=== PATIENT | female | born 1980 | race Caucasian/White ===

== ENCOUNTER 2019-12-03 17:39 | Outpatient (REF) | payer MEDICARE, MEDICAID, SELFPAY ==
[2019-12-03 19:09] LABS: Abs Immature Grans 0.01 k/cumm (0.0-0.09); Absolute Basophil Count 0.01 k/cumm (0.0-0.2); Absolute Eosinophil Count 0.12 k/cumm (0.0-0.7); Absolute Monocyte Count 0.47 k/cumm (0.11-0.7); Absolute Neutrophil Count 5.39 k/cumm (1.2-6.7); Basophils % 0.1; Eosinophils % 1.3; HGB 14.7 g/dL (12.0-15.5); Immature Grans % 0.1 %; Lymphocytes % 34.1; Mean Corp. HGB Concentration 34.2 g/dL (32.0-36.0); Mean Corpuscular Hemoglobin 30.9 pg (27.0-33.0); Mean Corpuscular Volume 90.3 fL (80-95); Mean Platelet Volume 9.9 fL (8.0-11.0); Monocytes % 5.2; Neutrophils % 59.2; Platelet Count 259 x1000/uL (130-400); RBC 4.76 m/cumm (4.00-5.20); RBC Distribution Width 13.4 % (11.7-14.6)
[2019-12-03 19:35] LABS: FREE T4 0.92 ng/dL (0.76-1.46); TSH 2.34 uIU/mL (0.36-3.74)
[2019-12-06 10:43] LABS: Thyroperoxidase Antibody 38 U/mL (<=60)
[2019-12-06 11:23] LABS: HIV-1/2 Ag & Ab Screen Negative (Negative)
[2019-12-06 12:26] LABS: EBNA IgG Positive (Negative); EBV Interpretation (See Note); VCA IgG Positive (Negative); VCA IgM Negative (Negative)
== END 2019-12-03 17:59 ==
LOC: NCHCN 17:39
PROVIDERS: PCP Internal Medicine; Visit Provider Internal Medicine
DX: L98.1 Factitial dermatitis (principal); L50.9 Urticaria, unspecified; R20.0 Anesthesia of skin; Z11.4 Encounter for screening for human immunodeficiency virus [HIV]
CPT/HCPCS: 87389; 84439; 84443; 85025; 86376; 86664; 86665

== ENCOUNTER 2020-06-14 18:13 | Outpatient (REF) | payer MEDICARE, MEDICAID, SELFPAY ==
[2020-06-16 08:37] LABS: C Difficile PCR Positive (Negative)
== END 2020-06-14 18:33 ==
LOC: NCHCN 18:13
PROVIDERS: PCP Internal Medicine; Visit Provider Internal Medicine
DX: R19.7 Diarrhea, unspecified (principal)
CPT/HCPCS: 83630; 87798

== ENCOUNTER 2020-10-20 17:36 | Outpatient (REF) | payer MEDICARE, MEDICAID, SELFPAY ==
[2020-10-21 19:32] LABS: COVID-19 RT-PCR Result NEGATIVE (Negative)
== END 2020-10-20 17:56 ==
LOC: NCHCN 17:36
PROVIDERS: PCP Internal Medicine; Visit Provider Physician Assistant
DX: R06.02 Shortness of breath (principal); M79.18 Myalgia, other site
CPT/HCPCS: U0003

== ENCOUNTER 2020-10-23 19:36 | Outpatient (REF) | payer MEDICARE, MEDICAID, SELFPAY ==
[2020-10-25 16:30] LABS: COVID-19 RT-PCR UVMMC Result Negative (Negative)
== END 2020-10-23 19:56 ==
LOC: NCHCN 19:36
PROVIDERS: PCP Internal Medicine; Visit Provider Internal Medicine
DX: M79.18 Myalgia, other site (principal)
CPT/HCPCS: U0003

== ENCOUNTER 2021-01-22 19:12 | Outpatient (REF) | payer MEDICARE, MEDICAID, SELFPAY ==
[2021-01-23 00:52] LABS: COVID-19 RT-PCR UVMMC Result Negative (Negative)
== END 2021-01-22 19:13 | disposition home or self-care (01) ==
LOC: NCHCN 19:12
PROVIDERS: PCP Internal Medicine; Visit Provider Physician Assistant
DX: Z20.822 Contact with and (suspected) exposure to COVID-19 (principal); R05 Cough
CPT/HCPCS: U0003; U0005

== ENCOUNTER 2021-01-26 18:32 | Outpatient (REF) | payer MEDICARE, MEDICAID, SELFPAY ==
[2021-01-26 20:04] LABS: HCT 43.8 % (36.0-46.0); HGB 14.7 g/dL (11.2-15.7); MCH 29.9 pg (27.0-33.0); MCHC 33.6 % (32.0-36.0); MCV 89.2 fL (80-95); MPV 9.9 fL (8.0-11.0); Platelet Count 282 10^3/uL (130-400); RBC 4.91 10^6/uL (3.93-5.22); RDW 13.3 % (11.7-14.6); RDW-SD 43.8 fL; WBC 7.36 10^3/uL (4.4-10.8)
[2021-01-26 20:32] LABS: Anion Gap 11.8 mmol/L (3-11); BUN 18 mg/dL (7-18); CO2 23.2 mmol/L (21.0-32.0); CREATININE 0.8 mg/dL (0.55-1.02); Calcium 8.9 mg/dL (8.5-10.1); Chloride 103 mmol/L (98-107); Glucose 88 mg/dL (74-106); Potassium 4.3 mmol/L (3.5-5.1); Sodium 138 mmol/L (136-145)
[2021-01-26 20:37] LABS: D-Dimer 346 ng/mlFEU (<500)
[2021-01-26 21:50] LABS: Hemoglobin A1C 4.8 % (<5.7)
== END 2021-01-26 18:33 | disposition home or self-care (01) ==
LOC: NCHCN 18:32
PROVIDERS: PCP Internal Medicine; Visit Provider Internal Medicine
DX: I26.99 Other pulmonary embolism without acute cor pulmonale (principal); B96.89 Other specified bacterial agents as the cause of diseases classified elsewhere; L08.1 Erythrasma; E66.9 Obesity, unspecified; R79.89 Other specified abnormal findings of blood chemistry
CPT/HCPCS: 80048; 85027; 83036; 85379

== ENCOUNTER 2021-08-17 11:40 | Outpatient (REF) | payer MEDICARE, MEDICAID, SELFPAY ==
[2021-08-19 14:31] LABS: COVID-19 RT-PCR UVMMC Result Negative (Negative)
[2021-08-20 09:49] LABS: Hepatitis C Ab w Rflx HCV PCR Negative (Negative)
[2021-08-20 10:09] LABS: Hepatitis B Surface Ag Negative (Negative)
[2021-08-20 10:55] LABS: HIV-1/2 Ag & Ab Screen Negative (Negative)
[2021-08-20 12:27] LABS: Syphilis Serology (RPR) Negative (Negative)
[2021-08-20 15:20] LABS: Chlamydia Result Negative (Negative); GC Result Negative (Negative)
== END 2021-08-17 11:41 | disposition home or self-care (01) ==
LOC: NCHCN 11:40
PROVIDERS: PCP Internal Medicine; Visit Provider Physician Assistant
DX: Z20.822 Contact with and (suspected) exposure to COVID-19 (principal); Z11.4 Encounter for screening for human immunodeficiency virus [HIV]; R30.0 Dysuria; Z11.3 Encounter for screening for infections with a predominantly sexual mode of transmission; Z11.59 Encounter for screening for other viral diseases; N89.8 Other specified noninflammatory disorders of vagina; Z01.419 Encounter for gynecological examination (general) (routine) without abnormal findings
CPT/HCPCS: 86803; 87340; 87389; 87491; 87591; U0003; 86592; 87480; 87510; 87660

== ENCOUNTER 2021-09-17 11:42 | Outpatient (REF) | payer MEDICARE, MEDICAID, SELFPAY ==
[2021-09-19 17:18] LABS: COVID-19 RT-PCR UVMMC Result Negative (Negative)
== END 2021-09-17 11:43 | disposition home or self-care (01) ==
LOC: NCHCN 11:42
PROVIDERS: PCP Internal Medicine; Visit Provider Nurse Practitioner Family
DX: Z20.822 Contact with and (suspected) exposure to COVID-19 (principal); J06.9 Acute upper respiratory infection, unspecified
CPT/HCPCS: U0003

== ENCOUNTER 2021-10-17 16:40 | Outpatient (REF) | payer MEDICARE, MEDICAID, SELFPAY ==
[2021-10-17 20:28] LABS: Bilirubin Negative (Negative); Blood Negative (Negative); Clarity Clear (Clear); Glucose Negative (Negative); Ketones Negative (Negative); Leukocyte Esterase Negative (Negative); Nitrite Negative (Negative); Specific Gravity >= 1.030 (1.005-1.025); Urobilinogen 0.2 EU/dL (Up TO 0.2)
== END 2021-10-17 16:41 | disposition home or self-care (01) ==
LOC: NCHCN 16:40
PROVIDERS: PCP Internal Medicine; Visit Provider Nurse Practitioner Family
DX: N89.8 Other specified noninflammatory disorders of vagina (principal)
CPT/HCPCS: 81003; 87480; 87510; 87660

== ENCOUNTER 2021-10-22 18:14 | Outpatient (REF) | payer MEDICARE, MEDICAID, SELFPAY ==
[2021-10-22 20:54] LABS: HCT 44.7 % (36.0-46.0); HGB 14.8 g/dL (11.2-15.7); MCHC 33.1 % (32.0-36.0); MCV 87.5 fL (80-95); MPV 9.8 fL (8.0-11.0); Platelet Count 297 10^3/uL (130-400); RBC 5.11 10^6/uL (3.93-5.22); RDW 13.2 % (11.7-14.6); RDW-SD 42.4 fL; WBC 7.44 10^3/uL (4.4-10.8)
[2021-10-22 21:10] LABS: ALT 32 U/L (14-59); AST 23 U/L (15-37); Albumin 3.4 g/dL (3.4-5.0); Alkaline Phosphatase 59 U/L (46-116); Anion Gap 9.1 mmol/L (3-11); BUN 12 mg/dL (7-18); Bilirubin, Total 0.3 mg/dL (0.2-1.0); C-Reactive Protein 0.22 mg/dL (0.0-0.3); CO2 26.9 mmol/L (21.0-32.0); Calcium 9.3 mg/dL (8.5-10.1); Chloride 101 mmol/L (98-107); Glucose 89 mg/dL (74-106); Potassium 4.6 mmol/L (3.5-5.1); Sodium 137 mmol/L (136-145); Total Protein 7.3 g/dL (6.4-8.2)
== END 2021-10-22 18:15 | disposition home or self-care (01) ==
LOC: NCHCN 18:14
PROVIDERS: PCP Internal Medicine; Visit Provider Internal Medicine
DX: Z86.16 Personal history of COVID-19 (principal); N76.1 Subacute and chronic vaginitis; L40.3 Pustulosis palmaris et plantaris
CPT/HCPCS: 80053; 85027; 86140

== ENCOUNTER 2021-10-25 10:35 | Emergency (ER) | payer MEDICARE, MEDICAID, SELFPAY ==
[2021-10-25] VITALS (8 sets, daily range): BP systolic 120–142; BP diastolic 80–95; PULSE 62–92; RESP 15–24; TEMP 36.5; O2SAT 100
--- NOTE | 2021-10-25 10:30 | RT.EKG_ITS ---
APPROVED REPORT Exam: Resting ECG Reason for Exam: pain between shoulder blades Patient Location: E HR:65 bpm ECG Measurements Heart Rate 65 AXIS TN 141 P 32 QRSd 97 QRS 72 QT 426 T 64 QTc 442 Conclusion Sinus rhythm...normal P axis, V-rate 60- 99 age<55 Physician: no stemi. inverted t waves in v1 and v2
--- NOTE | 2021-10-25 11:06 | DI.CT_ITS ---
Exam(s) CT CHEST PE CTA EXAM: CT CHEST PE CTA CLINICAL HISTORY: Shortness of breath, back pain. TECHNIQUE: Imaging Protocol: Axial CT angiography was performed with multi-slice acquisition and mu lti-planar and/or 3D reconstructions. CONTRAST MATERIAL: Intravenous: Omnipaque 350 Contrast volume: 99 ml COMPARISON: No exams were available for comparison FINDINGS: Exam is mildly limited by streak artifact from dense contrast entering the SVC and in the right atriu m. Exam mildly limited by patient body habitus. Pulmonary Arteries: No evidence of filling defect to suggest pulmonary emboli. Tracheobronchial tree: Patent where visualized. Mediastinum and Angela: No dominant adenopathy or fluid collection. Pulmonary parenchyma: Somewhat limited evaluation due to respiratory motion. No consolidation or dom inant measurable mass. Pleura: No effusion or pneumothorax. Heart: The heart is not dilated. No coronary artery calcifications are seen. Aorta: Thoracic aorta non-dilated. No aneurysm. No dissection. Upper abdomen: Unremarkable. Bones: Unremarkable for age. IMPRESSION: No evidence of pulmonary embolism. No acute abnormality. RADIATION DOSE DELIVERED: Total DLP DATA REPOSITORY: All CT scans at this facility are submitted to the National Radiology Data Registry (NRDR) Dose Index Registry (DIR) with the [employer] (ACR). RADIATION OPTIMIZATION: All CT scans at this facility use at least one of these dose optimization te chniques: automated exposure control; mA and/or kV adjustment per patient size (includes targeted exa ms where dose is matched to clinical indication); or iterative reconstruction.
[2021-10-25 11:21] LABS: Abs Immature Grans 0.03 10^3/uL (0.0-0.06); Absolute Basophil Count 0.05 10^3/uL (0.0-0.2); Absolute Eosinophil Count 0.18 10^3/uL (0.0-0.7); Absolute Lymphocyte Count 3.16 10^3/uL (1.2-3.4); Absolute Monocyte Count 0.44 10^3/uL (0.1-0.8); Absolute Neutrophil Count 4.33 10^3/uL (1.2-6.7); Basophils % 0.6; Eosinophils % 2.2; HCT 46.1 % (36.0-46.0); HGB 15.2 g/dL (11.2-15.7); Immature Grans % 0.4; Lymphocytes % 38.6; MCH 28.8 pg (27.0-33.0); MCV 87.5 fL (80-95); MPV 9.2 fL (8.0-11.0); Monocytes % 5.4; Neutrophils % 52.8; Nucleated RBC 0 %; Platelet Count 294 10^3/uL (130-400); RBC 5.27 10^6/uL (3.93-5.22); RDW 13.2 % (11.7-14.6); RDW-SD 42.6 fL; WBC 8.19 10^3/uL (4.4-10.8)
[2021-10-25 11:36] LABS: ALT 45 U/L (14-59); AST 28 U/L (15-37); Albumin 3.4 g/dL (3.4-5.0); Alkaline Phosphatase 65 U/L (46-116); Anion Gap 8.2 mmol/L (3-11); BUN 14 mg/dL (7-18); Bilirubin, Total 0.4 mg/dL (0.2-1.0); CO2 23.8 mmol/L (21.0-32.0); Calcium 8.9 mg/dL (8.5-10.1); Chloride 101 mmol/L (98-107); Glucose 90 mg/dL (74-106); Magnesium 2.1 mg/dL (1.8-2.4); Potassium 4.1 mmol/L (3.5-5.1); Sodium 133 mmol/L (136-145); Total Protein 7.9 g/dL (6.4-8.2); Troponin I < 50 ng/L (<or=60)
[2021-10-25] MEDS: Ondansetron 4 MG/2 ML VIAL IVP (11:40)
[2021-10-25] MEDS: Normal Saline 500 ML IV (11:40)
[2021-10-25] MEDS: Normal Saline Flush 10 ML SYR IVP (11:56)
[2021-10-25] MEDS: Omnipaque 350 MG/ML 100 ML BTL IJ (12:17)
--- NOTE | 2021-10-25 12:33 | ED.GENADUL_ITS ---
Discharge Plan Disposition Patient Disposition: HOME Condition: Stable Discharge Details Clinical Impression: Acute bilateral thoracic back pain, History of COVID-19, Dyspnea Primary Care Provider: Parish Mason ED Provider: Akira Casiano Home Meds and New Rx's Prescriptions: New cyclobenzaprine 10 mg tablet 10 mg PO TID PRN (Reason: muscle spasm) Qty: 15 RF: 0 diclofenac potassium 50 mg tablet 50 mg PO TID PRN (Reason: pain) Qty: 15 RF: 0 Continued metronidazole 0.75 % gel 1 applic VAGINAL DAILY RF: 0 trazodone 100 mg tablet 100 mg PO HS RF: 0 betamethasone valerate 0.1 % cream 1 applic TOPICAL Q2D RF: 0 ropinirole 2 mg tablet 4 mg PO HS RF: 0 methylphenidate HCl 20 mg tablet extended release 20 mg PO BID RF: 0 hydroxyzine HCl 25 mg tablet 50 mg PO HS RF: 0 ondansetron 4 mg tablet,disintegrating 4 mg PO Q6H PRN PRNRF: 0 Discharge Instructions Instructions: Dyspnea (ED), Back Pain (ED) Additional Instructions: Continue to monitor your symptoms and if you notice any new or worsening symptoms please return to the emergency department. Otherwise take medication as prescribed and follow-up with your primary care provider for reassessment. While on the prescribed pain medication please do not take any further NSAIDs which include ibuprofen, Motrin, aspirin, or Aleve. Referrals: Parish Mason [Primary Care Provider] - 1 week Discharge Data Discharge Date/Time-TO BE ENTERED AT DEPARTURE: 10/25/21 13:11 Medical Decision Making Patient presenting to the emergency department for chief complaint of back pain and shortness of breath. Patient reports symptoms of shortness of breath started with recent COVID diagnosis at the end of September and have persisted even after receiving monoclonal antibodies. She states over the last 3 to 4 days that she has had significant and severe worsening back pain between her shoulder blades. Patient denies fever chills, syncope, palpitations. Physical exam shows tenderness to soft tissue palpation of the paraspinal tissue of the posterior thoracic spine and the parascapular area. This also worsens with movement of the upper extremities. Exam is otherwise nondiagnostic. Given patient's recent COVID diagnosis with shortness of breath and severe back pain with lack of improvement plan to do labs and radiological imaging. Pending results patient given analgesic. Please see physician record of EKG interpretation which is nondiagnostic at this point but shows no signs of STEMI. Review of labs is reassuring and also is nondiagnostic. Spoke with radiologist in regards to CT imaging of chest for evaluation of shortness of breath with back pain. Radiologist noted no signs of PE, aortic dissection, and states overall unremarkable exam for acute processes. Patient reassessed and continues to have discomfort. After further discussion with patient she has been extremely sedentary throughout this process. Which may be contributing to musculoskeletal type pain. Patient is obese which is also contributing factor. Patient placed up on NSAIDs and muscle relaxers and recommended follow-up with primary care provider for reassessment. Also of consideration is potential long-haul COVID symptoms and this was discussed with patient. Her vital signs are stable and shows no hypoxia so I do feel that she is safe for discharge. After discussion of diagnosis and plan of care patient has no further needs, questions, or concerns and states clear understanding to return to the emergency department for any worsening symptoms. Lab Data Lab results reviewed: Yes I reviewed the patient's lab results. Labs: Laboratory Tests Range/Units 10/25/21 10/25/21 11:00 11:00 WBC (4.4-10.8) 10^3/uL 8.19 RBC (3.93-5.22) 10^6/uL 5.27 H Hgb (11.2-15.7) g/dL 15.2 Hct (36.0-46.0) % 46.1 H MCV (80-95) fL 87.5 MCH (27.0-33.0) pg 28.8 MCHC (32.0-36.0) % 33.0 RDW (11.7-14.6) % 13.2 Plt Count (130-400) 10^3/uL 294 MPV (8.0-11.0) fL 9.2 Immature Gran % 0.4 Neutrophils % 52.8 Lymphocytes % 38.6 Monocytes % 5.4 Eosinophils % 2.2 Basophils % 0.6 Nucleated RBC % % 0 Absolute Neutrophils (1.2-6.7) 10^3/uL 4.33 Absolute Lymphocytes (1.2-3.4) 10^3/uL 3.16 Absolute Monocytes (0.1-0.8) 10^3/uL 0.44 Absolute Eosinophils (0.0-0.7) 10^3/uL 0.18 Absolute Basophils (0.0-0.2) 10^3/uL 0.05 Sodium (136-145) mmol/L 133 L Potassium (3.5-5.1) mmol/L 4.1 Chloride (98-107) mmol/L 101 Carbon Dioxide (21.0-32.0) mmol/L 23.8 Anion Gap (3-11) mmol/L 8.2 BUN (7-18) mg/dL 14 Creatinine (0.55-1.02) mg/dL 1.0 Estimated GFR/1.73 m2 (mL/min/1.73m2) >= 60.00 Glucose (74-106) mg/dL 90 Calcium (8.5-10.1) mg/dL 8.9 Magnesium (1.8-2.4) mg/dL 2.1 Total Bilirubin (0.2-1.0) mg/dL 0.4 AST (15-37) U/L 28 ALT (14-59) U/L 45 Alkaline Phosphatase (46-116) U/L 65 Troponin I (<or=60) ng/L < 50 Total Protein (6.4-8.2) g/dL 7.9 Albumin (3.4-5.0) g/dL 3.4 HPI General Mode of arrival: ambulatory . Date/Time Provider Initiated Documentation: 10/25/21 10:36 . Limitations to Documentation: no limitations . Information obtained by: patient . History of Present Illness 41 year old F presents to the emergency department with the chief complaint of Back pain, described as severe, with intensity rated at 9. Quality is described as aching, sharp and constant, and is localized to the back. Patient reports no radiation. Patient started experiencing this day(s) (4) and it has been constant. Rest improves symptom(s), Movement worsens symptoms . Patient notes malaise and shortness of breath. Patient did receive the following treatments prior to arrival, none Related Data Home Medications Medication Instructions Recorded Confirmed betamethasone valerate 1 applic TOPICAL Q2D 10/25/21 10/25/21 cyclobenzaprine 10 mg PO TID PRN #15 tab 10/25/21 diclofenac potassium 50 mg PO TID PRN #15 tab 10/25/21 hydroxyzine HCl 50 mg PO HS 10/25/21 10/25/21 methylphenidate HCl 20 mg PO BID 10/25/21 10/25/21 metronidazole 1 applic VAGINAL DAILY 10/25/21 10/25/21 ondansetron 4 mg PO Q6H PRN PRN 10/25/21 10/25/21 ropinirole 4 mg PO HS 10/25/21 10/25/21 trazodone 100 mg PO HS 10/25/21 10/25/21 Previous Rx's Medication Instructions Recorded cyclobenzaprine 10 mg PO TID PRN #15 tab 10/25/21 diclofenac potassium 50 mg PO TID PRN #15 tab 10/25/21 Allergies Allergy/AdvReac Type Severity Reaction Status Date / Time No Known Drug Allergies Allergy Unverified 10/25/21 10:49 General Stated Complaint: SOB SAGAR: 2 Review of Systems Constitutional Constitutional: Denies chills, Denies fever(s) and Reports malaise Cardiovascular Cardiovascular: Denies chest pain, Denies palpitations, Reports dyspnea and Reports dyspnea on exertion Respiratory Respiratory: Denies cough, Reports dyspnea and Reports dyspnea on exertion Gastrointestinal Gastrointestinal: Denies abdominal pain, Denies change in bowel habits, Denies diarrhea, Denies nausea and Denies vomiting Genitourinary Genitourinary: Denies urinary incontinence Musculoskeletal Musculoskeletal: Reports as per HPI, Reports back pain (Scapular) and Reports myalgias Neurologic Neurologic: Denies sensory deficit Endocrine Endocrine: Denies palpitations PFSH All Active Problems (Updated 10/25/21 @ 12:36 by Akira Casiano NP) Acute bilateral thoracic back pain (Acute) History of COVID-19 (Acute) Dyspnea (Acute) Medical History (Updated 10/25/21 @ 12:36 by Akira Casiano NP) Depression HX SUBSTANCE ABUSE PID (Chlamydia) [employer] Surgical History section x2 Endoscopic Carpal Tunnel release (09/02/13) Trigger Finger release (09/02/13) LMF Social History Smoking/Tobacco Use Status: Current every day Tobacco Type: cigarettes Smoking risk assessment performed?: Yes Alcohol Intake: never Drug use: Daily Substance use type: marijuana Do you feel safe at home: Yes Do you feel safe in your relationship?: Yes Exam Const General: cooperative, anxious, not diaphoretic and not ill appearing Nutritional Appearance: obese Orientation: alert, awake and oriented x3 Limitations: mental status not altered Neck Neck: normal visual inspection, full ROM, trachea midline, supple and no anterior neck swelling Carotids: normal carotid upstroke and no bruits Chest Chest: normal inspection of the chest Resp Effort & Inspection: normal respiratory effort and able to speak in complete sentences Auscultation: clear to auscultation bilaterally Cardio Jugular venous pressure: no JVD Palpation: normal PMI Rate: regular rate Rhythm: regular rhythm Heart Sounds: S1 normal, S2 normal, no click, no gallops, no murmurs and no rubs Bruits: no abdominal aortic bruits and no carotid bruits Pulses: radial pulses present bilaterally 2+ Back/Spine/Pelvis Cervical Spine: normal cervical lordosis, cervical ROM normal, No cervical muscular tenderness and No cervical spinal tenderness Thoracic/Lumbar Spine: paraspinal tenderness (Bilateral extending to scapular region) Skin General skin exam: no rashes or lesions noted Neuro General: patient alert, patient awake, patient oriented x3, tone normal and moves all extremities Course Vital Signs Vital signs: Vital Signs Temperature 36.5 C 10/25/21 10:41 Pulse 77 10/25/21 10:41 Respiratory Rate 24 10/25/21 10:41 Blood Pressure 142/80 H 10/25/21 10:41 Pulse Oximetry 100 10/25/21 10:41 Temperature 36.5 C 10/25/21 10:41 Temperature Source Temporal Artery Scan 10/25/21 10:41 Pulse 92 H 10/25/21 11:00 Pulse 73 10/25/21 11:01 Respiratory Rate 20 10/25/21 11:01 Respiratory Effort 10/25/21 10:48 Blood Pressure 120/95 H 10/25/21 11:00 Blood Pressure Mean 101 10/25/21 11:00 Pulse Oximetry 100 10/25/21 11:01 Oxygen Delivery Method Room Air 10/25/21 10:41 Oxygen Flow Rate 0 10/25/21 10:41 Pain Level 10 10/25/21 10:41 Lab/Test Results Lab/Test Results: Laboratory Tests Range/Units 10/25/21 10/25/21 11:00 11:00 WBC (4.4-10.8) 10^3/uL 8.19 RBC (3.93-5.22) 10^6/uL 5.27 H Hgb (11.2-15.7) g/dL 15.2 Hct (36.0-46.0) % 46.1 H MCV (80-95) fL 87.5 MCH (27.0-33.0) pg 28.8 MCHC (32.0-36.0) % 33.0 RDW (11.7-14.6) % 13.2 Plt Count (130-400) 10^3/uL 294 MPV (8.0-11.0) fL 9.2 Immature Gran % 0.4 Neutrophils % 52.8 Lymphocytes % 38.6 Monocytes % 5.4 Eosinophils % 2.2 Basophils % 0.6 Nucleated RBC % % 0 Absolute Neutrophils (1.2-6.7) 10^3/uL 4.33 Absolute Lymphocytes (1.2-3.4) 10^3/uL 3.16 Absolute Monocytes (0.1-0.8) 10^3/uL 0.44 Absolute Eosinophils (0.0-0.7) 10^3/uL 0.18 Absolute Basophils (0.0-0.2) 10^3/uL 0.05 Sodium (136-145) mmol/L 133 L Potassium (3.5-5.1) mmol/L 4.1 Chloride (98-107) mmol/L 101 Carbon Dioxide (21.0-32.0) mmol/L 23.8 Anion Gap (3-11) mmol/L 8.2 BUN (7-18) mg/dL 14 Creatinine (0.55-1.02) mg/dL 1.0 Estimated GFR/1.73 m2 (mL/min/1.73m2) >= 60.00 Glucose (74-106) mg/dL 90 Calcium (8.5-10.1) mg/dL 8.9 Magnesium (1.8-2.4) mg/dL 2.1 Total Bilirubin (0.2-1.0) mg/dL 0.4 AST (15-37) U/L 28 ALT (14-59) U/L 45 Alkaline Phosphatase (46-116) U/L 65 Troponin I (<or=60) ng/L < 50 Total Protein (6.4-8.2) g/dL 7.9 Albumin (3.4-5.0) g/dL 3.4 POC- Test(urine) Negative
== END 2021-10-25 13:11 | disposition home or self-care (01) ==
PROVIDERS: Emergency Provider Nurse Practitioner Family; PCP Internal Medicine
DX: M54.6 Pain in thoracic spine (principal); Z86.16 Personal history of COVID-19; R06.00 Dyspnea, unspecified; R06.02 Shortness of breath
CPT/HCPCS: 36415; 71275; 80053; 81025; 93005; 96361; 96374; 96375; 99285; 83735; 84484; 85025; 93010; 99284; J2405; J3490

== ENCOUNTER 2022-10-17 11:17 | Outpatient (REF) | payer MEDICARE, MEDICAID, SELFPAY ==
[2022-10-17 19:01] LABS: ALT 16 U/L (14-59); AST 20 U/L (15-37); Albumin 3.4 g/dL (3.4-5.0); Alkaline Phosphatase 67 U/L (46-116); Anion Gap 7.2 mmol/L (3-11); BUN 12 mg/dL (7-18); Bilirubin, Total 0.5 mg/dL (0.2-1.0); CO2 25.8 mmol/L (21.0-32.0); CREATININE 0.9 mg/dL (0.55-1.02); Calcium 8.9 mg/dL (8.5-10.1); Chloride 104 mmol/L (98-107); Estimated GFR 82.37 (mL/min/1.73m2); Glucose 96 mg/dL (74-106); Potassium 4.1 mmol/L (3.5-5.1); Sodium 137 mmol/L (136-145); Total Protein 7.2 g/dL (6.4-8.2)
[2022-10-17 19:57] LABS: Hemoglobin A1C 5.1 % (<5.7)
== END 2022-10-17 11:18 | disposition home or self-care (01) ==
LOC: NCHCN 11:17
PROVIDERS: PCP Internal Medicine; Visit Provider Internal Medicine
DX: R73.03 Prediabetes (principal); K76.0 Fatty (change of) liver, not elsewhere classified
CPT/HCPCS: 80053; 83036

== ENCOUNTER 2022-11-27 16:09 | Outpatient (REF) | payer MEDICARE, MEDICAID, SELFPAY ==
[2022-11-29 10:11] LABS: Hepatitis C Ab w Rflx HCV PCR Negative (Negative)
[2022-11-29 10:23] LABS: HIV-1/2 Ag & Ab Screen Negative (Negative)
[2022-11-29 11:45] LABS: Syphilis Serology (RPR) Negative (Negative)
[2022-11-29 13:35] LABS: Chlamydia Result Negative (Negative); GC Result Negative (Negative)
== END 2022-11-27 16:10 | disposition home or self-care (01) ==
LOC: NCHCN 16:09
PROVIDERS: PCP Internal Medicine; Visit Provider Internal Medicine
DX: Z11.3 Encounter for screening for infections with a predominantly sexual mode of transmission (principal); Z11.4 Encounter for screening for human immunodeficiency virus [HIV]; Z11.59 Encounter for screening for other viral diseases
CPT/HCPCS: 86803; 87389; 87491; 87591; 86592

== ENCOUNTER 2023-01-23 07:00 | Emergency (ER) | payer MEDICARE, MEDICAID, SELFPAY ==
--- NOTE | 2023-01-23 07:30 | DI.RAD_ITS ---
Exam(s) XR WRIST RT COMPLETE EXAM: XR WRIST RT COMPLETE CLINICAL HISTORY: Pain. TECHNIQUE: 2D digital imaging was performed. Three views. COMPARISON: No exams were available for comparison FINDINGS: BONES: No acute fracture is present. No bony destructive lesion is seen. JOINTS: The carpal bones are normally aligned. SOFT TISSUE: Normal. IMPRESSION: Unremarkable radiographs of the right wrist. DATA REPOSITORY: RADIATION DOSE DELIVERED:
--- NOTE | 2023-01-23 07:30 | DI.RAD_ITS ---
Exam(s) XR SHOULDER RT COMPLETE 2+V EXAM: XR SHOULDER RT COMPLETE 2+V CLINICAL HISTORY: Pain. TECHNIQUE: 2D digital imaging was performed. Five views. COMPARISON: No exams were available for comparison FINDINGS: BONES: No acute fracture is present. No bony destructive lesion is seen. JOINTS: No dislocation present. SOFT TISSUE: Normal. IMPRESSION: Unremarkable radiographs of the right shoulder. DATA REPOSITORY: RADIATION DOSE DELIVERED:
--- NOTE | 2023-01-23 07:30 | DI.RAD_ITS ---
Exam(s) XR SCAPULA RT EXAM: XR SCAPULA RT CLINICAL HISTORY: Pain. TECHNIQUE: 2D digital imaging was performed. Two views. COMPARISON: CR XR SHOULDER RT COMPLETE 2+V from 01/23/2023 FINDINGS: BONES: No acute fracture is present. No bony destructive lesion is seen. JOINTS: No dislocation present. SOFT TISSUE: Normal. IMPRESSION: Unremarkable radiographs of the right scapula. DATA REPOSITORY: RADIATION DOSE DELIVERED:
--- NOTE | 2023-01-23 07:30 | DI.CT_ITS ---
Exam(s) CT CERVICAL SPINE WO EXAM: CT CERVICAL SPINE WO CLINICAL HISTORY: neck pain. TECHNIQUE: Imaging Protocol: Axial computed tomography images with coronal and sagittal reformatted images were created and reviewed CONTRAST MATERIAL: Noncontrast COMPARISON: No exams were available for comparison FINDINGS: Bones: No fracture or dislocations are seen. The alignment of the cervical spine is normal including the cervicovertebral junction and cervicothoracic junction. Soft Tissues: The soft tissues of the neck are unremarkable. No large disk herniations are identified . The visualized portions of the lung apices are clear. No pneumothorax is seen. IMPRESSION: Normal CT scan of the cervical spine. RADIATION DOSE DELIVERED: 555.83mGy.cm Total DLP DATA REPOSITORY: All CT scans at this facility are submitted to the National Radiology Data Registry (NRDR) Dose Index Registry (DIR) with the [employer] (ACR). RADIATION OPTIMIZATION: All CT scans at this facility use at least one of these dose optimization te chniques: automated exposure control; mA and/or kV adjustment per patient size (includes targeted exa ms where dose is matched to clinical indication); or iterative reconstruction.
--- NOTE | 2023-01-23 08:32 | W.EDPROG ---
Date of service: 01/23/23 Time of Service: 08:00 Medical Decision Making 0800 --please see Dr. Carver's note for initial presentation, exam and plan. Please note that patient was initially evaluated during [facility] downtime. Please refer to Dr. Carver's paper documentation for initial ED visit note. Case endorsed to follow-up on imaging results. Patient is a 42-year-old jtwvt-rtwt-vaenzaoh female who presents with right shoulder pain for the past 3 weeks after fall onto her right shoulder when slipping on ice. Patient states she had a direct blunt injury to her right lateral and posterior shoulder onto the ground. She states since then the pain in her shoulder has progressed and is now radiating up to the right side of her neck, right clavicle and right anterior chest area and also in her right wrist. She is also endorsing swelling and tingling in her right hand. She states she was initially seen at [facility] after her fall and had a right shoulder x-ray which she states was negative. 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 She states she has been taking ibuprofen without relief. She states she takes Suboxone for previous fentanyl use and has not yet received today. She has limitation of range of motion at right shoulder which appears to be worse with flexion, abduction and internal and external rotation. Right shoulder appears normal to inspection. She has tenderness along the right clavicle, right trapezius, right shoulder and right lateral cervical paraspinal muscles. Right wrist appears normal to inspection. She does have mild edema of the fingers of the right hand. Her right upper extremity distal pulses are intact. She has no obvious focal deficits and is NV intact. There are no open wounds, cellulitis or crepitus. 0840 -- Patient states she would like to go home. Discussed that her imaging results are not yet available and PACS currently not loading images. Discussed with patient at length that if her imaging is negative, her persistent and worsening pain could be secondary to overuse strain after an injury and/or spasm. We will treat with a short course of steroids and muscle relaxers if no evidence of fracture. She was given a sling for home. 0905 -- Patient's imaging results available just prior to discharge and she was informed that they were negative. Advised to follow up with the primary care doctor for re-evaluation and for referral to physical therapy or orthopedics if needed. Usual and customary return precautions given prior to discharge. Medical Records Medical records reviewed: Yes I reviewed the patient's medical records. Imaging Data Radiologic Study: Radiologist's impression: CT CERVICAL SPINE WO CLINICAL HISTORY: ? neck pain. ? TECHNIQUE:? Imaging Protocol: Axial computed tomography images with coronal and sagittal reformatted images were created and reviewed CONTRAST MATERIAL:? Noncontrast COMPARISON:? No exams were available for comparison FINDINGS: Bones: No fracture or dislocations are seen. The alignment of the cervical spine is normal including the cervicovertebral junction and cervicothoracic junction. Soft Tissues: The soft tissues of the neck are unremarkable. No large disk herniations are identified. The visualized portions of the lung apices are clear.? No pneumothorax is seen. IMPRESSION: Normal CT scan of the cervical spine. XR SHOULDER RT COMPLETE 2+V CLINICAL HISTORY: ? Pain.? TECHNIQUE:? 2D digital imaging was performed.? Five views. COMPARISON:? No exams were available for comparison FINDINGS: BONES: No acute fracture is present. No bony destructive lesion is seen. JOINTS: No dislocation present. SOFT TISSUE: Normal. IMPRESSION: Unremarkable radiographs of the right shoulder. XR SCAPULA RT CLINICAL HISTORY: ? Pain.? TECHNIQUE:? 2D digital imaging was performed.? Two views. COMPARISON:? CR XR SHOULDER RT COMPLETE 2+V from 01/23/2023 FINDINGS: BONES: No acute fracture is present. No bony destructive lesion is seen. JOINTS: No dislocation present. SOFT TISSUE: Normal. IMPRESSION: Unremarkable radiographs of the right scapula. XR WRIST RT COMPLETE CLINICAL HISTORY: ? Pain.? TECHNIQUE:? 2D digital imaging was performed.? Three views. COMPARISON:? No exams were available for comparison FINDINGS: BONES: No acute fracture is present. No bony destructive lesion is seen. JOINTS: The carpal bones are normally aligned. SOFT TISSUE: Normal. IMPRESSION: Unremarkable radiographs of the right wrist. Exam Neuro Other: Equal and symmetric radial, ulnar, median nerve gross motor function. Extrem Shoulder/upper arm images: 1. Area of tenderness to palpation. No evidence of erythema, edema, ecchymosis, crepitus. Limitation of range of motion at right shoulder secondary to pain with most increase in pain with flexion, abduction and internal and external rotation. Other: Right wrist appears normal to inspection. No evidence of deformity. Fingers of right hand does note mild edema. Right radial and ulnar pulses intact. Discharge Plan Disposition Patient Disposition: Home Condition: Stable Discharge Details Clinical Impression: Right shoulder strain, Cervical myofascial strain, Cervical radiculopathy Primary Care Provider: Parish Mason ED Provider: Concepcion Garcia Home Meds and New Rx's Prescriptions: New methocarbamol 500 mg tablet 500 mg PO Q6H PRN (Reason: muscle spasm) Qty: 14 0RF prednisone 20 mg tablet See Rx Instructions .ROUTE .COMPLEX Qty: 12 0RF Rx Instructions: Take 3 tabs daily for 2 days, then 2 tabs daily for 2 days, then 1 tab daily for 2 days Continued metronidazole 0.75 % gel 1 applic VAGINAL DAILY Patient Comments: INSERT ONE APPLICATORFUL INTO VAGINA AT BEDTIME FOR 5 DAYS trazodone 100 mg tablet 150 mg PO HS Patient Comments: TAKE 1 TABLET BY MOUTH ONCE DAILY AT BEDTIME FOR 30 DAYS betamethasone valerate 0.1 % cream 1 applic TOPICAL Q2D Patient Comments: APPLY A SMALL AMOUNT EVERY OTHER DAY TO AFFECTED AREA UNDER OCCLUSIVE DRESSING ON SOLE OF RIGHT FOOT ropinirole 2 mg tablet 4 mg PO HS Patient Comments: no longer takes 01/23/23 CT methylphenidate HCl 20 mg tablet extended release 20 mg PO BID Patient Comments: No longer takes 01/23/23 CT hydroxyzine HCl 25 mg tablet 50 mg PO HS Patient Comments: No longer takes 01/23/23 CT ondansetron 4 mg tablet,disintegrating 4 mg PO Q6H PRN PRN Patient Comments: No longer takes 01/23/23 CT cyclobenzaprine 10 mg tablet 10 mg PO TID PRN (Reason: muscle spasm) Qty: 15 0RF Patient Comments: No longer takes 01/23/23 CT diclofenac potassium 50 mg tablet 50 mg PO TID PRN (Reason: pain) Qty: 15 0RF Patient Comments: No longer takes 01/23/23 CT Discharge Instructions Instructions: Cervical Strain (ED), Shoulder Sprain (ED), Cervical Radiculopathy (ED) Additional Instructions: You are leaving before the results of your imaging studies are available. You will be notified if there is any evidence of fracture or other acute findings. You were given a sling to go to wear if you are notified with evidence of a fracture. If your imaging studies are found to be negative for any acute findings including fracture today, your symptoms may be secondary to overuse strain and or spasm. Rest, ice and elevated the affected area as much as possible. Alternate tylenol and motrin as needed and directed for pain. Prescriptions for steroids and muscle relaxers have been sent electronically to your pharmacy to take as directed. You can follow-up with your primary care doctor for reevaluation and for referral to physical therapy and/or orthopedics if your symptoms do not improve or worsen. Return immediately to the emergency department if you develop any worsening or new concerning symptoms. Stand Alone Forms: Work Release Referrals: Mesfin Mccann MD [ [facility] STAFF PHYSICIAN] - Discharge Data Discharge Date/Time-TO BE ENTERED AT DEPARTURE: 01/23/23 09:05 Discharge Physician: Concepcion Garcia
--- OUTSIDE RECORDS SUMMARY | 2023-01-23 08:32 | XMS_ITS | Continuity of Care Document ---
Author Name Unknown Organization [facility] Address [address] [place] [address] Care Team Providers Care Area Relief Pilot Name Role Phone au [facility] Primary [facility] Physician Encounter NCTY_IA Date(s): 10/12/22 - 10/12/[address] [address] Encounter Diagnosis Shoulder contusion(Discharge Diagnosis) - 10/12/22 Discharge Disposition: Home or Self Care Attending Physician: Jose Eduardo Vaughan MD Admitting Physician: Jose Eduardo Vaughan MD Allergies, Adverse Reactions, Alerts No Known Medication Allergies Assessment and Plan Future Appointments Functional Status 10/12/22 Other exposure to Infectious Disease Non e Immunizations Given and Recorded Vaccine Date Status Refusal Reason tetanus/diphth/pertuss (Tdap) adult/adol 06/09/11 Recorded Medications Albuterol (Eqv-ProAir HFA) 90 mcg/inh inhalation aerosol 2 puffs, Inhale, every 4 hr, PRN as needed for wheezing, 0 Refill(s) Start Date: 07/24/22 Status: Ordered erythromycin 0.5% ophthalmic ointment 0.5 inch, Eye-Both, QID, # 3.5 g, 0 Refill(s), Pharmacy: [id number], 164, cm, 07/24/22 8:35:00 EDT, Height/Length Dosing, 139, kg, 07/24/22 8:35:00 EDT, Weight Dosing Start Date: 07/24/22 Status: Ordered Flonase 50 mcg/inh nasal spray 2 sprays, Nasal, every morning, 0 Refill(s) Start Date: 07/24/22 Status: Ordered hydrOXYzine 0 Refill(s) Start Date: 10/10/22 Status: Ordered methylphenidate 20 mg/8 hr oral tablet, extended release 20 mg = 1 tab, Oral, BID, TAKE 1 TABLET BY MOUTH TWICE DAILY DIRECTED FOR 28 DAYS - FILLABLE ON OR AFTER 03/04/2022, # 56 tab, 0 Refill(s), Pharmacy: [id number], 164, cm, 03/06/22 7:55:00 EDT, Height/Length Dosing, 139, kg, 03/06/22 7:55... Start Date: 05/29/22 Stop Date: 06/26/22 Status: Ordered Probiotic Probiotic, 1 tab, Oral, Daily Start Date: 06/04/22 Status: Ordered QUEtiapine 50 mg oral tablet 50 mg = 1 tab, Oral, every night at bedtime, # 30 tab, 2 Refill(s), Pharmacy: [id number], 164, cm, 03/06/22 7:55:00 EDT, Height/Length Dosing, 139, kg, 03/06/22 7:55:00 EDT, Weight Dosing Start Date: 06/11/22 Stop Date: 09/09/22 Status: Ordered QUEtiapine 50 mg oral tablet 50 mg = 1 tab, Oral, every night at bedtime, # 90 tab, 0 Refill(s) Start Date: 07/24/22 Status: Ordered rOPINIRole 2 mg oral tablet 4 mg = 2 tab, Oral, every night at bedtime, # 60 tab, 0 Refill(s), Pharmacy: [id number],164, cm, 07/24/22 8:35:00 EDT, Height/Length Dosing, 139, kg, 07/24/22 8:35:00 EDT, Weight Dosing Start Date: 09/09/22 Stop Date: 10/09/22 Status: Ordered Suboxone 0 Refill(s) Start Date: 10/10/22 Status: Ordered traZODone 0 Refill(s) Start Date: 10/10/22 Status: Ordered traZODone 100 mg oral tablet 100 mg = 1 tab, Oral, every night at bedtime, TAKE 1 TABLET BY MOUTH ONCE DAILY AT BEDTIME FOR 30 DAYS, # 30 tab, 2 Refill(s), Pharmacy: [id number], 164, cm, 03/06/22 7:55:00 EDT, Height/Length Dosing, 139, kg, 03/06/22 7:55:00 EDT, Weight... Start Date: 06/11/22 Stop Date: 09/09/22 Status: Ordered Problem List Condition Confirmation Course Effective Dates Status H ealth Status Informant Anxiety disorder Confirmed 05/19/18 Active Attention deficit hyperactivity disorder Confirmed 05/12/20 Active Drug withdrawal Confirmed 06/24/18 Active Generalized anxiety disorder Confirmed 05/19/18 Active Hypertrophy of clitoris Confirmed Active Left knee pain Confirmed Active Meralgia paresthetica Confirmed Active Encounter for medication management Confirmed Active Posttraumatic stress disorder Confirmed 05/19/18 Active Depression, major, recurrent, moderate Confirmed Active Restless legs Confirmed 05/24/19 Active Secondary physiologic amenorrhea Confirmed Active Venereal disease screening Confirmed Active Procedures Procedure Date Related Diagnosis Body Site Status Left knee arthroscopy w/resection 1 11/16/18 Completed Carpal tunnel surgery Right with trigger finger release 07/12/10 Completed Nerve surgery 2 02/12/09 Completed Extraction of wisdom teeth 10/12/01 Completed section 3 Comple erin 1w/resection of unstable portion of post. 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 , 06/08/11 with T/L Vital Signs Most recent to oldest [Reference Range]: 1 Temperature Temporal Artery [36-38 Deg C ] 35.8 Deg C *LOW* (10/12/22 2:26 PM) Peripheral Pulse Rate [60-100 bpm] 79 bp m (10/12/22 2:26 PM) Respiratory Rate [12-24 br/min] 16 br/mi n (10/12/22 2:26 PM) Blood Pressure [90-140/60-90 mmHg] 131/7 3mmHg (10/12/22 2:26 PM) Weight Dosing 119.00 kg (10/12/22 2:31 PM) Weight Estimated 119.00 kg (10/12/22 2:26 PM) Height/Length Dosing 162.000 cm (10/12/22 2:31 PM) Height/Length Estimated 162.000 cm (10/12/22 2:26 PM) Social History Social History Type Response Tobacco Current everyday tob acco user Tobacco Use:. 1 PPD per day. Sex Female Hospital Discharge Instructions Patient Education 10/12/2022 14:58:23 Contusion Contusion A contusion is a deep bruise. Contusions are the result of a blunt injury to tissues and muscle fibers under the skin. The injury causes bleeding under the skin. The skin overlying the contusion may turn blue, purple, or yellow. Minor injuries will give you a painless contusion, but more severe injuries cause contusions that may stay painful and swollen for a few weeks. Follow these instructions at home: Pay attention to any changes in your symptoms. Let your health care provider know about them. Take these actions to relieve your pain. Managing pain, stiffness, and swelling ??? Use resting, icing, applying pressure (compression), and raising (elevating) the injured area. This is often called the RICE strategy. ??? Rest the injured area. Return to your normal activities as told by your health care provider. Ask your health care provider what activities are safe for you. ??? If directed, put ice on the injured area: ??? Put ice in a plastic bag. ??? Place a towel between your skin and the bag. ??? Leave the ice on for 20 minutes, 2???3 times per day. ??? If directed, apply light compression to the injured area using an elastic bandage. Make sure the bandage is not wrapped too tightly. Remove and reapply the bandage as directed by your health careprovider. ??? If possible, raise (elevate) the injured area above the level of your heart while you are sitting or lying down. General instructions ??? Take fibk-swa-xqecbpk and prescription medicines only as told by your health care provider. ??? Keep all follow-up visits as told by your health care provider. This is important. Contact a health care provider if: ??? Your symptoms do not improve after several days of treatment. ??? Your symptoms get worse. ??? You have difficulty moving the injured area. Get help right away if: ??? You have severe pain. ??? You have numbness in a hand or foot. ??? Your hand or foot turns pale or cold. Summary ??? A contusion is a deep bruise. ??? Contusions are the result of a blunt injury to tissues and muscle fibers under the skin. ??? It is treated with rest, ice, compression, and elevation. You may be given ykmw-xyw-pemznzy medicines for pain. ??? Contact a health care provider if your symptoms do not improve, or get worse. ??? Get help right away if you have severe pain, have numbness, or the area turns pale or cold. This information is not intended to replace advice given to you by your health care provider. Make sure you discuss any questions you have with your health care provider. Document Revised: 05/20/2019 Document Reviewed: 05/20/2019 [employer] Patient Education ?? 2021 [employer]. Follow Up Care 10/12/2022 14:26:03 With:Follow up with primary care provider Address: When:1 to 2 days Comments:You been seen in the emergency department and no emergent medical condition has been identified. ??It is recommended that you follow-up with your primary care provider within the next??48 hours. ??Ifyour condition worsens or you are unable to??arrange for appropriate follow-up please??reach out tothe emergency department by phone or return to the emergency department for repeat evaluation. Physician Emergency department Note * Jose Eduardo Vaughan MD: PERFORM Event Display: ED Note Physician Authored Date: [id number] ANDREWS ATKINSON :1980 Age:42 years Sex:Female Visit Date:10/12/2022 Primary Care Physician: Parish Kidd MD Basic Information Time Seen: Jose Eduardo Vaughan MD / 10/12/2022 14:37 Chief Complaint Pt states she slipped on ice yesterday, whole body soreness today with the worst pain being in R shoulder and arm. Denies LOC. History Of Present Illness: Patient with right-sided shoulder pain after falling on the ice yesterday. ??Now complains of pain in the back of the neck pain in her left hip.?? States that the pain occurred yesterday and she continues??with difficulty today.?? No numbness no tingling down the arm. ??No weakness of the hand. Review of Systems: Constitutional:?No??fevers,?No??chills,?No??sweats Eye:?No??recent visual problems ENT:?No??ear pain,?No??nasal congestion,?No??sore throat Respiratory:?No??shortness of breath,?No??cough Cardiovascular:?No??Chest pain,?No??palpitations,?No??syncope Gastrointestinal:?Nonausea,?No??vomiting,?No??diarrhea Genitourinary:?No??hematuria José/Lymph:?No??bruising tendency,?No??swollen lymph glands Endocrine:?No??excessive thirst,??No??excessive hunger Musculoskeletal:?? Integumentary:?No??rash,?No??pruritus,?No??abrasions Neurologic: Alert & oriented X 4 Psychiatric:?No??anxiety,?No??depression Physical Exam Vitals & Measurements T:??35.8?C ??(Temporal Artery)?? HR:??79??(Peripheral)?? RR:??16?? BP:??131/73?? SpO2:??97%?? HT:??162.000??cm?? WT:??119.00??kg??(Estimated)?? Pain Score:??10?? O2 Therapy:??Room air?? General: Alert and oriented, well nourished,?No??acute distress Eye: PERRL, EOMI,?Normal??conjunctiva HENT: No midline C-spine tenderness or evidence of trauma Neck:??FROM,??No??JVD Lungs: Non-labored?? respiration Heart:?Normal?? rate,?Regular??rhythm,?No??peripheral edema, Adequate peripheral perfusion Abdomen: Soft, non-tender, non-distended,?Normal?? bowel sounds,?No??masses Musculoskeletal:??Tenderness to palpation of the right shoulder with limited range of motion. ??Limited swelling and no ecchymosis is evident. Skin:??No??rashes,?No??lesions, Dry Neurologic: Awake, alert and oriented X4, CN II-XII intact, Steady Gait Psychiatric: Cooperative, appropriate mood and affect. Linear thought process Medical Decision Making: Possible shoulder contusion versus fracture or humeral head fracture. ??Will obtain right shoulder??x-ray??and reassess. Procedure No Qualifying Data Assessment/Plan 1.??Shoulder contusion??S40.019A Patient Education Contusion Follow Up With When Contact Information Follow up with primary care provider Within 1 to 2 days Additional Instructions: You been seen in the emergency department and no emergent medical condition has been identified. ??It is recommended that you follow-up with your primary care provider withinthe next??48 hours. ??If your condition worsens or you are unable to??arrange for appropriate follow-up please??reach out to the emergency department by phone or return to the emergency department for repeat evaluation. Medication Reconciliation Unchanged albuterol (Albuterol (Eqv-ProAir HFA) 90 mcg/inh inhalation aerosol)2 Puffs Inhale (breathe in) every 4 hours as needed as needed for wheezing. ?? buprenorphine-naloxone (Suboxone) ?? erythromycin ophthalmic (erythromycin 0.5% ophthalmic ointment)0.5 Inch Both eyes 4 times a day. Refills: 0. ?? fluticasone nasal (Flonase 50 mcg/inh nasal spray)2 Sprays Nasal (into the nose) every morning. ?? hydrOXYzine ?? methylphenidate (methylphenidate 20 mg/8 hr oral tablet, extended release)1 tab Oral (given by mouth) 2 times a day for 28 Days. TAKE 1 TABLET BY MOUTH TWICE DAILY DIRECTED FOR 28 DAYS - FILLABLE ON OR AFTER 03/04/2022. Refills: 0. ?? Other Prescription (Probiotic)1 tab Oral (given by mouth) every day. ?? QUEtiapine (QUEtiapine 50 mg oral tablet)1 tab Oral (given by mouth) every night at bedtime. ?? QUEtiapine (QUEtiapine 50 mg oral tablet)1 tab Oral (given by mouth) every night at bedtime for 30 Days. Refills: 2. ?? rOPINIRole (rOPINIRole 2 mg oral tablet)2 tab Oral (given by mouth) every night at bedtime for 30 Days. Refills: 0. ?? traZODone ?? traZODone (traZODone 100 mg oral tablet)1 tab Oral (given by mouth) every night at bedtime for 30 Days. TAKE 1 TABLET BY MOUTH ONCE DAILY AT BEDTIME FOR 30 DAYS. Refills: 2. Problem List/Past Medical History Ongoing Anxiety disorder Attention deficit hyperactivity disorder Depression, major, recurrent, moderate Drug withdrawal Encounter for medication management Generalized anxiety disorder Hypertrophy of clitoris Left knee pain Meralgia paresthetica Posttraumatic stress disorder Restless legs Secondary physiologic amenorrhea Venereal disease screening Historical Moderate recurrent major depression Procedure/Surgical History ???Left knee arthroscopy w/resection (11/17/2018)???Carpal tunnel surgery Right with trigger fingerrelease (07/13/2010)???Nerve surgery (02/13/2009)???Extraction of wisdom teeth (10/13/2001)??? section Allergies No Known Medication Allergies Social History Alcohol Past- Comments: socially Electronic Cigarette/Vaping Electronic Cigarette Use: Never. Employment/School disability Home/Environment Lives with Alone. Nutrition/Health Caffeine intake amount: coke -6 pack per day. Sleeping concerns: No. Other Psychosocial Substance Use Current, Marijuana, Prescription medications, Daily Tobacco Current everyday tobacco user Tobacco Use:. 1 PPD per day. Family History Depressive disorder: Father. Heart murmur: Father. Hypercholesterolemia: Father. Hypertension: Father. Hypertensive disorder: Father. Major depression: Father. Seizure: Father. Electronically Signed on 10/12/22 03:58 PM Jose Eduardo Vaughan MD Emergency department Discharge instructions * Jose Eduardo Vaughan MD: PERFORM Event Display: ED Discharge Information Authored Date: [id number] ANDREWS ATKINSON :1980 Age:42 years Sex:Female Visit Date:10/12/2022 Primary Care Physician: Marlon [facility], Parish Salgado MD Discharge Instructions We would like to thank you for allowing us to assist you with your healthcare needs. The following includes patient education materials and information regarding your injury/illness. Diagnosis from Today's Visit Shoulder contusion Discharge Vitals Temperature??(Temporal Artery) 96.4 ??F (35.8 ??C) Heart Rate??(Peripheral) 79 Respiratory Rate?? 16 Blood Pressure?? 131/73?? Height?? 63.78 in (162.000 cm) Weight??(Estimated) 262.40 lb (119.00 kg) Allergies No Known Medication Allergies What to Do Next You Need to Schedule the Following Appointments Follow Up with??Follow up with primary care provider When:??Within 1 to 2 days Why: You been seen in the emergency department and no emergent medical condition has been identified. ??It is recommended that you follow-up with your primary care provider within the next??48 hours.??If your condition worsens or you are unable to??arrange for appropriate follow-up please??reach out to the emergency department by phone or return to the emergency department for repeat evaluation. Upcoming Scheduled Appointments Friday. 2022 3:15 PM EST ?? You were treated today on an emergency basis; it may be mack to contact your primary care provider to notify them of your visit today. You may have been referred to your regular doctor or a specialist, please follow up as instructed. If your condition worsens or you can't get in to see the doctor, contact the Emergency Department. Medications What How Much When Why Instructions Next Dose Unchanged albuterol (Albuterol (Eqv-ProAir HFA) 90 mcg/ inh inhalation aerosol) 2 Puffs Inhale (breathe in) Every 4 hours as needed for as needed for wheezing Unchanged buprenorphine-naloxone (Suboxone) Unchanged erythromycin ophthalmic (erythromycin 0.5% ophthalmic ointment) 0.5 Inch Both eyes 4 times a day Withdrawal from opioids Conjunctivitis Unchanged fluticasone nasal (Flonase 50 mcg/ inh nasal spray) 2 Sprays Nasal (into the nose) Every morning Unchanged hydrOXYzine Unchanged methylphenidate (methylphenidate 20 mg/ 8 hr oral tablet, extended release) 1 tab Oral (given by mouth) 2 times a day ADHD (attention deficit hyperactivity disorder) Duration: 28 Days TAKE 1 TABLET BY MOUTH TWICE DAILY DIRECTED FOR 28 DAYS - FILLABLE ON OR AFTER 2021 ?? Unchanged Other Prescription (Probiotic) 1 tab Oral (given by mouth) Every day Unchanged QUEtiapine (QUEtiapine 50 mg oral tablet) 1 tab Oral (given by mouth) Every night at bedtime Unchanged QUEtiapine (QUEtiapine 50 mg oral tablet) 1 tab Oral (given by mouth) Every night at bedtime Depression, major, recurrent, moderate Anxiety disorder Posttraumatic stress disorder Duration: 30 Days Unchanged rOPINIRole (rOPINIRole 2 mg oral tablet) 2 tab Oral (given by mouth) Every night at bedtime Restless leg syndrome Duration: 30 Days Unchanged traZODone Unchanged traZODone (traZODone 100 mg oral tablet) 1 tab Oral (given by mouth) Every night at bedtime Depression, major, recurrent, moderate Insomnia Duration: 30 Days TAKE 1 TABLET BY MOUTH ONCE DAILY AT BEDTIME FOR 30 DAYS ?? Education Materials Contusion A contusion is a deep bruise. Contusions are the result of a blunt injury to tissues and muscle fibers under the skin. The injury causes bleeding under the skin. The skin overlying the contusion may turn blue, purple, or yellow. Minor injuries will give you a painless contusion, but more severe injuries cause contusions that may stay painful and swollen for a few weeks. Follow these instructions at home: Pay attention to any changes in your symptoms. Let your health care provider know about them. Take these actions to relieve your pain. Managing pain, stiffness, and swelling ? Use resting, icing, applying pressure (compression), and raising (elevating) the injured area. Thisis often called the RICE strategy. ? Rest the injured area. Return to your normal activities as told by your health care provider. Ask your health care provider what activities are safe for you. ? If directed, put ice on the injured area: ? Put ice in a plastic bag. ? Place a towel between your skin and the bag. ? Leave the ice on for 20 minutes, 2???3 times per day. ? If directed, apply light compression to the injured area using an elastic bandage. Make sure the bandage is not wrapped too tightly. Remove and reapply the bandage as directed by your health care provider. ? If possible, raise (elevate) the injured area above the level of your heart while you are sitting or lying down. General instructions ? Take dwzq-bbh-pnbockq and prescription medicines only as told by your health care provider. ? Keep all follow-up visits as told by your health care provider. This is important. Contact a health care provider if: ? Your symptoms do not improve after several days of treatment. ? Your symptoms get worse. ? You have difficulty moving the injured area. Get help right away if: ? You have severe pain. ? You have numbness in a hand or foot. ? Your hand or foot turns pale or cold. Summary ? A contusion is a deep bruise. ? Contusions are the result of a blunt injury to tissues and muscle fibers under the skin. ? It is treated with rest, ice, compression, and elevation. You may be given kkcl-trb-nidogui medicines for pain. ? Contact a health care provider if your symptoms do not improve, or get worse. ? Get help right away if you have severe pain, have numbness, or the area turns pale or cold. This information is not intended to replace advice given to you by your health care provider. Make sure you discuss any questions you have with your health care provider. Document Revised: 05/20/2019 Document Reviewed: 05/20/2019 [employer] Patient Education ?? 2021 [employer] Patient/Unit Operator Signature Patient Name:DEMETRIO ANDREWS Chencho I have received this information and my questions have been answered. Patient/Unit Operator Name: Patient/Unit Operator Signature: Relationship to Patient: Witness Name/Signature: Date: Electronically Signed on: 10/12/2022 15:58 ESTSigned by:JINNY Patient Care team information Personnel Name: Parish Kidd MD Address: Address: [address] [address]
--- OUTSIDE RECORDS SUMMARY | 2023-01-23 08:32 | XMS_ITS | Continuity of Care Document ---
Author Name Unknown Organization [facility] Address [address] [place] [address] Care Team Providers Care Piano Refinisher Name Role Phone [facility] Primary Care Physician Encounter [facility] Date(s): 07/24/22 - 07/24/22 [facility] [address] [place] [address] Encounter Diagnosis Withdrawal from opioids(Discharge Diagnosis) - 07/24/22 Conjunctivitis(Discharge Diagnosis) - 07/24/22 Discharge Disposition: Home or Self Care Attending Physician: Dennys Fox MD Admitting Physician: Dennys Fox MD Allergies, Adverse Reactions, Alerts No Known Medication Allergies Assessment and Plan Future Appointments Functional Status 07/24/22 Family Member Travel History No recent t ravel Recent Travel History No recent travel Other exposure to Infectious Disease Non e Immunizations Given and Recorded Vaccine Date Status Refusal Reason tetanus/diphth/pertuss (Tdap) adult/adol 06/09/11 Recorded Medications Albuterol (Eqv-ProAir HFA) 90 mcg/inh inhalation aerosol 2 puffs, Inhale, every 4 hr, PRN as needed for wheezing, 0 Refill(s) Start Date: 07/24/22 Status: Ordered erythromycin 0.5% ophthalmic ointment 0.5 inch, Eye-Both, QID, # 3.5 g, 0 Refill(s), Pharmacy: [id number], 164, cm, 07/24/22 8:35:00 EDT, Height/Length Dosing, 139, kg, 07/24/22 8:35:00 EDT, Weight Dosing Start Date: 07/24/22 Status: Ordered Flonase 50 mcg/inh nasal spray 2 sprays, Nasal, every morning, 0 Refill(s) Start Date: 07/24/22 Status: Ordered hydrOXYzine hydrochloride 25 mg oral tablet 50 mg = 2 tab, Oral, BID, X 30 days, # 120 tab, 2 Refill(s), 09/09/22 11:36:00 EST, Pharmacy: [id number], 164, cm, 03/06/22 7:55:00 EDT, Height/Length Dosing, 139, kg, 03/06/22 7:55:00 EDT, Weight Dosing Start Date: 06/11/22 Stop Date: 09/09/22 Status: Ordered methylphenidate 20 mg/8 hr oral tablet, extended release 20 mg = 1 tab, Oral, BID, TAKE 1 TABLET BY MOUTH TWICE DAILY DIRECTED FOR 28 DAYS - FILLABLE ON OR AFTER 03/04/2022, # 56 tab, 0 Refill(s), Pharmacy: [id number], 164, cm, 03/06/22 7:55:00 EDT, Height/Length Dosing, 139, kg, 03/06/22 7:55... Start Date: 05/29/22 Stop Date: 06/26/22 Status: Ordered methylphenidate 20 mg/8 hr oral tablet, extended release 20 mg = 1 tab, Oral, BID, 0 Refill(s) Start Date: 07/24/22 Status: Ordered Probiotic Probiotic, 1 tab, Oral, Daily Start Date: 06/04/22 Status: Ordered QUEtiapine 50 mg oral tablet 50 mg = 1 tab, Oral, every night at bedtime, # 30 tab, 2 Refill(s), Pharmacy: [id number], 164, cm, 03/06/22 7:55:00 EDT, [...] every night at bedtime, # 60 tab, 2 Refill(s), Pharmacy: [id number],164, cm, 03/06/22 7:55:00 EDT, Height/Length Dosing, 139, kg, 03/06/22 7:55:00 EDT, Weight Dosing Start Date: 06/21/22 Stop Date: 09/19/22 Status: Ordered traZODone 100 mg oral tablet 100 mg = 1 tab, Oral, every night at bedtime, TAKE 1 TABLET BY MOUTH ONCE DAILY AT BEDTIME FOR 30 DAYS, # 30 tab, 2 Refill(s), Pharmacy: [id number], 164, cm, 03/06/22 7:55:00 EDT, [...] femoral cutaneous nerve , 06/08/11 with T/L Results Laboratory List Name Date Test Urine Qual 07/24/22 Urinalysis with Micro if Indicated and C ulture if Indicated 07/24/22 Alcohol Level 07/24/22 CBC w/ Diff 07/24/22 Comprehensive Metabolic Panel 07/24/22 Lipase Level 07/24/22 Magnesium Level 07/24/22 Automated Diff 07/24/22 Most recent to oldest [Reference Range]: 1 WBC [5.0-10.0 x10^3/mcL] 9.1 x10^3/mcL (07/24/22 8:50 AM) RBC [4.1-5.3 x10^6/mcL] 5.8 x10^6/mcL *HI* (07/24/22 8:50 AM) Neutro Auto [40.0-75.0 %] 71.6 % (07/24/22 8:50 AM) Lymph Auto [20.0-50.0 %] 23.4 % (07/24/22 8:50 AM) Sterling Auto [2.0-15.0 %] 4.1 % (07/24/22 8:50 AM) Basophil Auto [0.0-1.0 %] 0.2 % (07/24/22 8:50 AM) BUN [7-18 mg/dL] 12 mg/dL (07/24/22 8:50 AM) UA Color Yellow (07/24/22 9:16 AM) Glucose Level [74-106 mg/dL] 98 mg/dL (07/24/22 8:50 AM) Potassium Level [3.5-5.1 mmol/L] 3.7 mmo l/L (07/24/22 8:50 AM) MCV [80.0-103.0 fL] 81.6 fL (07/24/22 8:50 AM) UA Urobilinogen Normal (07/24/22 9:16 AM) UA Bili [Negative] Negative (07/24/22 9:16 AM) UA Ketones 1+ *ABN* (07/24/22 9:16 AM) AST [15-37 unit/L] 16 unit/L (07/24/22 8:50 AM) ALT [16-63 unit/L] 18 unit/L (07/24/22 8:50 AM) MCHC [31.0-35.0 g/dL] 35.1 g/dL *HI* (07/24/22 8:50 AM) Sodium Level [136-145 mmol/L] 132 mmol/L *LOW* (07/24/22 8:50 AM) UA Leuk Est Negative (07/24/22 9:16 AM) UA Nitrite Negative (07/24/22 9:16 AM) UA Glucose [Negative] Negative (07/24/22 9:16 AM) Hct [37.0-47.0 %] 47.0 % (07/24/22 8:50 AM) Lipase Level [73-393 unit/L] 67 unit/L *LOW* (07/24/22 8:50 AM) Calcium Level [8.5-10.1 mg/dL] 9.1 mg/dL (07/24/22 8:50 AM) Albumin Level [3.4-5.0 g/dL] 3.1 g/dL *LOW* (07/24/22 8:50 AM) Protein Total [6.4-8.2 g/dL] 7.7 g/dL (07/24/22 8:50 AM) UA Protein Negative (07/24/22 9:16 AM) MCH [26.0-32.0 pg] 28.6 pg (07/24/22 8:50 AM) Magnesium Level [1.8-2.4 mg/dL] 1.9 mg/d L (07/24/22 8:50 AM) Neutro Absolute 6.5 x10^3/mcL *NA* (07/24/22 8:50 AM) Bilirubin Total [0.2-1.0 mg/dL] 0.9 mg/d L (07/24/22 8:50 AM) Hgb [12.0-16.0 g/dL] 16.5 g/dL *HI* (07/24/22 8:50 AM) Alk Phos [46-146 unit/L] 60 unit/L (07/24/22 8:50 AM) UA Blood Negative (07/24/22 9:16 AM) Ethanol Level [0-10 mg/dL] <5 mg/dL (07/24/22 8:50 AM) UA Spec Grav <=1.005 *NA* (07/24/22 9:16 AM) Platelets [130-450 x10^3/mcL] 291 x10^3/ mcL (07/24/22 8:50 AM) CO2 [21-32 mmol/L] 21 mmol/L (07/24/22 8:50 AM) UA pH 6.0 *NA* (07/24/22 9:16 AM) eGFR Non-AA [>=60] 74 (07/24/22 8:50 AM) eGFR AA [>=60] 74 (07/24/22 8:50 AM) UA Appear Clear (07/24/22 9:16 AM) Chloride Level [98-107 mmol/L] 98 mmol/L (07/24/22 8:50 AM) RDW-CV [11.7-17.0 %] 12.9 % (07/24/22 8:50 AM) Imm Gran Auto [0.0-0.9 %] 0.4 % (07/24/22 8:50 AM) Creatinine Level [0.55-1.02 mg/dL] 0.99 mg/dL (07/24/22 8:50 AM) Anion Gap [8-16 mmol/L] 15 mmol/L (07/24/22 8:50 AM) Eos, Auto [1.0-6.0 %] 0.3 % *LOW* (07/24/22 8:50 AM) U hCG Ql Negative (07/24/22 9:16 AM) Vital Signs Most recent to oldest [Reference Range]: 1 2 3 Temperature Temporal Artery [36-38 Deg C] 35.7 Deg C *LOW* (07/24/22 8:25 AM) Peripheral Pulse Rate [60-100 bpm] 50 bpm *LOW* (07/24/22 10:36 AM) 53 bpm *LOW* (07/24/22 10:05 AM) 49 bpm *LOW* (07/24/22 10:04 AM) Heart Rate Monitored [60-100 bpm] 60 bpm (07/24/22 10:36 AM) 55 bpm *LOW* (07/24/22 10:05 AM) 51 bpm *LOW* (07/24/22 10:04 AM) Respiratory Rate [12-24 br/min] 15 br/min (07/24/22 10:36 AM) 17 br/min (07/24/22 10:05 AM) 12 br/min (07/24/22 10:04 AM) Blood Pressure [90-140/60-90 mmHg] 122/76mmHg (07/24/22 10:36 AM) 107/80mmHg (07/24/22 10:05 AM) 107/80mmHg (07/24/22 10:04 AM) Weight Dosing 139.00 kg (07/24/22 8:35 AM) Weight Estimated 139.00 kg (07/24/22 8:25 AM) Height/Length Dosing 164.000 cm (07/24/22 8:35 AM) Height/Length Estimated 164.000 cm (07/24/22 8:25 AM) Social History Social History Type Response Tobacco Current everyday tob acco user Tobacco Use:. Sex Female Hospital Discharge Instructions Patient Education 07/24/2022 12:13:09 Opioid Withdrawal Opioid Withdrawal Opioids are powerful substances that relieve pain. Opioids include illegal drugs, such as heroin, as well as prescription pain medicines, such as codeine, morphine, hydrocodone, and fentanyl. Opioid withdrawal can happen if you have been taking opioids for a period of time and then suddenly stop. Opioid withdrawal can be mild to severe, and it may include a variety of different symptoms. It is not usually life-threatening. What are the causes? This condition is caused by taking opioids for a long period of time, usually over several weeks (or even only 5 days), and then doing any of the following: ??? Stopping use completely. ??? Rapidly reducing their use, either by reducing the dose or the frequency of use. ??? Taking a medicine to block the effect of the opioid (opioid antagonist). What increases the risk? The following factors may make you more likely to develop this condition: ??? Taking opioids for a long period of time. ??? Taking opioids incorrectly. ??? Having a history of opioid, alcohol, or illicit drug use and withdrawal from those substances. What are the signs or symptoms? Symptoms of this condition can be physical or mental. Mild physical symptoms include: ??? Nausea. ??? Muscle aches or spasms. ??? Watery eyes and runny nose. ??? Widening of the dark centers of the eyes (dilated pupils). ??? Flushing and itching of the skin. Moderate symptoms of this condition include: ??? Stomach cramps and diarrhea. ??? Vomiting. ??? Increased blood pressure and fast pulse. ??? Chills or sweating. ??? Twitching or shaking (tremors). Mental symptoms include: ??? Depression. ??? Anxiety. ??? Restlessness and irritability. ??? Trouble sleeping. ??? Increased craving for drugs. When symptoms start and how long they last depend on the kind of opioid you have been taking. ??? Short-acting opioids, such as heroin and oxycodone, work fast and then lose their effect quickly. Symptoms occur within hours of stopping or reducing the amount you take. The worst symptoms (peakwithdrawal) occur in 24???48 hours. Symptoms should diminish over the next 3 to 5 days. ??? Long-acting opioids, such as methadone, work for a longer period of time. Symptoms can occur within 30 hours of stopping or reducing the amount you take, and they usually resolve over the next 10days or so. There are also medicines that block the effects of opioids (opioid antagonists), such as naltrexoneor naloxone, and partial agonists such as buprenorphine. If you take one of these medicines, symptoms begin within minutes. How is this diagnosed? This condition is diagnosed based on: ??? Your symptoms. ??? Your medical history, including: ??? Your history of drug and alcohol use. ??? The medicines you have been taking. ??? A physical exam. ??? Other tests, such as an ECG to look at the rhythm of your heart or blood tests to check for problems. Your health care provider may ask you to see a mental health professional or outside event sales specialist. How is this treated? Treatment for this condition is usually provided by mental health professionals with training in substance use disorders (addiction specialists). Treatment may involve: ??? Counseling. This treatment is also called talk therapy. It is provided by substance use treatment counselors. ??? Support groups. Support groups are run by people who have quit using opioids. They provide emotional support, advice, and guidance. ??? Medicines. The medicines used may depend on the severity of your withdrawal. Options may include: ??? Medicines to help reduce certain withdrawal symptoms, such as nausea, vomiting, diarrhea, or stomach cramps. ??? An opioid or opioid-like medicine, such as methadone or buprenorphine, to replace the opioid that you have been taking. You may be asked to take less and less of this medicine over time to reduceor prevent withdrawal symptoms. ??? Other medicines that may decrease the effects of withdrawal. Follow these instructions at home: ??? Take iosg-ghd-jmofulb and prescription medicines only as told by your health care provider. ??? Always check with your health care provider before starting any new medicines. ??? Keep all follow-up visits. This is important. Follow-up visits include mental health and counseling visits. Contact a health care provider if: ??? You are not able to take your medicines as told. ??? Your symptoms get worse. ??? You take an opioid after stopping use, or you take more of an opioid than you have been. ??? You have questions about how to take your medicines or you are unsure of when to take them. Get help right away if: ??? You have a seizure. ??? You lose consciousness. ??? You cannot stop vomiting. ??? You are unable to drink or eat, and you become weak and dizzy. ??? You develop chest pain, shortness of breath, or fever. ??? You have serious thoughts about hurting yourself or others. These symptoms may represent a serious problem that is an emergency. Do not wait to see if the symptoms will go away. Get medical help right away. Call your local emergency services (931 in the [place] Do not drive yourself to the hospital. If you ever feel like you may hurt yourself or others, or have thoughts about taking your own life,get help right away. Go to your nearest emergency department or: ??? Call your local emergency services (528 in the [place] ??? Call a suicide crisis helpline, such as the National Suicide Prevention Lifeline at . This is open 24 hours a day in the [place] ??? Text the Crisis Text Line at 858799 (in the [place] Summary ??? Opioid withdrawal is a group of symptoms that can occur if you have been taking opioids for a period of time and suddenly stop. ??? Symptoms range from mild to severe, but opioid withdrawal is usually not life-threatening. ??? Common symptoms include anxiety, tremors, chills, body aches, nausea, vomiting, and diarrhea. Symptoms may last 5???10 days or so depending on the type of opioids that were involved. ??? Treatment may include counseling, support groups, and medicines. This information is not intended to replace advice given to you by your health care provider. Make sure you discuss any questions you have with your health care provider. Document Revised: 01/09/2022 Document Reviewed: 01/09/2022 Elsevier Patient Education ?? 2021 [employer] Follow Up Care 07/24/2022 08:25:44 With:Parish Kidd MD Address: [address] [address]- When:1 week Patient Care team information Personnel Name: Parish Kidd MD Address: Address: [address]
[2023-01-23] MEDS: Methocarbamol 500 MG TAB PO (08:50)
[2023-01-23] MEDS: predniSONE 20 MG TAB 60 MG PO (08:50)
== END 2023-01-23 09:05 | disposition home or self-care (01) ==
LOC: ER 09:10
PROVIDERS: Emergency Provider Physician Assistant; PCP Internal Medicine
DX: S46.911A Strain of unspecified muscle, fascia and tendon at shoulder and upper arm level, right arm, initial encounter (principal); S16.1XXA Strain of muscle, fascia and tendon at neck level, initial encounter; M54.12 Radiculopathy, cervical region; R20.2 Paresthesia of skin; W00.0XXA Fall on same level due to ice and snow, initial encounter; Y93.E5 Activity, floor mopping and cleaning; R60.0 Localized edema
CPT/HCPCS: 81025; 99284; 72125; 73010; 73030; 73110; J7512

== ENCOUNTER → 2023-02-11 08:45 | Outpatient (BNVA) | payer MEDICARE, MEDICAID, SELFPAY | PROVIDERS: PCP Internal Medicine; Referring Provider Internal Medicine; Visit Provider Student in an Organized Health Care Education/Training Program ==

== ENCOUNTER 2023-07-17 14:15 | Emergency (ER) | payer MEDICARE, MEDICAID, SELFPAY ==
[2023-07-17 14:26] VITALS: BP 140/78; PULSE 77; RESP 20; TEMP 36.2; O2SAT 99
--- NOTE | 2023-07-17 14:30 | DI.CT_ITS ---
Exam(s) CT ABDOMEN PELVIS WO EXAM: CT ABDOMEN PELVIS WO CLINICAL HISTORY: left flank pain 1 week. TECHNIQUE: Imaging Protocol: Axial computed tomography images with coronal and sagittal reformatted images were created and reviewed CONTRAST MATERIAL: Intravenous: none Oral: None COMPARISON: CT CT CHEST PE CTA from 10/25/2021 FINDINGS: VISUALIZED LUNG BASES: No pleural effusions. Mild increased markings are noted in the right middle l obe just above the hemidiaphragm, not fully included in the field of view. Visualized left lung base s clear.. ABDOMEN: There is no ascites. LIVER: There are no obvious focal hepatic lesions evident of this noninfused study. GALLBLADDER/BILIARY: No obvious gallbladder pathology. CBD is not dilated. PANCREAS: No evidence of pancreatic mass nor dilatation of the pancreatic duct. SPLEEN: Spleen is not enlarged. No obvious intrasplenic lesions. ADRENALS: There are no significant adrenal masses. KIDNEYS:No cysts evident. No solid renal masses. No calculi nor hydronephrosis.. Ureters are not dil ated. No obvious calculi in the nondistended urinary bladder. ABDOMINAL AORTA: Abdominal aorta is not enlarged. LYMPH NODES: There is no retroperitoneal nor paraaortic adenopathy. ABDOMINAL WALL: No evidence of significant anterior abdominal wall nor inguinal hernia. GI: There is no evidence of bowel obstruction, free air, nor abscess. PELVIS: LYMPH NODES: There is no intrapelvic nor inguinal adenopathy. GI: No evidence of appendicitis.No evidence of sigmoid diverticulitis. URINARY BLADDER: No calculi nor obvious masses evident REPRODUCTIVE: Uterus size upper normal. No abnormal adnexal masses. No free fluid OSSEOUS: No significant osseous lesions. No fractures evident IMPRESSION: 1. No radiopaque renal calculi. No obstruction of the urinary tracts. No radiopaque calculi nor oth er findings in the nondistended urinary bladder. 2. No evidence of appendicitis nor diverticulitis. 3. No evidence of bowel obstruction, free air, nor abscess and there is no ascites. Called by myself to ER RADIATION DOSE DELIVERED: 1,110.37mGy.cm Total DLP DATA REPOSITORY: All CT scans at this facility are submitted to the National Radiology Data Registry (NRDR) Dose Index Registry (DIR) with the [employer] (ACR). RADIATION OPTIMIZATION: All CT scans at this facility use at least one of these dose optimization te chniques: automated exposure control; mA and/or kV adjustment per patient size (includes targeted exa ms where dose is matched to clinical indication); or iterative reconstruction.
[2023-07-17 14:37] VITALS: TEMP 36.4
--- NOTE | 2023-07-17 14:38 | ED.GENADUL_ITS ---
Discharge Plan Discharge Details Chief Complaint: FlankPain Clinical Impression: Acute left flank pain Primary Care Provider: Parish Mason ED Provider: Weston Diallo Home Meds and New Rx's Prescriptions: No Action metronidazole 0.75 % gel 1 applic VAGINAL DAILY Patient Comments: INSERT ONE APPLICATORFUL INTO VAGINA AT BEDTIME FOR 5 DAYS trazodone 100 mg tablet 150 mg PO HS Patient Comments: TAKE 1 TABLET BY MOUTH ONCE DAILY AT BEDTIME FOR 30 DAYS betamethasone valerate 0.1 % cream 1 applic TOPICAL Q2D Patient Comments: APPLY A SMALL AMOUNT EVERY OTHER DAY TO AFFECTED AREA UNDER OCCLUSIVE DRESSING ON SOLE OF RIGHT FOOT ropinirole 2 mg tablet 4 mg PO HS Patient Comments: no longer takes 01/23/23 CT methylphenidate HCl 20 mg tablet extended release 20 mg PO BID Patient Comments: No longer takes 01/23/23 CT hydroxyzine HCl 25 mg tablet 50 mg PO HS Patient Comments: No longer takes 01/23/23 CT ondansetron 4 mg tablet,disintegrating 4 mg PO Q6H PRN PRN Patient Comments: No longer takes 01/23/23 CT cyclobenzaprine 10 mg tablet 10 mg PO TID PRN (Reason: muscle spasm) Qty: 15 0RF Patient Comments: No longer takes 01/23/23 CT diclofenac potassium 50 mg tablet 50 mg PO TID PRN (Reason: pain) Qty: 15 0RF Patient Comments: No longer takes 01/23/23 CT methocarbamol 500 mg tablet 500 mg PO Q6H PRN (Reason: muscle spasm) Qty: 14 0RF prednisone 20 mg tablet See Rx Instructions .ROUTE .COMPLEX Qty: 12 0RF Rx Instructions: Take 3 tabs daily for 2 days, then 2 tabs daily for 2 days, then 1 tab daily for 2 days albuterol sulfate 90 mcg/actuation HFA aerosol inhaler INHALATION PRN PRN Patient Comments: Inhale 2 puff using inhaler every four to six hours as needed for cough, shortness of breath or wheeze bupropion HCl 150 mg tablet extended release 24 hr 150 mg PO DAILY Patient Comments: TAKE 1 TABLET BY MOUTH ONCE DAILY IN THE MORNING buprenorphine-naloxone 2-0.5 mg film 1 film sublingual DAILY Patient Comments: PLACE 1 STRIP UNDER THE TONGUE ONCE DAILY IN THE MORNING FOR 14 DAYS buprenorphine-naloxone 12-3 mg film 1 film sublingual DAILY Patient Comments: PLACE 1 STRIP UNDER THE TONGUE ONCE DAILY IN THE MORNING FOR 14 DAYS Medical Decision Making 42-year-old female with a past medical history of 2 previous C- sections, tubal ligation, presents today for evaluation of left-sided flank pain. Symptoms have been present for the last week, they were intermittent at first, but over the last day or so they have become constant. Pain is located on the left flank. It is achy and stabbing in nature. Does not radiate anywhere else. She denies any nausea vomiting or diarrhea. She denies any numbness or tingling. No history of kidney stones in the past. She has not taken any medication today for the pain. She did take Motrin before and this did not help. No other complaints at this time. She denies any vaginal discharge or vaginal bleeding. No fever or chills. Symptoms are nonexertional. She denies any chest pain or chest tightness. Exam demonstrates well-appearing female, mild left-sided flank and CVA tenderness on palpation. No guarding or rebound. Differential includes diverticulitis, kidney stone. We will give Toradol, morphine, gently rehydrate, get a CT scan of the abdomen, monitor closely and reassess. 4:[address] scan results have returned, no evidence of acute process per radiology. Laboratory work-up is returned notably benign. No white count bandemia or left shift. Electrolytes all normal, renal function normal, urinalysis normal. On reassessment of the patient after Toradol and morphine she states that she feels no better whatsoever. She still complains of pain in the left flank but also states now it is epigastric as well. Work-up is notably benign otherwise. Uncertain as to what the exact etiology is that she still demonstrates a notably nonsurgical abdomen. I will add an EKG, troponin and lipase. She has no chest pain or shortness of breath or pleuritic chest pain. Symptoms inconsistent with PE or dissection. Symptoms appear notably clinically inconsistent with ACS. We will give a GI cocktail as well and some additional narcotic pain control. Patient will be signed out to my colleague Dr. Terell Bishop for follow-up on repeat labs and EKG. FINDINGS: VISUALIZED LUNG BASES: No pleural effusions. Mild increased markings are noted in the right middle lobe just above the hemidiaphragm, not fully included in the field of view. Visualized left lung bases clear.. ABDOMEN: There is no ascites. LIVER: There are no obvious focal hepatic lesions evident of this noninfused study. GALLBLADDER/BILIARY: No obvious gallbladder pathology. CBD is not dilated. PANCREAS: No evidence of pancreatic mass nor dilatation of the pancreatic duct. SPLEEN: Spleen is not enlarged. No obvious intrasplenic lesions. ADRENALS: There are no significant adrenal masses. KIDNEYS:No cysts evident. No solid renal masses. No calculi nor hydronephrosis.. Ureters are not dilated. No obvious calculi in the nondistended urinary bladder. ABDOMINAL AORTA: Abdominal aorta is not enlarged. LYMPH NODES: There is no retroperitoneal nor paraaortic adenopathy. ABDOMINAL WALL: No evidence of significant anterior abdominal wall nor inguinal hernia. GI: There is no evidence of bowel obstruction, free air, nor abscess. PELVIS: LYMPH NODES: There is no intrapelvic nor inguinal adenopathy. GI: No evidence of appendicitis.No evidence of sigmoid diverticulitis. URINARY BLADDER: No calculi nor obvious masses evident REPRODUCTIVE: Uterus size upper normal. No abnormal adnexal masses. No free fluid OSSEOUS: No significant osseous lesions. No fractures evident IMPRESSION: 1. No radiopaque renal calculi. No obstruction of the urinary tracts. No radiopaque calculi nor other findings in the nondistended urinary bladder. 2. No evidence of appendicitis nor diverticulitis. 3. No evidence of bowel obstruction, free air, nor abscess and there is no ascites HPI General Date/Time Provider Initiated Documentation: 07/17/23 14:18 . HPI Narrative: 42-year-old female with a past medical history of 2 previous C- sections, tubal ligation, presents today for evaluation of left-sided flank pain. Symptoms have been present for the last week, they were intermittent at first, but over the last day or so they have become constant. Pain is located on the left flank. It is achy and stabbing in nature. Does not radiate anywhere else. She denies any nausea vomiting or diarrhea. She denies any numbness or tingling. No history of kidney stones in the past. She has not taken any medication today for the pain. She did take Motrin before and this did not help. No other complaints at this time. She denies any vaginal discharge or vaginal bleeding. No fever or chills. Related Data Home Medications Medication Instructions Recorded Confirmed betamethasone valerate 0.1 % 1 applic topical Q2D 10/25/21 02/11/23 topical cream cyclobenzaprine 10 mg tablet 10 mg PO TID PRN muscle spasm #15 10/25/21 02/11/23 tabs diclofenac potassium 50 mg tablet 50 mg PO TID PRN pain #15 tabs 10/25/21 02/11/23 hydroxyzine HCl 25 mg tablet 50 mg PO HS 10/25/21 02/11/23 methylphenidate HCl 20 mg 20 mg PO BID 10/25/21 02/11/23 tablet,extended release metronidazole 0.75 % (37.5 mg/5 1 applic vaginal DAILY 10/25/21 02/11/23 gram) vaginal gel ondansetron 4 mg disintegrating 4 mg PO Q6H PRN PRN 10/25/21 02/11/23 tablet ropinirole 2 mg tablet 4 mg PO HS 10/25/21 02/11/23 trazodone 100 mg tablet 150 mg PO HS 10/25/21 07/17/23 methocarbamol 500 mg tablet 500 mg PO Q6H PRN muscle spasm #14 01/23/23 02/11/23 tabs prednisone 20 mg tablet See Rx Instructions .Route 01/23/23 02/11/23 .COMPLEX #12 tabs albuterol sulfate 90 mcg/actuation puff inhalation PRN PRN 07/17/23 aerosol inhaler buprenorphine 12 mg-naloxone 3 mg 1 film sublingual DAILY 07/17/23 07/17/23 sublingual film buprenorphine 2 mg-naloxone 0.5 mg 1 film sublingual DAILY 07/17/23 07/17/23 sublingual film bupropion HCl 150 mg 24 hr tablet, 150 mg PO DAILY 07/17/23 07/17/23 extended release Previous Rx's Medication Instructions Recorded cyclobenzaprine 10 mg tablet 10 mg PO TID PRN muscle spasm #15 10/25/21 tabs diclofenac potassium 50 mg tablet 50 mg PO TID PRN pain #15 tabs 10/25/21 methocarbamol 500 mg tablet 500 mg PO Q6H PRN muscle spasm #14 01/23/23 tabs prednisone 20 mg tablet See Rx Instructions .Route 01/23/23 .COMPLEX #12 tabs Allergies Allergy/AdvReac Type Severity Reaction Status Date / Time No Known Drug Allergies Allergy Unverified 10/25/21 10:49 General Stated Complaint: FlankPain SAGAR: 3 Review of Systems All systems reviewed & are unremarkable except as noted in HPI and below PFSH All Active Problems (Updated 07/17/23 @ 16:44 by Weston Diallo DO) Acute left flank pain (Acute) No-show for appointment (Acute) History of COVID-19 (Acute) Medical History Depression HX SUBSTANCE ABUSE PID (Chlamydia) [employer] Surgical History section x2 Endoscopic Carpal Tunnel release (09/02/13) Trigger Finger release (09/02/13) LMF Social History Smoking/Tobacco Use Status: Current every day Tobacco Type: cigarettes Smoking risk assessment performed?: Yes Alcohol Intake: never Drug use: Daily Substance use type: marijuana Do you feel safe at home: Yes Do you feel safe in your relationship?: Yes Exam Narrative Exam Narrative: 1.Const: Well-nourished, Well-developed, appearing stated age 2.Eyes: PERRL, no conjunctival injection, and symmetrical lids. 3.ENT: Atraumatic external nose and ears. Moist MM. Neck: Symmetric, trachea midline, No thyromegaly. 4.CVS: +S1/S2, No murmurs or gallops. Peripheral pulses 2+ and equal in all extremities. Brisk capillary refill in all extremities. 5.RESP: Unlabored respiratory effort. Clear to auscultation bilaterally. No wheezes rales or rhonchi 6.GI: Soft, nondistended. No guarding or rebound. Mild left-sided upper and left flank tenderness. Mild left-sided CVA tenderness. No pain at [place]'s point. Negative Abel sign. 7.MSK: Normocephalic/Atraumatic, Extremities w/o deformity or ttp No cyanosis or clubbing, Normal movement of all extremities 8.Skin: Warm, Dry. No rashes or lesions. 9.Neuro: rice drier II-XII grossly intact. Sensation grossly intact, no focal neurologic deficits. 10.Psych: (AAO) x3. Appropriate mood and affect Course Vital Signs Vital signs: Vital Signs Temperature 36.2 C L 07/17/23 14:26 Pulse 77 07/17/23 14:26 Respiratory Rate 20 07/17/23 14:26 Blood Pressure 140/78 07/17/23 14:26 Pulse Oximetry 99 07/17/23 14:26 Temperature 36.2 C L 07/17/23 14:26 Pulse 77 07/17/23 14:26 Respiratory Rate 20 07/17/23 14:26 Blood Pressure 140/78 07/17/23 14:26 Blood Pressure Position Sitting 07/17/23 14:26 Pulse Oximetry 99 07/17/23 14:26 Oxygen Delivery Method Room Air 07/17/23 14:26 Oxygen Flow Rate 0 07/17/23 14:26 Pain Level 9 07/17/23 14:26
[2023-07-17 14:46] LABS: Bilirubin Negative (Negative); Blood Negative (Negative); Clarity Clear (Clear); Glucose Negative (Negative); Ketones Negative (Negative); Leukocyte Esterase Negative (Negative); Nitrite Negative (Negative); Specific Gravity 1.025 (1.005-1.025); Urobilinogen 0.2 mg/dL (Up to 0.2)
[2023-07-17] MEDS: Normal Saline 500 ML IV (15:14)
[2023-07-17] MEDS: Ketorolac 15 MG/ML VIAL IVP (15:14)
[2023-07-17 15:25] LABS: Abs Immature Grans 0.02 10^3/uL (0.0-0.06); Absolute Basophil Count 0.04 10^3/uL (0.0-0.2); Absolute Eosinophil Count 0.24 10^3/uL (0.0-0.7); Absolute Lymphocyte Count 3.88 10^3/uL (1.2-3.4); Absolute Monocyte Count 0.47 10^3/uL (0.1-0.8); Absolute Neutrophil Count 4.92 10^3/uL (1.2-6.7); Basophils % 0.4; Eosinophils % 2.5; HCT 42.8 % (36.0-46.0); HGB 14.3 g/dL (11.2-15.7); Immature Grans % 0.2; Lymphocytes % 40.5; MCH 29.8 pg (27.0-33.0); MCHC 33.4 % (32.0-36.0); MCV 89 fL (80-95); MPV 9.2 fL (8.0-11.0); Monocytes % 4.9; Neutrophils % 51.5; Platelet Count 222 10^3/uL (130-400); RDW 12.6 % (11.7-14.6); RDW-SD 41.5 fL; WBC 9.57 10^3/uL (4.4-10.8)
[2023-07-17 15:32] LABS: ALT 15 U/L (14-59); AST 11 U/L (15-37); Alkaline Phosphatase 64 U/L (46-116); Anion Gap 6.5 mmol/L (3-11); BUN 11 mg/dL (7-18); Bilirubin, Total 0.3 mg/dL (0.2-1.0); CO2 27.5 mmol/L (21.0-32.0); CREATININE 0.9 mg/dL (0.55-1.02); Calcium 8.8 mg/dL (8.5-10.1); Chloride 102 mmol/L (98-107); Estimated GFR 82.37 (mL/min/1.73m2); Glucose 78 mg/dL (74-106); Potassium 3.7 mmol/L (3.5-5.1); Sodium 136 mmol/L (136-145); Total Protein 6.8 g/dL (6.4-8.2)
[2023-07-17 15:56] VITALS: BP 116/53; PULSE 78; RESP 16; O2SAT 99
--- NOTE | 2023-07-17 16:15 | RT.EKG_ITS ---
APPROVED REPORT Exam: Resting ECG Reason for Exam: chest pain Patient Location: E HR:53 bpm ECG Measurements Heart Rate 53 AXIS MA 137 P 29 QRSd 103 QRS 60 QT 454 T 45 QTc 427 Conclusion Sinus bradycardia...rate< 60 sinus bradycardia, normal axis, normal intervals, non ischemic
[2023-07-17] MEDS: HYDROmorphone 2 MG/ML SYR 1 MG IVP (16:39)
[2023-07-17 16:53] LABS: Troponin I < 50 ng/L (<or=60)
[2023-07-17 17:02] LABS: Lipase 28 U/L (16-77)
--- NOTE | 2023-07-17 17:42 | DI.CT_ITS ---
Exam(s) CT CHEST PE CTA EXAM: CT CHEST PE CTA CLINICAL HISTORY: chest and back pain hx of PE. TECHNIQUE: Imaging Protocol: Axial CT angiography was performed with multi-slice acquisition and mu lti-planar reconstructions as well as axial, coronal and sagittal MIP reconstructions. CONTRAST MATERIAL: Intravenous: Omnipaque 350 Contrast volume:100 ml COMPARISON: CT CT CHEST PE CTA from 10/25/[address] ABDOMEN PELVIS WO from 07/17/2023 FINDINGS: Pulmonary Arteries: No evidence of filling defect to suggest pulmonary emboli. Tracheobronchial tree: Patent where visualized. Mediastinum and Angela: No dominant adenopathy or fluid collection. Pulmonary parenchyma: No consolidation or dominant measurable mass. Minimal scarring right middle lob e. Minimal chronic appearing nodular density seen posterior right lower lobe, unchanged from prior. Pleura: No effusion or pneumothorax. Heart: The heart is not dilated. No coronary artery calcifications are seen. Aorta: Thoracic aorta non-dilated. No aneurysm. No dissection. Upper abdomen: Unremarkable. Bones: Unremarkable for age. Tubes, Catheters, and Lines: None IMPRESSION: No evidence of pulmonary embolism. No acute abnormality. RADIATION DOSE DELIVERED: 540.03mGy.cm Total DLP DATA REPOSITORY: All CT scans at this facility are submitted to the National Radiology Data Registry (NRDR) Dose Index Registry (DIR) with the [employer] (ACR). RADIATION OPTIMIZATION: All CT scans at this facility use at least one of these dose optimization te chniques: automated exposure control; mA and/or kV adjustment per patient size (includes targeted exa ms where dose is matched to clinical indication); or iterative reconstruction.
[2023-07-17] MEDS: Normal Saline - Diluent 50 ML VIAL IJ (17:54)
[2023-07-17] MEDS: Omnipaque 350 MG/ML 100 ML BTL IJ (17:54)
[2023-07-17] MEDS: Normal Saline 1,000 ML 1000 ML IV (18:07)
[2023-07-17] MEDS: Cyclobenzaprine 10 MG TAB PO (18:07)
[2023-07-17] MEDS: Dexamethasone 10 MG/ML VIAL IVP (18:07)
--- NOTE | 2023-07-17 18:32 | DI.VRAD_ITS ---
PROCEDURE INFORMATION: Exam: CTA Chest With Contrast Exam date and time: 07/17/2023 6:01 PM Age: 42 years old Clinical indication: Other: Chest and back pain HX of pe TECHNIQUE: Imaging protocol: Computed tomographic angiography of the chest with contrast. Exam focused on the arteries. 3D rendering (Not supervised by radiologist): MIP and/or 3D reconstructed images were created by the technologist. Contrast material: 350; Contrast volume: 100 ml; Contrast route: INTRAVENOUS (IV); COMPARISON: CT CHEST PE CTA 10/25/2021 11:47 AM FINDINGS: Pulmonary arteries: Pulmonary artery opacification is of good technical quality. No embolism evident. Aorta: Unremarkable. No aortic aneurysm. No aortic dissection. Lungs: No acute lung infiltrates or edema. Right middle lobe lateral segment nonspecific 5 mm nodule. Noncalcified. Stable since 10/25/2021. No further imaging follow-up is recommended based on Fleischner criteria. Pleural spaces: No pleural effusion. Heart: Mildly enlarged heart size. No pericardial effusion. No coronary artery atherosclerotic calcium. Minor reflux of contrast into the inferior vena cava and hepatic veins may represent elevated right heart pressure or mild right heart failure. Lymph nodes: Unremarkable. No enlarged lymph nodes. Bones/joints: Unremarkable. No acute fracture. Soft tissues: Chest wall soft tissues are unremarkable. IMPRESSION: 1. No evidence of pulmonary embolism. 2. Clear lung kovacs and pleural space. 3. Mildly enlarged heart size. No acute features. 4. Thoracic aorta is normal in course and caliber. 5. Stable 5 mm nodule in the lateral segment of the right middle lobe. No further imaging follow-up recommended based on Fleischner criteria. Dictated and Authenticated by: Desmond Mccarthy MD. Ordering:ANDREW Guadarrama MD
--- NOTE | 2023-07-17 18:32 | W.EDPROG ---
Date of service: 07/17/23 Time of Service: 18:32 Medical Decision Making Patient endorses history of PE, not on anticoagulation, CT chest unremarkable for PE. 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 Neurologically intact. Hemodynamically stable. Home with care instructions and return precautions Sign Out Sign Out Data: Sign Out Comment: Left flank pain, work-up notably benign including CT scan. Pending GI cocktail lipase troponin and EKG. Follow-up on these please. Likely stable for discharge if these are normal. Last updated by Weston Diallo DO at 07/17/23 16:45 Discharge Plan Disposition Patient Disposition: Home Condition: Stable Discharge Details Clinical Impression: Acute left flank pain Primary Care Provider: Parish Mason ED Provider: Thierry Phillip Home Meds and New Rx's Prescriptions: New lidocaine [Lidoderm] 5 % adhesive patch,medicated 1 patch topical DAILY Qty: 15 0RF Rx Instructions: leave on most painful area for up to 12 hrs cyclobenzaprine 5 mg tablet 5 mg PO QHS PRNQty: 7 0RF No Action metronidazole 0.75 % gel 1 applic VAGINAL DAILY Patient Comments: INSERT ONE APPLICATORFUL INTO VAGINA AT BEDTIME FOR 5 DAYS trazodone 100 mg tablet 150 mg PO HS Patient Comments: TAKE 1 TABLET BY MOUTH ONCE DAILY AT BEDTIME FOR 30 DAYS betamethasone valerate 0.1 % cream 1 applic TOPICAL Q2D Patient Comments: APPLY A SMALL AMOUNT EVERY OTHER DAY TO AFFECTED AREA UNDER OCCLUSIVE DRESSING ON SOLE OF RIGHT FOOT ropinirole 2 mg tablet 4 mg PO HS Patient Comments: no longer takes 01/23/23 CT methylphenidate HCl 20 mg tablet extended release 20 mg PO BID Patient Comments: No longer takes 01/23/23 CT hydroxyzine HCl 25 mg tablet 50 mg PO HS Patient Comments: No longer takes 01/23/23 CT ondansetron 4 mg tablet,disintegrating 4 mg PO Q6H PRN PRN Patient Comments: No longer takes 01/23/23 CT cyclobenzaprine 10 mg tablet 10 mg PO TID PRN (Reason: muscle spasm) Qty: 15 0RF Patient Comments: No longer takes 01/23/23 CT diclofenac potassium 50 mg tablet 50 mg PO TID PRN (Reason: pain) Qty: 15 0RF Patient Comments: No longer takes 01/23/23 CT methocarbamol 500 mg tablet 500 mg PO Q6H PRN (Reason: muscle spasm) Qty: 14 0RF prednisone 20 mg tablet See Rx Instructions .ROUTE .COMPLEX Qty: 12 0RF Rx Instructions: Take 3 tabs daily for 2 days, then 2 tabs daily for 2 days, then 1 tab daily for 2 days albuterol sulfate 90 mcg/actuation HFA aerosol inhaler INHALATION PRN PRN Patient Comments: Inhale 2 puff using inhaler every four to six hours as needed for cough, shortness of breath or wheeze bupropion HCl 150 mg tablet extended release 24 hr 150 mg PO DAILY Patient Comments: TAKE 1 TABLET BY MOUTH ONCE DAILY IN THE MORNING buprenorphine-naloxone 2-0.5 mg film 1 film sublingual DAILY Patient Comments: PLACE 1 STRIP UNDER THE TONGUE ONCE DAILY IN THE MORNING FOR 14 DAYS buprenorphine-naloxone 12-3 mg film 1 film sublingual DAILY Patient Comments: PLACE 1 STRIP UNDER THE TONGUE ONCE DAILY IN THE MORNING FOR 14 DAYS Discharge Instructions Instructions: Back Pain (ED)
[2023-07-17 18:49] VITALS: BP 116/50; PULSE 82; RESP 16; TEMP 37; O2SAT 95
--- NOTE | 2023-08-14 13:02 | NUR.NOTE ---
Work note still at [facility] to be picked up on this day. Accessed chart to mail it to patient. Nursing Note:
== END 2023-07-17 18:42 | disposition home or self-care (01) ==
PROVIDERS: Student in an Organized Health Care Education/Training Program; Emergency Provider Emergency Medicine; PCP Internal Medicine
DX: R10.9 Unspecified abdominal pain (principal)
CPT/HCPCS: 71275; 80053; 81025; 83690; 93005; 96361; 96374; 96375; 99285; 74176; 81003; 84484; 85025; 93010; 99284; J1100; J1170; J1885; J3490

== ENCOUNTER 2023-09-18 07:51 | Emergency (ER) | payer MEDICARE, MEDICAID, SELFPAY ==
[2023-09-18 07:52] VITALS: BP 169/74; PULSE 71; RESP 18; TEMP 36.4; O2SAT 100
--- NOTE | 2023-09-18 08:00 | RT.EKG_ITS ---
APPROVED REPORT Exam: Resting ECG Reason for Exam: neck pain Patient Location: E HR:56 bpm ECG Measurements Heart Rate 56 AXIS OR 134 P 18 QRSd 99 QRS 67 QT 437 T 50 QTc 423 Conclusion Sinus bradycardia...rate< [address] intervals. No [address] segment or T wave abnormalities to suggest occlusive MT
--- NOTE | 2023-09-18 08:11 | ED.GENADUL_ITS ---
Discharge Plan Disposition Patient Disposition: Home Condition: Good Discharge Details Clinical Impression: Difficulty in swallowing, Neck pain Primary Care Provider: Parish Mason ED Provider: Mindi Banks Home Meds and New Rx's Prescriptions: No Action trazodone 100 mg tablet 150 mg PO HS Patient Comments: TAKE 1 TABLET BY MOUTH ONCE DAILY AT BEDTIME FOR 30 DAYS bupropion HCl 150 mg tablet extended release 24 hr 150 mg PO DAILY Patient Comments: TAKE 1 TABLET BY MOUTH ONCE DAILY IN THE MORNING buprenorphine-naloxone 2-0.5 mg film 1 film sublingual DAILY Patient Comments: PLACE 1 STRIP UNDER THE TONGUE ONCE DAILY IN THE MORNING FOR 14 DAYS buprenorphine-naloxone 12-3 mg film 1 film sublingual DAILY Patient Comments: PLACE 1 STRIP UNDER THE TONGUE ONCE DAILY IN THE MORNING FOR 14 DAYS Discharge Instructions Instructions: Dysphagia (ED) Additional Instructions: Follow up with ENT; another referall has been sent. They should call you to schedule an appointment. Call your primary care doctor today to schedule an appointment within one week to follow up on your visit here. Return to the emergency department for new or worsening symptoms including drooling, worsening pain, fever, or if you have any other concerns. Referrals: Parish Mason [Primary Care Provider] - Medical Decision Making 42yo F with hx of depression, difficulty swallowing, presenting for neck pain and foreign body sensation. Reports having a barium swallow study on Friday which showed vocal cord dysfunction, has a referral for ENT. Choked on onion rings last night, since then foreign body sensation and neck pain which is worsening. Hypertensive on arrival, vital signs otherwise reassuring. No respiratory distress, no difficultly with secretions. On exam she has anterior neck tenderness into the right shoulder. Will treat pain with tylenol, toradol. Low suspicion for ACS but as there is a component of chest pain will get EKG, troponin. EKG sinus rhythm, appropriate intervals. No ST segment or T wave abnormalities to suggest occlusive IA . Labs reviewed as below, CBC & CMP reassuring with no actionable abnormalities, troponin negative in the setting of ~12 hours of pain (would not further pursue ACS or trend trops) , dimer negative (would not further pursue pulmonary embolism with CT). History and exam not suggestive of arterial dissection. CT neck independently reviewed, no free air on my view, radiology read below with no indication of esophageal perforation, deep space neck infection, or other abnoramlity. On reassessment she reports pain has improved. Advised outpatient followup with ENT. Discharged home; discharge instructions including return precautions were reviewed with patient who verbalized understanding. All questions were answered and they are in full agreement with the plan. Imaging Data Radiologic Study: Imaging: CT Scan Radiologist's impression: IMPRESSION: Normal CT scan of the neck. Lab Data Labs: Laboratory Tests Range/Units 09/18/23 08:18 WBC (4.4-10.8) 10^3/uL 6.60 RBC (3.93-5.22) 10^6/uL 5.22 Hgb (11.2-15.7) g/dL 15.8 H Hct (36.0-46.0) % 46.2 H MCV (80-95) fL 89 MCH (27.0-33.0) pg 30.3 MCHC (32.0-36.0) % 34.2 RDW (11.7-14.6) % 12.5 Plt Count (130-400) 10^3/uL 231 MPV (8.0-11.0) fL 9.2 Immature Gran % 0.5 Neutrophils % 53.3 Lymphocytes % 38.3 Monocytes % 5.3 Eosinophils % 1.8 Basophils % 0.8 Nucleated RBC % (0.0-0.3) % 0.0 Absolute Neutrophils (1.2-6.7) 10^3/uL 3.52 Absolute Lymphocytes (1.2-3.4) 10^3/uL 2.53 Absolute Monocytes (0.1-0.8) 10^3/uL 0.35 Absolute Eosinophils (0.0-0.7) 10^3/uL 0.12 Absolute Basophils (0.0-0.2) 10^3/uL 0.05 D-Dimer (<500) ng/mlFEU 458 Sodium (136-145) mmol/L 137 Potassium (3.5-5.1) mmol/L 4.0 Chloride (98-107) mmol/L 102 Carbon Dioxide (21.0-32.0) mmol/L 26.9 Anion Gap (3-11) mmol/L 8.1 BUN (7-18) mg/dL 10 Creatinine (0.55-1.02) mg/dL 1.0 Est GFR (CKD-EPI 2020) (mL/min/1.73m2) 72.58 Glucose (74-106) mg/dL 93 Calcium (8.5-10.1) mg/dL 9.1 Total Bilirubin (0.2-1.0) mg/dL 0.7 AST (15-37) U/L 17 ALT (14-59) U/L 20 Alkaline Phosphatase (46-116) U/L 54 Troponin I (<or=60) ng/L < 50 Total Protein (6.4-8.2) g/dL 7.6 Albumin (3.4-5.0) g/dL 3.4 HPI General Mode of arrival: ambulatory . Date/Time Provider Initiated Documentation: 09/18/23 07:52 . Limitations to Documentation: no limitations . Information obtained by: patient . HPI Narrative: 42yo F with hx of depression, difficulty swallowing, presenting for neck pain and foreign body sensation. Reports having a barium swallow study on Friday which showed vocal cord dysfunction, has a referral for ENT but has not yet rj eduled an appointment. Last night ate onion rings and felt like she choked on them. Since then has had neck pain. This morning woke with sensation of foreign body stuck in her throat, worsening anterior neck pain on the right radiating down into her chest. Pain is severe, constant, worse with inspiration. No difficultly with secretions. She is otherwise in her usual state of health with no fevers, chills, rash, nausea, vomiting, abdominal pain, numbness/tingling, focal weakness, or other concerns. Related Data Home Medications Medication Instructions Recorded Confirmed trazodone 100 mg tablet 150 mg PO HS 10/25/21 09/18/23 buprenorphine 12 mg-naloxone 3 mg 1 film sublingual DAILY 07/17/23 09/18/23 sublingual film buprenorphine 2 mg-naloxone 0.5 mg 1 film sublingual DAILY 07/17/23 09/18/23 sublingual film bupropion HCl 150 mg 24 hr tablet, 150 mg PO DAILY 07/17/23 09/18/23 extended release Allergies Allergy/AdvReac Type Severity Reaction Status Date / Time No Known Drug Allergies Allergy Unverified 09/18/23 07:56 General Stated Complaint: ThroatFB SAGAR: 3 Review of Systems Narrative: see HPI PFSH All Active Problems (Updated 09/18/23 @ 10:32 by Mindi Banks MD) Neck pain (Acute) Difficulty in swallowing (Acute) No-show for appointment (Acute) History of COVID-19 (Acute) Medical History Depression HX SUBSTANCE ABUSE PID (Chlamydia) R. MERALGIA PARESTHETICA SUBOXONE MAINTENANCE Surgical History section x2 Endoscopic Carpal Tunnel release (09/02/13) Trigger Finger release (09/02/13) LMF Social History Smoking/Tobacco Use Status: Current every day Tobacco Type: cigarettes Smoking risk assessment performed?: Yes Alcohol Intake: never Drug use: Daily Substance use type: marijuana Do you feel safe at home: Yes Do you feel safe in your relationship?: Yes Exam Narrative Exam Narrative: General: Alert, well appearing, well nourished Head: Normocephalic, atraumatic Neck: Trachea midline, Neck supple. Right anterior neck into anterior shoulder tender to palpation. ENT: MMM. No oropharygeal lesions or exudate. No visible foreign body. Cardiac: RRR, no murmurs appreciated. Symmetric radial pulses. Resp: No respiratory distress. CTAB. No difficulty with secretions. Abd: Non-distended Extremities: No deformities. No peripheral edema. Neurologic: GCS 15. Moves all extremities freely against gravity. Sensation to light touch intact and symmetric bilateral upper extremities. Course Vital Signs Vital signs: Vital Signs Temperature 36.4 C L 09/18/23 07:52 Pulse 71 09/18/23 07:52 Respiratory Rate 18 09/18/23 07:52 Blood Pressure 169/74 H 09/18/23 07:52 Pulse Oximetry 100 09/18/23 07:52 Temperature 36.4 C L 09/18/23 07:52 Temperature Source Skin 09/18/23 07:52 Pulse 71 09/18/23 07:52 Respiratory Rate 18 09/18/23 07:52 Blood Pressure 169/74 H 09/18/23 07:52 Blood Pressure Position Sitting 09/18/23 07:52 Pulse Oximetry 100 09/18/23 07:52 Oxygen Delivery Method Room Air 09/18/23 07:52 Oxygen Flow Rate 0 09/18/23 07:52 Pain Level 8 09/18/23 07:52
[2023-09-18 08:32] LABS: Abs Immature Grans 0.03 10^3/uL (0.0-0.06); Absolute Basophil Count 0.05 10^3/uL (0.0-0.2); Absolute Eosinophil Count 0.12 10^3/uL (0.0-0.7); Absolute Lymphocyte Count 2.53 10^3/uL (1.2-3.4); Absolute Monocyte Count 0.35 10^3/uL (0.1-0.8); Absolute Neutrophil Count 3.52 10^3/uL (1.2-6.7); Basophils % 0.8; Eosinophils % 1.8; HCT 46.2 % (36.0-46.0); HGB 15.8 g/dL (11.2-15.7); Immature Grans % 0.5; Lymphocytes % 38.3; MCH 30.3 pg (27.0-33.0); MCHC 34.2 % (32.0-36.0); MCV 89 fL (80-95); MPV 9.2 fL (8.0-11.0); Monocytes % 5.3; Neutrophils % 53.3; Platelet Count 231 10^3/uL (130-400); RBC 5.22 10^6/uL (3.93-5.22); RDW 12.5 % (11.7-14.6); RDW-SD 41.1 fL
[2023-09-18] MEDS: ACETAMINOPHEN 1,000 MG/100 ML BTL 400 MG IVPB (08:39)
[2023-09-18] MEDS: Ketorolac 15 MG/ML VIAL IVP (08:39)
[2023-09-18 08:51] LABS: ALT 20 U/L (14-59); AST 17 U/L (15-37); Albumin 3.4 g/dL (3.4-5.0); Alkaline Phosphatase 54 U/L (46-116); Anion Gap 8.1 mmol/L (3-11); BUN 10 mg/dL (7-18); Bilirubin, Total 0.7 mg/dL (0.2-1.0); CO2 26.9 mmol/L (21.0-32.0); Calcium 9.1 mg/dL (8.5-10.1); Chloride 102 mmol/L (98-107); Estimated GFR 72.58 (mL/min/1.73m2); Glucose 93 mg/dL (74-106); Sodium 137 mmol/L (136-145); Total Protein 7.6 g/dL (6.4-8.2); Troponin I < 50 ng/L (<or=60)
--- NOTE | 2023-09-18 09:00 | DI.CT_ITS ---
Exam(s) CT NECK W EXAM: CT NECK W CLINICAL HISTORY: anterior neck TTP, FB sensation, swallowing dysfun. TECHNIQUE: Imaging Protocol: Axial computed tomography images with coronal and sagittal reformatted images were created and reviewed CONTRAST MATERIAL: Intravenous: Omnipaque 350 Contrast volume:100 ml contrast COMPARISON: CT CT CERVICAL SPINE WO from 01/23/2023 FINDINGS: Parotids: Normal. Submandibular glands: Normal. Thyroid gland: Normal. Lymph nodes: There are scattered lymph nodes seen along the level one to level three all measuring le ss than 8 mm in short axis diameter which are physiologic in nature. Carotids arteries: No significant stenosis or dissection. Vertebral arteries: No significant stenosis or dissection. Soft tissues: The floor the mouth is unremarkable. The tonsils and adenoids are unremarkable. The epiglottis and vocal cords are within normal limits. Lungs: Images through both lung apices are unremarkable. Bones: Spine unremarkable.. Visualized portions of the brain and orbits: Unremarkable. Sinuses and mastoids: Clear. IMPRESSION: Normal CT scan of the neck. RADIATION DOSE DELIVERED: Total DLP DATA REPOSITORY: All CT scans at this facility are submitted to the National Radiology Data Registry (NRDR) Dose Index Registry (DIR) with the [employer] (ACR). RADIATION OPTIMIZATION: All CT scans at this facility use at least one of these dose optimization te chniques: automated exposure control; mA and/or kV adjustment per patient size (includes targeted exa ms where dose is matched to clinical indication); or iterative reconstruction.
[2023-09-18 09:03] LABS: D-Dimer 458 ng/mlFEU (<500)
[2023-09-18] MEDS: Normal Saline - Diluent 50 ML VIAL IJ (10:04)
[2023-09-18] MEDS: Omnipaque 350 MG/ML 500 ML BTL-Imaging package IJ (10:05)
[2023-09-18 10:10] VITALS: BP 126/75; O2SAT 100
--- NOTE | 2023-09-18 14:23 | NUR.NOTE ---
Referral faxed to ENT-Dr Hou for difficulty swallowing and needs a swallowing study. would like visit to be within 2 weeks.
== END 2023-09-18 10:43 | disposition home or self-care (01) ==
PROVIDERS: Emergency Provider Student in an Organized Health Care Education/Training Program; PCP Internal Medicine
DX: R13.10 Dysphagia, unspecified (principal); R00.1 Bradycardia, unspecified; F17.210 Nicotine dependence, cigarettes, uncomplicated
CPT/HCPCS: 36415; 70491; 80053; 81025; 93005; 96374; 96375; 99285; 84484; 85025; 85379; 93010; 99284; J0131; J1885

== ENCOUNTER → 2023-09-30 11:14 | Outpatient (BNVA) | payer MEDICARE, MEDICAID, SELFPAY | PROVIDERS: PCP Internal Medicine; Referring Provider Registered Nurse Maternal Newborn; Visit Provider Surgery | DX: R13.10 Dysphagia, unspecified (principal) | CPT/HCPCS: 99215 ==

== ENCOUNTER 2023-10-16 08:15 | Day surgery (SDC) | payer MEDICARE, MEDICAID, SELFPAY ==
--- NOTE | 2023-10-15 18:38 | W.PM.DSUDISC ---
Date of service: 10/16/23 Time of Service: 09:42 Discharge Plan Disposition Patient Disposition: Home Condition: Good Discharge Details Reason For Visit: EGD Attending Provider: Lionel Horton Primary Care Provider: Parish Mason Home Meds and New Rx's Prescriptions: Continued diclofenac sodium 1 % gel 2 g topical QID PRN Rx Instructions: apply to single elbow, wrist or hand; for hand includes palm/fingers/back of hand gabapentin 400 mg capsule 400 mg PO BID omeprazole 40 mg capsule,delayed release(DR/EC) 40 mg PO DAILY Qty: 30 1RF trazodone 100 mg tablet 150 mg PO HS Patient Comments: TAKE 1 TABLET BY MOUTH ONCE DAILY AT BEDTIME FOR 30 DAYS bupropion HCl 150 mg tablet extended release 24 hr 150 mg PO DAILY Patient Comments: TAKE 1 TABLET BY MOUTH ONCE DAILY IN THE MORNING buprenorphine-naloxone 2-0.5 mg film 1 film sublingual DAILY Patient Comments: PLACE 1 STRIP UNDER THE TONGUE ONCE DAILY IN THE MORNING FOR 14 DAYS buprenorphine-naloxone 12-3 mg film 1 film sublingual DAILY Patient Comments: PLACE 1 STRIP UNDER THE TONGUE ONCE DAILY IN THE MORNING FOR 14 DAYS Discharge Instructions Instructions: Diet for Stomach Ulcers and Gastritis (GEN), GERD (Gastroesophageal Reflux Disease) (GEN), Barrera Esophagus (GEN) Additional Instructions: Reagan, we were able to complete your upper endoscopy today without any difficulty. The only abnormality that I saw involves the lower part of your esophagus, where it connects down to your stomach. There was some mild irregularity of this connection, which has features consistent with something called Barrera's esophagus. Essentially, these are chronic changes of the GE junction that typically result from longstanding gastroesophageal reflux disease. Although your symptoms occur mostly in your upper neck, I do wonder if heartburn is actually what you have been experiencing. It certainly reassuring that the omeprazole has helped with some of the symptoms. I think you should continue that. I would also strongly advise avoiding any type of tobacco use, or alcohol consumption, since these have been well-documented as contributing to Barrera's esophagus. Just to be safe, I did do some biopsies of the area. That will take a week or 2 to get the results from. Once I have those results, I will be in touch regarding whether or not you need another endoscopy in the future. 1. If tolerated, consume a soft, low fiber diet for 1-2 days. [address] Do not drive, drink alcohol, operate machinery, make critical decisions, or do activities that require coordination or balance for 24 hours. 3. You may experience a sore throat for 24 to 48 hours. You may use throat lozenges or gargle with warm salt water to relieve the discomfort. 4. Because air was put into your stomach during the procedure, you may experience some belching. 5. Go directly to the emergency room if you notice any of the following: Develop chills (warm to touch), or if you have a thermometer and your temperature is above 101 Difficulty breathing or difficultly swallowing Persistent vomiting Severe abdominal pain, other than gas cramps Severe chest pain Black, tarry stools Any bleeding ? exceeding one tablespoon 6. Call your physician if the site where your intravenous was started becomes red, swollen, painful, and warm to touch. 7. Your physician has reviewed your pre-procedure medications. Please continue to take those medications as previously ordered. You will be given specific information/education regarding any changes to your medications before leaving. Activity:: Activity as Tolerated Diet:: As Tolerated Discharge Orders Discharge Orders: Discharge Order (Routine); Ordered 10/15/23 Ordered By: Lionel Horton DS: Diagnosis Discharge Diagnosis (1) Difficulty in swallowing: Status: Acute
--- NOTE | 2023-10-15 18:40 | W.PM.ENDDOP ---
Date of service: 10/16/23 Time of Service: 09:44 Endoscopy Report DATE OF PROCEDURE: 10/16/23 PRE-OP DIAGNOSIS: Dysphagia POST-OP DIAGNOSIS: other (GERD with possible Barrera's esophagus) PROCEDURE: EGD with biopsies SURGEON: Lionel Horton ANESTHESIA TYPE: MAC ESTIMATED BLOOD LOSS: 5 PATHOLOGY: other (Four-quadrant biopsies of the GE junction) COMPLICATIONS: None DISPOSITION: same day INDICATIONS: Reagan is a 43 year old woman with dysphagia. PROCEDURE START TIME: :31 PROCEDURE END TIME: :39 FINDINGS: Short segment Barrera's esophagus extending from 35 to 37 cm from the incisors PROCEDURE DESCRIPTION: After the initiation of monitored anesthetic care, and with the assistance of a bite block, I advanced a standard gastroscope through the mouth past the hypopharynx and into the esophagus.? Under the direct vision of the scope, I advanced down the esophagus into the stomach.? Once I entered the stomach, I performed a brief inspection, followed by retroflexion towards the gastric cardia.? This appeared normal. I saw no evidence of hiatal hernia after that, I gently advanced the scope around the incisura angularis and examined the pylorus.? This also appeared normal.? Next, I advanced the scope through the pylorus into the duodenum.? The mucosa was pink and healthy appearing.? There were no abnormalities.? I was able to visualize bile draining into the duodenum through the ampulla Vater. ?Next, I began retracting the endoscope.? I brought the camera back into the stomach, and examined it once again. I perform random biopsies of the gastric antrum and body to rule out Helicobacter pylori as a source of the patient's symptoms. This was done with cold forceps and there was minimal bleeding.? Next, I brought the camera back up to the GE junction. There was irregularity of the Z-line extending from 35 to 37 cm. Narrowband imaging was used to assist with analysis. Because this had some clinical features consistent with Barrera's esophagus, I perform four-quadrant biopsies of the GE junction. This was done with cold forceps and minimal bleeding. I then advanced the camera back down to the stomach and emptied it. Next, I brought the camera back into the esophagus, and carefully examined the length of the esophagus from the GE junction up to the cricopharyngeus area. I saw no evidence of any other abnormalities. I saw no diverticula webs or strictures. I saw no evidence of any esophageal inlet patch. I then removed the camera, the patient was brought back to the recovery unit as the anesthetic wore off.
[2023-10-16] VITALS (7 sets, daily range): BP systolic 109–146; BP diastolic 63–91; PULSE 60–79; RESP 11–18; TEMP 36.3–36.7; O2SAT 98–100; BMI 44.3
[2023-10-16] MEDS: Lactated Ringers 1,000 ML 80 ML IV (09:05)
--- NOTE | 2023-10-16 09:06 | ANES.PREOP_ITS ---
General Info Date of Service Date Performed: 10/16/23 Height: 5 ft 4 in Weight: 117.2 kg Body Mass Index (BMI): 44.3 Surgical Procedure: Operation Date: 10/16/23 09:35 Proposed Procedure Side Surgeon p Gastroscopy Lionel Horton MD Meds Allergies and Home Medications Allergies Allergy/AdvReac Type Severity Reaction Status Date / Time No Known Drug Allergies Allergy Unverified 10/15/23 10:58 Home Medication Medication Instructions Recorded trazodone 100 mg tablet 150 mg PO HS 10/25/21 buprenorphine 12 mg-naloxone 3 mg 1 film sublingual DAILY 07/17/23 sublingual film buprenorphine 2 mg-naloxone 0.5 mg 1 film sublingual DAILY 07/17/23 sublingual film bupropion HCl 150 mg 24 hr tablet, 150 mg PO DAILY 07/17/23 extended release diclofenac sodium 1 % topical gel 2 g topical QID PRN 09/19/23 gabapentin 400 mg capsule 400 mg PO BID 09/24/23 omeprazole 40 mg capsule,delayed 40 mg PO DAILY #30 caps 09/24/23 release Current Visit Medications: Current Medications Generic Name Dose Route Start Last Admin Trade Name Freq PRN Reason Stop Dose Admin Hyoscyamine Sulfate 0.125 mg 10/15/23 18:41 Hyoscyamine 0.125 Mg Sl/Oral/Chew SL 11/14/23 18:40 DIRECTED PRN Ringer's Solution 1,000 mls @ 80 mls/hr 10/16/23 06:00 IV 10/16/23 23:59 [facility] IV Miscellaneous Supplies 1 each 10/16/23 06:00 Iv Access IV 10/16/23 23:59 DIRECTED GAEL Ondansetron HCl 4 mg 10/15/23 18:41 Ondansetron 4 Mg/2 Ml Vial IVP 11/14/23 18:40 Q4H PRN PRN Nausea / Vomiting Sodium Chloride 0 ml 10/16/23 06:00 Normal Saline Flush 10 Ml Syr IV 10/16/23 23:59 PRN PRN Sodium Chloride 0 ml 10/16/23 06:00 Normal Saline 10 Ml Vial IJ 10/16/23 23:59 DIRECTED PRN Sterile Water 0 ml 10/16/23 06:00 Water,Injection,Sterile 10 Ml Vial IJ 10/16/23 23:59 DIRECTED PRN PFSH Active Problems Active Problems: Problem Status Onset Code Neck pain M54.2 Difficulty in swallowing R13.10 No-show for appointment Z91.199 History of COVID-19 Z86.16 Medical History Medical History 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 states she has never been told she has any issues with her heart Pulmonary embolism 2009 Opioid dependence Severe recurrent major depression Obesity Mixed hyperlipidemia Onychomycosis due to dermatophyte Herpes zoster Bacterial infectious disease Erythrasma Cervical radiculopathy SUBOXONE MAINTENANCE R. MERALGIA PARESTHETICA PID (Chlamydia) Depression HX SUBSTANCE ABUSE Surgical History Surgical History Hx of tubal ligation Trigger Finger release (09/02/13) LMF section x2 Endoscopic Carpal Tunnel release (09/02/13) Tobacco Smoking/Tobacco Use Status: Current every day Tobacco Type: cigarettes Alcohol Alcohol Intake: never Substance Use Substance use: Daily Substance use type: marijuana Vital Signs and Lab Results Vital Signs Most Recent Vital Signs in EMR: Most Recent Vital Signs Temp Pulse Resp BP Pulse Ox 36.6 C 65 18 109/91 H 99 10/16/23 08:39 10/16/23 08:39 10/16/23 08:39 10/16/23 08:39 10/16/23 08:39 Lab Results Blood Type / Crossmatch: No Data to Display Complete Blood Count: White Blood Count 6.60 10^3/uL (4.4-10.8) 09/18/23 08:18 Red Blood Count 5.22 10^6/uL (3.93-5.22) 09/18/23 08:18 Hemoglobin 15.8 g/dL (11.2-15.7) H 09/18/23 08:18 Hematocrit 46.2 % (36.0-46.0) H 09/18/23 08:18 Platelet Count 231 10^3/uL (130-400) 09/18/23 08:18 Complete Metabolic Panel: Sodium 137 mmol/L (136-145) 09/18/23 08:18 Potassium 4.0 mmol/L (3.5-5.1) 09/18/23 08:18 Chloride 102 mmol/L (98-107) 09/18/23 08:18 Carbon Dioxide 26.9 mmol/L (21.0-32.0) 09/18/23 08:18 BUN 10 mg/dL (7-18) 09/18/23 08:18 Creatinine 1.0 mg/dL (0.55-1.02) 09/18/23 08:18 Est GFR (CKD-EPI 2020) 72.58 (mL/min/1.73m2) 09/18/23 08:18 Calcium 9.1 mg/dL (8.5-10.1) 09/18/23 08:18 Albumin 3.4 g/dL (3.4-5.0) 09/18/23 08:18 Glucose 93 mg/dL (74-106) 09/18/23 08:18 Liver Function Panel: Alanine Aminotransferase (ALT/SGPT) 20 U/L (14-59) 09/18/23 08: 18 Aspartate Amino Transf (AST/SGOT) 17 U/L (15-37) 09/18/23 08:18 Coagulation Panel: D-Dimer 458 ng/mlFEU (<500) 09/18/23 08:18 Cardiac Panel: Troponin I < 50 ng/L (<or=60) 09/18/23 Arterial Blood Gas: No Data to Display Venous Blood Gas: No Data to Display Pancreas Panel: No Data to Display Thyroid Panel: No Data to Display Infectious Disease: No Data to Display Blood Cultures: No Data to Display Toxicology Panel: No Data to Display Panel: No Data to Display Imaging and Studies Imaging and Studies Study information below may be from another EMR and interpreted by another provider. Please see original notes in EMR for more complete details. EKG Summary: 09/18/23: Exam: Resting ECG Reason for Exam: neck pain Patient Location: E HR:56 bpm ECG Measurements Heart Rate 56 AXIS WY 134 P 18 QRSd 99 QRS 67 QT 437 T50 QTc 423 Conclusion Sinus bradycardia...rate< [address] segment or T wave abnormalities to suggest occlusive IN I have reviewed and I agree with the emergency room physician's ECG interpretation. Anesthesia Assessment and Plan Anesthesia History Personal History: No History of Anesthesia Complications Family History: No Family History of Anesthesia Complications Exercise Tolerance Exercise Tolerance: Metabolic Equivalents>4 Pertinent Negatives Pertinent Negatives: No Major Cardiovascular Symptoms or Complaints and No Major Pulmonary Symptoms or Complaints Cardiac & Pulmonary Exam Cardiac Exam: Normal S1/S2 Heart Sounds Pulmonary Exam: Clear Bilateral Breath Sounds Implantable Cardiac Device Does patient have a Pacemaker or an ICD?: No Airway Exam Known Difficult Airway: No Mallampati Class: 1 Mouth Opening: Normal (> 3cm) Thyromental Distance: Greater than 3 cm Neck Range of Motion: Full ROM Neck Circumference: Normal Teeth Condition: Normal Dentition ASA Classification ASA Score: ASA 3 Emergency Case?: No NPO Status NPO Status: NPO Clears >2 hours, Solids >8 hours Status Status: Negative HCG Anesthesia Plan Resuscitation Status: Full Code Anesthesia Technique: General Anesthesia Airway Planned: Natural Airway Monitors Used: Standard Monitors
--- NOTE | 2023-10-16 09:20 | HPE_ITS ---
Assessment and Plan Assessment and plan (1) Difficulty in swallowing: Status: Acute Assessment and plan: We discussed the role of EGD in terms of diagnostics, potential management of her dysphagia. I explained the risks and benefits of the procedure, which I think she has a good understanding of. We can proceed with EGD as planned. Qualifiers: Dysphagia type: unspecified Qualified Code(s): R13.10 - Dysphagia, unspecified History of Present Illness History of Present Illness Chief Complaint: Dysphagia Narrative: Reagan is 43 years old, and she is seen here after referral from ENT for consideration of EGD given several months of dysphagia. She describes a sensation of food sticking, in the lower portion of her throat, typically a little more on the right side than the left. Foods and particularly give her trouble or crunchy things like pretzels, chips, popcorn. She does not notice any particular difference with hot versus cold foods, or liquids versus solids. She denies any family history of esophageal or gastric cancers. She is already undergone a flexible laryngoscopy that was normal, as well as a contrast- enhanced swallow study that showed mild penetration and contrast retention, but otherwise normal swallowing function. 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 states she has never been told she has any issues with her heart Pulmonary embolism 2010 Opioid dependence Severe recurrent major depression Obesity Mixed hyperlipidemia Onychomycosis due to dermatophyte Herpes zoster Bacterial infectious disease Erythrasma Cervical radiculopathy SUBOXONE MAINTENANCE R. MERALGIA PARESTHETICA PID (Chlamydia) Depression HX SUBSTANCE ABUSE Surgical History Hx of tubal ligation Trigger Finger release (09/02/13) LMF section x2 Endoscopic Carpal Tunnel release (09/02/13) Family History (Updated 09/19/23 @ 15:48 by Demetria Craig RN) Mother Arthritis Father Heart failure Social History Smoking/Tobacco Use Status: Current every day Tobacco Type: cigarettes Smoking risk assessment performed?: Yes Alcohol Intake: never Drug use: Daily Substance use type: marijuana Housing: apartment Do you feel safe at home: Yes Do you feel safe in your relationship?: Yes Meds Allergies and Home Medications Allergies Allergy/AdvReac Type Severity Reaction Status Date / Time No Known Drug Allergies Allergy Unverified 10/15/23 10:58 Home Medications Medication Instructions Recorded Confirmed Type trazodone 100 mg tablet 150 mg PO HS 10/25/21 10/16/23 History buprenorphine 12 mg-naloxone 3 mg 1 film sublingual DAILY 07/17/23 10/16/23 History sublingual film buprenorphine 2 mg-naloxone 0.5 mg 1 film sublingual DAILY 07/17/23 10/16/23 History sublingual film bupropion HCl 150 mg 24 hr tablet, 150 mg PO DAILY 07/17/23 10/16/23 History extended release diclofenac sodium 1 % topical gel 2 g topical QID PRN 09/19/23 10/16/23 History gabapentin 400 mg capsule 400 mg PO BID 09/24/23 10/16/23 History omeprazole 40 mg capsule,delayed 40 mg PO DAILY #30 caps 09/24/23 10/16/23 Rx release Exam Const General: cooperative and not in acute distress Neck Neck: normal visual inspection, no lymphadenopathy and supple Thyroid: thyroid normal Resp Effort & Inspection: normal respiratory effort Auscultation: clear to auscultation bilaterally Cardio Jugular venous pressure: no JVD Rate: regular rate Rhythm: regular rhythm Heart Sounds: S1 normal and S2 normal Neuro General: patient alert, patient awake and patient oriented x3 Psych Appearance: grossly normal Results Last Vital Signs Temp 97.9 F 10/16/23 08:39 Pulse 65 10/16/23 08:39 Resp 18 10/16/23 08:39 BP 109/91 H 10/16/23 08:39 Pulse Ox 99 10/16/23 08:39
--- NOTE | 2023-10-16 09:34 | STOM_PTH ---
PATIENT: Reagan Diez LOC: [facility] U#:[id number] AGE/SX: 43/F ROOM: RE10/16/[address]: Lionel Horton MD : 1980 BED: DIS: 10/16/2023 SPEC #: [id number] RECD: 10/16/23 12:51 STATUS: ANTHONY [facility] #: [id number] FATIMAH: 10/16/23 09:[address]: Lionel Horton DEPT: Surgical Specimen RECD BY: Isabel King ENTERED: 10/16/23 12:51 SP TYPE: STOMACH OTHR DR: Parish Mason Tissues: 1 - STOMACH BIOPSY 2 - STOMACH BIOPSY 3 - ESOPHAGUS BIOPSY Procedures: GROSS AND MICRO LEVEL 4 Comments: [id number]
[2023-10-16] MEDS: Midazolam 2 MG/2 ML VIAL IVP (10:00)
--- NOTE | 2023-10-16 13:32 | W.ANESPOSTOP ---
Postoperative Evaluation Date, Time and Location Date Performed: 10/16/23 Time Performed: 10:10 Patient Location: PACU Vital Signs Most Recent Imported Vital Signs: Most Recent Vital Signs Temp Pulse Resp BP Pulse Ox 36.4 C L 60 16 126/67 99 10/16/23 10:50 10/16/23 10:50 10/16/23 10:50 10/16/23 10:50 10/16/23 10:50 Pain Score Most Recent Pain Score: Most Recent Pain Score Pain Level 0 10/16/23 10:50 Assessment Mental Status: Awake (Alert & Oriented to Patient Baseline) Airway and Respiratory Function: Patent airway with normal (patient baseline) respiratory exam Cardiovascular Function: Hemodynamically Stable Hydration Status: Adequately Hydrated Nausea & Vomiting: No Nausea or Vomiting Pain: Pt. Denies Any Pain Peripheral Nerve Block: Patient did not receive a nerve block
== END 2023-10-16 11:07 | disposition home or self-care (01) ==
LOC: SUR 08:15
PROVIDERS: PCP Internal Medicine; Visit Provider Surgery
PROC: 0DJ68ZZ Inspection of Stomach, Via Natural or Artificial Opening Endoscopic (ICD-10-PCS; CPT 43235; principal; 2023-10-16 09:30)
DX: R13.10 Dysphagia, unspecified (principal); K31.A19 Gastric intestinal metaplasia without dysplasia, unspecified site
CPT/HCPCS: 43239; 81025; 88305; J2001; J2250; J2405; J2704

== ENCOUNTER 2023-11-07 13:01 | Emergency (ER) | payer MEDICARE, MEDICAID, SELFPAY ==
[2023-11-07 13:03] VITALS: BP 127/70; PULSE 61; RESP 18; TEMP 36.8; O2SAT 98
--- NOTE | 2023-11-07 13:44 | ED.GENADUL_ITS ---
HPI General Mode of arrival: ambulatory . Date/Time Provider Initiated Documentation: 11/07/23 13:23 . Limitations to Documentation: no limitations . Information obtained by: patient, RN notes reviewed and old records reviewed . HPI Narrative: 43-year-old female past medical history of hyperlipidemia, cervical radiculopathy on Suboxone maintenance, GERD, edema, Barrera's esophagus, tobacco dependence obesity and depression presents to the ER with a chief complaint of neck and back pain. This was exacerbated after a slipping type injury where she landed on her left knee she reports that she twisted her neck and back. She also endorses nausea and vomiting over the last few days she reports that this is worse because of the pain. She recently had a EGD due to dysphagia approximately 2 weeks ago. She denies any sick contacts. She does endorse marijuana use and she is a daily smoker. Related Data Home Medications Medication Instructions Recorded Confirmed trazodone 100 mg tablet 150 mg PO HS 10/25/21 11/07/23 buprenorphine 12 mg-naloxone 3 mg 1 film sublingual DAILY 07/17/23 11/07/23 sublingual film buprenorphine 2 mg-naloxone 0.5 mg 1 film sublingual DAILY 07/17/23 11/07/23 sublingual film bupropion HCl 150 mg 24 hr tablet, 150 mg PO DAILY 07/17/23 11/07/23 extended release diclofenac sodium 1 % topical gel 2 g topical QID PRN 09/19/23 11/07/23 gabapentin 400 mg capsule 400 mg PO BID 09/24/23 11/07/23 omeprazole 40 mg capsule,delayed 40 mg PO DAILY #30 caps 09/24/23 11/07/23 release ketorolac 10 mg tablet 10 mg PO BID PRN pain 4 days #8 11/07/23 tabs Previous Rx's Medication Instructions Recorded omeprazole 40 mg capsule,delayed 40 mg PO DAILY #30 caps 09/24/23 release ketorolac 10 mg tablet 10 mg PO BID PRN pain 4 days #8 11/07/23 tabs Allergies Allergy/AdvReac Type Severity Reaction Status Date / Time No Known Drug Allergies Allergy Unverified 11/07/23 14:26 General Stated Complaint: Nk/Back Pain SAGAR: 4 Review of Systems All systems reviewed & are unremarkable except as noted in HPI and below ENT Ears, Nose, Mouth, and Throat: Reports neck pain Gastrointestinal Gastrointestinal: Reports as per HPI, Reports nausea and Reports vomiting Musculoskeletal Musculoskeletal: Reports back pain and Reports neck pain Neurologic Neurologic: Denies localized weakness Course Vital Signs Vital signs: Vital Signs Temperature 36.8 C 11/07/23 13:03 Pulse 61 11/07/23 13:03 Respiratory Rate 18 11/07/23 13:03 Blood Pressure 127/70 11/07/23 13:03 Pulse Oximetry 98 11/07/23 13:03 Temperature 36.8 C 11/07/23 13:03 Temperature Source Oral 11/07/23 13:03 Pulse 61 11/07/23 13:03 Respiratory Rate 18 11/07/23 13:03 Respiratory Effort Normal, Non-Labored 11/07/23 13:10 Blood Pressure 127/70 11/07/23 13:03 Blood Pressure Position Sitting 11/07/23 13:03 Pulse Oximetry 98 11/07/23 13:03 Oxygen Delivery Method Room Air 11/07/23 13:03 Oxygen Flow Rate 0 11/07/23 13:03 Medical Decision Making 43-year-old female past medical history of hyperlipidemia, cervical radiculopathy on Suboxone maintenance, GERD, edema, Barrera's esophagus, tobacco dependence obesity and depression presents to the ER with a chief complaint of neck and back pain. This was exacerbated after a slipping type injury where she landed on her left knee she reports that she twisted her neck and back. She also endorses nausea and vomiting over the last few days she reports that this is worse because of the pain. She recently had a EGD due to dysphagia approximately 2 weeks ago. She denies any sick contacts. She does endorse marijuana use and she is a daily smoker. Initially patient is sitting up in a chair leaning over a trash can reporting nausea and feeling as if she is going to vomit. She does have tenderness with palpation both paraspinous and midline to her neck and back. No obvious deformity denies any loss of bowel or bladder control or saddle anesthesia. She is alert and oriented. Workup ordered including CBC CMP, urinalysis, liter normal saline Zofran and Pepcid. Will reevaluate after medication administration. Patient does take Suboxone so we will refrain from opiates at this time. I do not feel that imaging is warranted currently. Will consider Toradol. Informed by ED staff that patient is requesting some hardeep pratima I did okay some ice chips to start for p.o. trial. Patient left prior to her discharge papers and prior to receiving prescription for Toradol and Zofran to go. She does report she feels better after the above medications. medical secretary receptionist did a follow-up call patient refused to have her discharge papers and prescriptions mailed. This text was generated using [employer] dictation system, please disregard any oddities of phrase or misspellings. Lab Data Lab results reviewed: Yes I reviewed the patient's lab results. Labs: Laboratory Tests Range/Units 11/07/23 11/07/23 13:55 14:45 WBC (4.4-10.8) 10^3/uL 6.10 RBC (3.93-5.22) 10^6/uL 4.91 Hgb (11.2-15.7) g/dL 14.7 Hct (36.0-46.0) % 43.3 MCV (80-95) fL 88 MCH (27.0-33.0) pg 29.9 MCHC (32.0-36.0) % 33.9 RDW (11.7-14.6) % 12.4 Plt Count (130-400) 10^3/uL 222 MPV (8.0-11.0) fL 8.9 Immature Gran % 0.2 Neutrophils % 37.8 Lymphocytes % 52.5 Monocytes % 5.9 Eosinophils % 3.1 Basophils % 0.5 Nucleated RBC % (0.0-0.3) % 0.0 Absolute Neutrophils (1.2-6.7) 10^3/uL 2.31 Absolute Lymphocytes (1.2-3.4) 10^3/uL 3.20 Absolute Monocytes (0.1-0.8) 10^3/uL 0.36 Absolute Eosinophils (0.0-0.7) 10^3/uL 0.19 Absolute Basophils (0.0-0.2) 10^3/uL 0.03 Sodium (136-145) mmol/L 139 Potassium (3.5-5.1) mmol/L 4.0 Chloride (98-107) mmol/L 102 Carbon Dioxide (21.0-32.0) mmol/L 31.3 Anion Gap (3-11) mmol/L 5.7 BUN (7-18) mg/dL 14 Creatinine (0.55-1.02) mg/dL 0.9 Est GFR (CKD-EPI 2020) (mL/min/1.73m2) 81.86 Glucose (74-106) mg/dL 75 Calcium (8.5-10.1) mg/dL 8.7 Total Bilirubin (0.2-1.0) mg/dL 0.2 AST (15-37) U/L 15 ALT (14-59) U/L 22 Alkaline Phosphatase (46-116) U/L 49 Total Protein (6.4-8.2) g/dL 7.2 Albumin (3.4-5.0) g/dL 3.1 L Urine Color (Yellow) Yellow Urine Clarity (Clear) Clear Urine pH (5-8) 5.5 Ur Specific [place] (1.005-1.025) 1.020 Urine Protein (Negative) mg/dL Negative Urine Ketones (Negative) mg/dL Negative Urine Blood (Negative) Large H Urine Nitrite (Negative) Negative Urine Bilirubin (Negative) Negative Urine Urobilinogen (Up to 0.2) mg/dL 0.2 Ur Leukocyte Esterase (Negative) Negative Urine RBC (0-2) HPF 5-10 H Urine WBC (0-5) HPF 0-2 Ur Epithelial Cells (Negative) HPF Few Urine Crystals (Negative) HPF Negative Urine Bacteria (Negative) HPF Negative Urine Casts (Negative) LPF Negative Urine Mucus (Negative) Negative Ur Culture Indicated? No Urine Glucose (Negative) mg/dL Negative Quality:SDOH Health Related Social Needs: No Data to Display PFSH All Active Problems (Updated 11/07/23 @ 15:36 by Alta Black NP) Fall (Acute) Nausea & vomiting (Acute) Sprain of upper back (Acute) No-show for appointment (Acute) History of COVID-19 (Acute) Medical History Barrera's esophagus (~10/2023) 10/2023 - repeat egd 3 to 5 years. 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 states she has never been told she has any issues with her heart Pulmonary embolism 2009 Opioid dependence Severe recurrent major depression Obesity Mixed hyperlipidemia Onychomycosis due to dermatophyte Herpes zoster Bacterial infectious disease Erythrasma Cervical radiculopathy SUBOXONE MAINTENANCE R. MERALGIA PARESTHETICA PID (Chlamydia) Depression HX SUBSTANCE ABUSE Surgical History History of colonoscopy (~10/2023) path sent Hx of tubal ligation Trigger Finger release (09/02/13) LMF section x2 Endoscopic Carpal Tunnel release (09/02/13) Family History Mother Arthritis Father Heart failure Social History Smoking/Tobacco Use Status: Current every day Tobacco Type: cigarettes Smoking risk assessment performed?: Yes Alcohol Intake: never Drug use: Daily Substance use type: marijuana Housing: apartment Do you feel safe at home: Yes Do you feel safe in your relationship?: Yes Discharge Plan Disposition Patient Disposition: Home Condition: Improving Discharge Details Clinical Impression: Sprain of upper back, Nausea & vomiting, Fall Primary Care Provider: Parish Mason ED Provider: Alta Black Home Meds and New Rx's Prescriptions: New ketorolac 10 mg tablet 10 mg PO BID PRN (Reason: pain) 4 Days Qty: 8 0RF Rx Instructions: Take 1 tablet up to twice daily x 4 days as needed for pain not relieved by Tylenol. Continued diclofenac sodium 1 % gel 2 g topical QID PRN Rx Instructions: apply to single elbow, wrist or hand; for hand includes palm/fingers/back of hand gabapentin 400 mg capsule 400 mg PO BID omeprazole 40 mg capsule,delayed release(DR/EC) 40 mg PO DAILY Qty: 30 1RF trazodone 100 mg tablet 150 mg PO HS Patient Comments: TAKE 1 TABLET BY MOUTH ONCE DAILY AT BEDTIME FOR 30 DAYS bupropion HCl 150 mg tablet extended release 24 hr 150 mg PO DAILY Patient Comments: TAKE 1 TABLET BY MOUTH ONCE DAILY IN THE MORNING buprenorphine-naloxone 2-0.5 mg film 1 film sublingual DAILY Patient Comments: PLACE 1 STRIP UNDER THE TONGUE ONCE DAILY IN THE MORNING FOR 14 DAYS buprenorphine-naloxone 12-3 mg film 1 film sublingual DAILY Patient Comments: PLACE 1 STRIP UNDER THE TONGUE ONCE DAILY IN THE MORNING FOR 14 DAYS Discharge Instructions Instructions: GERD (Gastroesophageal Reflux Disease) (ED), Acute Nausea and Vomiting (ED), Fall Prevention (ED) Additional Instructions: Please consider taking Pepcid or similar. Take the nausea medications as needed for nausea vomiting up to 3 times daily. Take the pain medication Toradol as directed. Alternate ice and heat. No evidence of infection on your labs or urine. Follow up with primary care provider in 3-5 days. Return to ED sooner if any worsening or concerns. Increase oral fluids. Please take Tylenol with food every 4-6 hours as needed for pain and swelling. Stand Alone Forms: Work Release Referrals: Parish Mason [Primary Care Provider] - 5 days (As needed)
[2023-11-07] MEDS: Normal Saline 1,000 ML 1000 ML IV (14:01)
[2023-11-07] MEDS: Ondansetron 4 MG/2 ML VIAL IVP (14:01)
[2023-11-07 14:09] LABS: Abs Immature Grans 0.01 10^3/uL (0.0-0.06); Absolute Basophil Count 0.03 10^3/uL (0.0-0.2); Absolute Eosinophil Count 0.19 10^3/uL (0.0-0.7); Absolute Monocyte Count 0.36 10^3/uL (0.1-0.8); Absolute Neutrophil Count 2.31 10^3/uL (1.2-6.7); Basophils % 0.5; Eosinophils % 3.1; HCT 43.3 % (36.0-46.0); HGB 14.7 g/dL (11.2-15.7); Immature Grans % 0.2; Lymphocytes % 52.5; MCH 29.9 pg (27.0-33.0); MCHC 33.9 % (32.0-36.0); MCV 88 fL (80-95); MPV 8.9 fL (8.0-11.0); Monocytes % 5.9; Neutrophils % 37.8; Platelet Count 222 10^3/uL (130-400); RBC 4.91 10^6/uL (3.93-5.22); RDW 12.4 % (11.7-14.6); RDW-SD 39.9 fL
[2023-11-07] MEDS: Ketorolac 15 MG/ML VIAL IVP (14:15)
[2023-11-07] MEDS: FAMOTIDINE 20 MG/50 ML BAG 200 MG IVPB (14:15)
[2023-11-07 14:20] LABS: ALT 22 U/L (14-59); AST 15 U/L (15-37); Albumin 3.1 g/dL (3.4-5.0); Alkaline Phosphatase 49 U/L (46-116); Anion Gap 5.7 mmol/L (3-11); BUN 14 mg/dL (7-18); Bilirubin, Total 0.2 mg/dL (0.2-1.0); CO2 31.3 mmol/L (21.0-32.0); CREATININE 0.9 mg/dL (0.55-1.02); Calcium 8.7 mg/dL (8.5-10.1); Chloride 102 mmol/L (98-107); Estimated GFR 81.86 (mL/min/1.73m2); Glucose 75 mg/dL (74-106); Sodium 139 mmol/L (136-145); Total Protein 7.2 g/dL (6.4-8.2)
[2023-11-07 14:52] LABS: Bilirubin Negative (Negative); Blood Large (Negative); Clarity Clear (Clear); Glucose Negative (Negative); Ketones Negative (Negative); Leukocyte Esterase Negative (Negative); Nitrite Negative (Negative); Urobilinogen 0.2 mg/dL (Up to 0.2); pH 5.5 (5-8)
[2023-11-07 15:07] LABS: Bacteria Negative HPF (Negative); C & S Indicated? No; Casts Negative LPF (Negative); Crystals Negative HPF (Negative); Epithelial Cells Few HPF (Negative); Mucus Negative (Negative); WBC 0-2 HPF (0-5)
== END 2023-11-07 15:57 | disposition home or self-care (01) ==
PROVIDERS: Emergency Provider Registered Nurse Emergency; PCP Internal Medicine
DX: S23.3XXA Sprain of ligaments of thoracic spine, initial encounter (principal); M54.12 Radiculopathy, cervical region; R11.2 Nausea with vomiting, unspecified; F17.210 Nicotine dependence, cigarettes, uncomplicated; W19.XXXA Unspecified fall, initial encounter
CPT/HCPCS: 80053; 96361; 96374; 96375; 99284; 81003; 81015; 85025; J1885; J2405

== ENCOUNTER 2024-01-14 15:34 | Outpatient (REF) | payer MEDICARE, MEDICAID, SELFPAY ==
[2024-01-14 21:30] LABS: Bilirubin Negative (Negative); Blood Trace-intact (Negative); Clarity Clear (Clear); Glucose Negative (Negative); Ketones Negative (Negative); Leukocyte Esterase Negative (Negative); Nitrite Negative (Negative); Specific Gravity >= 1.030 (1.005-1.025); Urobilinogen 0.2 mg/dL (Up to 0.2)
[2024-01-14 21:46] LABS: Bacteria Rare HPF (Negative); C & S Indicated? No; Casts Negative LPF (Negative); Crystals Negative HPF (Negative); Epithelial Cells Many HPF (Negative); Mucus Negative (Negative); Other Cells Few Transitional (Negative); RBC 0-2 HPF (0-2); WBC 0-2 HPF (0-5)
== END 2024-01-14 15:35 | disposition home or self-care (01) ==
LOC: NCHCN 15:34
PROVIDERS: PCP Internal Medicine; Visit Provider Nurse Practitioner Family
DX: R39.11 Hesitancy of micturition (principal); R82.998 Other abnormal findings in urine
CPT/HCPCS: 81003; 81015

== ENCOUNTER 2024-04-30 14:17 | Emergency (ER) | payer MEDICARE, MEDICAID, SELFPAY ==
[2024-04-30 14:28] VITALS: BP 151/97; PULSE 72; RESP 16; TEMP 37; O2SAT 99
--- NOTE | 2024-04-30 14:30 | RT.EKG_ITS ---
APPROVED REPORT Exam: Resting ECG Reason for Exam: SOB/CP Patient Location: E HR:71 bpm ECG Measurements Heart Rate 71 AXIS IL 134 P 23 QRSd 95 QRS 74 QT 402 T 56 QTc 437 Conclusion Sinus rhythm...normal P axis, V-rate 60- 99 Low voltage, precordial leads...precordial leads <1.0mV
--- OUTSIDE RECORDS SUMMARY | 2024-04-30 14:42 | XMS_ITS | Continuity of Care Document ---
Author Organization [facility] Address [address] [place] [address] Care Team Providers Care Network Architect Name Role Phone Primeau IPHC, Parish Salgado Primary Care Physician Encounter [facility] Date(s): 02/03/24 - 02/03/[address] [address] Encounter Diagnosis Right shoulder pain(Discharge Diagnosis) - 02/03/24 Discharge Disposition: Home or Self Care Attending Physician: Vini Garrison MD Admitting Physician: Vini Garrison MD Referring Physician: Vini Garrison MD Allergies, Adverse Reactions, Alerts No Known Medication Allergies Assessment and Plan Future Appointments Immunizations Given and Recorded Vaccine Date Status Refusal Reason tetanus/diphth/pertuss (Tdap) adult/adol 06/09/11 Recorded Medications cyclobenzaprine 10 mg oral tablet 10 mg = 1 tab, Oral, TID, PRN as needed for muscle spasm, # 30 tab, 0 Refill(s) Start Date: 12/24/23 Status: Ordered omeprazole 40 mg oral delayed release capsule 40 mg = 1 cap, Oral, Daily, # 30 cap, 0 Refill(s) Start Date: 12/15/23 Status: Ordered Suboxone See Instructions, 16 mg daily through [facility], 0 Refill(s) Start Date: 10/10/22 Status: Ordered traZODone 100 mg oral tablet 150 mg = 1.5 tab, Oral, every night at bedtime, # 45 tab, 0 Refill(s), Pharmacy: [id number], 162, cm, 10/12/22 14:31:00 EST, Height/Length Dosing, 119, kg, 10/12/22 14:31:00 EST, Weight Dosing Start Date: 03/11/23 Stop Date: 04/10/23 Status: Ordered Valium 2 mg oral tablet See Instructions, PRN as needed for anxiety, 1 tab 1/2 to one hr prior to procedure, # 1 cap, 0 Refill(s), Pharmacy: [id number], 163, cm, 12/31/23 8:35:00 EDT, Height, 117.7, kg, 12/31/23 8:56:00 EDT, Weight Dosing Start Date: 01/20/24 Status: Ordered Wellbutrin XL 150 mg/24 hours oral tablet, extended release 0 Refill(s) Start Date: 12/15/23 Status: Ordered Problem List Condition Confirmation Course Effective Dates Status H ealth Status Informant Anxiety disorder Confirmed 05/19/18 Active Attention deficit hyperactivity disorder Confirmed 05/12/20 Active Carpal tunnel syndrome, left Confirmed Active Drug withdrawal Confirmed 06/24/18 Active Generalized anxiety disorder Confirmed 05/19/18 Active Hypertrophy of clitoris Confirmed Active Left knee pain Confirmed Active Meralgia paresthetica Confirmed Active Right shoulder pain Confirmed Active Encounter for medication management Confirmed Active Posttraumatic stress disorder Confirmed 05/19/18 Active Depression, major, recurrent, moderate Confirmed Active Restless legs Confirmed 05/24/19 Active Secondary physiologic amenorrhea Confirmed Active Venereal disease screening Confirmed Active Procedures Procedure Date Related Diagnosis Body Site Status Carpal tunnel release 12/30/23 Com pleted Trigger finger of left hand 1 12/30/23 Completed Left knee arthroscopy w/resection 2 11/16/18 Completed Carpal tunnel surgery Right with trigger finger release 07/12/10 Completed Nerve surgery 3 02/12/09 Completed Extraction of wisdom teeth 10/12/01 Completed section 4 Comple erin 1Trigger finger release of Left 4th finger. 2w/resection of unstable portion of post. 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 1 PPD per day. Sex Female Patient Care team information Care Team Personnel Name: Parish Amos MD Position: No Access Member Role: Informed Provider Address: Address: [address] Care Team Related Persons Name: JEWELS ATKINSON Name: LOS PEÑA Address: Home [address], [id number]
--- OUTSIDE RECORDS SUMMARY | 2024-04-30 14:42 | XMS_ITS | Continuity of Care Document ---
Author Organization [facility] Address [address] [place] [address] Care Team Providers Care Director Of Marketing Communications Name Role Phone Marlon IPHC, Parish Salgado Primary Care Physician Encounter [facility] Date(s): 09/15/23 - 09/15/[address] [address] Discharge Disposition: Home or Self Care Attending Physician: Miladis Cho PA-C Admitting Physician: Miladis Cho PA-C Referring Physician: Miladis Cho PA-C Allergies, Adverse Reactions, Alerts No Known Medication Allergies Immunizations Given and Recorded Vaccine Date Status Refusal Reason tetanus/diphth/pertuss (Tdap) adult/adol 06/09/11 Recorded Medications Albuterol (Eqv-ProAir HFA) 90 mcg/inh inhalation aerosol 2 puffs, Inhale, every 4 hr, PRN as needed for wheezing, 0 Refill(s) Start Date: 07/24/22 Status: Ordered azithromycin See Instructions, as directed Marlon Grace every other day for a month, 0 Refill(s) Start Date: 12/11/22 Status: Ordered erythromycin 0.5% ophthalmic ointment 0.5 inch, Eye-Both, QID, # 3.5 g, 0 Refill(s), Pharmacy: [id number], 164, cm, 07/24/22 8:35:00 EDT, Height/Length Dosing, 139, kg, 07/24/22 8:35:00 EDT, Weight Dosing Start Date: 07/24/22 Status: Ordered Flonase 50 mcg/inh nasal spray 2 sprays, Nasal, every morning, 0 Refill(s) Start Date: 07/24/22 Status: Ordered hydrOXYzine 0 Refill(s) Start Date: 10/10/22 Status: Ordered Probiotic Probiotic, 1 tab, Oral, Daily Start Date: 06/04/22 Status: Ordered rOPINIRole 2 mg oral tablet 4 mg = 2 tab, Oral, every night at bedtime, # 60 tab, 2 Refill(s), Pharmacy: [facility] [id number],162, cm, 10/12/22 14:31:00 EST, Height/Length Dosing, 119, kg, 10/12/22 14:31:00 EST, Weight Dosing Start Date: 12/11/22 Stop Date: 03/11/23 Status: Ordered Suboxone See Instructions, 14 mg daily through [facility], 0 Refill(s) Start Date: 10/10/22 Status: Ordered traZODone 100 mg oral tablet 150 mg = 1.5 tab, Oral, every night at bedtime, # 45 tab, 0 Refill(s), Pharmacy: [id number], 162, cm, 10/12/22 14:31:00 EST, Height/Length Dosing, 119, kg, 10/12/22 14:31:00 EST, Weight Dosing Start Date: 03/11/23 Stop Date: 04/10/23 Status: Ordered Problem List Condition Confirmation Course [...] of right lateral femoral cutaneous nerve , 8/27/11 with T/L Social History Social History Type Response Tobacco Current everyday tob acco user Tobacco Use:. 1 PPD per day. Sex Female Patient Care team information Care Team Personnel Name: Parish Amos MD Position: No Access Member Role: Primary Care Physician Address: Address: [id number] [place] [address] Care Team Related Persons Name: JEWELS ATKINSON
--- OUTSIDE RECORDS SUMMARY | 2024-04-30 14:42 | XMS_ITS | Continuity of Care Document ---
Author Organization [facility] Address [address] [place] [address] Care Team Providers Care Shadowgraph Scale Operator Name Role Phone Parish Amos Primary Care Physician Encounter [place] Date(s): 09/25/23 - 09/25/[address] [address] Discharge Disposition: Home or Self Care Attending Physician: Parish Amos MD Admitting Physician: Parish Amos MD Referring Physician: Parish Amos MD Allergies, Adverse Reactions, Alerts No Known [...] QID, # 3.5 g, 0 Refill(s), Pharmacy: [id number], 164, cm, 07/24/22 8:35:00 [...] bedtime, # 60 tab, 2 Refill(s), Pharmacy: [facility] 4156,162, cm, 10/12/22 14:31:00 EST, Height/Length Dosing, 119, kg, 10/12/22 14:31:00 EST, Weight Dosing Start Date: 12/11/22 Stop Date: 03/11/23 Status: Ordered Suboxone See Instructions, 14 mg daily through [facility], 0 Refill(s) Start Date: 10/10/22 Status: Ordered traZODone 100 mg oral tablet 150 mg = 1.5 tab, Oral, every night at bedtime, # 45 tab, 0 Refill(s), Pharmacy: [id number], 162, cm, 10/12/22 14:31:00 [...] Member Role: Primary Care Physician Address: Address: [address] [address] Care Team Related Persons Name: JEWELS ATKINSON
--- OUTSIDE RECORDS SUMMARY | 2024-04-30 14:42 | XMS_ITS | Continuity of Care Document ---
Author Organization [facility] Address [address] [place] [address] Care Team Providers Care Customer Relations Consultant Name Role Phone [facility], Parish Salgado Primary Care Physician Encounter [facility] Date(s): 12/31/23 - 12/31/[address] [id number] Discharge Disposition: Home or Self Care Attending Physician: Vini Garrison MD Admitting Physician: Vini Garrison MD Referring Physician: Vini Garrison MD Allergies, Adverse Reactions, Alerts No Known Medication Allergies Assessment and Plan Future Appointments Functional Status 12/31/23 ADLs Independent Other exposure to Infectious Disease Non e [...] bedtime, # 45 tab, 0 Refill(s), Pharmacy: [id number], 162, cm, 10/12/22 14:31:00 EST, Height/Length Dosing, 119, kg, 10/12/22 14:31:00 EST, Weight Dosing Start Date: 03/11/23 Stop Date: 04/10/23 Status: Ordered Wellbutrin XL 150 mg/24 hours [...] oldest [Reference Range]: 1 2 3 Temperature Oral [35.8-37.3 Deg C] 36.6 Deg C (12/31/23 8:35 AM) Temperature Temporal Artery [36-38 Deg C] 36.3 Deg C (12/31/23 10:05 AM) 36.3 Deg C (12/31/23 10:00 AM) Temperature Temporal Artery (DegF) [97.3-100 Deg F] 97.34 Deg F (12/31/23 10:05 AM) 97.34 Deg F (12/31/23 10:00 AM) Peripheral Pulse Rate [60-100 bpm] 59 bpm *LOW* (12/31/23 10:05 AM) 61 bpm (12/31/23 10:00 AM) Heart Rate Monitored [60-100 bpm] 58 bpm *LOW* (12/31/23 10:05 AM) 61 bpm (12/31/23 10:00 AM) 63 bpm (12/31/23 8:35 AM) Respiratory Rate [12-24 br/min] 17 br/min (12/31/23 10:05 AM) 9 br/min *LOW* (12/31/23 10:00 AM) 18 br/min (12/31/23 8:35 AM) Blood Pressure [90-140/60-90 mmHg] 121/66mmHg (12/31/23 10:05 AM) 137/73mmHg (12/31/23 10:00 AM) 114/75mmHg (12/31/23 8:35 AM) Mean Arterial Pressure, Cuff [65-140 mmHg] 84 mmHg (12/31/23 10:05 AM) 94 mmHg (12/31/23 10:00 AM) Weight 117.7 kg (12/31/23 8:35 AM) Weight Dosing 117.700 kg (12/31/23 8:35 AM) Weight Estimated 119.00 kg (12/24/23 8:39 AM) Height 163 cm (12/31/23 8:35 AM) Body Mass Index 44.3 kg/m2 (12/31/23 8:35 AM) Social History Social History Type Response Tobacco Current everyday tob acco user Tobacco Use:. 1 PPD per day. Sex Female Discharge instructions * Eryn Roth: PERFORM Event Display: Discharge Instructions Authored Date: [id number] ANDREWS ATKINSON :1980 Age:43 years Sex:Female Visit Date:12/31/2023 Primary Care Physician: Marlon TAPIA, Parish Salgado MD Hospital Discharge Instructions We would like to thank you for allowing us to assist you with your healthcare needs. The following includes patient education materials and information regarding your injury/illness. Your Next Steps Instructions From Your Care Team Orthopedic Surgery Discharge Instructions ok to take down dressings in 2 days shower and cover incisions with band aids do not submerge incisions under water ok to use hand for light activities ?? Pain Control ?Take your pain relief medication when discomfort first begins. ?Can use stool softener while taking the narcotic to avoid problems with constipation. ?It is okay to start psdl-gul-zihjyud Naproxen or Ibuprofen??immediately ?? Call your doctor if you: ?Develop a fever over 101 degrees. ?Have increased redness, warmth, discharge, swelling, or hardness around the operative site. ?Circulation changes such as tingling, numbness or your fingers appear blue or white. ?Your pain is not adequately controlled, despite taking your pain medication routinely. ?? On the day of surgery, or while taking narcotic pain medication: No driving, operating power equipment,?? drinking alcohol,?? or taking mood altering drugs? Apply warm, moist compress to IV site if sore or red, for 20 minutes, 4 times a day, for 2-3 days.?? Call your doctor if IV site soreness or redness persists. In the event of any problems after surgery, contact your doctor or the Emergency Room @ . Ortho Office: [phone]?? Scheduled Future Appointments Friday 2:45 PM EDT ?? With: Zainab Paniagua PA-C Where: [facility] [address] [place] [address], [address] [place] [address] Status: Confirmed Your Summary Your Care Team Admitting Physician - Carol TORREZ, Vini Dias MD Attending Physician - Carol LEWIS, Vini Dias MD Primary Care Physician - [facility], Parish Salgado MD Referring Physician - Carol [facility], Vini Dias MD Discharge Vitals Temperature??(Oral) 97.9 ??F (36.6 ??C) Heart Rate??(Monitored) 63 Respiratory Rate?? 18 Blood Pressure?? 114/75?? SpO2?? 100% Height?? 64.17 in (163 cm) Weight?? 259.53 lb (117.7 kg) BMI?? 44.3 Allergies No Known Medication Allergies Patient/Saw Offbearer Signature Patient Name:ANDREWS ATKINSON Chencho I have received this information and my questions have been answered. Patient/Saw Offbearer Name: Patient/Saw Offbearer Signature: Relationship to Patient: Witness Name/Signature: Date: Electronically Signed on: 12/31/2023 10:05 EDTSigned by:PAC History and physical note * Kathy Moran: PERFORM Event Display: History and Physical Authored Date: [id number] ANDREWS ATKINSON :1980 Age:43 years Sex:Female Primary Care Physician: Parish Amos MD Visit Date:??12/15/2023 [1] ? Chief Complaint Vp Packaging- Left wrist CTS, EMGs done. History of Present Illness New patient seen today for left carpal tunnel syndrome??numbness tingling??as well as ring finger trigger finger. ??Previous??long finger trigger release. Review of Systems Constitutional:?No??fevers,?No??chills,?No??sweats Eye:?No??recent visual problems ENT:?No??ear pain,?No??nasal congestion,?No??sore throat Respiratory:?No??shortness of breath,?No??cough Cardiovascular:?No??Chest pain,?No??palpitations,?No??syncope Gastrointestinal:?Nonausea,?No??vomiting,?No??diarrhea Genitourinary:?No??hematuria José/Lymph:?No??bruising tendency,?No??swollen lymph glands Endocrine:?No??excessive thirst,??No??excessive hunger Musculoskeletal:??No??back pain,??No??neck pain,??No??joint pain,??No??muscle pain,??No??decreased range of motion Integumentary:?No??rash,?No??pruritus,?No??abrasions Neurologic: Alert & oriented X 4 Psychiatric:?No??anxiety,?No??depression Physical Exam ?Vitals & Measurements ?HT:??160.02??cm?? WT:??117.93??kg?? BMI:??46.05?? BSA:??2.29?? Well-nourished well-developed acute distress alert and oriented appears stated age is normal elbow wrist hand range of motion with cap refill distally??no open wound signs of erythema or infection does have numbness in the median distribution with a positive electrodiagnostic study??sensation is grossly normal distally however. ??Does have pain at the ring finger A1 allyn??with triggering noduleon palpation. Assessment/Plan 1.??Carpal tunnel syndrome, left??G56.02 ?Carpal tunnel trigger finger options watchful waiting therapy bracing injection or surgical intervention.?? After discussing this was interested in having this operatively repaired so plan will be carpal tunnel release ring finger trigger release and she will be seen again at time of surgery. ?Ordered: PAT Surgery / Procedure Nursing Review Request., 12/15/23 14:12:00 Carol RAMSAY [facility], Vini Dias MD, Left carpal tunnel release ring finger trigger release, Left carpal tunnel release ring finger trigger release. Need 30 minutes. Date and time per technology integration specialist. Anesthesia per choice. BMI 46, Carpal tunn... ?? Problem List/Past Medical History Ongoing ?Anxiety disorder ??Attention deficit hyperactivity disorder ??Carpal tunnel syndrome, left ??Depression, major, recurrent, moderate ??Drug withdrawal ??Encounter for medication management ??Generalized anxiety disorder ??Hypertrophy of clitoris ??Left knee pain ??Meralgia paresthetica ??Posttraumatic stress disorder ??Restless legs ??Secondary physiologic amenorrhea ??Tobacco user ??Venereal disease screening Historical ?Moderate recurrent major depression Procedure/Surgical History ???Left knee arthroscopy w/resection (11/17/2018)???Carpal tunnel surgery Right with trigger finger release (07/13/2010)???Nerve surgery (02/13/2009)???Extraction of wisdomteeth (10/13/2001)??? section ?? Medications ??omeprazole 40 mg oral delayed release capsule, 40 mg= 1 cap, Oral, Daily ??Suboxone, See Instructions ??traZODone 100 mg oral tablet, 150 mg= 1.5 tab, Oral, every night at bedtime ??Wellbutrin XL 150 mg/24 hours oral tablet, extended release Allergies No Known Medication Allergies Social History Alcohol ??Past- Comments: socially Electronic Cigarette/Vaping ??Electronic Cigarette Use: Never. Employment/School ??disability Home/Environment ??Lives with Alone. Nutrition/Health ??Caffeine intake amount: coke -6 pack per day. Sleeping concerns: No. Other Psychosocial Sexual ??Sexual orientation: Straight or heterosexual. What is your current gender identity? (Check all that apply) Identifies as female. Substance Use ??Current, Marijuana, Prescription medications, Daily Tobacco ??Current everyday tobacco user Tobacco Use:. 1 PPD per day. Family History ??Depressive disorder: Father. ??Heart murmur: Father. ??Hypercholesterolemia: Father. ??Hypertension: Father. ??Hypertensive disorder: Father. ??Major depression: Father. ??Seizure: Father. [2] [1]??Office Visit Note; Vini Garrison MD 12/15/2023 14:13 EST [2]??Office Visit Note; Vini Garrison MD 12/15/2023 14:13 EST Electronically Signed on 12/30/23 08:51 AM Kathy Moran A Electronically Signed on 12/30/23 11:59 AM Vini Garrison MD * Vini Garrison MD: PERFORM Event Display: History and Physical Authored Date: Patient seen and propofol no change in general still status H&P updated Electronically Signed on 12/31/23 09:39 AM Vini Garrison MD Patient Care team information Care Team Personnel Name: Parish Amos MD Position: No Access Member Role: Informed Provider Address: Address: [address] [place] [address]- Care Team Related Persons Name: JEWELS ATKINSON Name: OLS PEÑA Address: Home [address], [id number]
--- OUTSIDE RECORDS SUMMARY | 2024-04-30 14:42 | XMS_ITS | Continuity of Care Document ---
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I think patient's shoulder pain is likely multifactorial as she did have surgery on 03/09/2024 however she slipped??and fell??2 days ago??in her home kitchen??expect this to??cause some muscle strain.?? Patient will continue with ibuprofen Tylenol and oxycodone as prescribed by her??orthopedics??she will take??Flexeril 10 mg 3 times a day as needed. ??Ice is helping??she will continue with this??and she states a sling that she has at home is helping??she will continue with that. ??Patient will keep her follow-up appointment with orthopedics tomorrow. Ordered: Discharge Patient, 03/18/24 10:55:00 EDT, Home Independently, Constant Indicator ?? 2.??Elbow pain??M25.529 ??X-rays of shoulder and elbow are reassuring.?? My read of x-ray shoulder??right??and??right elbow??shows no fracture or acute change. Ordered: Discharge Patient, 03/18/24 10:55:00 EDT, Home Independently, Constant Indicator ?? Orders: cyclobenzaprine 10 mg oral tablet, 10 mg = 1 tab, Oral, TID, PRN as needed for spasm, X 10 days, # 30 tab, 0 Refill(s), 03/28/24 10:25:00 EDT, Pharmacy: [id number], 163, cm, 12/31/23 8:35:00 EDT, Height, 123.8, kg, 03/09/24 7:24:00 EDT, Weight Dosing XR Elbow Complete 3+ Views Right, 03/18/24 10:22:00 EDT, Stat, Reason: pain, fall, Transport Mode: Stretcher, Exam to be performed outside organization? XR Shoulder Complete 2+ Views Right, 03/18/24 10:22:00 EDT, Stat, Reason: pain fall, Transport Mode: Stretcher, Exam to be performed outside organization? Patient Education Musculoskeletal Pain Follow Up With When Contact Information Follow up with Orthopedic Within 24 Hours Additional Instructions: Future Appointments Functional Status 03/18/24 Family Member Travel History No recent t ravel Recent Travel History No recent travel Other exposure to Infectious Disease Non e Immunizations Given and Recorded Vaccine Date Status Refusal Reason tetanus/diphth/pertuss (Tdap) adult/adol 06/09/11 Recorded Medications cyclobenzaprine 10 mg oral tablet 10 mg = 1 tab, Oral, TID, PRN as needed for spasm, X 10 days, # 30 tab, 0 Refill(s), 03/28/24 9:25:00 AM CDT, Pharmacy: [id number], 163, cm, 12/31/23 8:35:00 EDT, Height, 123.8, kg, 03/09/24 7:24:00 EDT, Weight Dosing Start Date: 03/18/24 Stop Date: 03/28/24 Status: Ordered oxyCODONE 5 mg oral tablet 5 mg = 1 tab, Oral, every 6 hr, PRN as needed for pain, for post op pain, # 12 tab, 0 Refill(s), Pharmacy: [id number], 163, cm, 12/31/23 8:35:00 EDT, Height, 123.8, kg, 03/09/24 7:24:00 EDT, Weight Dosing Start Date: 03/09/24 Status: Ordered oxyCODONE 5 mg oral tablet 2.5 mg = 0.5 tab, Oral, every 6 hr, PRN as needed for pain, for post op pain, # 18 tab, 0 Refill(s), Pharmacy: [id number], 163, cm, 12/31/23 8:35:00 EDT, Height, 123.8, kg, 03/09/24 7:24:00 EDT, Weight Dosing Start Date: 03/11/24 Status: Ordered Probiotic Digestive Aid Gummies 0 Refill(s) Start Date: 03/02/24 Status: Ordered Suboxone See Instructions, 16 mg daily through [facility], 0 Refill(s) Start Date: 10/10/22 Status: Ordered traZODone 100 mg oral tablet 150 mg = 1.5 tab, Oral, every night at bedtime, # 45 tab, 0 Refill(s), Pharmacy: [id number], 162, cm, 10/12/22 14:31:00 EST, Height/Length Dosing, 119, kg, 10/12/22 14:31:00 EST, Weight Dosing Start Date: 03/11/23 Stop Date: 04/10/23 Status: Ordered Tylenol PM 0 Refill(s) Start Date: 03/09/24 Status: Ordered Wellbutrin XL 150 mg/24 hours oral tablet, extended release 0 Refill(s) Start Date: 12/15/23 Status: Ordered Mental Status 03/18/24 Eye Opening Response Jose Spontaneous ly Best Verbal Response Waldo Oriented Best Motor Response Waldo Obeys comman ds Waldo Coma Score 15 Problem List Condition Confirmation Course Effective Dates Status H ealth Status Informant Anxiety disorder Confirmed 05/19/18 Active Attention deficit hyperactivity disorder Confirmed 05/12/20 Active Carpal tunnel syndrome, left Confirmed Active Drug withdrawal Confirmed 06/24/18 Active Generalized anxiety disorder Confirmed 05/19/18 Active S/P trigger finger release Confirmed Active Hypertrophy of clitoris Confirmed Active Left knee pain Confirmed Active Meralgia paresthetica Confirmed Active Right shoulder pain Confirmed Active Encounter for medication management Confirmed Active Posttraumatic stress disorder Confirmed 05/19/18 Active Depression, major, recurrent, moderate Confirmed Active Restless legs Confirmed 05/24/19 Active Secondary physiologic amenorrhea Confirmed Active Venereal disease screening Confirmed Active Procedures Procedure Date Related Diagnosis Body Site Status Arthroscopy, shoulder, surgi tara; debridement, limited, 1 or 2 discrete structures (eg, humeral bone, humeral articular cartilage, glenoid bone, glenoid articular cartilage, biceps tendon, biceps anchor complex, labrum, articular capsule, articular side of 1 03/08/24 Completed Carpal tunnel release 12/30/23 Com pleted Trigger finger of left hand 2 12/30/23 Completed Left knee arthroscopy w/resection 3 11/16/18 Completed Carpal tunnel surgery Right with trigger finger release 07/12/10 Completed Nerve surgery 4 02/12/09 Completed Extraction of wisdom teeth 10/12/01 Completed section 5 Comple erin Tubal ligation Completed 1Right shoulder arthroscopy DCE, tenodesis biceps, SAD. 2Trigger finger release of Left 4th finger. 3w/resection of unstable portion of post. 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 , 06/08/11 with T/L Vital Signs Most recent to oldest [Reference Range]: 1 Temperature Temporal Artery [36-38 Deg C ] 35.6 Deg C *LOW* (03/18/24 9:58 AM) Peripheral Pulse Rate [60-100 bpm] 67 bp m (03/18/24 9:58 AM) Respiratory Rate [12-24 br/min] 18 br/mi n (03/18/24 9:58 AM) Blood Pressure [90-140/60-90 mmHg] 127/9 9mmHg (03/18/24 9:58 AM) Mean Arterial Pressure, Cuff [65-140 mmH g] 108 mmHg (03/18/24 9:58 AM) Weight Estimated 123 kg (03/18/24 9:58 AM) Body Mass Index Estimated 46.29 kg/m2 (03/18/24 9:58 AM) Height/Length Estimated 163 cm (03/18/24 9:58 AM) Social History Social History Type Response Tobacco Current everyday tob acco user Tobacco Use:. 1 PPD per day. Sex Female Hospital Discharge Instructions Patient Education 03/18/2024 09:55:15 Musculoskeletal Pain Musculoskeletal Pain Musculoskeletal pain refers to aches and pains in your bones, joints, muscles, and the tissues thatsurround them. This pain can occur in any part of the body. It can last for a short time (acute) ora long time (chronic). A physical exam, lab tests, and imaging studies may be done to find the cause of your musculoskeletal pain. Follow these instructions at home: Lifestyle ??? Try to control or lower your stress levels. Stress increases muscle tension and can worsen musculoskeletal pain. It is important to recognize when you are anxious or stressed and learn ways to manage it. This may include: ??? Meditation or yoga. ??? Cognitive or behavioral therapy. ??? Acupuncture or massage therapy. ??? You may continue all activities unless the activities cause more pain. When the pain gets better, slowly resume your normal activities. Gradually increase the intensity and duration of your activities or exercise. Managing pain, stiffness, and swelling ??? Treatment may include medicines for pain and inflammation that are taken by mouth or applied tothe skin. Take fzkd-yrr-soveaui and prescription medicines only as told by your health care provider. ??? When your pain is severe, bed rest may be helpful. Lie or sit in any position that is comfortable, but get out of bed and walk around at least every couple of hours. ??? If directed, apply heat to the affected area as often as told by your health care provider. Usethe heat source that your health care provider recommends, such as a moist heat pack or a heating pad. ??? Place a towel between your skin and the heat source. ??? Leave the heat on for 20???30 minutes. ??? Remove the heat if your skin turns bright red. This is especially important if you are unable to feel pain, heat, or cold. You may have a greater risk of getting burned. ??? If directed, put ice on the painful area. To do this: ??? Put ice in a plastic bag. ??? Place a towel between your skin and the bag. ??? Leave the ice on for 20 minutes, 2???3 times a day. ??? Remove the ice if your skin turns bright red. This is very important. If you cannot feel pain, heat, or cold, you have a greater risk of damage to the area. General instructions ??? Your health care provider may recommend that you see a physical therapist. This person can helpyou come up with a safe exercise program. ??? If told by your health care provider, do physical therapy exercises to improve movement and strength in the affected area. ??? Keep all follow-up visits. This is important. This includes any physical therapy visits. Contact a health care provider if: ??? Your pain gets worse. ??? Medicines do not help ease your pain. ??? You cannot use the part of your body that hurts, such as your arm, leg, or neck. ??? You have trouble sleeping. ??? You have trouble doing your normal activities. Get help right away if: ??? You have a new injury and your pain is worse or different. ??? You feel numb or you have tingling in the painful area. Summary ??? Musculoskeletal pain refers to aches and pains in your bones, joints, muscles, and the tissues that surround them. ??? This pain can occur in any part of the body. ??? Your health care provider may recommend that you see a physical therapist. This person can helpyou come up with a safe exercise program. Do any exercises as told by your physical therapist. ??? Lower your stress level. Stress can worsen musculoskeletal pain. Ways to lower stress may include meditation, yoga, cognitive or behavioral therapy, acupuncture, and massage therapy. This information is not intended to replace advice given to you by your health care provider. Make sure you discuss any questions you have with your health care provider. Document Revised: 02/01/2021 Document Reviewed: 01/10/2021 [employer] Patient Education ?? 2022 [employer] Follow Up Care 03/18/2024 09:55:01 With:Follow up with Orthopedic Address: When:24 Hours Physician Emergency department Note * Michelle Bah MD: PERFORM Event Display: ED Note Physician Authored Date: [id number] ANDREWS ATKINSON :1980 Age:43 years Sex:Female Visit Date:03/18/2024 Primary Care Physician: Marlon TAPIA, Parish Salgado MD Basic Information Time Seen: Michelle Bah MD / 03/18/2024 10:11 Chief Complaint I had shoulder surgery on my right shoulder to get rid of the arthritis and then they put 6 stitches in it. It was getting better but then I slipped and fell a few days ago and it's just not any better. I went over to ortho but they cant History Of Present Illness: Patient reports she fell 2 days ago in her kitchen she says??she was barefoot on her foot when sliding she tried to catch herself??patient had surgery on her right shoulder 03/09/2024. ??Patient was supposed to see OT for left hand issues??this morning and because of pain??opted not to see them she says she sees??OT for carpal tunnel issues??on her left??hand??she also points to??fibrous area on her palm likely early Dupuytren's contracture??saying that that area is painful.?? Patient took an oxycodone this morning and has oxycodone enough??until her appointment with orthopedics tomorrow. ??Patient had stopped by orthopedic??office to see if they could see her today??but was told to come to the emergency department instead she says.?? Patient reports she has been using ice on her shoulder??area??with some relief of pain??and discomfort. Review of Systems: see hpi for ros Physical Exam Vitals & Measurements T:??35.6?C ??(Temporal Artery)?? HR:??67??(Peripheral)?? RR:??18?? BP:??127/99?? SpO2:??98%?? HT:??163??cm?? WT:??123??kg??(Estimated)?? BMI:??46.29?? Pain Score:??10?? O2 Therapy:??Room air?? General: Alert and oriented, well nourished,?No??acute distress Eye: PER,?Normal??conjunctiva, No scleral icterus HENT: Normocephalic?Normal?? hearing?? Respiratory:??Respiration??no distress??no increased work of breathing Heart:??Capillary refill less than 2 seconds??no??edema Chest: wall excursion wnl no abnormal movements no obvious deformities Musculoskeletal:??Positive right shoulder area pain??with trapezius muscle tension??positive??rightshoulder and right elbow area tenderness??sensation to light touch is intact capillary refill less than 2 seconds??motor intact??in the hand, surgical??sites appear well healing right shoulder Skin: Skin is warm, dry and pink,?No??rashes,?No??lesions Neurologic: Awake, alert and oriented X4 Psychiatric: Cooperative, appropriate mood and affect Medical Decision Making: For MDM please see under assessment and plan Procedure No Qualifying Data Assessment/Plan 1.??Shoulder pain??M25.519 ??I think patient's shoulder pain is likely multifactorial as she did have surgery on 03/09/2024 however she slipped??and fell??2 days ago??in her home kitchen??expect this to??cause some muscle strain.?? Patient will continue with ibuprofen Tylenol and oxycodone as prescribed by her??orthopedics??she will take??Flexeril 10 mg 3 times a day as needed. ??Ice is helping??she will continue with this??and she states a sling that she has at home is helping??she will continue with that. ??Patient willkeep her follow-up appointment with orthopedics tomorrow. Ordered: Discharge Patient, 03/18/24 10:55:00 EDT, Home Independently, Constant Indicator ?? 2.??Elbow pain??M25.529 ??X-rays of shoulder and elbow are reassuring.?? My read of x-ray shoulder??right??and??right elbow??shows no fracture or acute change. Ordered: Discharge Patient, 03/18/24 10:55:00 EDT, Home Independently, Constant Indicator ?? Orders: cyclobenzaprine 10 mg oral tablet, 10 mg = 1 tab, Oral, TID, PRN as needed for spasm, X 10 days, # 30 tab, 0 Refill(s), 03/28/24 10:25:00 EDT, Pharmacy: [id number], 163, cm, 12/31/23 8:35:00 EDT, Height, 123.8, kg, 05/28/24 7:24:00 EDT, Weight Dosing XR Elbow Complete 3+ Views Right, 03/18/24 10:22:00 EDT, Stat, Reason: pain, fall, Transport Mode: Stretcher, Exam to be performed outside organization? XR Shoulder Complete 2+ Views Right, 03/18/24 10:22:00 EDT, Stat, Reason: pain fall, Transport Mode: Stretcher, Exam to be performed outside organization? Patient Education Musculoskeletal Pain Follow Up With When Contact Information Follow up with Orthopedic Within 24 Hours Additional Instructions: Medication Reconciliation New Prescription cyclobenzaprine (cyclobenzaprine 10 mg oral tablet)1 tab Oral (given by mouth) 3 times a day as needed as needed for spasm for 10 Days. Refills: 0. ?? Unchanged acetaminophen-diphenhydramine (Tylenol PM) ?? bacillus coagulans (Probiotic Digestive Aid Gummies) ?? buprenorphine-naloxone (Suboxone)16 mg daily through [facility]. ?? buPROPion (Wellbutrin XL 150 mg/24 hours oral tablet, extended release) ?? oxyCODONE (oxyCODONE 5 mg oral tablet)1 tab Oral (given by mouth) every 6 hours as needed as neededfor pain. for post op pain. Refills: 0. ?? oxyCODONE (oxyCODONE 5 mg oral tablet)0.5 tab Oral (given by mouth) every 6 hours as needed as needed for pain. for post op pain. Refills: 0. ?? traZODone (traZODone 100 mg oral tablet)1.5 tab Oral (given by mouth) every night at bedtime for 30Days. Refills: 0. Problem List/Past Medical History Ongoing Anxiety disorder Attention deficit hyperactivity disorder Carpal tunnel syndrome, left Depression, major, recurrent, moderate Drug withdrawal Encounter for medication management Generalized anxiety disorder Hypertrophy of clitoris Left knee pain Meralgia paresthetica Posttraumatic stress disorder Restless legs Right shoulder pain S/P trigger finger release Secondary physiologic amenorrhea Tobacco user Venereal disease screening Historical Moderate recurrent major depression Pulmonary embolism Procedure/Surgical History ???Arthroscopy, shoulder, surgical; debridement, limited, 1 or 2 discrete structures (eg, humeral bone, humeral articular cartilage, glenoid bone, glenoid articular cartilage, biceps tendon, biceps anchor complex, labrum, articular capsule, articular side of (03/09/2024)???Carpal tunnel release ()???Trigger finger of left hand (12/31/2023)???Left knee arthroscopy w/resection (11/17/2018)???Carpal tunnel surgery Right with trigger finger release (07/13/2010)???Nerve surgery (02/13/2009)???Extraction of wisdom teeth (10/13/2001)??? section???Tubal ligation Allergies No Known Medication Allergies Social History Alcohol Past- Comments: socially Electronic Cigarette/Vaping Electronic Cigarette Use: Never. Employment/School disability Home/Environment Lives with Alone. Nutrition/Health Caffeine intake amount: coke -6 pack per day. Sleeping concerns: No. Other Psychosocial Sexual Sexual orientation: Straight or heterosexual. What is your current gender identity? (Check all thatapply) Identifies as female. Substance Use Current, Marijuana, Prescription medications, Daily- Comments: two times a day Tobacco Current everyday tobacco user Tobacco Use:. 1 PPD per day. Family History Depressive disorder: Father. Heart murmur: Father. Hypercholesterolemia: Father. Hypertension: Father. Hypertensive disorder: Father. Major depression: Father. Seizure: Father. Electronically Signed on 03/18/2024 10:57 EDT Michelle Bah MD Emergency department Discharge instructions * Michelle Bah MD: PERFORM Event Display: ED Discharge Information Authored Date: [id number] DEMETRIO ANDREWS L :1980 Age:43 years Sex:Female Visit Date:03/18/2024 Primary Care Physician: Parish Amos MD Discharge Instructions We would like to thank you for allowing us to assist you with your healthcare needs. The following includes patient education materials and information regarding your injury/illness. Diagnosis from Today's Visit Shoulder pain Elbow pain Discharge Vitals Temperature??(Temporal Artery) 96.1 ??F (35.6 ??C) Heart Rate??(Peripheral) 67 Respiratory Rate?? 18 Blood Pressure?? 127/99?? SpO2?? 98% Height?? 64.17 in (163 cm) Weight??(Estimated) 271.22 lb (123 kg) BMI?? 46.29 Allergies No Known Medication Allergies What to Do Next Instructions from Your Care Team Keep your appointment with orthopedics tomorrow. ??Try Flexeril (cyclobenzaprine) 10 mg 3 times a day as needed??for muscle relaxation.?? Be in a safe place when you take the Flexeril as this may make you tired and sleepy.?? Continue with ice. You may take up to 800 mg of Motrin, Advil??(ibuprofen)? ?every 8 hours as needed for pain or discomfort??and or??up to??1000 mg??of Tylenol??(acetaminophen) every 6 hours as needed??for pain or discomfort for maximum 4000 mg in 24 hours or you may permanently hurt your liver.Continue with??oxycodone??if pain unrelieved by??Motrin or Tylenol You Need to Schedule the Following Appointments Follow Up with??Follow up with Orthopedic When:??Within 24 Hours Upcoming Scheduled Appointments Friday 1:30 PM EDT ?? With: Zainab Paniagua PA-C Where: [facility] [address] [place] [address], [facility] [address] [place] [address] Status: Confirmed 2023 10:40 AM EDT ?? With: Orestes Miller MD Where: [facility] [address] [place] [address], [address] [place] [address] Status: Confirmed You were treated today on an emergency [...] How Much When Why Instructions Next Dose New cyclobenzaprine (cyclobenzaprine 10 mg oral tablet) 1 tab Oral (given by mouth) 3 times a day as needed for as needed for spasm Duration: 10 Days Pickup at [facility] Unchanged acetaminophen-diphenhydramine (Tylenol PM) Unchanged bacillus coagulans (Probiotic Digestive Aid Gummies) Unchanged buprenorphine-naloxone (Suboxone) See instructions 16 mg daily through [facility] ?? Unchanged buPROPion (Wellbutrin XL 150 mg/ 24 hours oral tablet, extended release) Unchanged oxyCODONE (oxyCODONE 5 mg oral tablet) 1 tab Oral (given by mouth) Every 6 hours as needed for as needed for pain for post op pain ?? Unchanged oxyCODONE (oxyCODONE 5 mg oral tablet) 0.5 tab Oral (given by mouth) Every 6 hours as needed for as needed for pain Right shoulder pain for post op pain ?? Unchanged traZODone (traZODone 100 mg oral tablet) 1.5 tab Oral (given by mouth) Every night at bedtime Depression, major, recurrent, moderate Insomnia Duration: 30 Days Pharmacy Information [facility]: [address] [place] [address] [phone] Education Materials Musculoskeletal Pain Musculoskeletal pain refers to aches and pains in your bones, joints, muscles, and the tissues thatsurround them. This pain can occur in any part of the body. It can last for a short time (acute) ora long time (chronic). A physical exam, lab tests, and imaging studies may be done to find the cause of your musculoskeletal pain. Follow these instructions at home: Lifestyle ? Try to control or lower your stress levels. Stress increases muscle tension and can worsen musculoskeletal pain. It is important to recognize when you are anxious or stressed and learn ways to manageit. This may include: ? Meditation or yoga. ? Cognitive or behavioral therapy. ? Acupuncture or massage therapy. ? You may continue all activities unless the activities cause more pain. When the pain gets better, slowly resume your normal activities. Gradually increase the intensity and duration of your activities or exercise. Managing pain, stiffness, and swelling ? Treatment may include medicines for pain and inflammation that are taken by mouth or applied to theskin. Take fogv-yse-emxlnvz and prescription medicines only as told by your health care provider. ? When your pain is severe, bed rest may be helpful. Lie or sit in any position that is comfortable, but get out of bed and walk around at least every couple of hours. ? If directed, apply heat to the affected area as often as told by your health care provider. Use theheat source that your health care provider recommends, such as a moist heat pack or a heating pad. ? Place a towel between your skin and the heat source. ? Leave the heat on for 20???30 minutes. ? Remove the heat if your skin turns bright red. This is especially important if you are unable to feel pain, heat, or cold. You may have a greater risk of getting burned. ? If directed, put ice on the painful area. To do this: ? Put ice in a plastic bag. ? Place a towel between your skin and the bag. ? Leave the ice on for 20 minutes, 2???3 times a day. ? Remove the ice if your skin turns bright red. This is very important. If you cannot feel pain, heat, or cold, you have a greater risk of damage to the area. General instructions ? Your health care provider may recommend that you see a physical therapist. This person can help youcome up with a safe exercise program. ? If told by your health care provider, do physical therapy exercises to improve movement and strength in the affected area. ? Keep all follow-up visits. This is important. This includes any physical therapy visits. Contact a health care provider if: ? Your pain gets worse. ? Medicines do not help ease your pain. ? You cannot use the part of your body that hurts, such as your arm, leg, or neck. ? You have trouble sleeping. ? You have trouble doing your normal activities. Get help right away if: ? You have a new injury and your pain is worse or different. ? You feel numb or you have tingling in the painful area. Summary ? Musculoskeletal pain refers to aches and pains in your bones, joints, muscles, and the tissues thatsurround them. ? This pain can occur in any part of the body. ? Your health care provider may recommend that you see a physical therapist. This person can help youcome up with a safe exercise program. Do any exercises as told by your physical therapist. ? Lower your stress level. Stress can worsen musculoskeletal pain. Ways to lower stress may include meditation, yoga, cognitive or behavioral therapy, acupuncture, and massage therapy. This information is not intended to replace advice given to you by your health care provider. Make sure you discuss any questions you have with your health care provider. Document Revised: 02/01/2021 Document Reviewed: 01/10/2021 Elsevier Patient Education ?? 2022 [employer] Patient/Trade Facilitator Signature Patient Name:ANDREWS ATKINSON I have received this information and my questions have been answered. Patient/Trade Facilitator Name: Patient/Trade Facilitator Signature: Relationship to Patient: Witness Name/Signature: Date: Electronically Signed on: 03/18/2024 10:56 EDTSigned by:[email or web address] Patient Care team information Care Team Personnel Name: Parish Amos MD Position: No Access Member Role: Informed Provider Address: Address: [address] [address]- Care Team Related Persons Name: JEWELS ATKINSON Name: LOS PEÑA Address: Home [address] [place], [id number]
--- OUTSIDE RECORDS SUMMARY | 2024-04-30 14:43 | XMS_ITS | Encounter Summary ---
Author Organization [facility] Address [facility] [place] [address] Care Team Providers Care Manager Home Name Role Phone Parish Mason MD Primary Care Provider [phone] Encounter Details Date Type Department Care Team (Late st Contact Info) Description 01/06/2020 Telephone Dermatology at [facility] [address] [place] [address] Lionel Perkins MD [facility] [address] [address] Social History Tobacco Use Types Packs/Day Years Used Date Smoking Tobacco: Every Day Cigarettes Smokeless Tobacco: Never Sex and Gender Information Value Date Recorded Sex Assigned at Not on file Gender Identity Not on file Sexual Orientation Not on file documented as of this encounter Miscellaneous Notes * Telephone Encounter - Lionel Perkins - 01/06/2020 10:11 AM EDT DERMATOLOGY TELEPHONE NOTE Reagan Cr 01/06/2020 [id number] Caller: Reagan Cr Reason for call: f/u culture results History: 39 y.o. 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 Bullous impetigo. Bacterial culture now growing staph Aureus Pt notes itching in the groin worse with topical antifungal Assessment/Plan/Instructions: 1. Erosio blastomycetica interdigitalis with Bullous impetigo -Plan to mix 1:1 topical ketoconazole 2% cream with mupirocin ointment apply BID for 10 days RX: Mupirocin ointment BID 2. Question Intertrigo of grown -Irritation with topical antifungal. Plan trial of low potency topical steroid RX: 2.5% hydrocortisone cream BID to the affected areas in groin for 2 weeks Patient understands and agrees to plan. Lionel Perkins MD Dermatology Resident documented in this encounter Plan of Treatment Not on file documented as of this encounter Visit Diagnoses Not on filedocumented in this encounter Care Teams Manager Home Relationship Specialty Start Date End Date Parish Mason MD [address] [place] [id number] PCP - General General Internal Medicine 01/03/2005/13 documented as of this encounter
--- OUTSIDE RECORDS SUMMARY | 2024-04-30 14:43 | XMS_ITS | Continuity of Care Document ---
Author Organization [facility] Address [address] [place] [address] Care Team Providers Care Director Of Slot Operations Name Role Phone JUANJAI Mcgarry Dentist Assessment Encounter Date Assessment Date Assessment LastModified by Organization Details LastModified Time 03/31/2024 03/31/2024 The total time devoted to today's encounter, including both the cbjp-[id number] time with the patient and/or family/caregi azam and ngi-bujf-du-f leonardo time I personally spent is 30 minutes. Not available 03/31/2024 12:57:11 Plan of Treatment Reminders Order Date Submit Date Provider Last Modified By Organization Details Last Modified Time Details Appointments None recorded. Lab hemoglobin A1C, fingerstick 2023 024 [facility] [place], [address] [facility], [facility] [address], [place], [address], 4 12:11:34 Referral nutritionis t/dietitian referral 2023 024 [facility] Recruit Instructor-[employer], [address], [place], [address], 4 09:52:55 sleep medicine referral - Snoring, fatigue 2023 024 [email or web address] [id number] Loraine Kimbrough MD, [address], [place], [address], 4 08:18:49 Procedures None recorded. Surgeries None recorded. Imaging None recorded. Medication Orders None recorded. Patient TargetsNo targets recorded. Patient Instructions Encounter Date Encounter Id Patient Instructions Last Modified By Organization Details Last Modified Time 03/31/2024 [id number] I referred you f or sleep study and to nutrition, you should be hearing from [facility] to have an appointment scheduled. Try to keep track of your dietary modifications and portion control and try to slowly increase a daily walk. Follow up with Dr. Sherwood as planned Not available 03/31/2024 12:07:12 Reason for Referral Ccu Nurse Referral fo r Dysphagia Referral to Dr. Hinds for dysphagia. Barium swallow showed mild unprotected penetration. Patient is a smoker. Requesting evaluation of her vocal cords. Referring Physician: Miladis Cho [facility] Medicine, Encounter Date: 09/16/2023 Physical Therapist Referral for Cervical radiculopathy neg CT (neck, C spine, chest), EMG pending Referring Physician: Stephanie Sherwood, Internal Medicine, Encounter Date: 09/19/2023 Orthopedic Surgeon Referral for Pain of left knee joint has seen Dr. Ayala in the past Referring Physician: Marga Agudelo [facility] Medicine, Encounter Date: 11/03/2023 Orthopedic Surgeon Referral for Pain of left wrist recurrent CTS and trigger finger Referring Physician: Marga Agudelo [facility] Medicine, Encounter Date: 11/03/2023 Orthopedic Surgeon Referral for Carpal tunnel syndrome Referring Physician: Marga Agudelo [facility] Medicine, Encounter Date: 12/03/2023 Orthopedic Surgeon Referral for Pain of right shoulder joint Referring Physician: Marga Agudelo [facility] Medicine, Encounter Date: 01/05/2024 Biopsychologist Referral for De lay when starting to pass urine hesitancy with voiding x one month Referring Physician: Marga Agudelo [facility] Medicine, Encounter Date: 01/14/2024 Sleep Medicine Referral for Snoring Snoring, fatigue Referring Physician: Marga Agudelo [facility] Medicine, Encounter Date: 03/31/2024 Review Engineer/dietitian Refer ral for Weight gain Referring Physician: Marga Agudelo, Family Medicine, Encounter Date: 03/31/2024 Results Created Date Observation Date Name Description Value Unit Range Abnormal Flag LastModifiedBy Organization Detail LastModifiedTime 03/31/20 24 03/31/2024 hemog lobin A1C, cat rstic k hemoglobin A1C 5.0 % <5.7 Not Available [facility] [place] [address] [facility] [address], [place], [address], 03/31/2024 12:09:40 03/18/20 24 03/18/2024 XR, shoul lev, 2 or more view PROCED URE INFORM ATION: Exam: XR Right Should er Exam date and time: 03/18/20 10:37 AM Age: 43 years old Clinic al indica tion: Pain fall TECHNI QUE: Imagin g protoc ol: Radiol ogic exam of the right should er. Views: 2 or more views. Total images : 3 COMPAR JENNIFER: MR SHOULD ER RT WO CONTRA ST 024 2:35 PM FINDIN GS: Bones/ joints : Postop erativ e change s of the right should er. No eviden ce of acute fractu re or disloc ation. Soft tissue s: Soft tissue s are within normal limits . IMPRES JUDITH: 1. Postop erativ e change s of the right should er. 2. No eviden ce of acute fractu re or disloc ation. Report signed by: Jamari Toney on On 2023 11:17: 28 [email or web address] [facility] [address], [place], [address], 03/18/2024 12:13:45 03/18/20 24 03/18/2024 XR, elbow , 3 or more view PROCED URE INFORM ATION: Exam: XR Right Elbow Exam date and time: 03/18/20 10:31 AM Age: 43 years old Clinic al indica tion: Pain, fall TECHNI QUE: Imagin g protoc ol: Radiol ogic exam of the right elbow. Views: 3 or more views. Total images : 1 COMPAR JENNIFER: MR SHOULD ER RT WO CONTRA ST 2:35 PM FINDIN GS: Bones/ joints : No eviden ce of acute fractu re or disloc ation. Soft tissue s: Soft tissue s are within normal limits . IMPRES JUDITH: No eviden ce of acute fractu re or disloc ation. Report signed by: Jamari Toney on On 2023 11:19: 25 [email or web address] [facility] [address], [place], [address], 03/18/2024 12:13:45 03/23/20 24 03/23/2024 CT, angio gram, chest , w/ contr ast ABNORM AL FINDIN G PROCED URE INFORM ATION: Exam: CTA Chest With Contra st Exam date and time: 4:24 PM Age: 43 years old Clinic al indica tion: HX pe, not on antico agulat ion, had a recent surger y now chest pain and dyspne a TECHNI QUE: Imagin g protoc ol: Comput ed tomogr aphic angiog dennis of the chest with contra st. Exam focuse d on the arteri es. 3D render ing (Not superv ised by radiol ogist) : MIP and/or 3D recons tructe d images were create d by the techno logist . Radiat ion optimi zation : All CT scans at this facili ty use at least one of these dose optimi zation techni ques: automa erin exposu re contro l; mA and/or kV adjust ment per patien t size (inclu han target ed exams where dose is matche d to clinic al indica tion); or iterat aldo recons tructi on. Contra st materi al: OMNIPA QUE 350; Contra st volume : 80 ml; Contra st route: INTRAV ENOUS (IV); COMPAR JENNIFER: CR XR CHEST 2VW (D) 01/17/20 22 10:00 AM FINDIN GS: Pulmon poornima arteri es: Normal . No pulmon poornima emboli . Aorta: Unrema rkable . No aortic aneury sm. No aortic dissec tion. Lungs: There are subtle ground -glass opacit ies within the superi or segmen t of the right lower lobe. There is mild linear right middle lobe atelec tasis. A 3 mm subple ural nodula r densit y is noted within the right middle lobe as seen on series 5, image 34. Pleura l spaces : Unrema rkable . No pneumo thorax . No pleura l effusi on. Heart: Unrema rkable . No cardio megaly . No perica rdial effusi on. Lymph nodes: Unrema rkable . No enlarg ed lymph nodes. Bones/ joints : Unrema rkable . No acute fractu re. Soft tissue s: Unrema rkable . IMPRES JUDITH: 1. No CT eviden ce of pulmon poornima embolu s. 2. Subtle ground -glass opacit ies within the superi or segmen t of the right lower lobe which may reflec t mild/e starla pneumo earle versus atelec tasis. 3. 3 mm right middle lobe subple ural nodule . For patien ts at low risk (minim al or absent histor y of smokin g and of other known risk factor s), no routin e follow -up is indica erin. For patien ts at high risk (histo ry of smokin g or of other known risk factor s), consid er option al CT Chest at 12 months . (Refer ence: David cr) REFERE NCES: David cr H, et al. Guidel gustavo for Manage ment of Incide ntal Pulmon poornima Nodule s Detect ed on CT Images : From the [employer] 2017. Radiol ogy. 2017;2 84(1): 228-24 3. Report signed by: Lucie clay On 2023 17:08: [email or web address], [place], [address], 03/24/2024 06:02:57 Result Notes None recorded. Problems Name Status Onset Date Resolution Date Notes Provider Name and Address Organization Details Recorded Time Opioid dependence Active 200908/06/2018 - Comments only - Nnamdi Caban PA-C - Currently off all MAT. Denies any drug use. Time spent today discussing how to support her in recovery. Continue counseling continue to work with psychiatry. Encouraged healthy nutrition, regular movement, stress reduction. Problem Code: F11.20; Problem Code Type: ICD-10; MD [address], [place], [address] , [facility] 4 06:24:14 Obesity Active 2013 Problem Code: E66.9; Problem Code Type: ICD-10; Not Available [facility] 3 04:30:55 Pulmonary embolism Active 201305/24/2015 - Comments only - Stephanie Sherwood MD - Exam is normal bt given history, we need to exclude pe. will get chest ct and labs stat. Problem Code: I26.99; Problem Code Type: ICD-10; MD [address], [place], [address] , [facility] 4 06:24:41 Edema Active 201404/26/2015 - Comments only - Stephanie Sherwood MD - controlled on diuretics. will get renal profile in two weeks with ddimer. Problem Code: R60.9; Problem Code Type: ICD-10; Not Available [facility] 3 04:30:55 Mixed hyperlipidemi a Active 201406/13/2015 - Comments only - Stephanie Sherwood MD - Trig not high enough to risk pancreatitis. Overll cardiac risk low due to age. Needs to cont wt loss and repeat lipids in 3-4 mo's. statins not indicated. Neuroleptics a huge problem here but she cannot stop yet. Problem Code: E78.2; Problem Code Type: ICD-10; MD [address], [place], [address] , [facility] 4 06:23:58 Onychomycosis due to dermatophyte Active 2014 Problem Code: B35.1; Problem Code Type: ICD-10; MD [address], [place], [address] , [facility] 4 06:25:32 Prediabetes Active 201510/17/2022 - Comments only - Stephanie Sherwood MD - Check A1c. Tdap given. Candidate for COVID booster but she does had COVID in the past few weeks and so she will wait a few months. Will return for Pap. Problem Code: R73.03; Problem Code Type: ICD-10; MD [address], [place], [address] , [facility] 4 06:24:36 Tobacco dependence caused by cigarettes Active 201509/17/2021 - Comments only - Marga Agudelo [employer] - encouraged cessation Problem Code: F17.210; Problem Code Type: ICD-10; MD [address], [facility] [address] , [facility] 4 06:25:16 Disorder of nail Completed 201502/15/2016 Problem Code: L60.9; Problem Code Type: ICD-10; Not Available [facility] 3 04:30:55 Chronic sinusitis Completed 201504/12/2016 Problem Code: J32.9; Problem Code Type: ICD-10; Not Available [facility] 3 04:30:56 Urinary tract infectious disease Completed 201506/17/2016 Problem Code: N39.0; Problem Code Type: ICD-10; Not Available [facility] 3 04:30:56 Secondary amenorrhea Active 2015 Problem Code: N91.1; Problem Code Type: ICD-10; MD [address], [place], [address] , [facility] 4 06:24:55 Rupture of anterior cruciate ligament Completed 201512/31/2023 Problem Code: M23.619; Problem Code Type: ICD-10; MD [address], [place], [address] , [facility] 4 06:24:51 History of tubal ligation Active 2017 Problem Code: Z98.51; Problem Code Type: ICD-10; Not Available [facility] 3 04:30:56 Urinary tract infectious disease Completed 201711/25/2017 10/14/2017 - Comments only - Nnamdi Caban PA-C - Has had similar in the past. Urine dip positive for leukocytes. Treat with antibiotics. Also Diflucan given vaginal symptoms. STD testing pending. Problem Code: N39.0; Problem Code Type: ICD-10; Not Available [facility] 3 04:30:56 Pain of left knee joint Completed 201712/31/2023 08/06/2018 - Comments only - Nnamdi Caban PA-C - Referral to orthopedics. Problem Code: M25.562; Problem Code Type: ICD-10; STEPHANIE SHERWOOD MD [address], [place], [address] , [facility] 4 06:24:27 Itching of skin Completed 201704/11/2019 10/12/2018 - Comments only - Nnamdi Caban PA-C - This may be from stock being hydroxyzine. Trial prednisone. If not improved then recheck. No evidence for infestations. Problem Code: L29.9; Problem Code Type: ICD-10; Not Available [facility] 3 04:30:56 Conduction disorder of the heart Active 2018 Problem Code: I45.9; Problem Code Type: ICD-10; Not Available [facility] 3 04:30:57 Chest pain Completed 201810/13/2019 09/29/2019 - Comments only - Stephanie Sherwood MD - Pleuritic but because she is tender over the costochondral junctions I think this is most likely some low-grade costochondrit is. She may be coming down with viral illness or strep causing some simultaneous headache. However strep screen was negative here. Because of her past history of PE I made her go to the hospital for labs which included an entirely normal d-dimer troponin, marginally elevated CRP consistent with costochondrit is. I recommend treatment with ibuprofen 600 mg 3 times daily just until improved. Problem Code: R07.89; Problem Code Type: ICD-10; Not Available [facility] 3 04:30:57 Artefactual skin disease Active 201912/03/2019 - Comments only - Stephanie Sherwood MD - Although she does not note a difference, in fact her exam is quite a bit change. I think the citalopram may have reduced excoriations but she does not want to take it now. The recent atypical lymphocytosis is an interesting finding in light of unexplained rash. I am going to check an Lisset-Barnett panel recheck her CBC with differential now. Also check HIV serology, thyroid antibodies, all all all these associated with refractory rashes. Increase hydroxyzine to 50 mg 3 times daily on a as needed basis. Long-term, some patients need Orap for neurotic excoriation; Reagan has not had progression of her excoriation I doubt that she will had that way. Problem Code: L98.1; Problem Code Type: ICD-10; MD [address], [place], [address] , [facility] 4 06:22:34 Herpes zoster Completed 201912/31/2023 04/19/2020 - Comments only - Mili Calderón [employer] - Rash is suspicious for shingles. She does have some vesicles developing and it is a burning sensation along with itching that she is experiencing. She does recall having chickenpox as a kid. History of dyshidrotic eczema but I think this is shingles working to treat with acyclovir. Trial of fluocinonide for itching as her triamcinolone is not helping at this point. Follow-up if not improving. Reagan understands and agrees with the plan of care. Problem Code: B02.9; Problem Code Type: ICD-10; MD [address], [place], [address] , [facility] 4 06:22:21 Pain Completed 202010/21/2020 Problem Code: R52; Problem Code Type: ICD-10; Not Available [facility] 3 04:30:57 Dyspnea Completed 202010/21/2020 Problem Code: R06.02; Problem Code Type: ICD-10; MARGA AGUDELOANNA [address], [place], [address] , [facility] 4 12:57:26 Acute upper respiratory infection Completed 202010/23/2020 [facility] 4 10:36:07 Cough Completed 202001/23/2021 Problem Code: R05; Problem Code Type: ICD-10; Not Available [facility] 3 04:30:58 Erythrasma Active 202011/27/2022 - Comments only - Stephanie Sherwood MD - She has failed to respond to topical antifungals at all. 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 Because this has been refractory I am going to try azithromycin every other day for 1 to 2 months. 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 Has been refracturing Reagan. She should continue with the steroid cream under occlusive dressing but she needs to give up smoking as well. Problem Code: L40.3; Problem Code Type: ICD-10; MD [address], [place], [address] , [facility] 4 06:24:45 Cough Completed 202009/23/2023 07/26/2022 - Comments only - Stephanie Sherwood MD - Still smoking MJ and I suggested she stop that, switch to edibles or do nothing. She promises to return for flu and COVID boosters. Problem Code: R05; Problem Code Type: ICD-10; Not Available [facility] 4 05:37:19 Subacute and chronic vaginitis Active 202010/22/2021 - Comments only - Stephanie Sherwood MD - I suspect the hygiene issues related to her chronic diarrhea are part of the problem. Sits baths or a bidet would be helpful. We will have her add topical metronidazole to oral therapy. Problem Code: N76.1; Problem Code Type: ICD-10; MD [address], [place], [address] , [facility] 4 06:25:13 Candidiasis of skin Completed 202008/18/2021 08/17/2021 - Comments only - Miladis JORGENSEN - - rx for nystatin cream twice daily - leave open to air as much as possible Problem Code: B37.2; Problem Code Type: ICD-10; Not Available [facility] 3 04:30:59 Low back pain Active 202101/15/2022 - Comments only - Marga Chute [employer] - and upper back pain that started with COVID Reagan is feeling run down, frustrated and in pain. ? Long haul COVID. CT done 10/25/2021 was negative, lab work also in October was essentially normal. Cyclobenzapri ne she was given in ER didn't help Problem Code: M54.59; Problem Code Type: ICD-10; MD [address], [place], [address] , [facility] 4 06:23:51 History of SARS-CoV-2 Completed 202112/31/2023 10/17/2021 - Comments only - Marga Chute [employer]CH[employer] - Still feeling fairly lousy. 02 sats at 97%. No longer on quarantine RTC if no gradual improvement Problem Code: Z86.16; Problem Code Type: ICD-10; MD [address], [place], [address] , [facility] 4 06:22:15 Cough Completed 202107/06/202207/0507/05/2022 - Comments only - Miladis JORGENSEN - negative covid and flu. covid test kits provided. plenty of rest and fluids. rx for tessalon perles and albuterol inhaler. Return to clinic if not improving or worsening symptoms Problem Code: R05.8; Problem Code Type: ICD-10; Not Available [facility] 3 04:30:59 Steatosis of liver Completed 202210/18/2022 Problem Code: K76.0; Problem Code Type: ICD-10; Not Available [facility] 3 04:30:59 Cervical radiculopathy Active 2022 Problem Code: M54.12; Problem Code Type: ICD-10; MD [address], [place], [address] , [facility] 4 06:22:53 Exposure to sexually transmissible disorder Completed 202212/25/2022 11/27/2022 - Comments only - Stephanie Sherwood MD - Cervical swab for GC and chlamydia obtained and sent. We will also check serology. Problem Code: Z20.2; Problem Code Type: ICD-10; Not Available [facility] 3 04:31:00 Sleep disorder Active 202211/27/2022 - Comments only - Stephanie Sherwood MD - Think this is primarily driven by her polypharmacy at night. Ropinirole would be drug especially likely to cause vivid dreams but it is very helpful to her. If we can improve on her erythrasma she should try to wean off the hydroxyzine. Discussed possibility of prazosin but she is already feeling lightheaded and I do not think we should add that right now. Problem Code: G47.9; Problem Code Type: ICD-10; MD [address], [place], [address] , [facility] 4 06:25:09 Severe recurrent major depression without psychotic features Active 200701/05/2020 - Comments only - Miladis JORGENSEN - - continue care with behavioral health - advised to call office, suicide hotline or 911 if having SI or HI -The patient is in good understand and agreement with the plan of care Problem Code: F33.2; Problem Code Type: ICD-10; STEPHANIE SHERWOOD MD [address], [place], [address] , [facility] 4 06:24:58 Female pelvic inflammatory disease Completed 201202/09/2013 Problem Code: N73.9; Problem Code Type: ICD-10; Not Available [facility] 3 04:31:00 Morbid obesity Completed 201307/09/2023 Not Available [facility] 3 04:31:00 Exposure to communicable disease Completed 202007/26/2022 Problem Code: Z20.828; Problem Code Type: ICD-10; Not Available [facility] 3 04:31:01 Urticaria Completed 201910/25/2020 Problem Code: L50.9; Problem Code Type: ICD-10; Not Available [facility] 3 04:31:01 Noninflammato ry disorder of the vagina Completed 202007/09/2023 10/17/2021 - Comments only - Marga Agudelo [employer] - with associated dysuria. Urine negative for WBC, affirm swab sent white discharge in vaginal vault. Diflucan x one, she will not take any hydroxyzine, ondansetron, or oxycodone tonight. RTC or call if no improvement or sx increase Problem Code: N89.8; Problem Code Type: ICD-10; Not Available [facility] 3 04:31:01 Itching of skin Completed 201810/22/2021 Problem Code: L29.9; Problem Code Type: ICD-10; Not Available [facility] 3 04:31:01 Acute pharyngitis Completed 201511/27/2022 Problem Code: J02.9; Problem Code Type: ICD-10; Not Available [facility] 3 04:31:01 Vesicular eczema Completed 201910/22/2021 Problem Code: L30.1; Problem Code Type: ICD-10; Not Available [facility] 3 04:31:01 Noninfectious gastroenterit is Completed 201810/25/2020 Not Available [facility] 3 04:31:02 Depressive disorder Completed 200707/09/2023 06/13/2015 - Kevin Sherwood MD - Not Available [facility] 3 04:31:02 Dysuria Completed 202010/17/2022 Problem Code: R30.0; Problem Code Type: ICD-10; Not Available [facility] 3 04:31:02 Continuous opioid dependence Completed 200907/09/2023 Problem Code: 304.01; Problem Code Type: ICD-9; Not Available [facility] 3 04:31:02 Candidiasis of vagina Completed 201602/20/2017 Problem Code: B37.3; Problem Code Type: ICD-10; Not Available [facility] 3 04:31:02 Meralgia paresthetica Completed 200801/25/2016 Problem Code: 355.1; Problem Code Type: ICD-9; Not Available [facility] 3 04:31:03 Eczema Completed 201910/25/2020 Problem Code: L30.9; Problem Code Type: ICD-10; Not Available [facility] 3 04:31:03 Continuous opioid dependence Completed 200607/09/2023 Problem Code: 304.01; Problem Code Type: ICD-9; Not Available [facility] 3 04:31:03 Localized infection of skin AND/OR subcutaneous tissue Completed 201506/12/2016 Problem Code: L08.9; Problem Code Type: ICD-10; Not Available [facility] 3 04:31:03 Diarrhea Completed 201907/02/2020 Problem Code: R19.7; Problem Code Type: ICD-10; Not Available [facility] 3 04:31:04 Contact dermatitis Completed 201602/26/2017 Problem Code: L25.9; Problem Code Type: ICD-10; Not Available [facility] 3 04:31:04 Pilonidal cyst Completed 201911/27/2022 Problem Code: L05.91; Problem Code Type: ICD-10; Not Available [facility] 3 04:31:04 Blood glucose outside reference range Completed 201507/09/2023 03/12/2018 - Comments only - Nnamdi Caban PA-C - Continue metformin at this time. This may also be helping her with prevention of weight gain on antipsychotic s. Recheck 6 months. No other complaints. Hemoglobin A1c 5.0%. Problem Code: R73.09; Problem Code Type: ICD-10; Not Available [facility] 3 04:31:04 Acute vaginitis Completed 201610/17/2022 Problem Code: N76.0; Problem Code Type: ICD-10; Not Available [facility] 3 04:31:04 Wheezing Completed 201502/26/2017 Problem Code: R06.2; Problem Code Type: ICD-10; Not Available [facility] 3 04:31:05 Disorder of nasal sinus Completed 202110/17/2022 Not Available [facility] 3 04:31:05 Opioid dependence in remission Completed 200601/25/2016 Problem Code: F11.21; Problem Code Type: ICD-10; Not Available [facility] 3 04:31:05 Dysphagia Active [address], [place], [address] , [facility] 3 15:14:28 Chronic cough Active 2020 Problem Code: R05.3; Problem Code Type: ICD-10; Not Available [facility] 4 05:37:17 Pain of left wrist Completed 202312/31/[address], [place], [address] , [facility] 4 06:24:33 Neck pain Active [address], [place], [address] , [facility] 4 06:24:08 Gastro-esopha geal reflux disease with esophagitis Active 2023 Barretts [address], [place], [address] , [facility] 4 06:21:47 Carpal tunnel syndrome Active [address], [place], [address] , [facility] 4 06:22:56 Barrera's esophagus Active 2023 EGD [facility] [address], [place], [address] , [facility] 4 06:23:40 Pain of right shoulder joint Active [address], [place], [address] , [facility] 4 08:49:27 Delay when starting to pass urine Active [address], [place], [address] , [facility]. 4 14:58:08 Open wound, heel Active [address], [place], [address] , [facility]. 4 15:03:06 Snoring Active [address], [place], [address] , [facility]. 4 11:55:39 Fatigue Active [address], [facility] [address] , [facility] 4 11:57:12 Weight gain Active [address], [facility] [address] , [facility] 4 11:59:25 Solitary nodule of lung Active [address], [facility] [id number] [place] [address] 4 12:07:35 Dyspnea Active 2023 Problem Code: R06.02; Problem Code Type: ICD-10; ANNA [address] Dr, [facility] [address] [facility] 4 12:57:26 Notes:*Problem Name: Pid *IC D-10 Codes: *Problem Status: inactive *Comments: *Note Date: 12/31/2012 *Problem Name: Pumonary Embolism *ICD-10 Codes: *Problem Status: inactive *Comments: *Note Date: 09/12/2014 Problem Notes None recorded. Procedures Surgical History Date Name Laterality Status Provider Name and Address Organization Details Recorded Time 3 Most Recent Mammogram completed VINNY Sanchez, [facility] 01/13/2024 15:43:55 7 Date of Last Pap Smear completed VINNY Sanchez, [facility] 01/13/2024 15:43:43 Imaging Results None recorded. Procedure Notes None recorded. Medical Equipment None Reported. Allergies No known drug allergies Medications Name Sig Start Date Stop Date Status Note LastModified by Organization Details LastModified Time celecoxib 200 mg capsule Take 1 capsule by mouth twice a day as needed for pain 11/27 completed Not Available Not Available Not Available Vancocin 125 mg capsule prolonge d course for second recurren ce Cdif, quid for 10 d then taper down over 8 weeks 12/24 completed Not Available Not Available Not Available fluoxetin e 40 mg capsule 1 qd 04/26 completed Not Available Not Available Not Available cyclobenz aprine 10 mg tablet TAKE 1 TABLET BY MOUTH THREE TIMES DAILY FOR 10 DAYS NEEDED FOR SPASM 03/31 completed pt reports not taking Not Available Not Available Not Available amoxicill in 500 mg capsule Take 2 capsule by mouth twice a day for 7 days. 10/17 completed Not Available Not Available Not Available furosemid e 40 mg tablet 1tab qday 01/25 completed Not Available Not Available Not Available medroxypr ogesteron e 10 mg tablet 1 tablet by mouth daily x 10 days 08/09 completed Not Available Not Available Not Available Coumadin 2.5 mg tablet Take medicati on as directed . 05/22 completed Not Available Not Available Not Available Augmentin 875 mg-125 mg tablet Take 1 tab by mouth twice daily. 04/29 completed Not Available Not Available Not Available ivermecti n 3 mg tablet 6 tabs now 08/19 completed Not Available Not Available Not Available clonidine HCl 0.1 mg tablet Take 1 tab by mouth twice daily 12/03 completed per beckie vilchis Not Available Not Available Not Available prednison e 10 mg tablet Take 2 tablet by mouth today and tomorrow morning, then one tablet daily for 3 more days 11/03 completed Not Available Not Available Not Available ropinirol e 1 mg tablet Take 1 tablet by mouth every night 07/09 completed per Elisa Vail Not Available Not Available Not Available nicotine 14 mg/24 hr daily transderm al patch Apply patch to skin once a day 08/17 completed Not Available Not Available Not Available Neurontin 300 mg capsule Take one tablet by mouth twice per day 01/24 completed Not Available Not Available Not Available Effexor XR 75 mg capsule,e xtended release 1tab qday 06/11 completed Not Available Not Available Not Available trazodone 50 mg tablet TAKE 1/2 (ONE-DAVID F) TABLET BY MOUTH ONCE DAILY AT BEDTIME active Not Available Not Available No t Available triamcino lone acetonide 0.5 % topical cream apply topicall y to affected area of hands feet and arms BID for less than 2 weeks at a time 01/26 completed Not Available Not Available Not Available azithromy ever 250 mg tablet TAKE 1 TABLET BY MOUTH EVERY OTHER DAY FOR 28 DAYS 09/11 completed Not Available Not Available Not Available ibuprofen 800 mg tablet TAKE 1 TABLET BY MOUTH THREE TIMES DAILY DIRECTED FOR 4 DAYS active Not Available Not Available No t Available fluconazo le 150 mg tablet Take 1 tablet by mouth single dose 10/18 completed Not Available Not Available Not Available benzonata te 200 mg capsule TAKE 1 CAPSULE BY MOUTH EVERY 8 HOURS NEEDED FOR COUGH 09/11 completed Not Available Not Available Not Available promethaz ine 25 mg rectal supposito ry insert one supposit ory rectally every 8 hours as needed for nausea/v omiting 11/10 completed Not Available Not Available Not Available Keflex 500 mg capsule 1 tablet QID 06/21 completed Not Available Not Available Not Available ondansetr on HCl 4 mg tablet Take 1 tab by mouth every 6 hours as needed for nausea 01/26 completed Not Available Not Available Not Available prednison e 20 mg tablet Take 1 tablet by mouth every morning for 4 days 09/11 completed Not Available Not Available Not Available spironola ctone 100 mg tablet Take 1 tablet by mouth daily as need for LE edema 04/29 completed Not Available Not Available Not Available gabapenti n 400 mg capsule TAKE 1 CAPSULE BY MOUTH TWICE DAILY 01/04 completed Not Available Not Available Not Available Seroquel 25 mg tablet Take 1 tablet by mouth once a day 10/17 completed Not Available Not Available Not Available metformin 850 mg tablet HOLD FOR NOW 0- Take 1 tab by mouth daily 10/23 completed Not Available Not Available Not Available Geodon 20 mg capsule one daily 01/04 completed dose decrease Not Available Not Available Not Available permethri n 5 % topical cream Apply from head to soles of feet; leave on for 8 to 14 hours before removing (shower or bath)- Repeat in 2 weeks 09/02 completed Not Available Not Available Not Available Wellbutri n SR 150 mg tablet, 12 hr sustained -release Take 1 by mouth daily 03/12 completed Not Available Not Available Not Available penicilli n V potassium 500 mg tablet TAKE 1 TABLET BY MOUTH THREE TIMES DAILY UNTIL GONE 11/03 completed Not Available Not Available Not Available clotrimaz ole 1 % vaginal cream insert 1 applicat or full into vagina [facility] 01/28 completed Not Available Not Available Not Available metronida zole 500 mg tablet Take 1 tablet by mouth twice a day 10/25 completed Not Available Not Available Not Available fluocinon jada 0.05 % topical ointment apply a thin amount to the affected areas twice daily 01/26 completed Not Available Not Available Not Available omeprazol e 40 mg capsule,d elayed release TAKE 1 CAPSULE BY MOUTH ONCE DAILY 01/04 completed going to see [facility] for [facility] Not Available Not Available Not Available triamcino lone acetonide 0.1 % topical cream apply a thin layer to the affected areas twice daily 03/14 completed Not Available Not Available Not Available amoxicill in 500 mg tablet Take 1 tablet by mouth three times a day 09/24 completed Not Available Not Available Not Available acyclovir 800 mg tablet take one tablet five times daily for seven days 12/21 completed Not Available Not Available Not Available Voltaren 75 mg tablet,de layed release 1TAB BID 09/01 completed Not Available Not Available Not Available Macrobid 100 mg capsule Take 1 cap by mouth twice a day 03/12 completed Not Available Not Available Not Available bupropion HCl 100 mg tablet Take 1 tab by mouth daily 01/04 completed Not Available Not Available Not Available citalopra m 20 mg tablet Take 1 by mouth daily, If no effect in one week increase to two tab daily. 12/03 completed Not Available Not Available Not Available Metrogel Vaginal 0.75 % (37.5 mg/5 gram) Insert 1 applicat orful into vagina at bedtime for 5 days 01/15 completed Not Available Not Available Not Available Geodon 40 mg capsule 1 tab at bedtime 2013 active dose decrease Not Available Not Available Not Available Lamisil 250 mg tablet 1 qd 07/21 completed Not Available Not Available Not Available trazodone 100 mg tablet TAKE 1 TABLET BY MOUTH ONCE DAILY AT BEDTIME active Not Available Not Available No t Available betametha sone valerate 0.1 % topical cream Apply 1 a small amount to affected area every other day apply under occlusiv e dressing on sole of right foot 01/15 completed Not Available Not Available Not Available diazepam 2 mg tablet TAKE 1 TABLET 30 MINUTES PRIOR TO PRCEDURE NEEDED FOR ANXIETY 03/31 completed pt reports not taking Not Available Not Available Not Available benzonata te 100 mg capsule Take 1 capsule by mouth three times a day as needed for cough 07/26 completed Not Available Not Available Not Available ropinirol e 2 mg tablet TAKE 2 TABLETS BY MOUTH ONCE DAILY AT NIGHT AT BEDTIME 09/11 completed Not Available Not Available Not Available pantopraz ole 40 mg tablet,de layed release Take 1 tablet by mouth once a day 09/11 completed Not Available Not Available Not Available mirtazapi ne 30 mg tablet 1tab qhs 11/09 completed Not Available Not Available Not Available fluoxetin e 20 mg tablet 3cap QD 06/10 completed Not Available Not Available Not Available nystatin 100,000 unit/gram topical cream Apply 1 a small amount to skin twice a day as needed 10/17 completed Not Available Not Available Not Available buspirone 10 mg tablet Take 1 tab by mouth daily as needed 09/06 completed Not Available Not Available Not Available Effexor XR 150 mg capsule,e xtended release Take 2 capsules by mouth daily 08/05 completed Not Available Not Available Not Available betametha sone dipropion ate 0.05 % topical cream Apply as directed to affected area at bedtime Apply under occlusiv e dressing every night on the the right foot 08/17 completed Not Available Not Available Not Available omeprazol e 20 mg capsule,d elayed release Take 1 capsule by mouth once a day 05/16 completed Not Available Not Available Not Available Risperdal 0.5 mg tablet 1-2 tabs daily 07/25 completed Not Available Not Available Not Available cephalexi n 500 mg tablet take 1 tablet QID 05/06 completed Not Available Not Available Not Available hydroxyzi ne HCl 25 mg tablet TAKE 2 TABLETS BY MOUTH THREE TIMES DAILY NEEDED 09/11 completed Not Available Not Available Not Available furosemid e 20 mg tablet Take 1 tab by mouth daily prn edema 04/29 completed Not Available Not Available Not Available mirtazapi ne 15 mg tablet TAKE 1 TABLET BY MOUTH ONCE DAILY AT BEDTIME 09/11 completed Not Available Not Available Not Available fluocinol one 0.01 % topical solution apply daily 03/14 completed Not Available Not Available Not Available Provigil 200 mg tablet Take 1 tablet by mouth daily 01/24 completed Not Available Not Available Not Available Geodon 60 mg capsule 2 tab qhs 05/06 completed Not Available Not Available Not Available albuterol sulfate HFA 90 mcg/actua tion aerosol inhaler Inhale 2 puff using inhaler every four to six hours as needed for cough, shortnes s of breath or wheeze 11/03 completed Not Available Not Available Not Available Coumadin 10 mg tablet 1tab qd 09/13 completed Not Available Not Available Not Available ketoconaz ole 2 % topical cream apply BID 03/14 completed Not Available Not Available Not Available fluocinon jada 0.05 % topical cream Apply as directed to affected area as directed Apply under occlusiv e dressing every night on the the right foot. 04/16/ 2021 08/04 /2021 completed Not Available Not Available Not Available ondansetr on 4 mg disintegr ating tablet 09/11 completed Not Available Not Available Not Available fluticaso ne propionat e 50 mcg/actua tion nasal spray,gatito pension INSTILL 2 SPRAY(S) IN EACH NOSTRIL ONCE DAILY 09/11 completed Not Available Not Available Not Available Geodon 80 mg capsule Take one capsule by mouth at bedtime 2013 active Not Available Not Available Not Avai lable Ambien 5 mg tablet Take 1 tab by mouth at bedtime as needed for insomnia 07/[address] Moore Not Available Not Available Not Available naproxen 500 mg tablet Take 1 tab by mouth twice daily as needed for pain 12/02 completed Not Available Not Available Not Available spironola ctone 50 mg tablet 1tab qday 09/13 completed Not Available Not Available Not Available oxycodone 5 mg tablet TAKE 1/2 (ONE-DAVID F) TABLET BY MOUTH EVERY 6 HOURS NEEDED FOR POST OP PAIN active Not Available Not Available No t Available Bactrim DS 800 mg-160 mg tablet Take 1 tab by mouth twice daily x1 week 11/10 completed Not Available Not Available Not Available erythromy ever with ethanol 2 % topical gel Apply to skin twice a day 05/16 completed Not Available Not Available Not Available nicotine (polacril ex) 2 mg buccal lozenge DISSOLVE 1 LOZENGE BY MOUTH EVERY 2 HOURS NEEDED 09/11 completed Not Available Not Available Not Available cyclobenz aprine 5 mg tablet TAKE 1 TABLET BY MOUTH EVERY 8 HOURS NEEDED FOR MUSCLE SPASM 03/31 completed pt reports not taking Not Available Not Available Not Available bupropion HCl XL 300 mg 24 hr tablet, extended release TAKE 1 TABLET BY MOUTH ONCE DAILY IN THE MORNING FOR 28 DAYS - DOSE INCREASE D TO 300MG DAILY active Not Available Not Available No t Available bupropion HCl XL 150 mg 24 hr tablet, extended release TAKE 1 TABLET BY MOUTH ONCE DAILY IN THE MORNING 03/31 completed Not Available Not Available Not Available methylphe nidate CD 20 mg biphasic 30-70 capsule,e xtended release Take 1 tab by mouth daily 2019 active Elisa Vail Not Available Not Available Not Available mirtazapi ne 7.5 mg tablet 09/11 completed Not Available Not Available Not Available Xifaxan 200 mg tablet take 2 tablets by mouth every 8 hours for 20 days for recurren t C diff 02/18 completed Not Available Not Available Not Available [facility]an [facility] 2019 active Not Available Not Available Not Avai lable omeprazol e per pt from [facility] 2019 active Not Available Not Available Not Avai lable Wellbutri n 04/01 completed Not Available Not Available Not Available Pepcid AC 03/31 completed pt reports not taking Not Available Not Available Not Available Methadone 70mg qday 07/15 completed Not Available Not Available Not Available Suboxone 04/01 completed Not Available Not Available Not Available Xopenex HFA 07/26 completed Medicati onName: 'XOPENEX HFA 15gm'; Not Available Not Available Not Available omeprazol e 20 mg tablet,de layed release 1TAB QDAY 09/01 completed Not Available Not Available Not Available diclofena c 1 % topical gel apply TID 09/19 completed Not Available Not Available Not Available RisaQuad- 2 16 billion cell capsule Take 1 capsule by mouth once a day 05/16 completed Probioti c Not Available Not Available Not Available Lactobaci llus acidophil us 100 million cell capsule Take 1 capsule by mouth once a day 2020 active Not Available Not Available Not Avai lable Probiotic 1 tab daily 06/27 completed Not Available Not Available Not Available buprenorp amy 2 mg-naloxo ne 0.5 [address] l film PL[address] 1 STRIP UNDER THE TONGUE ONCE DAILY IN THE MORNING FOR 8 DAYS active Not Available Not Available No t Available buprenorp amy 8 mg-naloxo ne 2 mg sublingua l film PLACE 2 STRIPS UNDER THE TONGUE ONCE DAILY IN THE MORNING FOR 28 DAYS active Not Available Not Available No t Available Xarelto 10 mg tablet 1 PO qday for 2 weeks 09/12 completed Not Available Not Available Not Available buprenorp amy 12 mg-naloxo ne 3 mg sublingua l film PLACE 1 STRIP UNDER THE TONGUE ONCE DAILY IN THE MORNING FOR 28 DAYS 11/03 completed Not Available Not Available Not Available Eliquis 2.5 mg tablet Take 1 tab by mouth twice a day 10/14 completed Not Available Not Available Not Available Elfolate 15 mg tablet 08/31 completed Not Available Not Available Not Available BinaxNOW COVID-19 Ag Self Test kit USE DIRECTED ON PACKAGE 09/11 completed Not Available Not Available Not Available Vitals Date Recorded Body height Body mass index (BMI) Body weight Oxygen saturation Oxygen saturation in Arterial blood by Pulse oximetry Heart rate Systolic blood pressure Diastolic blood pressure Provider Name and Address Organization Details Last Updated DateTime 4 162.56 cm 48.9 kg/m2 507561. 39 g 98 % 98 % 84 /min 122 mm[Hg] 74 mm[Hg] REGULO SHAH MA [facility] 4 11:36:19 Social History Question Answer Notes LastModified by Organizat ion Details LastModified Time Tobacco Smoking Status Current Every Day Smoker REGULO SHAH MA [facility], [facility] 11/03/2023 09:59:21 What Is Your Occupation? Disability [email or web address] Information not available 09/15/2023 How Much Tobacco Do You Smoke? 1 PPD [email or web address] Information not available 11/03/2023 Sex: Female Functional Status None recorded. Mental Status None recorded. Family History Relationship Description Onset Age of this Age Resolved Age Notes Mother Family history of Arthritis Father Family history of heart failure Tuberculosis Notes:*Problem: FAMILY HX: P arents living, HLP. No CAD or breast cancer or other cancers. Medical History No medical history recorded. Gynecological History Statement/Question Response Date of Last Pap Smear 12/16/2016 Most Recent Mammogram 09/25/2023 Obstetrics History GPAL:G 0 P 0 0 0 0 Immunizations Vaccine Type Date Status Provider Name and Address Organization Details Recorded Time MMR 09/15/1995 completed Not Available [facility] 06:18:38 DTaP, unspecified formulation 1981 completed Not Available [facility] 08/22/2023 06:18:38 DTaP, unspecified formulation 02/06/1982 completed Not Available [facility] 08/22/2023 06:18:38 DTaP, unspecified formulation 04/13/1982 completed Not Available [facility] 08/22/2023 06:18:38 DTaP, unspecified formulation 06/21/1983 completed Not Available [facility] 08/22/2023 06:18:38 Tdap 10/17/2022 completed Not Available [facility] 06:18:39 Tdap 04/01/2012 completed Not Available [facility] 06:18:39 Novel [id number], all formulations 10/20/2009 completed Not Available [facility] 08/22/2023 06:18:39 Td(adult) unspecified formulation 04/10/1992 completed Not Available [facility] 08/22/2023 06:18:39 Td(adult) unspecified formulation 04/26/2001 completed Not Available [facility] 08/22/2023 06:18:39 COVID-19, mRNA, LNP-S, PF, 30 mcg/0.3 mL dose 08/21/2021 completed Not Available [facility] 08/22/2023 06:18:39 COVID-19, mRNA, LNP-S, PF, 30 mcg/0.3 mL dose 09/11/2021 completed Not Available [facility] 08/22/2023 06:18:39 pneumococcal polysaccharide PPV23 10/20/2009 completed Not Available [facility] 2022 06:18:39 polio, unspecified formulation 1981 completed Not Available [facility] 08/22/2023 06:18:39 polio, unspecified formulation 02/06/1982 completed Not Available [facility] 08/22/2023 06:18:40 polio, unspecified formulation 04/13/1982 completed Not Available [facility] 08/22/2023 06:18:40 polio, unspecified formulation 06/21/1983 completed Not Available [facility] 08/22/2023 06:18:40 Past Encounters Encounter ID Performer Location Encounter Start Date Encounter Closed Date Diagnosis/Indication Diagnosis SNOMED-CT Code [id number] ANNA FUENTES [facility] [address] [place] [address] 03/31/2024 11:25:22 03/31/2024 12:39:53 Snoring 83030667 Fatigue 47676612 Weight gain 8803780 Solitary n odule of lung 937231927 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 Reagan Diez [id number] Reagan Diez 03/31/2024 2 [facility] (MEDICAID) Reagan Diez [id number] Reagan Diez Notes Date Note Type Note Provider Name and Address Organization Details Recorded Time 03/31/2024 text/html HPI Notes: cc SO B and Fatigue, s/p ER visit SOB/Fatigue - she feels as though she is stopping breathing in her sleep then she jerks awake. Has been snoring. Has never had a sleep study. Has SOB when going up stairs, has intermittent swelling in her legs. Had negative test for DVT in hospital. Has had trouble sleeping for a long time. Falls asleep easily wakes in two hours then has difficulty falling back to sleep for another hour then back up again Feeling depressed and miserable, just sits at home all the time. 02 sat 98% today Depression - continues on bupropion she isn't sure it really helps, she doesn't want to have counseling. Tearful often for a while now, continues on trazodone at hs CT angio done in ER showed 3 mm lung nodule, pneumonia vs atelectasis Generally feels lousy pain in right shoulder and left hand. Pt was not helpful Has gained about 40 pounds since September ANNA FUENTES [address], [place], [address], [place] [facility]. 03/31/2024 12:58:15 OBGyn Episode No OBEpisode recorded.
--- OUTSIDE RECORDS SUMMARY | 2024-04-30 14:43 | XMS_ITS | Encounter Summary ---
Author Organization [facility] Address [facility] [place] [address] Care Team Providers Care Report Manager Name Role Phone Parish Mason MD Primary Care Provider Encounter Details Date Type Department Care Team (Late st Contact Info) Description 01/06/2020 Telephone Dermatology at [facility] [address] [place] [address] Lionel Perkins MD [facility] [address] [place] [address] Social History Tobacco Use Types Packs/Day Years Used Date Smoking Tobacco: Every Day Cigarettes Smokeless Tobacco: Never Sex and Gender Information Value Date Recorded Sex Assigned at Not on file Gender Identity Not on file Sexual Orientation Not on file documented as of this encounter Miscellaneous Notes * Telephone Encounter - Bernice Lamar - 01/06/2020 8:06 AM EDT [address] called to let you know that the ketoconazole (NIZORAL) 2 % Cream is making her itchmore with some burning, other suggestions or is this what is suppose to happen?. Best number to reach the patient back is [phone]. documented in this encounter Plan of Treatment Not on file documented as of this encounter Visit Diagnoses Not on filedocumented in this encounter Care Teams Report Manager Relationship Specialty Start Date End Date Parish Mason MD [address] [place], [place] [id number] PCP - General General Internal Medicine 01/03/2005/13 documented as of this encounter
--- OUTSIDE RECORDS SUMMARY | 2024-04-30 14:43 | XMS_ITS | Continuity of Care Document ---
Author Organization [facility] Address [address] [place] [address] Care Team Providers Care It Integration Architect Name Role Phone Marga Agudelo Primary Care Physician Encounter [facility] [id number] Date(s): 03/31/24 - 03/31/24 [facility] [address] [place] [address] Allergies, Adverse Reactions, Alerts No Known Medication Allergies Assessment and Plan Future Appointments Immunizations Given and Recorded Vaccine Date Status Refusal Reason tetanus/diphth/pertuss (Tdap) adult/adol 06/09/11 Recorded Medications oxyCODONE 5 mg oral tablet 5 mg = 1 tab, Oral, every 6 hr, PRN as needed for pain, for post op pain, # 12 tab, 0 Refill(s), Pharmacy: [id number], 163, cm, 12/31/23 8:35:00 EDT, Height, 123.8, kg, 03/09/24 7:24:00 EDT, Weight Dosing Start Date: 03/09/24 Status: Ordered oxyCODONE 5 mg oral tablet 2.5 mg = 0.5 tab, Oral, every 6 hr, PRN as needed for pain, for post op pain, # 18 tab, 0 Refill(s), Pharmacy: [id number], 163, cm, 12/31/23 8:35:00 EDT, [...] bedtime, # 45 tab, 0 Refill(s), Pharmacy: [id number], 162, cm, 10/12/22 14:31:00 EST, [...] Care team information Care Team Personnel Name: Marga Agudelo [place] MACHINIST Position: PowerChart View Only Member Role: Primary Care Physician Address: Address: [address] [place] [address] Name: Parish Amos MD Position: No Access Member Role: Informed Provider Address: Address: [address] Care Team Related Persons Name: JEWELS ATKINSON Name: LOS PEÑA Address: [facility] [address] [place] [phone]
--- OUTSIDE RECORDS SUMMARY | 2024-04-30 14:43 | XMS_ITS | Continuity of Care Document ---
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 Protein Total 6.6 g/dL 03/23/2024 14:27 EDT Albumin Level 2.7 g/dL 03/23/2024 14:27 EDT Bilirubin Total 0.2 mg/dL 03/23/2024 14:27 EDT Troponin-I <5.0 pg/mL 03/23/2024 14:27 EDT UA Color YELLOW. 03/23/2024 15:08 EDT UA Appear CLEAR. 03/23/2024 15:08 EDT UA Glucose NEGATIVE 03/23/2024 15:08 EDT UA Bili NEGATIVE 03/23/2024 15:08 EDT UA Ketones NEGATIVE 03/23/2024 15:08 EDT UA Spec Grav 1.010 03/23/2024 15:08 EDT UA Blood NEGATIVE 03/23/2024 15:08 EDT UA pH 6.5 03/23/2024 15:08 EDT UA Protein NEGATIVE 03/23/2024 15:08 EDT UA Urobilinogen 0.2 Uro 03/23/2024 15:08 EDT UA Nitrite NEGATIVE 03/23/2024 15:08 EDT UA Leuk Est NEGATIVE 03/23/2024 15:08 EDT Patient/Print Press Operator Signature Patient Name:ANDREWS ATKINSON I have received this information and my questions have been answered. Patient/Print Press Operator Name: Patient/Print Press Operator Signature: Relationship to Patient: Witness Name/Signature: Date: Electronically Signed on: 03/23/2024 18:29 EDTSigned by:LIZBETH Patient Care team information Care Team Personnel Name: Parish Amos MD Position: No Access Member Role: Informed Provider Address: Address: [address] [address]- [place] Care Team Related Persons Name: JEWELS ATKINSON Name: LOS PEÑA Address: [address] [id number]
--- OUTSIDE RECORDS SUMMARY | 2024-04-30 14:43 | XMS_ITS | Encounter Summary ---
Author Organization [facility] Address [facility] [place] [place] [address] Care Team Providers Care Shipping Clerk Crating Name Role Phone Parish Mason MD Primary Care Provider [phone] Reason for Visit * Reason Comments Rash * Consultation (Routine) - Closed Specialty Diagnoses / Procedures Referred By Contac t Referred To Contact Dermatology Diagnoses Pruritus, unspecified Dermatitis, unspecified Parish Mason MD [facility] [address] [place] [address] [facility] Dermatology [address] [place] [address] Referral ID Status Reason Start Date Expiration Date V isits Requested Visits Authorized [id number] Closed Consult, [facility] & [facility] PCP Updated and/or Approved 12/07/2019 12/06/2020 1 1 Encounter Details Date Type Department Care Team (Latest Contact Info) Description 01/03/2020 10:00 AM EDT Office Visit Dermatology at [facility] [address] [place] [id number] Lionel Perkins MD [facility] [address] [place] [address] Erosio interdigitalis blastomycetica; Xerosis of skin; Seborrheic dermatitis Social History Tobacco Use Types Packs/Day Years Used Date Smoking Tobacco: Every Day Cigarettes Smokeless Tobacco: Never Sex and Gender Information Value Date Recorded Sex Assigned at Not on file Gender Identity Not on file Sexual Orientation Not on file documented as of this encounter Patient Instructions * Patient Instructions* Beaulac, Lluvia C, CCMA - 01/03/2020 10:00 AM EDT Images from the original note were not included. SEBORRHEIC DERMATITIS Treatment Instructions - Rx: Fluocinolone (Sellers smoothe) apply to the scalp twice a day for two weeks. If it flares repeat 2 week cycle. - Rx: Ketoconazole twice a day to the groin and toes for two weeks. Repeat as needed for flares Seborrheic Dermatitis is a red, scaly, itchy rash and most commonly seen on the scalp, sides of thenose, eyebrows, eyelids, skin behind the ears and middle of the chest. ??? Options for shampoos o Blue bottle Head & Shoulders o Selsun Blue o Nizoral o T-Giovanni ??? Alternate selenium shampoos every 3-7 days. ??? Apply to the area to be treated (ie. Scalp, eyebrows, chest) massage in. ??? Leave on for 3-10 minutes. ??? Then rinse. You may follow with other shampoo and conditioners for hair. ??? The goal with the shampoos are to treat the scalp. ??? Areas such as the face or chest can be washed daily with ZNP soap bars to keep seborrheic dermatitis minimized or with one of the shampoos above. ??? If flaring call clinic for a short course of topical steroids ??? For questions and concerns please call: General dermatology clinic documented in this encounter Progress Notes * Lionel Perkins - 01/03/2020 10:00 AM EDT Images from the original note were not included. DERMATOLOGY - NEW PATIENT NOTE Date of service: 01/03/2020 Reagan Cr : 1980, 39 y.o. Chief Complaint: Chief Complaint Patient presents with ??? Rash HPI: Reagan Cr is a 39 y.o. female referred by Parish Mason with the following concerns: here today for itch in the scalp, groin, and between the toes. She reports that this has been going on for about six months. She has been taking flexeril, which she doesn't find helpful. She also tried triamcinolone which wasn't helpful. She was checked for lice which was negative. Denies any familyhistory of psoriasis. Not using moisturizer and is using a harsh [place] body wash. Itch 2-3/10. Relevant Skin History: - Okay to leave detailed message with results? yes - Skin cancer (including type): no Family History: Melanoma: no Relevant Social History: - - 2 children Meds: No current outpatient medications on file. No current facility-administered medications for this visit. Allergies: Allergies not on file Review of Systems: - General: Feels well. - Skin: No other skin concerns. Examination: - Constitutional: Patient was alert, well-appearing and in no noticeable distress. - Skin: Skin examination of the scalp, face, ears, neck, back, chest, axillae, abdomen, right and left upper extremities, right and left lower extremities, hands, feet, and buttocks was normal with the exception of the findings listed below. Genitalia examined. - A female nurse was present and on standby during my examination. Diagnosis/Skin findings/Assessment/Plan: # Seborrheic dermatitis- scattered yellow greasy scaly patch on the scalp, BL eyebrows, -asymptomatic/symptomatic -advised this is a chronic condition 2nd to P. [place] that can be controlled. If worsens or becomes more symptomatic can offer alternative treatments Rec: Head & Shoulder with Zinc pyrithione or Selsun Blue with Selinum sulfide RX:Fluocinolone solution BID for 2 weeks to the scalp; if flairs ok to repeat 2 week course -Ketoconazole shampoo 2% use 2-3x weekly and alternative with one of the OTC shampoos listed above # Eczema [place] -ichthyosiform scale overlying erythematous plaques with cracked pavement pattern -Advised daily moisturizing after showering after patting dry to apply a moisturizer such as Cetaphil, CeraVe cream or plain Vaseline (100% petroleum jelly) -Informed pt that condition can get worse with winter # Erosio blastomycetica interdigitalis/Candidiasis-- multiple atrophic plaques in between each web space on the feet. -advised happens secondary to yeast RX: Ketoconazole cream 2% BID to affected areas on the feet and groin till clear - Bacterial fungal swab was sent today if comes back with bacteria will send a course of antibiotics. RTC: PRN Note initiated by HUBERT Leblanc. I, HUBERT Leblanc, have performed the documentation for this encounter in the presence of and acting as a scribe for LORRAINE RILEY MD. I performed the services which were documented by the scribe, and I agree with the accuracy of the documentation in this encounter. LORRAINE RILEY MD Reviewed and signed by Lionel Perkins MD Resident in Dermatology [facility] Staff blood bank credit clerk: Lanie Doran MD Section of Dermatology [facility] * Lanie Doran MD - 01/03/2020 10:00 AM EDT I was the supervising physician working with dermatology resident Dr. Perkins in the dermatology clinic during this patient visit. The level of Resident supervision for this patient visit was indirect supervision with direct supervision immediately available. (definition: [facility] Policy Statement on Graduate Medical Education, Supervision of Graduate Medical Trainees) I was immediately availableto Dr. Perkins for questions and discussion regarding this visit. I have reviewed his encounter note details and level of service. LANIE DORAN MD Staff Physician documented in this encounter Plan of Treatment Not on file documented as of this encounter Procedures Procedure Name Priority Date/Time Associated Diagnosis Comments HC SKIN CX, SUPERFICIAL Routine 01/03/2020 11:28 AM EDT Erosio interdigitalis blastomycetica documented in this encounter Results * (ABNORMAL) Skin/Superficial Wound Culture Foot, Right (01/03/2020 11:28 AM EDT) Skin/Superfic ial Wound Culture Many Staphylococcus aureus Many normal cutaneous harjit (A) [facility] Gram Stain No Neutrophils seen. Moderate Gram Positive Cocci seen Moderate Gram Positive Rods seen (A) [facility] Organism Staphylococcus aureus(A) [facility] Organism Gram Positive Cocci(A) [facility] Organism Gram Positive Rods(A) [facility] Swab from superficial wound (specimen) STRUCTURE OF RIGHT FOOT / Unknown 01/03/2020 11:28 AM EDT 01/03/2020 3:58 PM EDT Narrative Resulting Agency Comment Spec In Lab Organism Antibiotic Method Susceptibility Staphylococcus aureus Cefazolin VITEK 2 METHOD Sensitive Staphylococcus aureus Ceftriaxone VITEK 2 METHOD Sensitive Staphylococcus aureus Ciprofloxacin VITEK 2 METHOD Sensitive Staphylococcus aureus Clindamycin VITEK 2 METHOD Resistant Staphylococcus aureus Erythromycin VITEK 2 METHOD Resistant Staphylococcus aureus Gentamicin VITEK 2 METHOD Sensitive Comment:Gentamicin i s not appropriate for [place]-therapy. Staphylococcus aureus Levofloxacin VITEK 2 METHOD Sensitive Staphylococcus aureus Oxacillin VITEK 2 METHOD Sensitive Comment: Penicillin resistant, Nafcillin susceptible Staphylococci are resistant to B-lactamase labile Penicillins including Ampicillin and Piperacillin, but susceptible to B-lactamase merle Penicillins (Nafcillin), B-lactamase inhibitor combinations, first and second generation Cephalosporins including Cefazolin, and to Cefepime and Meropenem. Staphylococcus aureus Trimethoprim/Sulfa VITEK 2 METHO D Sensitive Staphylococcus aureus Tetracycline VITEK 2 METHOD Sensitive Staphylococcus aureus Vancomycin VITEK 2 METHOD Sensitive Lanie Doran MD MICROBIOLOGY - GENER AL ORDERABLES [facility] [place] [address] documented in this encounter Visit Diagnoses Diagnosis Erosio interdigitalis blastomycetica Candidiasis of skin and nails Xerosis of skin Other specified disease of sebaceous glands Seborrheic dermatitis Seborrheic dermatitis, unspecified documented in this encounter Care Teams Shipping Clerk Crating Relationship Specialty Start Date End Date Parish Mason MD [address] [place] [id number] PCP - General General Internal Medicine 01/03/2005/13 documented as of this encounter
--- OUTSIDE RECORDS SUMMARY | 2024-04-30 14:43 | XMS_ITS | Encounter Summary ---
Author Organization [facility] Address [facility] [place] [place] [address] Care Team Providers Care Licensed Life And Health Agent Name Role Phone Parish Mason MD Primary Care Provider [phone] Encounter Details Date Type Department Care Team (Late st Contact Info) Description 01/03/2020 Telephone Dermatology at [facility] [address] [place] [address] Lionel Perkins MD [facility] [place] [address] Social History Tobacco Use Types Packs/Day Years Used Date Smoking Tobacco: Every Day Cigarettes Smokeless Tobacco: Never Sex and Gender Information Value Date Recorded Sex Assigned at Not on file Gender Identity Not on file Sexual Orientation Not on file documented as of this encounter Miscellaneous Notes * Telephone Encounter - Steven Jacobs - 01/03/2020 2:14 PM EDT I contacted patient, who informed me that she is currently enrolled with [facility] Prescription [facility]. Formulary was reviewed and fluocinolone solution and triamcinolone lotion are preferred alternatives * Telephone Encounter - Steven Jacobs - 01/03/2020 2:08 PM EDT Patient's insurance information was not available on EMR. I attempted to contact pharmacy, but did not successfully reach live personnel. * Telephone Encounter - Sandee Urrutia - 01/03/2020 1:51 PM EDT Received phone call from Reagan Cr. The patient stated that her insurance will not cover the prescription for fluocinolone (DERMA-SMOOTHE) 0.01 % Oil. Patient requested a call back at [phone]. documented in this encounter Plan of Treatment Not on file documented as of this encounter Visit Diagnoses Not on filedocumented in this encounter Care Teams Licensed Life And Health Agent Relationship Specialty Start Date End Date Parish Mason MD [address] [place] [id number] PCP - General General Internal Medicine 01/03/20 8/03/02 documented as of this encounter
--- OUTSIDE RECORDS SUMMARY | 2024-04-30 14:43 | XMS_ITS | Encounter Summary ---
Author Organization [facility] Address [facility] [place] [place] [address] Care Team Providers Care Surgical Appliance Fitter Name Role Phone Parish Mason MD Primary Care Provider [phone] Encounter Details Date Type Department Care Team (Latest Contact Info) Description 12/21/2020 9:45 AM EST Office Visit Dermatology at [facility] [address] [place] [address] [address] [facility] [address] [place] [address] Erosio interdigitalis blastomycetica; Seborrheic dermatitis; Postherpetic neuralgia Social History Tobacco Use Types Packs/Day Years Used Date Smoking Tobacco: Every Day Cigarettes Smokeless Tobacco: Never Sex and Gender Information Value Date Recorded Sex Assigned at Not on file Gender Identity Not on file Sexual Orientation Not on file documented as of this encounter Patient Instructions * Patient Instructions* Yara William - 12/21/2020 9:45 AM EST Images from the original note were not included. - Start Rx Fluconazole 150mg once weekly for 3 weeks -Start Rx 2.5% hydrocortisone cream twice a day to the affected areas behind the ears for 2 weeks SEBORRHEIC DERMATITIS Treatment Instructions Seborrheic Dermatitis is a red, scaly, itchy [...] this encounter Progress Notes * Lionel Perkins MD - 12/21/2020 9:45 AM EST Images from the original note were not included. DERMATOLOGY - ESTABLISHED PATIENT FOLLOW-UP Date of service: 12/20/2020 Reagan Cr : 1980, 40 y.o. CC: follow up of skin rashes, not improved HPI: Reagan Cr is a 40 y.o. female last seen by myself on 01/03/2020 Ms. Cr returns today for a follow up of her rash between toes. She notes that it is still present on the toes and now she has very itchy bumps on the bottoms of the feet, she was using ketoconazole and mupirocin which did not really help, she also had rayne derm on face and scalp, which is stillpresent mostly on the forehead and behind the ears , she is not currently treating, and she notes that the palms of her hands are also really itchy, though she did have shingles on the right hand in the past so she is not sure if that is what is mostly causing the itching. Reports that she is taking Vancomycin 150mg for C. diff infection. Does not use anti-dandruff shampoos. Relevant Skin History: - Okay to leave detailed message with results? yes - Skin cancer (including type): no ?? Family History: Melanoma: no ?? Relevant Social History: - - 2 children Medications: Current Outpatient Medications Medication Sig Dispense Refill ??? rOPINIRole (Requip) 1 mg Tablet Take 1 mg by mouth 3 times daily. ??? cyclobenzaprine (Flexeril) 5 mg Tablet Take 5 mg by mouth 3 times daily as needed for Muscle spasms. ??? metFORMIN (Glucophage) 850 mg Tablet Take 850 mg by mouth 2 times daily (with meals). ??? traZODone (Desyrel) 100 mg Tablet Take 100 mg by mouth nightly. No current facility-administered medications for this visit. Allergies: No Known Allergies Review of Systems: - General: Feels well. - Skin: No other skin concerns. Examination: - Constitutional: Patient was alert, well-appearing and in no noticeable distress. - Skin: Focused skin examination of the face, scalp, hands, and right foot was normal with the exception of the findings listed below. Diagnosis/Skin findings/Assessment/Plan: #.Tinea Pedis - hyperkeratosis with faint erythematous patches on the right foot -pt reports history of persistent itch -s/p treatment with ketoconazole, mupirocin without resolution. -PRECIOUS positive for fungal elements -pt reports that she is taking Vancomycin 150mg for C. diff infection. Prescribed by [facility] - Start Rx Fluconazole 150mg once weekly for 3 weeks - instructed to wash shoes to remove fungus. ?? #. Seborrheic dermatitis - hyperkeratosis behind the ears -asymptomatic/symptomatic -advised this is a chronic condition 2nd to P. [place] that can be controlled. If worsens or becomes more symptomatic can offer alternative treatments -Start Rx 2.5% hydrocortisone cream twice a day to the affected areas behind the ears for 2 weeks - Rec: Head & Shoulder with Zinc pyrithione or Selsun Blue with Selinum sulfide. Treat 2-3x perweek and leave on for 3 minutes before washing off #. Favor Postherpetic Neuralgia - right hand w/o vesicles or erythema - hx of shingles at site - Persistent itch/intermittent pain on the right hand - Discussed treatment with gabapentin and risk and benifits - Pt not significantly symptomatic, defers treatment at this time. RTC: PRN Note initiated by Shakira Montana CMA. Clinical scribe: Yara William - I am documenting this encounter acting as the scribe for and in the presence of Lionel Perkins MD. I performed the above scribed service and agree with the accuracy of the documentation in this encounter. Reviewed and signed by Lionel Perkins MD Department of Dermatology [facility] documented in this encounter Plan of Treatment Not on file documented as of this encounter Visit Diagnoses Diagnosis Erosio interdigitalis blastomycetica Candidiasis of skin and nails Seborrheic dermatitis Seborrheic dermatitis, unspecified Postherpetic neuralgia Herpes zoster with other nervous system complications documented in this encounter Care Teams Surgical Appliance Fitter Relationship Specialty Start Date End Date Parish Mason MD [address] [place] [id number] PCP - General General Internal Medicine 01/03/2005/13 documented as of this encounter
--- OUTSIDE RECORDS SUMMARY | 2024-04-30 14:43 | XMS_ITS | Data Portability ---
Author Organization [facility], [facility] Address [address] [place] [address] Care Team Providers Care Check Inspector Name Role Phone JAI WILDER Dentist Assessment Encounter Date Assessment Date Assessment LastModified by Organization Details LastModified Time 11/12/2023 11/12/2023 The total time devoted to today's encounter, including both the uosk-uv-hwfq time with the patient and/or family/caregi azam and spx-gwtp-ki-f leonardo time I personally spent is 30 minutes. Not available 11/12/2023 16:08:39 01/14/2024 01/14/2024 The total time devoted to today's encounter, including both the vylj-jd-boyn time with the patient and/or family/caregi azam and gyw-aswk-cw-f leonardo time I personally spent is 30 minutes. Not available 01/14/2024 15:18:20 03/31/2024 03/31/2024 The total time devoted to today's encounter, including both the oxwn-ii-sahr time with the patient and/or family/caregi azam and qoq-pdgj-xj-f leonardo time I personally spent is 30 minutes. Not available 03/31/2024 12:57:11 Plan of Treatment Reminders Order Date Submit Date Provider Last Modified By Organization Details Last Modified Time Details Appointments None recorded. Lab urinalysis complete, reflex culture 2023 024 [email or web address] [facility] (Registration ), [address] [place], [address], 4 07:15:59 urinalysis, dipstick [address], [address] [place] [address], [address], 4 16:37:08 hemoglobin A1C, fingerstick [address], [address] [place] [address], [place], [address], 4 16:37:08 hemoglobin A1C, fingerstick [address], [address] [place] [address], [place], [address], 4 12:11:34 Referral orthopedic surgeon referral - has seen Dr. Ayala in the past 2023 024 [email or web address] 6 [facility], [address] [place] [address] , [facility], [place], [address], 4 11:50:03 orthopedic surgeon referral - recurrent CTS and trigger finger 2023 024 [email or web address] 6 Vini Medina MD, [address] [place] [address] , [place], [address], 4 11:51:36 orthopedic surgeon referral 2023 024 SHWETHA Medina MD, [address] [place] [address] , [place], [address], 4 08:46:46 gynecologis t referral - hesitancy with voiding x one month 2023 024 [email or web address] 8 [facility] Instructional Materials Director, [address] [place] [address] , [place], [address], 4 07:49:22 nutritionis t/dietitian referral 2023 024 SHWETHA [facility] [employer], [address], [place], [address], 4 09:52:55 sleep medicine referral - Snoring, fatigue 2023 024 [email or web address] 8 Loraine Kimbrough MD, [address], [place], [address], 4 08:18:49 Procedures nerve conduction study/EMG, upper extremity (PROC) - Susanna Grace, please scheud;e when having RUE done and neck 2023 024 [email or web address] 6 [facility]-Dr.Ha pantoja, [address], [place], [address], 4 11:51:14 Surgeries None recorded. Imaging None recorded. Medication Orders None recorded. Patient TargetsNo targets recorded. Patient Instructions Encounter Date Encounter Id Patient Instructions Last Modified By Organization Details Last Modified Time 11/03/2023 [id number] use your Cock up splints, will await results of EMG. I referred you to Dr. Ayala for your knee and you should be hearing from his office to schedule an appointment Continue your omeprazole and the gabapentin I also ordered an addtional EMG to be done on your left side with Dr. Mullins at [facility] and referred you to Ortho in [facility] for your left hand Not available 11/03/2023 10:35:21 11/12/2023 [id number] Continue those dietary changes, if you are drinking soda have it early in the day. Avoid chocolate, carbonation, citrus, caffeine and cocktails Chew your food completely, be careful with noodles, bread, steak. Try the cyclobenzaprine, warm, shower, heating pad might be helpful. When you are relaxed try to get some gentle stretching in, do your breathing out exercises If no improvement with the cyclobenzaprine will check an xray of your neck Not available 11/12/2023 11:42:18 01/05/2024 [id number] I referred you t o ortho for your right shoulder pain. Continue PT, avoid Caffeine, chcolate, carbonation, cocktails, acidic foods Good luck I hope you start to feel better Not available 01/05/2024 09:06:24 01/14/2024 [id number] Wash your heel wound daily and keep covered but try to keep dry. Your heel will heal from the inside out, may take a week or so but should gradually improve, if not return to the clinic I referred you to [facility] for your urinary hesitancy, you should be hearing from [facility] to have that scheduled, consider increasing your water intake I will let you know the results of your urinalysis Not available 01/14/2024 15:05:13 03/31/2024 [id number] I referred you f or sleep study and to nutrition, you should be hearing from [facility] to have an appointment scheduled. Try to keep track of your dietary modifications and portion control and try to slowly increase a daily walk. Follow up with Dr. 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 Hinds for dysphagia. Barium swallow showed mild unprotected penetration. Patient is a smoker. Requesting evaluation of her vocal cords. Referring Physician: Miladis Kat, Family Medicine, Encounter Date: 09/16/2023 Physical Therapist Referral for Cervical radiculopathy neg CT (neck, C spine, chest), EMG pending Referring Physician: Stephanie Sherwood, Internal Medicine, Encounter Date: 09/19/2023 Orthopedic Surgeon Referral for Pain of left knee joint has seen Dr. Ayala in the past Referring Physician: Marga Agudelo [facility], Encounter Date: 11/03/2023 Orthopedic Surgeon Referral for Pain of left wrist recurrent CTS and trigger finger Referring Physician: Marga Agudelo [facility], Encounter Date: 11/03/2023 Orthopedic Surgeon Referral for Carpal tunnel syndrome Referring Physician: Marga Agudelo [facility], Encounter Date: 12/03/2023 Orthopedic Surgeon Referral for Pain of right shoulder joint Referring Physician: Family Ck Duran, Encounter Date: 01/05/2024 Overlock Sleeve Setter Referral for De lay when starting to pass urine hesitancy with voiding x one month Referring Physician: Marga Agudelo [facility], Encounter Date: 01/14/2024 Sleep Medicine Referral for Snoring Snoring, fatigue Referring Physician: Marga Agudelo [facility], Encounter Date: 03/31/2024 Feather Stitcher/dietitian Refer ral for Weight gain Referring Physician: Marga Agudelo [facility], Encounter Date: 03/31/2024 Results Created Date Observation Date Name Description Value Unit Range Abnormal Flag LastModifiedBy Organization Detail LastModifiedTime 11/07/19 24 11/07/2023 COMPL ETE BLOOD COUNT W/DIF F WBC 6.10 10_3/ uL 4.4-10 .8 normal Not Available [address] [place], [address] 11/07/2023 14:18:05 11/07/19 24 11/07/2023 COMPL ETE BLOOD COUNT W/DIF F RBC 4.91 10_6/ uL 3.93-5 .22 normal Not Available [address] [place], [address] 11/07/2023 14:18:05 11/07/19 24 11/07/2023 COMPL ETE BLOOD COUNT W/DIF F HGB 14.7 g/dL 11.2-1 5.7 normal Not Available [address] [place], [address] 11/07/2023 14:18:05 11/07/19 24 11/07/2023 COMPL ETE BLOOD COUNT W/DIF F HCT 43.3 % 36.0-4 6.0 normal Not Available [address] [place], [address] 11/07/2023 14:18:05 11/07/19 24 11/07/2023 COMPL ETE BLOOD COUNT W/DIF F MCV 88 fL 80-95 normal Not Available Ke hernandez [address] [place], [address] 11/07/2023 14:18:05 11/07/19 24 11/07/2023 COMPL ETE BLOOD COUNT W/DIF F MCH 29.9 pg 27.0-3 3.0 normal Not Available [address] [place], [address] 11/07/2023 14:18:05 11/07/19 24 11/07/2023 COMPL ETE BLOOD COUNT W/DIF F MCHC 33.9 % 32.0-3 6.0 normal Not Available [address] [place], [address] 11/07/2023 14:18:05 11/07/19 24 11/07/2023 COMPL ETE BLOOD COUNT W/DIF F RDW 12.4 % 11.7-1 4.6 normal Not Available [address] [place], [address] 11/07/2023 14:18:05 11/07/19 24 11/07/2023 COMPL ETE BLOOD COUNT W/DIF F platelet count 222 10_3/ uL 130-40 0 normal Not Available [address] [place], [address] 11/07/2023 14:18:05 11/07/19 24 11/07/2023 COMPL ETE BLOOD COUNT W/DIF F MPV 8.9 fL 8.0-11 .0 normal Not Available [address] [place], [address] 11/07/2023 14:18:05 11/07/19 24 11/07/2023 COMPL ETE BLOOD COUNT W/DIF F neutrophils % 37.8 Not Available [address] [place], [address] 11/07/2023 14:18:05 11/07/19 24 11/07/2023 COMPL ETE BLOOD COUNT W/DIF F lymphocytes % 52.5 Not Available [address] [place], [address] 11/07/2023 14:18:05 11/07/19 24 11/07/2023 COMPL ETE BLOOD COUNT W/DIF F monocytes % 5.9 Not Available [address] [place], [address] 11/07/2023 14:18:05 11/07/19 24 11/07/2023 COMPL ETE BLOOD COUNT W/DIF F eosinophils % 3.1 Not Available [address] [place], [address] 11/07/2023 14:18:05 11/07/19 24 11/07/2023 COMPL ETE BLOOD COUNT W/DIF F basophils % 0.5 Not Available [address] [place], [address] 11/07/2023 14:18:05 11/07/19 24 11/07/2023 COMPL ETE BLOOD COUNT W/DIF F immature grans % 0.2 Not Available [address] [place], [address] 11/07/2023 14:18:05 11/07/19 24 11/07/2023 COMPL ETE BLOOD COUNT W/DIF F nucleated RBC 0.0 % 0.0-0. 3 normal Not Available [address] [place], [address] 11/07/2023 14:18:05 11/07/19 24 11/07/2023 COMPL ETE BLOOD COUNT W/DIF F absolute neutrophil count 2.31 10_3/ uL 1.2-6. 7 normal Not Available [address] [place], [address] 11/07/2023 14:18:05 11/07/19 24 11/07/2023 COMPL ETE BLOOD COUNT W/DIF F absolute lymphocyte count 3.20 10_3/ uL 1.2-3. 4 normal Not Available [address] [place], [address] 11/07/2023 14:18:05 11/07/19 24 11/07/2023 COMPL ETE BLOOD COUNT W/DIF F absolute monocyte count 0.36 10_3/ uL 0.1-0. 8 normal Not Available [address] [place], [address] 11/07/2023 14:18:05 11/07/19 24 11/07/2023 COMPL ETE BLOOD COUNT W/DIF F absolute eosinophil count 0.19 10_3/ uL 0.0-0. 7 normal Not Available [address] [place], [address] 11/07/2023 14:18:05 11/07/19 24 11/07/2023 COMPL ETE BLOOD COUNT W/DIF F absolute basophil count 0.03 10_3/ uL 0.0-0. 2 normal Not Available [address] [place], [address] 11/07/2023 14:18:05 11/07/19 24 11/07/2023 COMPR EHENS CHETNA METAB OLIC PANEL calcium 8.7 mg/dL 8.5-10 .1 normal Not Available [address] [place], [address] 11/07/2023 14:23:07 11/07/19 24 11/07/2023 COMPR EHENS CHETNA METAB OLIC PANEL glucose 75 mg/dL 74-106 normal Not Available [address] [place], [address] 11/07/2023 14:23:07 11/07/19 24 11/07/2023 COMPR EHENS CHETNA METAB OLIC PANEL BUN 14 mg/dL 7-18 normal Not Available [address] [place], [address] 11/07/2023 14:23:07 11/07/19 24 11/07/2023 COMPR EHENS CHETNA METAB OLIC PANEL creatinine 0.9 mg/dL 0.55-1 .02 normal Not Available [address] [place], [address] 11/07/2023 14:23:07 11/07/19 24 11/07/2023 COMPR EHENS CHETNA METAB OLIC PANEL estimated GFR 81.86 mL/min /1.73m 2 Not Available [address] [place], [address] 11/07/2023 14:23:07 11/07/19 24 11/07/2023 COMPR EHENS CHETNA METAB OLIC PANEL total protein 7.2 g/dL 6.4-8. 2 normal Not Available [address] [place], [address] 11/07/2023 14:23:07 11/07/19 24 11/07/2023 COMPR EHENS CHETNA METAB OLIC PANEL albumin 3.1 g/dL 3.4-5. 0 low Not Available [address] [place], [address] 11/07/2023 14:23:07 11/07/19 24 11/07/2023 COMPR EHENS CHETNA METAB OLIC PANEL bilirubin, total 0.2 mg/dL 0.2-1. 0 normal Not Available [address] [place], [address] 11/07/2023 14:23:07 11/07/19 24 11/07/2023 COMPR EHENS CHETNA METAB OLIC PANEL alk phos 49 U/L 46-116 normal Not Available [address] [place], [address] 11/07/2023 14:23:07 11/07/19 24 11/07/2023 COMPR EHENS CHETNA METAB OLIC PANEL sodium 139 mmol/ L 136-14 5 normal Not Available [address] [place], [address] 11/07/2023 14:23:07 11/07/19 24 11/07/2023 COMPR EHENS CHETNA METAB OLIC PANEL potassium 4.0 mmol/ L 3.5-5. 1 normal Not Available [address] [place], [address] 11/07/2023 14:23:07 11/07/19 24 11/07/2023 COMPR EHENS CHETNA METAB OLIC PANEL chloride 102 mmol/ L 98-107 normal Not Available [address] [place], [address] 11/07/2023 14:23:07 11/07/19 24 11/07/2023 COMPR EHENS CHETNA METAB OLIC PANEL CO2 31.3 mmol/ L 21.0-3 2.0 normal Not Available [address] [place], [address] 11/07/2023 14:23:07 11/07/19 24 11/07/2023 COMPR EHENS CHETNA METAB OLIC PANEL anion gap 5.7 mmol/ L 3-11 normal Not Available [address] [place], [address] 11/07/2023 14:23:07 11/07/19 24 11/07/2023 COMPR EHENS CHETNA METAB OLIC PANEL AST 15 U/L 15-37 normal Not Available [address] [place], [address] 11/07/2023 14:23:07 11/07/19 24 11/07/2023 COMPR EHENS CHETNA METAB OLIC PANEL ALT 22 U/L 14-59 normal Not Available [address] [place], [address] 11/07/2023 14:23:07 11/07/19 24 11/07/2023 URINA LYSIS color Yellow yellow Not Available [address] [place], [address] 11/07/2023 15:09:18 11/07/19 24 11/07/2023 URINA LYSIS clarity Clear clear Not Available [address] [place], [address] 11/07/2023 15:09:18 11/07/19 24 11/07/2023 URINA LYSIS specific gravity 1.020 1.005- 1.025 normal Not Available [address] [place], [address] 11/07/2023 15:09:18 11/07/19 24 11/07/2023 URINA LYSIS pH 5.5 5-8 normal Not Available [address] [place], [address] 11/07/2023 15:09:18 11/07/19 24 11/07/2023 URINA LYSIS leukocyte esterase Negati ve negati ve Not Available [address] [place], [address] 11/07/2023 15:09:18 11/07/19 24 11/07/2023 URINA LYSIS nitrite Negati ve negati ve Not Available [address] [place], [address] 11/07/2023 15:09:18 11/07/19 24 11/07/2023 URINA LYSIS protein Negati ve mg/dL negati ve Not Available [address] [place], [address] 11/07/2023 15:09:18 11/07/19 24 11/07/2023 URINA LYSIS glucose Negati ve mg/dL negati ve Not Available [address] [place], [address] 11/07/2023 15:09:18 11/07/19 24 11/07/2023 URINA LYSIS ketones Negati ve mg/dL negati ve Not Available [address] [place], [address] 11/07/2023 15:09:18 11/07/19 24 11/07/2023 URINA LYSIS urobilinogen 0.2 mg/dL up to 0.2 Not Available [address] [place], [address] 11/07/2023 15:09:18 11/07/19 24 11/07/2023 URINA LYSIS bilirubin Negati ve negati ve Not Available [address] [place], [address] 11/07/2023 15:09:18 11/07/19 24 11/07/2023 URINA LYSIS blood Large negati ve abnormal Not Available [address] [place], [address] 11/07/2023 15:09:18 11/07/19 24 11/07/2023 URINA LYSIS color Yellow yellow Not Available [facility] [address] [place], [address] 11/07/2023 15:10:12 11/07/19 24 11/07/2023 URINA LYSIS clarity Clear clear Not Available [address] [place], [address] 11/07/2023 15:10:12 11/07/19 24 11/07/2023 URINA LYSIS specific gravity 1.020 1.005- 1.025 normal Not Available [address] [place], [address] 11/07/2023 15:10:12 11/07/19 24 11/07/2023 URINA LYSIS pH 5.5 5-8 normal Not Available [facility] [address] [place], [address] 11/07/2023 15:10:12 11/07/19 24 11/07/2023 URINA LYSIS leukocyte esterase Negati ve negati ve Not Available [address] [place], [address] 11/07/2023 15:10:12 11/07/19 24 11/07/2023 URINA LYSIS nitrite Negati ve negati ve Not Available [address] [place], [address] 11/07/2023 15:10:12 11/07/19 24 11/07/2023 URINA LYSIS protein Negati ve mg/dL negati ve Not Available [address] [place], [address] 11/07/2023 15:10:12 11/07/19 24 11/07/2023 URINA LYSIS glucose Negati ve mg/dL negati ve Not Available [address] [place], [address] 11/07/2023 15:10:12 11/07/19 24 11/07/2023 URINA LYSIS ketones Negati ve mg/dL negati ve Not Available [address] [place], [address] 11/07/2023 15:10:12 11/07/19 24 11/07/2023 URINA LYSIS urobilinogen 0.2 mg/dL up to 0.2 Not Available [address] [place], [address] 11/07/2023 15:10:12 11/07/19 24 11/07/2023 URINA LYSIS bilirubin Negati ve negati ve Not Available [address] [place], [address] 11/07/2023 15:10:12 11/07/19 24 11/07/2023 URINA LYSIS blood Large negati ve abnormal Not Available [address] [place], [address] 11/07/2023 15:10:12 11/07/19 24 11/07/2023 MICRO SCOPI C FINDI NGS WBC 0-2 hpf 0-5 Not Available [address] [place], [address] 11/07/2023 15:10:13 11/07/19 24 11/07/2023 MICRO SCOPI C FINDI NGS RBC 5-10 hpf 0-2 abnormal Not Available [address] [place], [address] 11/07/2023 15:10:13 11/07/19 24 11/07/2023 MICRO SCOPI C FINDI NGS epithelial cells Few hpf negati ve Not Available [address] [place], [address] 11/07/2023 15:10:13 11/07/19 24 11/07/2023 MICRO SCOPI C FINDI NGS bacteria Negati ve hpf negati ve Not Available [address] [place], [address] 11/07/2023 15:10:13 11/07/19 24 11/07/2023 MICRO SCOPI C FINDI NGS crystals Negati ve hpf negati ve Not Available [address] [place], [address] 11/07/2023 15:10:13 11/07/19 24 11/07/2023 MICRO SCOPI C FINDI NGS mucus Negati ve negati ve Not Available [address] [place], [address] 11/07/2023 15:10:13 11/07/19 24 11/07/2023 MICRO SCOPI C FINDI NGS casts Negati ve lpf negati ve Not Available [address] [place], [address] 11/07/2023 15:10:13 11/07/19 24 11/07/2023 MICRO SCOPI C FINDI NGS C S indicated? No Not Available [address] [place], [address] 11/07/2023 15:10:13 01/14/20 24 01/14/2024 URINA LYSIS color Yellow yellow Not Available [address] [place], [address] 01/16/2024 10:19:48 01/14/20 24 01/14/2024 URINA LYSIS clarity Clear clear Not Available [address] [place], [address] 01/16/2024 10:19:48 01/14/20 24 01/14/2024 URINA LYSIS specific gravity >= 1.030 1.005- 1.025 high Not Available [address] [place], [address] 01/16/2024 10:19:48 01/14/20 24 01/14/2024 URINA LYSIS pH 6.0 5-8 normal Not Available [address] [place], [address] 01/16/2024 10:19:48 01/14/20 24 01/14/2024 URINA LYSIS leukocyte esterase Negati ve negati ve Not Available [address] [place], [address] 01/16/2024 10:19:48 01/14/20 24 01/14/2024 URINA LYSIS nitrite Negati ve negati ve Not Available [address] [place], [address] 01/16/2024 10:19:48 01/14/20 24 01/14/2024 URINA LYSIS protein Negati ve mg/dL neg-tr leonardo Not Available [address] [place], [address] 01/16/2024 10:19:48 01/14/20 24 01/14/2024 URINA LYSIS glucose Negati ve mg/dL negati ve Not Available [address] [place], [address] 01/16/2024 10:19:48 01/14/20 24 01/14/2024 URINA LYSIS ketones Negati ve mg/dL negati ve Not Available [address] [place], [address] 01/16/2024 10:19:48 01/14/20 24 01/14/2024 URINA LYSIS urobilinogen 0.2 mg/dL up to 0.2 Not Available [address] [place], [address] 01/16/2024 10:19:48 01/14/20 24 01/14/2024 URINA LYSIS bilirubin Negati ve negati ve Not Available [address] [place], [address] 01/16/2024 10:19:48 01/14/20 24 01/14/2024 URINA LYSIS blood Trace- intact negati ve abnormal Not Available [address] [place], [address] 01/16/2024 10:19:48 01/14/20 24 01/14/2024 URINA LYSIS color Yellow yellow Not Available [address] [place], [address] 01/16/2024 10:19:49 01/14/20 24 01/14/2024 URINA LYSIS clarity Clear clear Not Available [address] [place], [address] 01/16/2024 10:19:49 01/14/20 24 01/14/2024 URINA LYSIS specific gravity >= 1.030 1.005- 1.025 high Not Available [address] [place], [address] 01/16/2024 10:19:49 01/14/20 24 01/14/2024 URINA LYSIS pH 6.0 5-8 normal Not Available [address] [place], [address] 01/16/2024 10:19:49 01/14/20 24 01/14/2024 URINA LYSIS leukocyte esterase Negati ve negati ve Not Available [address] [place], [address] 01/16/2024 10:19:49 01/14/20 24 01/14/2024 URINA LYSIS nitrite Negati ve negati ve Not Available [address] [place], [address] 01/16/2024 10:19:49 01/14/20 24 01/14/2024 URINA LYSIS protein Negati ve mg/dL neg-tr leonardo Not Available [address] [place], [address] 01/16/2024 10:19:49 01/14/20 24 01/14/2024 URINA LYSIS glucose Negati ve mg/dL negati ve Not Available [address] [place], [address] 01/16/2024 10:19:49 01/14/20 24 01/14/2024 URINA LYSIS ketones Negati ve mg/dL negati ve Not Available [address] [place], [address] 01/16/2024 10:19:49 01/14/20 24 01/14/2024 URINA LYSIS urobilinogen 0.2 mg/dL up to 0.2 Not Available [address] [place], [address] 01/16/2024 10:19:49 01/14/20 24 01/14/2024 URINA LYSIS bilirubin Negati ve negati ve Not Available [address] [place], [address] 01/16/2024 10:19:49 01/14/20 24 01/14/2024 URINA LYSIS blood Trace- intact negati ve abnormal Not Available [address] [place], [address] 01/16/2024 10:19:49 01/14/20 24 01/14/2024 MICRO SCOPI C FINDI NGS WBC 0-2 hpf 0-5 Not Available [address] [place], [address] 01/16/2024 10:19:50 01/14/20 24 01/14/2024 MICRO SCOPI C FINDI NGS RBC 0-2 hpf 0-2 Not Available [address] [place], [address] 01/16/2024 10:19:50 01/14/20 24 01/14/2024 MICRO SCOPI C FINDI NGS epithelial cells Many hpf negati ve Not Available [address] [place], [address] 01/16/2024 10:19:50 01/14/20 24 01/14/2024 MICRO SCOPI C FINDI NGS other cells Few Transi tional negati ve Not Available [address] [place], [address] 01/16/2024 10:19:50 01/14/20 24 01/14/2024 MICRO SCOPI C FINDI NGS bacteria Rare hpf negati ve Not Available [address] [place], [address] 01/16/2024 10:19:50 01/14/20 24 01/14/2024 MICRO SCOPI C FINDI NGS crystals Negati ve hpf negati ve Not Available [address] [place], [address] 01/16/2024 10:19:50 01/14/20 24 01/14/2024 MICRO SCOPI C FINDI NGS mucus Negati ve negati ve Not Available [address] [place], [address] 01/16/2024 10:19:50 01/14/20 24 01/14/2024 MICRO SCOPI C FINDI NGS casts Negati ve lpf negati ve Not Available [address] [place], [address] 01/16/2024 10:19:50 01/14/20 24 01/14/2024 MICRO SCOPI C FINDI NGS C S indicated? No Not Available [address] [place], [address] 01/16/2024 10:19:50 01/14/20 24 01/14/2024 urina lysis , dipst ick Leukocytes Negati ve Not Available [facility] [address], [place], [address], 01/14/2024 15:09:41 01/14/20 24 01/14/2024 urina lysis , dipst ick Nitrite negati ve Not Available [facility] [address], [place], [address], 01/14/2024 15:09:41 01/14/20 24 01/14/2024 urina lysis , dipst ick Urobilinogen .2 Not Available [facility] [address], [place], [address], 01/14/2024 15:09:41 01/14/20 24 01/14/2024 urina lysis , dipst ick Protein Negati ve Not Available [facility] [address], [place], [address], 01/14/2024 15:09:41 01/14/20 24 01/14/2024 urina lysis , dipst ick pH 5.0 Not Available [facility] [address], [place], [address], 01/14/2024 15:09:41 01/14/20 24 01/14/2024 urina lysis , dipst ick Blood Non-He molyze d: Modera te Not Available [facility] [address], [place], [address], 01/14/2024 15:09:41 01/14/20 24 01/14/2024 urina lysis , dipst ick Specific [place] 1.025 Not Available [facility] [address] [address], [place], [address], 01/14/2024 15:09:41 01/14/20 24 01/14/2024 urina lysis , dipst ick Ketone Negati ve Not Available [facility] [address], [place], [address], 01/14/2024 15:09:41 01/14/20 24 01/14/2024 urina lysis , dipst ick Bilirubin Negati ve Not Available [facility] [address], [place], [address], 01/14/2024 15:09:41 01/14/20 24 01/14/2024 urina lysis , dipst ick Glucose Negati ve Not Available [facility] [address], [place], [address], 01/14/2024 15:09:41 01/14/20 24 01/14/2024 urina lysis , dipst ick Appearance Clear Not Available [facility] [address], [place], [address], 01/14/2024 15:09:41 01/14/20 24 01/14/2024 urina lysis , dipst ick Color Yellow Not Available [facility] [address], [place], [address], 01/14/2024 15:09:41 01/14/20 24 01/14/2024 hemog lobin A1C, finge rstic k hemoglobin A1C 5.0 % <5.7 Not Available [facility] [address] [address], [place], [address], 01/14/2024 14:39:27 03/31/20 24 03/31/2024 hemog lobin A1C, finge rstic k hemoglobin A1C 5.0 % <5.7 Not Available [facility] [address] [address], [place], [address], 03/31/2024 12:09:40 10/16/19 24 10/16/2023 histo ry physi tara exami natio n HISTOR Y PHYSIC AL EXAMIN ATION PATIEN T NAME: Reagan Diez UNIT #: [id number] ADMITT ING PROVID ER: Lionel Horton M.D. ACCOUN T #: [id number] PRIMAR Y CARE PROVID ER: RAMO Mcgarry MD,CONSTANZA Kamara DATE OF ADMIT : : 1979 Assess ment and Plan Assess ment and plan (1) Diffic ulty in [facility]: Status : Acute Assess ment and plan: We discus sed the role of EGD in terms of diagno stics, potent ial manage ment of her dyspha talha. I explai michael the risks and benefi ts of the proced ure, which I think she has a good unders rosie bruno of. We can procee d with EGD as planne d. Qualif iers: Dyspha talha type: unspec ified Qualif ied Code(s ): R13.10 - Dyspha talha, unspec ified Histor y of Presen t [place]nes s Histor y of Presen t [place] Chief Compla int: Dyspha talha Narrat chetna: Reagan is 43 years old, and she is seen here after referr al from ENT for consid eratio n of EGD given severa l months of dyspha talha. She descri bes a sensat ion of food sticki ng, in the lower portio n of her throat , typica lly a little more on the right side than the left. Foods and partic ularly give her troubl e or crunch y things like pretze ls, chips, popcor n. She does not notice any partic ular differ ence with hot versus cold foods, or liquid s versus solids . She denies any family histor y of esopha geal or gastri c cancer s. She is alread y underg one a flexib le laryng oscopy that was normal , as well as a contra [facility] that showed mild penetr ation and contra st retent ion, but otherw ise normal [facility] functi on. 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 : Curren t every day Tobacc o Type: cigare ttes Smokin g risk assess ment perfor med?: Yes Alcoho l Intake : never Drug use: Daily Substa nce use type: richard castro Housin g: apartm ent Do you feel safe at home: Yes Do you feel safe in your relati onship ?: Yes Meds Allerg ies and Home Medica tions Allerg ies Allerg y/AdvR eac Type Severi ty Reacti on Status Date / Time No Known Drug Allerg ies Allerg y Unveri fied 10:58 Home Medica tions Medica tion Instru ctions Record ed Confir med Type trazod one 100 mg tablet 150 mg PO HS Histor y bupren orphin e 12 mg-nal oxone 3 mg 1 film sublin gual DAILY Histor y sublin gual film bupren orphin e 2 mg-nal oxone 0.5 mg 1 film sublin gual DAILY Histor y sublin gual film buprop ion HCl 150 mg 24 hr tablet , 150 mg PO DAILY Histor y extend ed releas e diclof enac sodium 1 % topica l gel 2 g topica l QID PRN Histor y gabape ntin 400 mg capsul e 400 mg PO BID Histor y omepra zole 40 mg capsul e,pool yed 40 mg PO DAILY #30 caps Rx releas e Exam Const Genera l: jack ative and not in acute distre ss Neck Neck: normal visual inspec tion, no lympha denopa thy and supple Thyroi d: thyroi d normal Resp Effort Inspec tion: normal respir atory effort Auscul tation : clear to auscul tation bilate rally Cardio Jugula r venous pressu re: no JVD Rate: regula r rate Rhythm : regula r rhythm Heart Sounds : S1 normal and S2 normal Neuro Genera l: patien t alert, patien t awake and patien t orient ed x3 Psych Appear ance: grossl y normal Result s Last Vital Signs Temp 97.9 F 08:39 Pulse 65 08:39 Resp 18 08:39 BP 109/91 H 08:39 Pulse Ox 99 08:39 cc: ------ ------ ------ ------ ------ ------ ------ ------ ------ ------ ------ --- Dictat ed by: Lionel Horton M.D. Dictat ed: Time: 919 Date: 921 Date: Date: Transc ribed Date: Transc ribed Time: 919 By: SEGUNDO Dias This is privil eged, confid ential inform ation, intend ed only for the provid er named. Any use or distri bution by any person other than this provid er is strict ly prohib ited. If you receiv e this report in error, please notify us immedi xily at [phone] and return the origin al report to us at the addres s above. Thank you. [email or web address] [facility] [address], [place], [address] 10/16/2023 12:44:11 10/16/19 24 10/15/2023 physi sharath dsu disch arge repor t PHYSIC SHANNON DSU DISCHA RGE REPORT PATIEN T NAME: Reagan Diez UNIT #: [id number] ADMITT ING PROVID ER: Lionel Horton M.D. ACCOUN T #: [id number] PRIMAR Y CARE PROVID ER: CONSTANZA JASMINE MD ERT E DATE OF ADMIT : : 1979 Date of servic e: Time of Servic e: 09:42 Discha rge Plan Dispos ition Patien t Dispos ition: Home Condit ion: Good Discha rge Detail s Reason For Visit: EGD Attend ing Provid er: Lionel Horton y Care Provid er: Parmjit Jasmine rt E Home Meds and New Rx's Prescr iption s: Contin ued diclof enac sodium 1 % gel 2 g topica l QID PRN Rx Instru ctions : apply to single elbow, wrist or hand; for hand includ es palm/f ingers /back of hand gabape ntin 400 mg capsul e 400 mg PO BID omepra zole 40 mg capsul e,pool yed releas e(/[facility]) 40 mg PO DAILY Qty: 30 1RF trazod one 100 mg tablet 150 mg PO HS Patien t Commen ts: TAKE 1 TABLET BY MOUTH ONCE DAILY AT BEDTIM E FOR 30 DAYS buprop ion HCl 150 mg tablet extend ed releas e 24 hr 150 mg PO DAILY Patien t Commen ts: TAKE 1 TABLET BY MOUTH ONCE DAILY IN THE MORNIN G bupren orphin e-nalo xone 2-0.5 mg film 1 film sublin gual DAILY Patien t Commen ts: PLACE 1 STRIP UNDER THE TONGUE ONCE DAILY IN THE MORNIN G FOR 14 DAYS bupren orphin e-nalo xone 12-3 mg film 1 film sublin gual DAILY Patien t Commen ts: PLACE 1 STRIP UNDER THE TONGUE ONCE DAILY IN THE MORNIN G FOR 14 DAYS Discha rge Instru ctions Instru ctions : Diet for Stomac h Ulcers and Gastri tis (GEN), GERD (Gastr oesoph ageal Reflux Diseas e) (GEN), Naseem t Esopha armando (GEN) Additi onal Instru ctions : Reagan, we were able to comple te your upper endosc opy today withou t any diffic ulty. The only abnorm ality that I saw involv es the lower part of your esopha armando, where it connec ts down to your stomac h. There was some mild irregu larity of this connec tion, which has featur es consis tent with someth ing called Naseem t's esopha armando. Essent constance, these are chroni c change s of the GE juncti on that typica lly result from longst anding gastro esopha geal reflux diseas e. Althou gh your sympto ms occur mostly in your upper neck, I do wonder if heartb urn is actual ly what you have been experi encing . It certai nly reassu ring that the omepra zole has helped with some of the sympto ms. I think you should contin ue that. I would also strong ly advise avoidi ng any type of tobacc o use, or alcoho l consum ption, since these have been well-d ocumen erin as contri buting to Naseem t's esopha armando. Just to be safe, I did do some biopsi es of the area. That will take a week or 2 to get the result s from. Once I have those result s, I will be in touch regard ing whethe r or not you need anothe r endosc opy in the future . 1. If tolera erin, consum e a soft, low fiber diet for 1-[address]. [address], drink alcoho l, operat e diana john, make critic al decisi ons, or do activi ties that requir e coordi nation or balanc e for 24 hours. 3. You may experi ence a sore throat for 24 to 48 hours. You may use throat lozeng es or gargle with warm salt water to reliev e the discom fort. 4. Becaus e air was put into your stomac h during the proced ure, you may experi ence some belchi ng. 5. Go direct ly to the emerge ncy room if you notice any of the follow ing: Develo p chills (warm to touch) , or if you have a thermo meter and your temper ature is above 101 Diffic ulty breath ing or diffic ultly swallo wing Persis tent vomiti ng Severe abdomi nal pain, other than gas cramps Severe chest pain Black, tarry stools Any bleedi ng ??? exceed ing one tables rogelio 6. Call your physic shannon if the site where your intrav enous was starte d become s red, swolle n, painfu l, and warm to touch. 7. Your physic shannon has review ed your pre-pr ocedur e medica tions. Please contin ue to take those medica tions as previo usly ordere d. You will be given specif ic inform ation/ educat ion regard ing any change s to your medica tions before leigha michelle Activi ty:: Activi ty as Tolera erin Diet:: As Tolera erin Discha rge Orders Discha rge Orders : Discha rge Order (Jah ramirez); Ordere d Ordere d By: Lionel Horton DS: Diagno sis Discha rge Diagno sis (1) Diffic ulty in [facility]: Status : Acute cc: ------ ------ ------ ------ ------ ------ ------ ------ ------ ------ ------ --- Dictat ed by: Lionel Horton M.D. Dictat ed: Time: 1837 Date: 943 Date: Date: Transc ribed Date: Transc ribed Time: 1837 By: SEGUNDO Dias This is privil eged, confid ential inform ation, intend ed only for the provid er named. Any use or distri bution by any person other than this provid er is strict ly prohib ited. If you receiv e this report in error, please notify us immedi ately at and return the origin al report to us at the addres s above. Thank you. [email or web address] [facility] [address], [place], [address] 10/16/2023 12:44:10 10/16/19 24 10/15/2023 endos copy repor t ENDOSC OPY REPORT PATIEN T NAME: Reagan Diez UNIT #: [id number] ORDERI NG PROVID ER: ACCOUN T #: [id number] PRIMAR Y CARE PROVID ER: RAMO Mcgarry MD,CONSTANZA ERT E DATE/T NANDA OF SERVIC E: : 1979 Date of servic e: Time of Servic e: 09:44 Endosc opy Report DATE OF PROCED URE: PRE-OP DIAGNO SIS: Dyspha talha POST-O P DIAGNO SIS: other (GERD with possib le Naseem t's esopha armando) PROCED URE: EGD with biopsi es SURGEO N: Lionel Horton ANESTH ESIA TYPE: MAC ESTIMA ERIN BLOOD LOSS: 5 PATHOL OGY: other (Four- quadra nt biopsi es of the GE juncti on) COMPLI CATION S: None DISPOS ITION: same day INDICA TIONS: Reagan is a 43 year old woman with dyspha talha. PROCED URE START TIME: 09:31 PROCED URE END TIME: 09:39 ARIEL GS: Short sriramrogerio Ryant t's esopha armando extend ing from 35 to 37 cm from the inciso rs PROCED URE DESCRI PTION: After the initia tion of monito red anesth etic care, and with the assist ance of a bite block, I advanc ed a standa rd gastro scope throug h the mouth past the hypoph arynx and into the esopha armando.?? ? Under the direct vision of the scope, I advanc ed down the esopha armando into the stomac h.??? Once I entere d the stomac h, I perfor med a brief inspec tion, follow ed by retrof lexion toward s the gastri c cardia .??? This appear ed normal . I saw no eviden ce of hiatal hernia after that, I gently advanc ed the scope around the incisu ra angula ris and examin ed the pyloru s.??? This also appear ed normal .??? Next, I advanc ed the scope throug h the pyloru s into the duoden um.??? The mucosa was pink and health y appear ing.?? ? There were no abnorm alitie s.??? I was able to visual ize bile draini ng into the duoden um throug h the ampull a Vater. ???Nex t, I began retrac ting the endosc ope.?? ? I bianca t the camera back into the stomac h, and examin ed it once again. I perfor m random biopsi es of the gastri c antrum and body to rule out Helico bacter pylori as a source of the patien t's sympto ms. This was done with cold forcep s and there was minima l bleedi ng.??? Next, I bianca t the camera back up to the GE juncti on. There was irregu larity of the Z-line extend ing from 35 to 37 cm. Narrow band imagin g was used to assist with analys is. Trinity kamara this had some clinic al jannet ramirez consis tent with Naseem t's esopha armando, I perfor m four-q uadran t biopsi es of the GE juncti on. This was done with cold forcep s and minima l bleedi ng. I then advanc ed the camera back down to the stomac h and emptie d it. Next, I bianca t the camera back into the esopha armando, and cydney gibson examin ed the length of the esopha armando from the GE juncti on up to the cricop haryng eus area. I saw no eviden ce of any other abnorm alitie s. I saw no divert icula webs or strict ures. I saw no eviden ce of any esopha geal inlet patch. I then remove d the camera , the patien t was bianca t back to the recove ry unit as the anesth etic wore off. CC:RANDEE GIORDANO MD,CONSTANZA ERT E ------ ------ ------ ------ ------ ------ ------ ------ ------ ------ ------ ------ ------ ------ ------ ------ ---- -- Dictat ed by: Lionel Horton M.D. Dictat ed:: 1839 Transc ribed Date: Transc ribed Time: 1839 By: SEGUNDO Dias This is privil eged, confid ential inform ation, intend ed only for the provid er named. Any use or distri bution by any person other than this provid er is strict ly prohib ited. If you receiv e this report in error, please notify us immedi tong at and return the origin al report to us at the addres s above. Thank you. [email or web address] [facility] [address] [place], [address] 10/16/2023 12:44:11 11/07/19 24 11/07/2023 ED visit note ED Visit Note PATIEN T NAME: Reagan Diez UNIT #: [id number] ADMITT ING PROVID ER: James on,Ortiz ho INSTRUCTIONAL SERVICES SPECIALIST ACCOUN T #: [id number] PRIMAR Y CARE PROVID ER: RAMO Mcgarry MD,CONSTANZA ERT E DATE OF ADMIT : : 1979 HPI Genera l Mode of arriva l: ambula tory . Date/T nanda Provid er Initia erin grovestio n: 13:23 . Limita tions to Christopher ntatio n: no limita tions . Inform ation obtain ed by: tomi espinoza RN notes review ed and old record s review ed . HPI Narrat chetna: 43-yea r-old female past medica l histor y of hyperl ipidem ia, cervic al radicu lopath y on Suboxo ne mainte nance, GERD, edema, Naseem t's esopha armando, tobacc o depend ence obesit y and depres butch presen ts to the ER with a chief compla int of neck and back pain. This was exacer bated after a slippi ng type injury where she landed on her left knee she report s that she twiste d her neck and back. She also endors es nausea and vomiti ng over the last few days she report s that this is worse becaus e of the pain. She recent ly had a EGD due to dyspha talha approx imatel y 2 weeks ago. She denies any sick contac ts. She does endors e mariju matthew use and she is a daily smoker . Relate d Data Home Medica tions Medica tion Instru ctions Record ed Confir med trazod one 100 mg tablet 150 mg PO HS bupren orphin e 12 mg-nal oxone 3 mg 1 film sublin gual DAILY sublin gual film bupren orphin e 2 mg-nal oxone 0.5 mg 1 film sublin gual DAILY sublin gual film buprop ion HCl 150 mg 24 hr tablet , 150 mg PO DAILY extend ed releas e diclof enac sodium 1 % topica l gel 2 g topica l QID PRN gabape ntin 400 mg capsul e 400 mg PO BID omepra zole 40 mg capsul e,pool yed 40 mg PO DAILY #30 caps releas e ketoro lac 10 mg tablet 10 mg PO BID PRN pain 4 days #8 tabs Previo us Rx's Medica tion Instru ctions Record ed omepra zole 40 mg capsul e,pool yed 40 mg PO DAILY #30 caps releas e ketoro lac 10 mg tablet 10 mg PO BID PRN pain 4 days #8 tabs Allerg ies Allerg y/AdvR eac Type Severi ty Reacti on Status Date / Time No Known Drug Allerg ies Allerg y Unveri fied 14:26 Genera l Stated Compla int: Nk/May k Pain SAGAR: 4 Review of System s All system s review ed are unrema rkable except as noted in HPI and below ENT Ears, Nose, Mouth, and Throat : Report s neck pain Gastro intest inal Gastro intest inal: Report s as per HPI, Report s nausea and Report s vomiti ng Muscul oskele antoinette Muscul oskele antoinette: Report s back pain and Report s neck pain Neurol ogic Neurol ogic: Denies locali zed weakne ss Course Vital Signs Vital signs: Vital Signs Temper ature 36.8 C 13:03 Pulse 61 13:03 Respir atory Rate 18 13:03 Blood Pressu re 127/70 13:03 Pulse Oximet ry 98 13:03 Temper ature 36.8 C 13:03 Temper ature Source Oral 13:03 Pulse 61 13:03 Respir atory Rate 18 13:03 Respir atory Effort Normal , Non-La bored 13:10 Blood Pressu re 127/70 13:03 Blood Pressu re Positi on Sittin g 13:03 Pulse Oximet ry 98 13:03 Oxygen Delive ry Method Room Air 13:03 Oxygen Flow Rate 0 13:03 Medica l Decisi on Making 43-yea r-old female past medica l histor y of hyperl ipidem ia, cervic al radicu lopath y on Suboxo ne mainte nance, GERD, edema, Naseem t's esopha armando, tobacc o depend ence obesit y and depres butch presen ts to the ER with a chief compla int of neck and back pain. This was exacer bated after a slippi ng type injury where she landed on her left knee she report s that she twiste d her neck and back. She also endors es nausea and vomiti ng over the last few days she report s that this is worse becaus e of the pain. She recent ly had a EGD due to dyspha talha approx imatel y 2 weeks ago. She denies any sick contac ts. She does endors e mariju matthew use and she is a daily smoker . Initia lly tomi espinoza is sittin g up in a chair leanin g over a trash can report ing nausea and feelin g as if she is going to vomit. She does have tender ness with palpat ion both parasp inous and midlin e to her neck and back. No obviou s deform ity denies any loss of bowel or bladde r contro l or saddle anesth esia. She is alert and orient ed. Workup ordere d includ ing CBC CMP, urinal ysis, liter normal saline Zofran and Pepcid . Will reeval uate after medica tion admini strati on. Tomi espinoza does take Suboxo ne so we will refrai n from opiate s at this time. I do not feel that imagin g is abner saini. Will consid er Torado l. Inform ed by ED staff that tomi espinoza is reques ting some hardeep pratima I did okay some ice chips to start for p.o. trial. Tomi espinoza left prior to her discha rge papers and prior to receiv ing prescr iption for Torado l and Zofran to go. She does report she feels better after the above medica tions. Unit secret poornima did a follow -up call tomi espinoza refuse d to have her discha rge papers and prescr iption s mailed . This text was genera erin using [employer] ion system , please disreg karthik any odditi es of phrase or misspe llings . Lab Data Lab result s review ed: Yes I review ed the tomi t's lab result s. Labs: Katalina chaparro Tests Range/ Units 13:55 14:45 WBC (4.4-1 0.8) 10 3/uL 6.10 RBC (3.93- 5.22) 10 6/uL 4.91 Hgb (11.2- 15.7) g/dL 14.7 Hct (36.0- 46.0) % 43.3 MCV (80-95 ) fL 88 MCH (27.0- 33.0) pg 29.9 MCHC (32.0- 36.0) % 33.9 RDW (11.7- 14.6) % 12.4 Plt Count (130-4 00) 10 3/uL 222 MPV (8.0-1 1.0) fL 8.9 Immatu re Gran % 0.2 Neutro phils % 37.8 Lympho cytes % 52.5 Monocy shila % 5.9 Eosino phils % 3.1 Basoph ils % 0.5 Nuclea erin RBC % (0.0-0 .3) % 0.0 Absolu te Neutro phils (1.2-6 .7) 10 3/uL 2.31 Absolu te Lympho cytes (1.2-3 .4) 10 3/uL 3.20 Absolu te Monocy shila (0.1-0 .8) 10 3/uL 0.36 Absolu te Eosino phils (0.0-0 .7) 10 3/uL 0.19 Absolu te Basoph ils (0.0-0 .2) 10 3/uL 0.03 Sodium (136-1 45) mmol/L 139 Potass ium (3.5-5 .1) mmol/L 4.0 Chlori de (98-10 7) mmol/L 102 Carbon Dioxid e (21.0- 32.0) mmol/L 31.3 Anion Gap (3-11) mmol/L 5.7 BUN (7-18) mg/dL 14 Creati nine (0.55- 1.02) mg/dL 0.9 Est GFR (CKD-E PI 2020) (mL/mi n/1.73 m2) 81.86 Glucos e (74-10 6) mg/dL 75 Calciu m (8.5-1 0.1) mg/dL 8.7 Total Biliru bin (0.2-1 .0) mg/dL 0.2 AST (15-37 ) U/L 15 ALT (14-59 ) U/L 22 Alkali ne Phosph atase (46-11 6) U/L 49 Total Protei n (6.4-8 .2) g/dL 7.2 Albumi n (3.4-5 .0) g/dL 3.1 L Urine Color (Yello w) Yellow Urine Clarit y (Clear ) Clear Urine pH (5-8) 5.5 Ur Specif ic Gravit y (1.005 -1.025 ) 1.020 Urine Protei n (Negat chetna) mg/dL Negati ve Urine Ketone s (Negat chetna) mg/dL Negati ve Urine Blood (Negat chetna) Large H Urine Nitrit e (Negat chetna) Negati ve Urine Biliru bin (Negat chetna) Negati ve Urine Urobil inogen (Up to 0.2) mg/dL 0.2 Ur Leukoc yte Estera se (Negat chetna) Negati ve Urine RBC (0-2) HPF 5-10 H Urine WBC (0-5) HPF 0-2 Ur Epithe lial Cells (Negat chetna) HPF Few Urine Nicole ls (Negat chetna) HPF Negati ve Urine Bacter ia (Negat chetna) HPF Negati ve Urine Casts (Negat chetna) LPF Negati ve Urine Mucus (Negat chetna) Negati ve Ur Cultur e Indica erin? No Urine Glucos e (Negat chetna) mg/dL Negati ve Qualit y:SDOH Health Relate d Social Needs: No Data to Displa y PFSH All Active Proble ms (Updat ed @ 15:36 by Alta Ramirez on, INSTRUCTIONAL SERVICES SPECIALIST) Fall (Acute ) Nausea vomiti ng (Acute ) Sprain of upper back (Acute ) No-gregor w for appoin tment (Acute ) Histor y of COVID- 19 (Acute ) Medica l Histor y (Revfri @ 13:55 by Alta mcgee, INSTRUCTIONAL SERVICES SPECIALIST) Naseem t's esopha armando ( ) 10/2023 - repeat egd 3 to 5 years. 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 Use Status : Curren t every day Tobacc o Type: cigare ttes Smokin g risk assess ment perfor med?: Yes Alcoho l Intake : never Drug use: Daily Substa nce use type: mariju matthew Housin g: apartm ent Do you feel safe at home: Yes Do you feel safe in your relati onship ?: Yes Discha rge Plan Dispos ition Patien t Dispos ition: Home Condit ion: Improv ing Discha rge Detail s Clinic al Impres butch: Sprain of upper back, Nausea vomiti ng, Fall Primar y Care Provid er: Ramo uParmjit rt E ED Provid er: Johnst on,Sha wna Home Meds and New Rx's Prescr iption s: New ketoro lac 10 mg tablet 10 mg PO BID PRN (Reaso n: pain) 4 Days Qty: 8 0RF Rx Instru ctions : Take 1 tablet up to twice daily x 4 days as needed for pain not reliev ed by Pavel baker. Contin ued diclof enac sodium 1 % gel 2 g topica l QID PRN Rx Instru ctions : apply to single elbow, wrist or hand; for hand includ es palm/f ingers /back of hand gabape ntin 400 mg capsul e 400 mg PO BID omepra zole 40 mg capsul e,pool yed releas e(DR/E C) 40 mg PO DAILY Qty: 30 1RF trazod one 100 mg tablet 150 mg PO HS Patien t Commen ts: TAKE 1 TABLET BY MOUTH ONCE DAILY AT BEDTIM E FOR 30 DAYS buprop ion HCl 150 mg tablet extend ed releas e 24 hr 150 mg PO DAILY Patien t Commen ts: TAKE 1 TABLET BY MOUTH ONCE DAILY IN THE MORNIN G bupren orphin e-nalo xone 2-0.5 mg film 1 film sublin gual DAILY Patien t Commen ts: PLACE 1 STRIP UNDER THE TONGUE ONCE DAILY IN THE MORNIN G FOR 14 DAYS bupren orphin e-nalo xone 12-3 mg film 1 film sublin gual DAILY Patien t Commen ts: PLACE 1 STRIP UNDER THE TONGUE ONCE DAILY IN THE MORNIN G FOR 14 DAYS Discha rge Instru ctions Instru ctions : GERD (Gastr oesoph ageal Reflux Diseas e) (ED), Acute Nausea and Vomiti ng (ED), Fall Preven tion (ED) Additi onal Instru ctions : Please consid er taking Pepcid or simila r. Take the nausea medica tions as needed for nausea vomiti ng up to 3 times daily. Take the pain medica tion Torado l as direct ed. Altern ate ice and heat. No eviden ce of infect ion on your labs or urine. Follow up with primar y care provid er in 3-5 days. Return to ED sooner if any worsen ing or concer ns. Increa se oral fluids . Please take Tyleno l with food every 4-6 hours as needed for pain and swelli ng. Stand Alone Forms: Work Releas e Referr als: Parmjit Jasmine rt E [Prima ry Care Provid er] - 5 days (As needed ) cc: CONSTANZA JASMINE MD ERT E ------ ------ ------ ------ ------ ------ ------ ------ ------ ------ ------ --- Dictat ed by: JAMES MCGEE INSTRUCTIONAL SERVICES SPECIALIST,ORTIZ WNA Dictat ed: Time: 13 44 Date: 1612 Date: Date: Transc ribed Date: Transc ribed Time: 1344 By: BEENA Toribio This is privil eged, confid ential inform ation, intend ed only for the provid er named. Any use or distri bution by any person other than this provid er is strict ly prohib ited. If you receiv e this rep ort in error, please notify us immedi ately at [phone] and return the origin al report to us at the addres s above. Thank you. [email or web address] [facility] [address], [place], [address] 11/07/2023 17:10:21 11/19/19 24 11/17/2023 XR, knee No observ ation record ed. [email or web address] [facility] [address] , [place], [address], 11/19/2023 18:43:36 12/01/19 24 12/01/2023 elect romyo gram No observ ation record ed. [facility] [address] [place], [address], 12/03/2023 17:19:30 01/16/20 24 01/15/2024 XR, delon ohara, 2 or more view EXAM: RIGHT SHOULD ER RIS EXAM DATE/T NANDA: 2023 13:05 INDICA TION: Pain Three views show no eviden ce of acute fractu re or sublux ation. No soft tissue calcif icatio n noted to sugges t calcif ic tendon itis. AC and glenoh umeral joints intact . THIS IS AN ELECTR ONICAL LY VERIFI ED REPORT 01/15/20 3:27 PM: GONZALEZ TOMAS M.D. [email or web address] [place] [address] [address] , [place], [address], 01/16/2024 11:23:57 02/04/20 24 02/03/2024 MRI, delon ohara, w/o contr ast MRI OF RIGHT SHOULD ER RIS EXAM DATE/T NANDA: 2023 14:30 INDICA TION: Pain PROCED URE: 3 mm proton densit y weight ed and fat-reagan ppress ed FSE T2 obliqu e santos l images . 3 mm T1 and fat suppre ssed FSE T2 sagitt al images . 3 mm fat-reagan ppress ed proton densit y weight ed axial images . FINDIN GS: Compar ralf made with plain films of 15 January 2024. Mild motion artifa ct. There is some linear intras ubstan ce signal within the roll capper ior aspect of the supras pinatu s tendon which sugges ts mild intras ubstan ce tearin g. There is no bright ening signal to sugges t partia l or focal full-t hickne ss tear. No retrac tion of supras pinatu s muscle or tendon . No fluid in subacr omial subdel toid bursa. Mild AC joint hypert rophy. There is preser vation of fat betwee n the inferi or AC joint and the myoten dinous juncti on region of supras pinatu s tendon . Howeve r, there is a bony promin ence from the latera l clavic le causin g mild mass effect upon the superi or aspect of supras pinatu s tendon which could be causin g imping ement. Correl ate clinic ally. Infras pinatu s, teres minor, subsca pulari s tendon s intact . Glenoi d labrum intact . Biceps tendon normal ly locate d within bicipi antoinette groove . Bone marrow signal intens ities show no abnorm alitie s. IMPRES BUTCH: No eviden ce of partia l or focal full-t hickne ss supras pinatu s tendon tear. There may be some intras ubstan ce tearin g in the roll capper ior aspect of the tendon . Bony promin ence inferi or aspect of latera l clavic le may be causin g imping ement. Correl ate clinic ally. THIS IS AN ELECTR ONICAL LY VERIFI ED REPORT 024 5:19 PM: GONZALEZ TOMAS M.D. [address], [place], [address], 02/04/2024 19:15:30 03/18/20 24 03/18/2024 XR, shoul lev, 2 or more view PROCED URE INFORM ATION: Exam: XR Right Should er Exam date and time: 03/18/20 10:37 AM Age: 43 years old Clinic al indica tion: Pain fall TECHNI QUE: Imagin g protoc ol: Radiol ogic exam of the right should er. Views: 2 or more views. Total images : 3 COMPAR RALF: MR SHOULD ER RT WO CONTRA ST 024 2:35 PM FINDIN GS: Bones/ joints : Postop erativ e change s of the right should er. No eviden ce of acute fractu re or disloc ation. Soft tissue s: Soft tissue s are within normal limits . IMPRES BUTCH: 1. Postop erativ e change s of the right should er. 2. No eviden ce of acute fractu re or disloc ation. Report signed by: Jamari Toney on On 2023 11:17: [address], [place], [address], 03/18/2024 12:13:45 03/18/20 24 03/18/2024 XR, elbow , 3 or more view PROCED URE INFORM ATION: Exam: XR Right Elbow Exam date and time: 03/18/20 10:31 AM Age: 43 years old Clinic al indica tion: Pain, fall TECHNI QUE: Imagin g protoc ol: Radiol ogic exam of the right elbow. Views: 3 or more views. Total images : 1 COMPAR RALF: MR SHOULD ER RT WO CONTRA ST 024 2:35 PM FINDIN GS: Bones/ joints : No eviden ce of acute fractu re or disloc ation. Soft tissue s: Soft tissue s are within normal limits . IMPRES BUTCH: No eviden ce of acute fractu re or disloc ation. Report signed by: Jamari Toney on On 2023 11:19: 25 [email or web address] [facility] [address], [place], [address], 03/18/2024 12:13:45 03/23/20 24 03/23/2024 CT, angio gram, chest , w/ contr ast ABNORM AL FINDIN G PROCED URE INFORM ATION: Exam: CTA Chest With Contra st Exam date and time: 024 4:24 PM Age: 43 years old Clinic [...] zation : [facility] use at least one of these dose optimi zation techni ques: automa erin exposu re contro l; mA and/or kV adjust ment per patien t size (inclu han target ed exams where dose is matche d to clinic al indica tion); or iterat chetna recons tructi on. Contra st materi al: OMNIPA QUE 350; Contra st volume : 80 ml; Contra st route: INTRAV ENOUS (IV); COMPAR RALF: CR XR CHEST 2VW (D) 01/17/20 22 [...] Soft tissue s: Unrema rkable . IMPRES BUTCH: 1. No CT eviden ce of pulmon [...] at 12 months . (Refer ence: David mcgee) REFERE NCES: David mcgee H, et al. Guidel gustavo for Manage ment of Incide ntal Pulmon poornima Nodule s Detect ed on CT Images : From the [employer] 2017. Radiol ogy. 2017;2 84(1): 228-24 3. Report signed by: Lucie clay On 2023 17:08: [email or web address], [place], [address], 03/24/2024 06:02:57 Result Notes None recorded. Problems [...] Code Type: ICD-10; MD [address], [place], [address] , [facility] 4 06:24:14 Obesity Active 2013 Problem Code: E66.9; Problem Code Type: ICD-10; Not Available [facility] 3 04:30:55 Pulmonary embolism Active 201305/24/2015 - Comments only - Stephanie Sherwood MD - Exam is normal bt given history, we need to exclude pe. will get chest ct and labs stat. Problem Code: I26.99; Problem Code Type: ICD-10; MD [address], [place], [address] , [facility] 4 06:24:41 Edema Active 201404/26/2015 - Comments only - Stephanie Sherwood MD - controlled on diuretics. will get renal profile in two weeks with ddimer. Problem Code: R60.9; Problem Code Type: ICD-10; Not Available [facility] 3 04:30:55 Mixed hyperlipidemi a Active 201406/13/2015 [...] Code Type: ICD-10; MD [address], [place], [address] , [facility] 4 06:23:58 Onychomycosis due to dermatophyte Active 2014 Problem Code: B35.1; Problem Code Type: ICD-10; MD [address], [facility] [address] , [facility] 4 06:25:32 Prediabetes Active 201510/17/2022 - Comments only - Stephanie Sherwood MD - Check A1c. Tdap given. Candidate for COVID booster but she does had COVID in the past few weeks and so she will wait a few months. Will return for Pap. Problem Code: R73.03; Problem Code Type: ICD-10; MD [address], [facility] [address] , [facility] 4 06:24:36 Tobacco dependence caused by cigarettes Active 201509/17/2021 - Comments only - Marga Agudelo INSTRUCTIONAL SERVICES SPECIALIST - encouraged cessation Problem Code: F17.210; Problem Code Type: ICD-10; MD [address], [facility] [address] , [facility] 4 06:25:16 Disorder of nail Completed 201502/15/2016 Problem Code: L60.9; Problem Code Type: ICD-10; Not Available [facility] 3 04:30:55 Chronic sinusitis Completed 201504/12/2016 Problem Code: J32.9; Problem Code Type: ICD-10; Not Available [facility] 3 04:30:56 Urinary tract infectious disease Completed 201506/17/2016 Problem Code: N39.0; Problem Code Type: ICD-10; Not Available [facility] 3 04:30:56 Secondary amenorrhea Active 2015 Problem Code: N91.1; Problem Code Type: ICD-10; MD [address], [facility] [address] , [facility] 4 06:24:55 Rupture of anterior cruciate ligament Completed 201512/31/2023 Problem Code: M23.619; Problem Code Type: ICD-10; MD [address], [facility] [address] , [facility] 4 06:24:51 History of tubal ligation Active 2017 Problem Code: Z98.51; Problem Code Type: ICD-10; Not Available [facility] 3 04:30:56 Urinary tract infectious disease Completed 201711/25/2017 10/14/2017 - Comments only - Nnamdi Caban PA-C - Has had similar in the past. Urine dip positive for leukocytes. Treat with antibiotics. Also Diflucan given vaginal symptoms. STD testing pending. Problem Code: N39.0; Problem Code Type: ICD-10; Not Available [facility] 3 04:30:56 Pain of left knee joint Completed 201712/31/2023 08/06/2018 - Comments only - Nnamdi Caban PA-C - Referral to orthopedics. Problem Code: M25.562; Problem Code Type: ICD-10; MD [address], [place], [address] , [facility] 4 06:24:27 Itching of skin Completed 201704/11/2019 10/12/2018 - Comments only - Nnamdi Caban PA-C - This may be from stock being hydroxyzine. Trial prednisone. If not improved then recheck. No evidence for infestations. Problem Code: L29.9; Problem Code Type: ICD-10; Not Available [facility] 3 04:30:56 Conduction disorder of the heart Active 2018 Problem Code: I45.9; Problem Code Type: ICD-10; Not Available [facility] 3 04:30:57 Chest pain Completed 201810/13/2019 09/29/2019 [...] R07.89; Problem Code Type: ICD-10; Not Available [facility] 3 04:30:57 Artefactual skin disease Active 201912/03/2019 [...] Problem Code: L98.1; Problem Code Type: ICD-10; STEPHANIE SHERWOOD MD [address], [place], [address] , [facility] 4 06:22:34 Herpes zoster Completed 201912/31/2023 04/19/2020 - Comments only - Mili Iainginobed INSTRUCTIONAL SERVICES SPECIALIST - Rash is suspicious for shingles. She [...] Problem Code: B02.9; Problem Code Type: ICD-10; STEPHANIE SHERWOOD MD [address], [place], [address] , [facility] 4 06:22:21 Pain Completed 202010/21/2020 Problem Code: R52; Problem Code Type: ICD-10; Not Available [facility] 3 04:30:57 Dyspnea Completed 202010/21/2020 Problem Code: R06.02; Problem Code Type: ICD-10; MARGAANNA RIVERA [address], [place], [address] , [facility] 4 12:57:26 Acute upper respiratory infection Completed 202010/23/2020 Mirella germain [facility] 4 10:36:07 Cough Completed 202001/23/2021 Problem Code: R05; Problem Code Type: ICD-10; Not Available [facility] 3 04:30:58 Erythrasma Active 202011/27/2022 - Comments only - Stephanie Sherwood MD - She has failed to respond to topical antifungals at all. 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 Because this has been refractory I am going to try azithromycin every other day for 1 to 2 months. 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 Has been refracturing Reagan. She should continue with the steroid cream under occlusive dressing but she needs to give up smoking as well. Problem Code: L40.3; Problem Code Type: ICD-10; MD [address], [place], [address] , [facility] 4 06:24:45 Cough Completed 202009/23/2023 07/26/2022 - Comments only - Stephanie Sherwood MD - Still smoking MJ and I suggested she stop that, switch to edibles or do nothing. She promises to return for flu and COVID boosters. Problem Code: R05; Problem Code Type: ICD-10; Not Available [facility] 4 05:37:19 Subacute and chronic vaginitis Active 202010/22/2021 - Comments only - Stephanie Sherwood MD - I suspect the hygiene issues related to her chronic diarrhea are part of the problem. Sits baths or a bidet would be helpful. We will have her add topical metronidazole to oral therapy. Problem Code: N76.1; Problem Code Type: ICD-10; MD [address], [place], [address] , [facility] 4 06:25:13 Candidiasis of skin Completed 202008/18/2021 08/17/2021 - Comments only - Miladis JORGENSEN - - rx for nystatin cream twice daily - leave open to air as much as possible Problem Code: B37.2; Problem Code Type: ICD-10; Not Available [facility] 3 04:30:59 Low back pain Active 202101/15/2022 - Comments only - Marga Agudelo INSTRUCTIONAL SERVICES SPECIALIST - and upper back pain that started with COVID, Reagan is feeling run down, frustrated and in pain. ? Long haul COVID. CT done 10/25/2021 was negative, lab work also in October was essentially normal. Cyclobenzapri ne she was given in ER didn't help Problem Code: M54.59; Problem Code Type: ICD-10; MD [address], [place], [address] , [facility] 4 06:23:51 History of SARS-CoV-2 Completed 202112/31/202310/17/2021 - Comments only - Marga Magnus INSTRUCTIONAL SERVICES SPECIALIST - Still feeling fairly lousy. 02 sats at 97%. No longer on quarantine RTC if no gradual improvement Problem Code: Z86.16; Problem Code Type: ICD-10; MD [address], [place], [address] , [facility] 4 06:22:15 Cough Completed 202107/06/2022 07/05/2022 - Comments only - Miladis JORGENSEN - negative covid and flu. covid test kits provided. plenty of rest and fluids. rx for tessalon perles and albuterol inhaler. Return to clinic if not improving or worsening symptoms Problem Code: R05.8; Problem Code Type: ICD-10; Not Available [facility] 3 04:30:59 Steatosis of liver Completed 202210/18/2022 Problem Code: K76.0; Problem Code Type: ICD-10; Not Available [facility] 3 04:30:59 Cervical radiculopathy Active 2022 Problem Code: M54.12; Problem Code Type: ICD-10; MD [address], [place], [address] , [facility] 4 06:22:53 Exposure to sexually transmissible disorder Completed 202212/25/2022 11/27/2022 - Comments only - Stephanie Sherwood MD - Cervical swab for GC and chlamydia obtained and sent. We will also check serology. Problem Code: Z20.2; Problem Code Type: ICD-10; Not Available [facility] 3 04:31:00 Sleep disorder Active 202211/27/2022 - [...] Problem Code: G47.9; Problem Code Type: ICD-10; STEPHANIE SHERWOOD MD [address], [place], [address] , [facility] 4 06:25:09 Severe recurrent major depression without [...] ICD-10; STEPHANIE SHERWOOD MD [address], [place], [address] , [facility] 4 06:24:58 Female pelvic inflammatory disease Completed 201202/09/2013 Problem Code: N73.9; Problem Code Type: ICD-10; Not Available [facility] 3 04:31:00 Morbid obesity Completed 201307/09/2023 Not Available [facility] 3 04:31:00 Exposure to communicable disease Completed 202007/26/2022 Problem Code: Z20.828; Problem Code Type: ICD-10; Not Available [facility] 3 04:31:01 Urticaria Completed 201910/25/2020 Problem Code: L50.9; Problem Code Type: ICD-10; Not Available [facility] 3 04:31:01 Noninflammato ry disorder of the vagina Completed 202007/09/2023 10/17/2021 - Comments only - Marga Agudelo INSTRUCTIONAL SERVICES SPECIALIST - with associated dysuria. Urine negative for WBC, affirm swab sent white discharge in vaginal vault. Diflucan x one, she will not take any hydroxyzine, ondansetron, or oxycodone tonight. RTC or call if no improvement or sx increase Problem Code: N89.8; Problem Code Type: ICD-10; Not Available [facility] 3 04:31:01 Itching of skin Completed 201810/22/2021 Problem Code: L29.9; Problem Code Type: ICD-10; Not Available [facility] 3 04:31:01 Acute pharyngitis Completed 201511/27/2022 Problem Code: J02.9; Problem Code Type: ICD-10; Not Available [facility] 3 04:31:01 Vesicular eczema Completed 201910/22/2021 Problem Code: L30.1; Problem Code Type: ICD-10; Not Available [facility] 3 04:31:01 Noninfectious gastroenterit is Completed 201810/25/2020 Not Available [facility] 3 04:31:02 Depressive disorder Completed 200707/09/2023 06/13/2015 - Kevin Sherwood MD - Not Available [facility] 3 04:31:02 Dysuria Completed 202010/17/2022 Problem Code: R30.0; Problem Code Type: ICD-10; Not Available [facility] 3 04:31:02 Continuous opioid dependence Completed 200907/09/2023 Problem Code: 304.01; Problem Code Type: ICD-9; Not Available [facility] 3 04:31:02 Candidiasis of vagina Completed 201602/20/2017 Problem Code: B37.3; Problem Code Type: ICD-10; Not Available [facility] 3 04:31:02 Meralgia paresthetica Completed 200801/25/2016 Problem Code: 355.1; Problem Code Type: ICD-9; Not Available [facility] 3 04:31:03 Eczema Completed 201910/25/2020 Problem Code: L30.9; Problem Code Type: ICD-10; Not Available [facility] 3 04:31:03 Continuous opioid dependence Completed 200607/09/2023 Problem Code: 304.01; Problem Code Type: ICD-9; Not Available [facility] 3 04:31:03 Localized infection of skin AND/OR subcutaneous tissue Completed 201506/12/2016 Problem Code: L08.9; Problem Code Type: ICD-10; Not Available [facility] 3 04:31:03 Diarrhea Completed 201907/02/2020 Problem Code: R19.7; Problem Code Type: ICD-10; Not Available [facility] 3 04:31:04 Contact dermatitis Completed 201602/26/2017 Problem Code: L25.9; Problem Code Type: ICD-10; Not Available [facility] 3 04:31:04 Pilonidal cyst Completed 201911/27/2022 Problem Code: L05.91; Problem Code Type: ICD-10; Not Available [facility] 3 04:31:04 Blood glucose outside reference range Completed 201507/09/2023 03/12/2018 - Comments only - Nnamdi Caban PA-C - Continue metformin at this time. This may also be helping her with prevention of weight gain on antipsychotic s. Recheck 6 months. No other complaints. Hemoglobin A1c 5.0%. Problem Code: R73.09; Problem Code Type: ICD-10; Not Available [facility] 3 04:31:04 Acute vaginitis Completed 201610/17/2022 Problem Code: N76.0; Problem Code Type: ICD-10; Not Available [facility] 3 04:31:04 Wheezing Completed 201502/26/2017 Problem Code: R06.2; Problem Code Type: ICD-10; Not Available [facility] 3 04:31:05 Disorder of nasal sinus Completed 202110/17/2022 Not Available [facility] 3 04:31:05 Opioid dependence in remission Completed 200601/25/2016 Problem Code: F11.21; Problem Code Type: ICD-10; Not Available [facility] 3 04:31:05 Dysphagia Active 2022 MILADIS KAT PA-C [facility] [address], [place], [address] , [facility]. 3 15:14:28 Chronic cough Active 2020 Problem Code: R05.3; Problem Code Type: ICD-10; Not Available [facility] 4 05:37:17 Pain of left wrist Completed 202312/31/[address], [place], [address] , [facility] 4 06:24:33 Neck pain Active [address], [place], [address] , [facility] 4 06:24:08 Gastro-esopha geal reflux disease with esophagitis Active 2023 Barrett [address], [place], [address] , [facility] 4 06:21:47 Carpal tunnel syndrome Active [address], [place], [address] , [facility] 4 06:22:56 Barrera's esophagus Active 2023 [facility] [address], [place], [address] , [facility] 4 06:23:40 Pain of right shoulder joint Active 2023 [address], [place], [address] , [facility] 4 08:49:27 Delay when starting to pass urine Active [address], [place], [address] , [facility] 4 14:58:08 Open wound, heel Active [address], [facility] [address] , [facility] 4 15:03:06 Snoring Active [address], [facility] [address] [place] [address] 4 11:55:39 Fatigue Active [address], [facility] [address] , [facility] 4 11:57:12 Weight gain Active [address], [address] 4 11:59:25 Solitary nodule of lung Active [address], [facility] [address] [place] [address] 4 12:07:35 Dyspnea Active 2023 Problem Code: R06.02; Problem Code Type: ICD-10; [address], [facility] [address] [place] [address] 4 12:57:26 Notes:*Problem Name: Pid *IC D-10 Codes: *Problem Status: inactive *Comments: *Note Date: 12/31/2012 *Problem Name: Pumonary Embolism *ICD-10 Codes: *Problem Status: inactive *Comments: *Note Date: 09/12/2014 Problem Notes None recorded. Procedures Surgical History Date Name Laterality Status Provider Name and Address Organization Details Recorded Time 3 Most Recent Mammogram completed VINNY Sanchez, [facility] 01/13/2024 15:43:55 7 Date of Last Pap Smear completed VINNY Sanchez, [facility] 01/13/2024 15:43:43 Imaging Results Imaging Date Name Status LastModified by Organization Details LastModified Time 10/16/2023 history physical examination completed [address] [place], [address] 10/16/2023 12:44:11 10/15/2023 physician dsu discharge report completed [address] [place], [address] 10/16/2023 12:44:10 10/15/2023 endoscopy report completed [address] [place], [address] 10/16/2023 12:44:11 11/07/2023 ED visit note completed [address] [place], [address] 11/07/2023 17:10:21 11/17/2023 XR, knee completed [address] [facility] [address] [place], [address], 11/19/2023 18:43:36 12/01/2023 electromyogram completed [address] [facility] [address] [place], [address], 12/03/2023 17:19:30 01/15/2024 XR, shoulder, 2 or more view completed [address] [place], [address], 01/16/2024 11:23:57 02/03/2024 MRI, shoulder, w/o contrast completed [address] [place], [address], 02/04/2024 19:15:30 03/18/2024 XR, shoulder, 2 or more view completed [address] [place], [address], 03/18/2024 12:13:45 03/18/2024 XR, elbow, 3 or more view completed [address] [place], [address], 03/18/2024 12:13:45 03/23/2024 CT, angiogram, chest, w/ contrast completed [email or web address] [facility] [address], [place], [address], 03/24/2024 06:02:57 Procedure Notes None recorded. Medical Equipment None [...] insert 1 applicat or full into vagina [facility] 01/28 completed Not Available Not Available Not [...] ONCE DAILY 01/04 completed going to see [facility] for GI Not Available Not Available [...] Not Available Not Available Not Available fluocinon jaad 0.05 % topical cream Apply as directed to affected area as directed Apply under occlusiv e dressing every night on the the right foot. 05/16 completed Not Available Not Available Not [...] Not Available Zofran per pt received at [facility] 2019 active Not Available Not Available Not Avai lable omeprazol e per pt from [facility] 2019 active Not Available Not Available [...] Details Last Updated DateTime 4 162.56 cm 44.6 kg/m2 592306. 02 g 96 % 96 % 90 /min 116 mm[Hg] 66 mm[Hg] REGULO SHAH MA IN - [facility]. 4 10:00:41 Date Recorded Body height Body mass index (BMI) Body weight Oxygen saturation Oxygen saturation in Arterial blood by Pulse oximetry Heart rate Systolic blood pressure Diastolic blood pressure Provider Name and Address Organization Details Last Updated DateTime 4 162.56 cm 43.1 kg/m2 789146. 4 g 98 % 98 % 86 /min 128 mm[Hg] 74 mm[Hg] REGULO SHAH MA [facility], [facility] 4 10:56:24 Date Recorded Body height Body mass index (BMI) Body weight Oxygen saturation Oxygen saturation in Arterial blood by Pulse oximetry Heart rate Systolic blood pressure Diastolic blood pressure Provider Name and Address Organization Details Last Updated DateTime 4 162.56 cm 45.8 kg/m2 029779. 17 g 98 % 98 % 78 /min 130 mm[Hg] 64 mm[Hg] Ignacio Jose RN [facility], [facility] 4 08:34:00 Date Recorded Body height Body mass index (BMI) Body weight Oxygen saturation Oxygen saturation in Arterial blood by Pulse oximetry Heart rate Systolic blood pressure Diastolic blood pressure Provider Name and Address Organization Details Last Updated DateTime 4 162.56 cm 45.2 kg/m2 690087. 59 g 96 % 96 % 78 /min 126 mm[Hg] 76 mm[Hg] REGULO SHAH MA [facility], [facility] 4 14:32:49 Date Recorded Body height Body mass index (BMI) Body weight Oxygen saturation Oxygen saturation in Arterial blood by Pulse oximetry Heart rate Systolic blood pressure Diastolic blood pressure Provider Name and Address Organization Details Last Updated DateTime 4 162.56 cm 48.9 kg/m2 335165. 39 g 98 % 98 % 84 /min 122 mm[Hg] 74 mm[Hg] REGULO SHAH MA [facility], [facility] 4 11:36:19 Social History Question Answer Notes LastModified by Organizat ion Details LastModified Time Tobacco Smoking Status Current Every Day Smoker REGULO SHAH MA null, [facility], [facility]. 11/03/2023 09:59:21 What Is Your Occupation? Disability [email or web address] Information not available 09/15/2023 How Much Tobacco Do You Smoke? 1 PPD [email or web address] Information not available 11/03/2023 Sex: Female Functional [...] Recorded Time MMR 09/15/1995 completed Not Available [facility] 06:18:38 DTaP, unspecified formulation 1981 completed Not Available [facility] 08/22/2023 06:18:38 DTaP, unspecified formulation 02/06/1982 completed Not Available [facility] 08/22/2023 06:18:38 DTaP, unspecified formulation 04/13/1982 completed Not Available [facility] 08/22/2023 06:18:38 DTaP, unspecified formulation 06/21/1983 completed Not Available [facility] 08/22/2023 06:18:38 Tdap 10/17/2022 completed Not Available [facility] 06:18:39 Tdap 04/01/2012 completed Not Available [facility] 06:18:39 Novel [id number]-[id number], all formulations 10/20/2009 completed Not Available [facility] 08/22/2023 06:18:39 Td(adult) unspecified formulation 04/10/1992 completed Not Available [facility] 08/22/2023 06:18:39 Td(adult) unspecified formulation 04/26/2001 completed Not Available [facility] 08/22/2023 06:18:39 COVID-19, mRNA, LNP-S, PF, 30 mcg/0.3 mL dose 08/21/2021 completed Not Available [facility] 08/22/2023 06:18:39 COVID-19, mRNA, LNP-S, PF, 30 mcg/0.3 mL dose 09/11/2021 completed Not Available [facility] 08/22/2023 06:18:39 pneumococcal polysaccharide PPV23 10/20/2009 completed Not Available [facility] 2022 06:18:39 polio, unspecified formulation 1981 completed Not Available [facility] 08/22/2023 06:18:39 polio, unspecified formulation 02/06/1982 completed Not Available [facility] 08/22/2023 06:18:40 polio, unspecified formulation 04/13/1982 completed Not Available [facility] 08/22/2023 06:18:40 polio, unspecified formulation 06/21/1983 completed Not Available [facility] 08/22/2023 06:18:40 Past Encounters Encounter ID Performer Location Encounter Start Date Encounter Closed Date Diagnosis/Indication Diagnosis SNOMED-CT Code [id number] MILADIS KAT PA-C [address] [address] 09/11/2023 14:48:42 09/11/2023 15:29:53 Dysphagia 96441328 Otalgia of right ear 430 2012178 Upper resp iratory infection 35144894 [id number] STEPHANIE SHERWOOD MD [address] [address] 09/19/2023 13:24:59 09/19/2023 14:15:10 Cervical radiculopathy 70915028 Screening mammography of bilateral breasts 754015880291231 Swallowing painful [id number] [address] 11/03/2023 09:45:55 11/03/2023 10:38:32 Pain of left knee joint 422175354256158 Pain of left wrist [address] [id number] [address] [address] 11/12/2023 10:48:27 11/12/2023 11:43:42 Neck pain 24377790 Gastro-eso phageal reflux disease with esophagitis 798188966 [id number] [address] [address] 01/05/2024 08:28:13 01/05/2024 08:53:01 Pain of right shoulder joint 922618163819635 00 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 57882513 Barrera's esophagus 30[id number] [address] 01/14/2024 14:24:07 01/14/2024 15:06:58 Prediabetes 836729062 Delay when starting to pass urine 6449670 Open wound, heel 0675718 09 [id number] [facility] [address] [place] [address] 03/31/2024 11:25:22 03/31/2024 12:39:53 Snoring 27278606 Fatigue 75765565 Weight gain 2376465 Solitary n odule of lung 237408192 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 61235369 Dyspnea 811776574 Health Concerns Section Related Observation LastModified by Organization Detai ls LastModified Time None Recorded Concern Status LastModified by Organization Details LastModified Time None Recorded Advance Directives Directive None Recorded Payers Encounter Date Sequence Insurance Name Policy Number Policy Stark Covered Member ID Stark Member ID Guarantor Name 11/03/2023 1 [place] [employer] Reagan L Cross [id number] Reagan L Rg 11/03/2023 2 [employer] ([employer]) Reagan Diez [id number] Reagan L Rg 11/12/2023 1 [place] [employer] Reagan L Cross [id number] Reagan L Cross 11/12/2023 2 [employer] ([employer]) Reagan Diez [id number] Reagan L gR 01/05/2024 1 [place] [employer] Reagan L Cross [id number] Reagan L Cross 01/05/2024 2 [employer] ([employer]ICA[employer]) Reagan L Rg [id number] Reagan L Rg 01/14/2024 1 [place] [employer] Reagan L Cross [id number] Reagan L Rg 01/14/2024 2 [employer] ([employer]ICA[employer]) Reagan Diez [id number] Reagan L Rg 03/31/2024 1 [place] [employer] Reagan L Cross [id number] Reagan L Rg 03/31/2024 2 [employer] ([employer]ICA[employer]) Reagan Diez [id number] Reagan Diez Notes Date Note Type Note Provider Name and Address Organization Details Recorded Time 11/03/2023 text/html HPI Notes: c shoulder pain, reflux Shoulder pain - gabapentin is really helping with her shoulder pain, hasn't noticed any sedation. Works a physical job at [employer], [employer]. Sees Luis Alberto Bach for PT in November, has EMG sceheduled for 11/10 Currently having left hand pain, trouble bending her 3rd finger and her fourth finger keeps locking. Has hx of CTS years ago and trigger finger repair (2015). Has not been wearing her cock up splintw Depression - controlled on wellbutrin Early [place] per upper endoscopy. Needs repeat in 3 years is having a hard time changing her eating habits. Taking omeprazole has been helping her symptoms Left knee pain - has long hx of knee pain, had arthroscopy [place] [address] Ayala may benefit from Steroid injection, she would be ok to return to see him. Heat helps [address], [place], [address], [facility], [facility]. 11/03/2023 10:35:32 11/12/2023 text/html HPI Notes: neck, shoulder and back pain Went to the ER 11/07/2023 a couple of days ago, fell down the stairs prior to the visit. Ended up leaving because they were ignoring her back and neck pain. She didn't want meds wants to know what was wrong Shoulder pain - has ov to see ortho on 12/01/2023 Has a burning sensation that radiates down her neck and to her low back Hasn't been able to work for two weeks. Neck pain is new, feels her whole neck is tight, shoulders are tight. Has been keeping her shoulder up to due to the pain, slouching and holding them up helps with the pain Is aware work probably not helpful for the pain Henny Cobian from [facility] sent in flexeril EGD showed biopsy positive Barretts esophagus, continues on omeprazole Stomach is very upset, has pain when she eats [address], [place], [address], [facility], [facility]. 11/12/2023 16:08:56 01/05/2024 text/html HPI Notes: cc follow up chronic issues [place]ts - has been choking on foods, omeprazole made her feel like she was itchy and breaking out, has been referred to [facility] [place] and has OV on 04/05, is also on waiting list. Has been trying to make dietary changes Shoulder pain - continues in PT, having significant pain, decreased ROM, PT not helpful, muscles are really tight, hasn't had xray. Has hx of two falls. S/p left CTS and left 4th finger trigger finger, 5 days ago. continues to have pain. Hasn't been back to work Mood - has been feeling depressed. Hasn't been taking to anyone and doesn't really want to. No longer on gabapentin [address], [place], [address], [facility]. 01/05/2024 09:07:06 01/14/2024 text/html HPI Notes: cc le ft heel wound - present x 3 days. caught her heel on a nail that holds a bracket going down to the basement. washed the wound and cleaned with alcohol. Has been using neosporin since then. Is worried her blood sugar is high and her wound won't heal due to that Difficulty urinating for the past month. Has to push down to make urine come out, has no odor, does have increased frequency and feels as though she needs to void frequently. Sometimes takes a while for her urine to come out. No new medications, no hx of hysterectomy, no hematuria, has had tubal ligation, menses due about 01/[address], [place], [address], [facility], [facility]. 01/14/2024 15:20:05 03/31/2024 text/html HPI Notes: cc SO B [...] Has gained about 40 pounds since September MARGA AGUDELO, [employer] [address], [place], [address], [place] [facility]. 03/31/2024 12:58:15 OBGyn Episode No OBEpisode recorded.
--- OUTSIDE RECORDS SUMMARY | 2024-04-30 14:43 | XMS_ITS | Encounter Summary ---
Author Organization [facility] Address [facility] [place] [address] Care Team Providers Care Oil Refiner Name Role Phone Parish Mason MD Primary Care Provider [phone] Encounter Details Date Type Department Care Team (Late st Contact Info) Description 01/06/2020 Telephone Dermatology at [facility] [address] [place] [address] Lionel Perkins MD [facility] [address] [address] Social History Tobacco Use Types Packs/Day Years Used Date Smoking Tobacco: Every Day Cigarettes Smokeless Tobacco: Never Sex and Gender Information Value Date Recorded Sex Assigned at Not on file Gender Identity Not on file Sexual Orientation Not on file documented as of this encounter Miscellaneous Notes * Telephone Encounter - Isabel Phillips LPN - 01/06/2020 2:48 PM EDT Spoke with Reagan today regarding the burning and itching that she is having when using the Ketoconazole Cream. She does have an infection between her toes and mixing the Ketoconazole cream with the Mupirocin will help with the burning and itching. She is to use the Hydrocortisone to the groin areas, and she is using it on her face. Her face has broken out since using the Hydrocortisone on the face. She will decrease the use to once a day, and also if this does not help she could mix with some moisturizer. * Telephone Encounter - Kristi Villalobos - 01/06/2020 10:58 AM EDT Patient Reagan Cr called about script hydrocortisone 2.5 % Cream - she said she already has that one and is confused. She would like clarification on the scripts. She is concerned as to what touse on the groin area. Please call her at [phone] and you may leave a detailed message if she does not answer. Thank you, Meron documented in this encounter Plan of Treatment Not on file documented as of this encounter Visit Diagnoses Not on filedocumented in this encounter Care Teams Oil Refiner Relationship Specialty Start Date End Date Parish Mason MD [address] [place] [id number] PCP - General General Internal Medicine 01/03/2005/13 documented as of this encounter
--- OUTSIDE RECORDS SUMMARY | 2024-04-30 14:43 | XMS_ITS | Encounter Summary ---
Author Organization [facility] [place] [address] Care Team Providers Care Aerographer Name Role Phone Parish Mason MD Primary Care Provider [phone] Reason for Referral * Consultation (Routine) - Authorized Specialty Diagnoses / Procedures Referred By Brandee espinoza Referred To Contact Gastroenterology Diagnoses Foreign body sensation, throat Barrera's esophagus without dysplasia ONGOING GLOBUS SENSATION. BARIUM SWALLOW COMPLETED AT [facility]. HAD EGD WITH GEN SURG AT [facility] IN OCT AND WAS TOLD SHE HAD BARRETTS ESOPHAGUS. UNABLE TO TOLERATE OMEPRAZOLE DUE TO GENERALIZED PRURITUS. FLEXIBLE LARYNGOSCPOY WITHIN NORMAL LIMITS Oneida Fay APRN [address] [place] [address] [place] [address] [facility] [address] [place] [phone] Referral ID Status Reason Start Date Expiration Date Visits Requested Visits Authorized [id number] Authorized Consult, Test & Treat PCP Updated and/or Approved 12/25/2023 12/24/2024 12 12 Encounter Details Date Type Department Care Team (Late st Contact Info) Description 12/31/2023 Transcribe Orders eDH Incoming Referrals [phone] Oneida Fay APRN [address] [place] [address] [address] [id number] Foreign body sensation, throat Social History Tobacco Use Types Packs/Day Years Used Date Smoking Tobacco: Every Day Cigarettes Smokeless Tobacco: Never Sex and Gender Information Value Date Recorded Sex Assigned at Not on file Gender Identity Not on file Sexual Orientation Not on file documented as of this encounter Plan of Treatment Scheduled Referrals Name Type Priority Associated Diagnoses Order Schedule Referral to Gastroenterology Outpatient Referral Routine Foreign body sensation, throat Ordered: 12/31/2023 documented as of this encounter Visit Diagnoses Diagnosis Foreign body sensation, throat documented in this encounter Care Teams Aerographer Relationship Specialty Start Date End Date Parish Mason MD [address] [place] [id number] PCP - General General Internal Medicine 12/31/23 documented as of this encounter
--- OUTSIDE RECORDS SUMMARY | 2024-04-30 14:43 | XMS_ITS | Continuity of Care Document ---
Author Organization [facility] Address [address] [place] [address] Care Team Providers Care Circular Clerk Name Role Phone [facility], Parish Salgado Primary Care Physician Encounter [place] Date(s): 03/09/24 - 03/09/[address] [address] Encounter Diagnosis Pain in right shoulder(Final) - Discharge Disposition: Home or Self Care Attending Physician: Vini Garrison MD Admitting Physician: Vini Garrison MD Referring Physician: Vini Garrison MD Allergies, Adverse Reactions, Alerts No Known Medication Allergies Assessment and Plan Future Appointments Functional Status 03/09/24 Anti-Embolism Device Activity: Applied 03/09/24 ADLs Independent Recent Travel History No recent travel Immunizations Given and Recorded Vaccine Date Status Refusal Reason tetanus/diphth/pertuss (Tdap) adult/adol 06/09/11 Recorded Medications oxyCODONE 5 mg oral tablet 5 mg = 1 tab, Oral, every 6 hr, PRN as needed for pain, for post op pain, # 12 tab, 0 Refill(s), Pharmacy: [id number], 163, cm, 12/31/23 8:35:00 EDT, Height, 123.8, kg, 03/09/24 7:24:00 EDT, Weight Dosing Start Date: 03/09/24 Status: Ordered Probiotic Digestive Aid Gummies 0 Refill(s) Start Date: 03/02/24 Status: Ordered Suboxone See Instructions, 16 mg daily through [facility], 0 Refill(s) Start Date: 10/10/22 Status: Ordered traZODone 100 mg oral tablet 150 mg = 1.5 tab, Oral, every night at bedtime, # 45 tab, 0 Refill(s), Pharmacy: [id number], 162, cm, 10/12/22 14:31:00 [...] 3 Temperature Temporal Artery [36-38 Deg C] 35.6 Deg C *LOW* (03/09/24:23 AM) 35.3 Deg C *LOW* (03/09/24 9:25 AM) 35.5 Deg C *LOW* (03/09/24 9:15 AM) Temperature Temporal Artery (DegF) [97.3-100 Deg F] 96.08 Deg F *LOW* (03/09/24:23 AM) 95.9 Deg F *LOW* (03/09/24 9:15 AM) 95.36 Deg F *LOW* (03/09/24 9:00 AM) Peripheral Pulse Rate [60-100 bpm] 65 bpm (03/09/24:23 AM) 58 bpm *LOW* (03/09/24 10:15 AM) 62 bpm (03/09/24 10:04 AM) Heart Rate Monitored [60-100 bpm] 63 bpm (03/09/24: AM) 58 bpm *LOW* (03/09/24 10:15 AM) 63 bpm (03/09/24 10:04 AM) Respiratory Rate [12-24 br/min] 13 br/min (03/09/24 10:23 AM) 17 br/min (03/09/24 10:15 AM) 22 br/min (03/09/24 10:04 AM) Blood Pressure [90-140/60-90 mmHg] 116/73mmHg (03/09/24 10:23 AM) 118/74mmHg (03/09/24 10:15 AM) 94/67mmHg (03/09/24 10:04 AM) Mean Arterial Pressure, Cuff [65-140 mmHg] 87 mmHg (03/09/24:23 AM) 89 mmHg (03/09/24 10:15 AM) 76 mmHg (03/09/24 10:04 AM) Weight 123.8 kg (03/09/24 7:06 AM) Weight Dosing 123.800 kg (03/09/24 7:06 AM) Weight Estimated 119.00 kg (03/02/24 10:25 AM) Body Mass Index Estimated 46.85 kg/m2 (03/09/24 7:06 AM) Height/Length Estimated 162.56 cm (03/09/24 7:06 AM) Social History Social History Type Response Tobacco Current everyday tob acco user Tobacco Use:. 1 PPD per day. Sex Female Discharge instructions * Reena Baxter: PERFORM Event Display: Discharge Instructions Authored Date: [id number] ANDREWS ATKINSON Chencho :1980 Age:43 years Sex:Female Visit Date:03/09/2024 Primary Care Physician: Marlon DE LA VEGA, Parish Salgado MD Hospital Discharge Instructions We would like to thank you for allowing us to assist you with your healthcare needs. The following includes patient education materials and information regarding your injury/illness. Your Next Steps Instructions From Your Care Team Orthopedic Surgery Discharge Instructions ok to take down dressing in 2 days shower and cover incisoins with band aids once block has worn off ok to remove sling and use only has needed do not put more than 5lbs in the operative arm? Pain Control ?Take your pain relief medication when discomfort first begins. ?Can use stool softener while taking the narcotic to avoid problems with constipation. ?It is okay to start [id number]-[id number] Naproxen or Ibuprofen??immediately ?? Call your doctor if you: ?Develop a fever over 101 degrees. ?Have increased redness, warmth, discharge, swelling, or hardness around the operative site. ?Circulation changes such as tingling, numbness or your fingers/toes appear blue or white. ?Your pain is [...] the Emergency Room @ . Ortho Office: [phone]?? Scheduled Future Appointments Friday 10:15 AM EDT ?? With: Sonali Matute OT Where: [facility] [address] [place] [address] Status: Confirmed Friday 10:15 AM EDT ?? With: Sonali Matute OT Where: [facility] [address] [address] Status: Confirmed Friday 1:30 PM EDT ?? With: Zainab Paniagua PA-C Where: [facility] [address] [place] [address], [address] [place] [address] Status: Confirmed 2023 10:40 AM EDT ?? With: Orestes Miller MD Where: [facility] [address] [place] [address], [address] [place] [address] Status: Confirmed Medications What How Much When Why Instructions Next Dose New oxyCODONE (oxyCODONE 5 mg oral tablet) 1 tab Oral (given by mouth) Every 6 hours as needed for as needed for pain for post op pain ?? Pickup at [facility] Unchanged acetaminophen-diphenhydramine (Tylenol PM) Unchanged bacillus coagulans (Probiotic Digestive Aid Gummies) Unchanged buprenorphine-naloxone (Suboxone) See instructions 16 mg daily through [facility] ?? Unchanged buPROPion (Wellbutrin XL 150 mg/ 24 hours oral tablet, extended release) Unchanged traZODone (traZODone 100 mg oral tablet) 1.5 tab Oral (given by mouth) Every night at bedtime Depression, major, recurrent, moderate Insomnia Duration: [address] [id number]: [address] [place] [address] [phone] Your Summary Your Care Team Admitting Physician - Carol TORREZ, Vini Dias MD Attending Physician - Carol TORREZ, Vini Dias MD Primary Care Physician - [facility] [address], Parish Salgado MD Referring Physician - [facility], Vini Dias MD Discharge Vitals Temperature??(Temporal Artery) 95.5 ??F (35.3 ??C) Heart Rate??(Peripheral) 72 Heart Rate??(Monitored) 72 Respiratory Rate?? 11 Blood Pressure?? 145/91?? SpO2?? 97% Height?? 64.00 in (162.56 cm) Weight?? 272.98 lb (123.8 kg) BMI?? 46.85 Patient/Charge Gang Weigher Signature Patient Name:ANDREWS ATKINSON I have received this information and my questions have been answered. Patient/Charge Gang Weigher Name: Patient/Charge Gang Weigher Signature: Relationship to Patient: Witness Name/Signature: Date: Electronically Signed on: 03/09/2024 10:13 EDTSigned by:PEGGY Procedure note * Pipo Ramirez MD: PERFORM Event Display: Procedure Note Authored Date: [id number] ANDREWS ATKINSON Chencho :1980 Age:43 years Sex:Female Visit Date:03/09/2024 Primary Care Physician: Marlon TAPIA, Parish Salgado MD Right interscalene block with ultrasound guidance Images After the risk benefits and limitations of the procedure explained to the patient she excepted these she was taken the holding area for monitoring was placed she was sedated with 4 mg of Versed??her right neck was sterilely prepped and draped ultrasound was used to visualize the brachial plexus at the C6 level between the scalene muscles.?? And deeper tissues were anesthetized with 1% lidocaine??a 2 inch??22-gauge regional block needle was advanced with ultrasound guidance??to the brachial plexus??twitch at the shoulder point 6 mA following this 14 cc of 0.25% ropivacaine with 4 mg of dexamethasone were injected smoothly and slowly. ??There is no pain with injection there is very little resi stance??there is negative aspiration and local anesthetic was visualized going around the brachial brachial plexus.?? The injection was completed the needle was removed pressure held for a few moments patient tolerated the block well Electronically Signed on 03/09/2024 08:03 EDT Pipo Ramirez MD History and physical note * Kathy Moran: PERFORM Event Display: History and Physical Authored Date: [id number] ANDREWS ATKINSON :1980 Age:43 years Sex:Female Primary Care Physician: [facility]lon [facility] Visit Date:??02/16/2024 [1] ? Chief Complaint MRI review of Right shoulder History of Present Illness No patient history of chronic right shoulder pain has had??several??sessions of therapy without benefit has an MRI available for review pain is lateral anterior and superior.?? Pain up into the trapezius as well. Review of Systems Constitutional:?No??fevers,?No??chills,?No??sweats Eye:?No??recent visual problems ENT:?No??ear pain,?No??nasal congestion,?No??sore throat Respiratory:?No??shortness of breath,?No??cough Cardiovascular:?No??Chest pain,?No??palpitations,?No??syncope Gastrointestinal:?Nonausea,?No??vomiting,?No??diarrhea Genitourinary:?No??hematuria José/Lymph:?No??bruising tendency,?No??swollen lymph glands Endocrine:?No??excessive thirst,??No??excessive hunger Musculoskeletal:??No??back pain,??No??neck pain,??No??joint pain,??No??muscle pain,??No??decreased range of motion Integumentary:?No??rash,?No??pruritus,?No??abrasions Neurologic: Alert & oriented X 4 Psychiatric:?No??anxiety,?No??depression Physical Exam Well-nourished well-developed acute distress alert and oriented appearing stated age shoulder rangeof motion is full in flexion abduction internal and external rotation pain in the impingement arc pain with Neer's and Lozano maneuvers pain with rotator cuff testing??4+ out of 5 strength external Tatian and scaption. ??Pain at the AC joint and anteriorly in the region of the biceps review of MRI reveals some fluid around the biceps??intact rotator cuff signs of impingement also from the clavicle as well. Assessment/Plan 1.??Right shoulder pain??M25.511 ?Right shoulder pain??unresponsive to therapy??MRI overall fairly clean but there are targets present options watchful waiting??therapy injection surgical invention for scope with SA D DCE tenodesis after discussing this she wished to proceed with the arthroscopy??felt that was reasonable sowe will set her up for that and see her again at that time. ?Ordered: PAT Surgery / Procedure Nursing Review Request., 02/16/24 12:31:00 Carol GRACIA, Vini Dias MD, Right shoulder arthroscopy, Right shoulder arthroscopy SA D DCE tenodesis debridement. Need 60 minutes.Date and time scheduled. Anesthesia per choice. BMI 44, Right shoulder pain ?? Problem List/Past Medical History Ongoing ?Anxiety disorder ??Attention deficit hyperactivity disorder ??Carpal tunnel syndrome, left ??Depression, major, recurrent, moderate ??Drug withdrawal ??Encounter for medication management ??Generalized anxiety disorder ??Hypertrophy of clitoris ??Left knee pain ??Meralgia paresthetica ??Posttraumatic stress disorder ??Restless legs ??Right shoulder pain ??S/P trigger finger release ??Secondary physiologic amenorrhea ??Tobacco user ??Venereal disease screening Historical ?Moderate recurrent major depression Procedure/Surgical History ???Carpal tunnel release (12/31/2023)???Trigger finger of left hand (12/31/2023)???Left knee arthroscopy w/resection (11/17/2018)???Carpal tunnel surgery Right with triggerfinger release (07/13/2010)???Nerve surgery (02/13/2009)???Extraction of wisdom teeth (10/13/2001)??? section ?? Medications ??cyclobenzaprine 10 mg oral tablet, 10 mg= 1 tab, Oral, TID, PRN ??omeprazole 40 mg oral delayed release capsule, 40 mg= 1 cap, Oral, Daily ??Suboxone, See Instructions ??traZODone 100 mg oral tablet, 150 mg= 1.5 tab, Oral, every night at bedtime ??Valium 2 mg oral tablet, See Instructions, PRN ??Wellbutrin XL 150 mg/24 hours oral tablet, [...] female. Substance Use ??Current, Marijuana, Prescription medications, Daily- Comments: two times a day Tobacco ??Current everyday tobacco user Tobacco Use:. 1 PPD per day. Family History ??Depressive disorder: Father. ??Heart murmur: Father. ??Hypercholesterolemia: Father. ??Hypertension: Father. ??Hypertensive disorder: Father. ??Major depression: Father. ??Seizure: Father. [2] [1]??Office Visit Note; Vini Garrison MD 02/16/2024 12:31 EDT [2]??Office Visit Note; Vini Garrison MD 02/16/2024 12:31 EDT Electronically Signed on 02/20/2024 15:23 EDT Kathy Moran A Electronically Signed on 02/23/2024 08:18 EDT Vini Garrison MD * Vini Garrison MD: PERFORM Event Display: History and Physical Authored Date: Patient seen and preoperative hold no change sterile field status H&P updated Electronically Signed on 03/09/2024 08:02 EDT Vini Garrison MD Patient Care team information Care Team Personnel Name: Parish Amos MD Position: No Access Member Role: Informed Provider Address: Address: [address] [address] Care Team Related Persons Name: JEWELS ATKINSON Name: LOS PEÑA Address: Home [address], [id number]
--- OUTSIDE RECORDS SUMMARY | 2024-04-30 14:43 | XMS_ITS | Encounter Summary ---
Author Organization [facility] Address [facility] [place] [address] Care Team Providers Care Dish Technician Name Role Phone Parish Mason MD Primary Care Provider Encounter Details Date Type Department Care Team (Late st Contact Info) Description 01/03/2020 Orders Only Dermatology at [facility] [address] [place] [address] Lionel Perkins MD [facility] [place] [address] Seborrheic dermatitis Social History Tobacco Use Types Packs/Day Years Used Date Smoking Tobacco: Every Day Cigarettes Smokeless Tobacco: Never Sex and Gender Information Value Date Recorded Sex Assigned at Not on file Gender Identity Not on file Sexual Orientation Not on file documented as of this encounter Plan of Treatment Not on file documented as of this encounter Visit Diagnoses Diagnosis Seborrheic dermatitis Seborrheic dermatitis, unspecified documented in this encounter Care Teams Dish Technician Relationship Specialty Start Date End Date Parish Mason MD [facility] [address] [facility] [place] [address] PCP - General General Internal Medicine 01/03/2005/13 documented as of this encounter
--- OUTSIDE RECORDS SUMMARY | 2024-04-30 14:43 | XMS_ITS | Clinical Summary ---
Author Organization [facility] Address [facility] [place] [address] Care Team Providers Care Deputy Juvenile Officer Name Role Phone Parish Mason MD Primary Care Provider Allergies No known active allergies Medications Medication Sig Dispensed Refills Start Date End Date Status metFORMIN (Glucophage) 850 mg Tablet Take 850 mg by mouth 2 times daily (with meals). Active traZODone (Desyrel) 100 mg Tablet Take 100 mg by mouth nightly. Active rOPINIRole (Requip) 1 mg Tablet Take 1 mg by mouth 3 times daily. Active cyclobenzaprine (Flexeril) 5 mg Tablet Take 5 mg by mouth 3 times daily as needed for Muscle spasms. Active methylphenidate (RITALIN) 20 mg Tablet Take 20 mg by mouth 2 times daily. Active hydrocortisone 2.5 % CreamIndications:Sebor rheic dermatitis Apply to the areas behind the ears twice daily for 2 weeks 30 g 12/21/2020 Active Active Problems No known active problems Social History Tobacco Use Types Packs/Day Years Used Date Smoking Tobacco: Every Day Cigarettes Smokeless Tobacco: Never Sex and Gender Information Value Date Recorded Sex Assigned at Not on file Gender Identity Not on file Sexual Orientation Not on file Last Filed Vital Signs Vital Sign Reading Time Taken Comments Blood Pressure 131/77 03/29/2020 9:14 AM EDT Pulse 73 03/29/2020 9:14 AM EDT Temperature 36.3 ??C (97.4 ??F) 03/29/2020 9:14 AM ED T Respiratory Rate 18 03/29/2020 9:14 AM EDT Oxygen Saturation 100% 03/29/2020 9:14 AM EDT Inhaled Oxygen Concentration - - Weight 126.7 kg (279 lb 6.4 oz) 03/29/2020 9:14 AM EDT Height 162.6 cm (5' 4) 03/29/2020 9:14 AM EDT Body Mass Index 47.96 03/29/2020 9:14 AM EDT Plan of Treatment Health Maintenance Due Date Last Done Comments HIV screen 1999 Hepatitis C Screening 1999 Lipid Screening 1999 Hepatitis B vaccine (0-59 yrs) (1) 2000 Tdap adult 2000 Tetanus vaccine 2000 HPV test 2011 PAP Smear 2011 Breast Cancer Share Decision Needed 2021 Breast Cancer screening 2021 Covid-19 Vaccine ( season) 2023 Influenza (Flu) vaccine (1 o f 1 - Influenza standard series) 06/13/2024 Care Teams Deputy Juvenile Officer Relationship Specialty Start Date End Date Parish Mason MD [address] [place] [address] PCP - General General Internal Medicine 12/31/23
--- OUTSIDE RECORDS SUMMARY | 2024-04-30 14:43 | XMS_ITS | Encounter Summary ---
Author Organization [facility] [place] [place] [address] Care Team Providers Care Clinical Information Systems Director Name Role Phone Miladis Cho Primary Care Provider [phone] Encounter Details Date Type Department Care Team (Late st Contact Info) Description 02/10/2022 Episode [place] [address] Louie Núñez MD [facility] [place] [address] Social History Tobacco Use Types Packs/Day Years [...] on filedocumented in this encounter Care Teams Clinical Information Systems Director Relationship Specialty Start Date End Date Miladis Cho PA [facility] [address] [facility] [place] [address] PCP - General Family Medicine 05/28/21 12/30/23 documented as of this encounter
--- OUTSIDE RECORDS SUMMARY | 2024-04-30 14:43 | XMS_ITS | Encounter Summary ---
Author Organization [facility] [address] Care Team Providers Care Rope Walker Name Role Phone Parish Mason MD Primary Care Provider [phone] Reason for Visit * Consultation (Routine) - Closed Specialty Diagnoses / Procedures Referred By Brandee t Referred To Contact General Surgery Diagnoses Pilonidal cyst without abscess Miladis Cho PA [facility] [address] [place] [address] [facility] [address] [address] Referral ID Status Reason Start Date Expiration Date V isits Requested Visits Authorized [id number] Closed Consult, Test & Treat Connection [facility] PCP Updated and/or Approved 03/22/2020 03/22/2021 1 1 Encounter Details Date Type Department Care Team (Late st Contact Info) Description 03/29/2020 9:30 AM EDT Office [place] [id number] Khris Ross MD [address] [place] [address] [place] [address] Subcutaneous mass Social History Tobacco Use Types Packs/Day Years Used Date Smoking Tobacco: Every Day Cigarettes Smokeless Tobacco: Never Sex and Gender Information Value Date Recorded Sex Assigned at Not on file Gender Identity Not on file Sexual Orientation Not on file documented as of this encounter Last Filed Vital Signs Vital Sign Reading [...] Mass Index 47.96 03/29/2020 9:14 AM EDT documented in this encounter Progress Notes * Khris Ross MD - 03/29/2020 9:30 AM EDT HPI: The pt was referred from Miladis Cho for evaluation of a lump in the subcutaneous tissue in the anal area. The patient developed a lump approximately 2 months ago. It did not cause any significant pain. She saw Miladis Cho who palpated a 1 cm lump superior into the right of the anus. The patient has had no drainage. The patient cannot palpate the lump today. She has had no previous pi lonidal cyst or perirectal abscess. She has had no fever or chills. She is having no pain now. Medications: Outpatient Medications Marked as Taking for the 03/29/20 encounter (Office Visit) with Khris Ross MD Medication Sig Dispense Refill ??? rOPINIRole (Requip) [...] Tablet Take 100 mg by mouth nightly. Allergies:No Known Allergies Physical Examination: Most Recent Vitals: 03/29/20 0914 BP: 131/77 Pulse: 73 Resp: 18 Temp: 36.3 ??C (97.4 ??F) SpO2: 100% PainSc: 0 - No pain On examination of the gluteal cleft, there is no evidence of any pitting or sinus tracts in the skin. There is no inflammation or tenderness. There are no skin changes in the perianal area or external hemorrhoids. The patient is unable to find the mass at this time. Assessment: Patient with subcutaneous mass which appears to have resolved. Unclear etiology, however I do not feel that this is a pilonidal cyst given no evidence of any sinus tracts or inflammation in the gluteal cleft.. Plan: Patient will return if the mass recurs. Khris Ross MD, FACS documented in this encounter Plan of Treatment Not on file documented as of this encounter Visit Diagnoses Diagnosis Subcutaneous mass Localized superficial swelling, mass, or lump documented in this encounter Care Teams Rope Walker Relationship Specialty Start Date End Date Parish Mason MD [address] [address] PCP - General General Internal Medicine 01/03/2005/13 documented as of this encounter
--- OUTSIDE RECORDS SUMMARY | 2024-04-30 14:43 | XMS_ITS | Encounter Summary ---
Author Organization [facility] Address [facility] [place] [address] Care Team Providers Care Environmental Studies Program Director Name Role Phone Miladis Cho Primary Care Provider [phone] Encounter Details Date Type Department Care Team (Late st Contact Info) Description 02/01/2022 Transcribe Orders eD Incoming Referrals [phone] Marga Agudelo APRN [facility] [address] [place] [address] Social History Tobacco Use Types Packs/Day Years [...] on filedocumented in this encounter Care Teams Environmental Studies Program Director Relationship Specialty Start Date End Date Miladis Cho PA [facility] [address] [place] [address] PCP - General Family Medicine 05/28/21 12/30/23 documented as of this encounter
--- OUTSIDE RECORDS SUMMARY | 2024-04-30 14:44 | XMS_ITS | Encounter Summary ---
Author Organization [facility] Address [address] [place] [address] Care Team Providers Care Developer Prover Upholstering Name Role Phone Parish Mason MD Primary Care Provider [phone] Encounter Details Date Type Department Care Team (Late st Contact Info) Description 11/28/2022 Lab Requisition [facility] Pathology & Laboratory Medicine - [address] [address] Outr Resulting Lab, Provider Social History Tobacco Use Types Packs/Day Years Used Date Smoking Tobacco: Every Day Cigarettes Smokeless Tobacco: Never Alcohol Use Standard Drinks/Week Comments No 0 (1 standard drink = 0.6 oz pur e alcohol) No h/o of drinking problem Comments Yes Sex and Gender Information Value Date Recorded Sex Assigned at Not on file Gender Identity Not on file Sexual Orientation Not on file documented as of this encounter Plan of Treatment Not on file documented as of this encounter Procedures Procedure Name Priority Date/Time Associated Diagnosis Comments CHLAMYDIA/N. GONORRHOEAE AMPLIFIED NUCLEIC ACID Routine 11/27/2022 15:30 EST documented in this encounter Results * CHLAMYDIA/N. GONORRHOEAE AMPLIFIED RNA (11/27/2022 15:30 EST) Neisseria gonorrhoeae Result Negative Negative 11/29/2022 13:31 EST [facility] Chlamydia trachomatis Result Negative Negative 11/29/2022 13:31 EST [facility] Swab ENTIRE WALL OF CERVIX / Unknown 11/27/2022 15:30 EST 11/28/2022 20:18 EST Provider Outr Resulting Lab MICROBIOLOGY - GENERAL ORDERABLES [facility] [address] [place] [address] documented in this encounter Visit Diagnoses Not on filedocumented in this encounter Care Teams Developer [employer]ver Upholstering Relationship Specialty Start Date End Date Parish Mason MD [address] [place] [address] PCP - General 04/07/09 documented as of this encounter
--- OUTSIDE RECORDS SUMMARY | 2024-04-30 14:44 | XMS_ITS | Encounter Summary ---
Author Organization [facility] Address [address] [place] [address] Care Team Providers Care Promotor Group Ticket Sales Name Role Phone Parish Mason MD Primary Care Provider [phone] Encounter Details Date Type Department Care Team (Late st Contact Info) Description 04/02/2011 Documentation Visit [facility] - [address] [address] Chayo Hobson MD [address] [place] [address], [address] [place] [address] Supervision of high-risk ; Depression; Previous delivery, antepartum condition or complication; Opiate addiction (CMS-HCC) ([facility]) Social History Tobacco Use Types Packs/Day Years [...] on file documented as of this encounter Progress Notes * Dacia Thompson - 04/02/2011 1503 EDT Consent signed for BTL dated 04/02/11. See scanned/media tab for copy. documented in this encounter Plan of Treatment Not on file documented as of this encounter Visit Diagnoses Diagnosis Supervision of high-risk Unspecified high-risk Depression Depressive disorder, not elsewhere classified Previous delivery, antepartum condition or complication Opiate addiction ([facility]) Opioid type dependence, unspecified documented in this encounter Care Teams Promotor Group Ticket Sales Relationship Specialty Start Date End Date Parish Mason MD [address] [place] [address] PCP - General 04/07/09 documented as of this encounter
--- OUTSIDE RECORDS SUMMARY | 2024-04-30 14:44 | XMS_ITS | Encounter Summary ---
Author Organization [facility] Address [address] [place] [address] Care Team Providers Care Pharm Spec Name Role Phone Parish Mason MD Primary Care Provider Reason for Visit * Reason Comments Routine Visit Encounter Details Date Type Department Care Team (Late st Contact Info) Description 06/04/2011 11:20 EDT Routine [facility] Women's Services - [facility] [address] [place] [address] Unknown, ProviderMD Yen Yanes MD [address] [place] [address] GA: [id number] Social History Tobacco Use Types Packs/Day Years [...] Sign Reading Time Taken Comments Blood Pressure 108/70 06/04/2011 1140 EDT Pulse - - Temperature - - Respiratory Rate - - Oxygen Saturation - - Inhaled Oxygen Concentration - - Weight 101.9 kg (224 lb 9.6 oz) 06/04/2011 1140 EDT Height - - Body Mass Index 37.38 11/20/2010 1000 EST documented in this encounter Progress Notes * Yen Yanes MD - 06/04/2011 1613 EDT CC: 30 y.o. @ 37w4d by 6 wk US S: Doing well. Denies ctxs, LOF, VB. +FM Wants c/s as soon as possible O: BP 108/70 Wt 101.878 kg (224 lb 9.6 oz) FH 140 FHT 38 cm A/P 30 y.o. @ 37w4d by 6 wk US here for APV Opiate addiction - YEN YANES MD 06/04/11 1208 Signed Currently on [address] Cobos. No withdrawal sx Sees Khris High at [place]. Sees him q Friday. No use of other drugs Previous delivery, antepartum condition or complication - JAMES YANES MD 06/04/11 1605 Addended Appointment for section 06/14/2011 @ 8:30. [x] consent for c/s and tubal. COnsent given to Santa for scanning in Prism record Supervision of high-risk - YEN YANES MD 06/04/11 1609 Addended Pt US for position at 1330 1 hr GTT 126 wnl - will scan result. Plan for c/s. Smoking complicating , childbirth, or the puerperium - YEN YANES MD 06/04/11 1605 Addended Encourage cessation. Pt however not willing to quit at this time. Depression - YEN YANES MD 06/04/11 1606 Signed Cont on Prozac No SI/HI RTC 1 week YEN YANES MD MD Opiate Dependence Visit Chief Complaint: Opiate Dependence in Withdrawal Symptoms: none Have you used drugs in the last 2 weeks? no Have you seen a substance abuse counselor in the past 2 weeks? yes Counselor Khris High at [place] Have you seen the rn social services in the past 4 wks? yes If the patient does not have a substance abuse counselor, she must see the rn social services or have a nurse from our office arrange counseling through [facility] or [facility] Assessment: stable Prescription given for: none YEN YANES MD Attending: Attestation statement: I discussed the patient with the resident/fellow at the time of the visit. Dollyee with the findings and the plan of care documented in the resident's/fellow's note. Doing wellat 37+ weeks. Prior for repeat with tubal. Opioid dependence on bup, stable. Normal growth on f/u ultrasound. Labor precautions. F/u 1 week. Rochelle Veliz MD documented in this encounter Miscellaneous Notes * Scanned Note-Null - Jhonatan, Educational Program Director - 06/05/2011 1207 EDT * Assessment & Plan Note - Yen Yanes MD - 06/04/2011 1606 EDT Associated Problem(s): Depression Cont on Prozac No SI/HI * Assessment & Plan Note - Yen Yanes MD - 06/04/2011 1215 EDT Associated Problem(s): Smoking complicating , childbirth, or the puerperium Encourage cessation. Pt however not willing to quit at this time. * Assessment & Plan Note - Yen Yanes MD - 06/04/2011 1214 EDT Associated Problem(s): Supervision of high-risk Pt US for position at 1330 1 hr GTT 126 wnl - will scan result. Plan for c/s. * Assessment & Plan Note - Yen Yanes MD - 06/04/2011 1208 EDT Associated Problem(s): Previous delivery, antepartum condition or complication Appointment for section 06/14/2011 @ 8:30. [x] consent for c/s and tubal. COnsent given to Santa for scanning in Prism record * Assessment & Plan Note - Yen Yanes MD - 06/04/2011 1208 EDT Associated Problem(s): Opioid type dependence, abuse ([facility]) Currently on [address] Cobos. No withdrawal sx Sees Khris High at [place]. Sees him q Friday. No use of other drugs documented in this encounter Plan of Treatment Not on file documented as of this encounter Visit Diagnoses Not on filedocumented in this encounter Care Teams Pharm Spec Relationship Specialty Start Date End Date Parish Mason MD [address] [place] [address] PCP - General 04/07/09 documented as of this encounter
--- OUTSIDE RECORDS SUMMARY | 2024-04-30 14:44 | XMS_ITS | Encounter Summary ---
Author Organization [facility] Address [address] [place] [address] Care Team Providers Care Aerial Planting And Cultivation Manager Name Role Phone Parish Mason MD Primary Care Provider [phone] Encounter Details Date Type Department Care Team (Late st Contact Info) Description 08/18/2021 Lab Requisition [facility] Pathology & Laboratory Medicine - [address] [id number] Outr Resulting Lab, Provider Social History Tobacco [...] Procedure Name Priority Date/Time Associated Diagnosis Comments ZZCOVID-19 TEST [facility] PCR Today 08/17/2021 11:15 EDT COVID-19 TESTING Routine 08/17/2021 11:1 5 EDT documented in this encounter Results * COVID-19 TEST [facility] PCR (08/17/2021 11:15 EDT) Swab 08/17/2021 11:1 5 EDT 08/18/2021 21:32 EDT Provider Outr Resulting Lab MICROBIOLOGY - GENERAL ORDERABLES [facility] [address] [place] [address] * COVID-19 TESTING (08/17/2021 11:15 EDT) COVID-19 rt-PCR Result Negative Negative 08/19/2021 14:25 EST [facility] Comment: This test has not been FDA cleared or approved. This test has been authorized by FDA under an EUA for use by authorized laboratories. This test has been authorized only for detection of nucleic acid from 2019-nCoV, not for any other viruses or pathogens. This test is only authorized for the duration of the declaration that circumstances exist justifying the authorization of emergency use of in vitro diagnostic tests for detection and/or diagnosis of 2019-nCoV under section 564(b)(1) of Act, 21 U.S.C ?? 360bbb-3(b) (1), unless the authorization is terminated or revoked sooner. Negative results do not preclude 2019-nCoV infection and should not be used as the sole basis for treatment or other patient management decisions. Negative results must be combined with clinical observations, patient history, and epidemiological information. This test was developed and its performance characteristics determined by [facility]. It has not been cleared or approved by the US Food and Drug Administration. FDA does not require this test to go through premarket FDA review. This test is used for clinical purposes. It should not be regarded as investigational or for research. This laboratory is certified under the Clinical Laboratory Improvement Amendments (CLIA) as qualified to perform high complexity clinical laboratory testing. This test is based on the [facility] COVID-19 Emergency Use Authorization (EUA) assay, with minor modification as defined by the FDA Performed on the PushPageo 7 Flex RT-PCR System. Performing Lab [facility] Lab 08/19/2021 14:25 EST [facility] Swab 08/17/2021 11:1 5 EDT 08/18/2021 21:32 EDT Provider Outr Resulting Lab MICROBIOLOGY - GENERAL ORDERABLES [facility] [address] [place] [address] documented in this encounter Visit Diagnoses Not on filedocumented in this encounter Care Teams Aerial Planting And Cultivation Manager Relationship Specialty Start Date End Date Parish Mason MD [address] [place] [address] PCP - General 04/07/09 documented as of this encounter
--- OUTSIDE RECORDS SUMMARY | 2024-04-30 14:44 | XMS_ITS | Referral Summary ---
Author Organization [facility] Address [address] [place] [address] Care Team Providers Care Cigarette Vendor Name Role Phone Parish Mason MD Primary Care Provider [phone] Allergies No known active allergies Medications Medication Sig Dispensed Refills Start Date End Date Status buprenorphine (SUBUTEX) [address] 8 mg under the tongue daily. Dr. Mcdowell Active multivitamin ([employer]ONES COMPLETE) chewable tablet Take 1 Tab by mouth daily. Active fluoxetine (PROZAC) 20 mg capsule Take 20 mg by mouth daily. Active Active Problems Problem Noted Date Diagnosed Date Multiparity 05/23/2011 Overview: BL TL consent signed with Dr. Hennessy on 04/02 In Prism Scans section Last Assessment & Plan: BL TL consent signed with Dr. Hennessy on 04/02 In Prism Scans section Smoking complicating pregnan cy, childbirth, or the puerperium 05/23/2011 Overview: 1 ppd, not interested in quitting at this time [ ] Ordered growth scan at 36+3 wga, follow up results Last Assessment & Plan: Encourage cessation. Pt however not willing to quit at this time. Supervision of high-risk 01/14/2011 Overview: * care by Dr. Hennessy. 30 y/o LORRIE 06/21/11 by LMP c/w 6+4 wk U/S PNL: A+/ab neg/HIV neg/HepBneg/HepC neg/RPR NR/RI/[ ]varicella G/C neg Ucx neg Pap pending Dr. Hennessy, will call their office to have results faxed. 1GTT- 1 hr Gtt 126 (06/02) wnl done at [facility]. random fs 05/27/11 (results 113) GBS Negative on 05/23/11 Anatomy U/S-21 week-ant placenta, cephalic, WNL. EFW (g) 489 g 84th% Returned to [facility] at 36 weeks for delivery planning Last Assessment & Plan: Pt US for position at 1330 1 hr GTT 126 wnl - will scan result. Plan for c/s. Depression 01/14/2011 Overview: Stable on Wellbutrin Last Assessment & Plan: Cont on Prozac No SI/HI Previous delivery, antepartum condition or complication 01/14/2011 Overview: [x ]scheduled RCS 06/14/11 at 8:30AM Primary for arrest of descent [ ] Sign Consent at next visit Last Assessment & Plan: Appointment for section 06/14/2011 @ 8:30. [x] consent for c/s and tubal. COnsent given to [facility] for scanning in Prism record Opioid type dependence, abuse ([facility]) 01/15/20 Overview: Receiving buprenorphine from Dr. Cobos in [place] area returned to [facility] at 36 weeks for delivery planning. Had neomed appt 01/14--rescheduling. Current Regimen as of 05/27/11: 16 mg on Friday, Friday and Friday 8 Mg PO on Friday UDS +cannabinoids (05/23) Last Assessment & Plan: Currently on [address] Cobos. No withdrawal sx Sees Khris High at [place]. Sees him q Friday. No use of other drugs Comments Yes Social History Tobacco Use Types Packs/Day Years [...] Blood Pressure 108/70 06/04/2011 1140 EDT Pulse 56 02/04/2010 1426 EDT Temperature 35.6 ??C (96.1 ??F) 02/04/2010 1426 EDT Respiratory Rate 15 02/04/2010 1426 EDT Oxygen Saturation - - Inhaled Oxygen Concentration - - Weight 101.9 kg (224 lb 9.6 oz) 06/04/2011 1140 EDT Height 165.1 cm (5' 5) 11/20/2010 1000 EST Body Mass Index 37.38 11/20/2010 1000 EST Plan of Treatment Not on file Procedures Procedure Name Priority Date/Time Associated Diagnosis Comments HEPATITIS C AB W REFLEX TO HCV RNA BY PCR Routine 11/27/2022 15:30 EST from Last 3 Months or Most Recently Relevant to Health Maintenance Results * HEPATITIS C AB W REFLEX TO HCV RNA BY PCR (11/27/2022 15:30 EST) Hep C Antibody Negative Negative 11/29/2022 10:06 EST [facility] Blood VENOUS BLOOD / Unknown 11/27/2022 15:30 EST 11/28/2022 16:51 EST Provider Outr Resulting Lab CHEMISTRY & BLOOD GAS ORDERABLES [facility] [address] [place] [address] from Last 3 Months or Most Recently Relevant to Health Maintenance Care Teams Cigarette Vendor Relationship Specialty Start Date End Date Parish Mason MD [address] [place] [address] PCP - General 04/07/09
--- OUTSIDE RECORDS SUMMARY | 2024-04-30 14:44 | XMS_ITS | Encounter Summary ---
Author Organization [facility] Address [address] [place] [address] Care Team Providers Care Business Intelligence Etl Developer Name Role Phone Praish Mason MD Primary Care Provider [phone] Reason for Visit * Reason Comments Addiction Problem Encounter Details Date Type Department Care Team (Late st Contact Info) Description 11/20/2010 10:30 EST Nurse Only [facility] Women's Services - Main [place] [address] [place] [address] Unknown, Provider, Social History Tobacco Use Types Packs/Day Years [...] as of this encounter Progress Notes * Cassie Velez, [facility] - 11/20/2010 1156 EST Reagan is a 30 yr. Old woman who lives with her and their 2 yr. Old son in [place]. Reagan is from her . She will be living with her parents who are also in [facility] until she can find a place of her own. was unplanned. Reagan is nervous about issues with substance abuse treatment.Reagan is currently is SA treatment with Dr. Cevallos. She attends coun seling at [facility] with Khris High weekly. She started using after the delivery of her son. She was in chronic leg pain and after her pain meds were no longer prescribed she used street drugs. She went to [facility] to detox and then started treatment about 1 yr. Ago. Reagan will apply for [facility] and [facility]. Discussed community resources. Encouraged Reagan to attend [employer] play groups. Plan to follow for support and referral. TRUDY Campos documented in this encounter Plan of Treatment Not on file documented as of this encounter Visit Diagnoses Not on filedocumented in this encounter Care Teams Business Intelligence Etl Developer Relationship Specialty Start Date End Date Parish Mason MD [address] [place] [address] PCP - General 04/07/09 documented as of this encounter
--- OUTSIDE RECORDS SUMMARY | 2024-04-30 14:44 | XMS_ITS | Encounter Summary ---
Author Organization [facility] Address [address] [place] [address] Care Team Providers Care Safety Person Name Role Phone Parish Mason MD Primary Care Provider [phone] Encounter Details Date Type Department Care Team (Late st Contact Info) Description 01/22/2021 Lab Requisition [facility] Pathology & Laboratory Medicine - [address] [address] Outr Resulting Lab, Provider Social History Tobacco [...] Comments ZZCOVID-19 TEST [facility] PCR Today 01/22/2021 9:45 EDT COVID-19 TESTING Routine 01/22/2021 9:45 EDT documented in this encounter Results * COVID-19 TEST [facility] PCR (01/22/2021 9:45 EDT) Swab ENTIRE NASOPHARYNX / Unknown 01/22/2021 9:45 EDT 01/22/2021 21:51 EDT Provider Outr Resulting Lab MICROBIOLOGY - GENERAL ORDERABLES [facility] [address] [place] [address] * COVID-19 TESTING (01/22/2021 9:45 EDT) COVID-19 rt-PCR Result Negative Negative 01/23/2021 0:47 EDT [facility] Comment: This test has not [...] clinical observations, patient history, and epidemiological information. Performed on the [employer] [place] Shuttle[employer] Fusion instrument Performing Lab [place] [facility] Lab 01/23/2021 0:47 EDT [facility] Swab 01/22/2021 9:45 EDT 01/22/2021 21:51 EDT Provider Outr Resulting Lab MICROBIOLOGY - GENERAL ORDERABLES [facility] [address] [place] [address] documented in this encounter Visit Diagnoses Not on filedocumented in this encounter Care Teams Safety Person Relationship Specialty Start Date End Date Parish Mason MD [address] [place] [address] PCP - General 04/07/09 documented as of this encounter
--- OUTSIDE RECORDS SUMMARY | 2024-04-30 14:44 | XMS_ITS | Encounter Summary ---
Author Organization [facility] Address [address] [place] [address] Care Team Providers Care Field Evidence Technician Name Role Phone Parish Mason MD Primary Care Provider [phone] Encounter Details Date Type Department Care Team (Late st Contact Info) Description 11/28/2022 Lab Requisition [facility] Pathology & Laboratory Medicine - [address] [id number] Outr Resulting Lab, Provider Social History Tobacco [...] Procedure Name Priority Date/Time Associated Diagnosis Comments SYPHILIS SEROLOGY Routine 11/27/2022 15: 30 EST HEPATITIS C AB W REFLEX TO HCV RNA BY PCR Routine 11/27/2022 15:30 EST documented in this encounter Results * SYPHILIS SEROLOGY (11/27/2022 15:30 EST) Syphilis Serology Negative Negative 11/29/2022 11:40 EST [facility] Blood VENOUS BLOOD / Unknown 11/27/2022 15:30 EST 11/28/2022 16:51 EST Provider Outr Resulting Lab IMMUNOLOGY A ND SEROLOGY ORDERABLES Performing Organization Address City/[facility]/ZIP Co de Phone Number [facility] [address] [place] [address] * HEPATITIS C AB W REFLEX TO HCV RNA BY PCR (11/27/2022 15:30 EST) Hep C Antibody Negative Negative 11/29/2022 10:06 EST [facility] Blood VENOUS BLOOD / Unknown 11/27/2022 15:30 EST 11/28/2022 16:51 EST Provider Outr Resulting Lab CHEMISTRY & BLOOD GAS ORDERABLES Performing Organization Address [facility] Co de Phone Number [facility] [address] [place] [address] documented in this encounter Visit Diagnoses Not on filedocumented in this encounter Care Teams Field Evidence Technician Relationship Specialty Start Date End Date Parish Mason MD [address] [place] [address] PCP - General 04/07/09 documented as of this encounter
--- OUTSIDE RECORDS SUMMARY | 2024-04-30 14:44 | XMS_ITS | Encounter Summary ---
Author Organization [facility] Address [address] [place] [address] Care Team Providers Care Underwriting Analyst Name Role Phone Parish Mason MD Primary Care Provider [phone] Encounter Details Date Type Department Care Team (Late st Contact Info) Description 08/18/2021 Lab Requisition [facility] Pathology & Laboratory Medicine - [address] [id number] Outr Resulting Lab, Provider Social History Tobacco [...] REFLEX TO HCV RNA BY PCR Routine 08/17/2021 12:00 EDT HEPATITIS B SURFACE ANTIGEN Routine 08/17/2021 12:00 EDT documented in this encounter Results * HEPATITIS B SURFACE ANTIGEN (08/17/2021 12:00 EDT) Hep B Surface Ag Negative Negative 08/20/2021 10:05 EST [facility] Blood VENOUS BLOOD / Unknown 08/17/2021 12:00 EDT 08/19/2021 16:56 EST Provider Outr Resulting Lab CHEMISTRY & BLOOD GAS ORDERABLES Performing Organization Address City/[facility] Co de Phone Number [facility] [address] [place] [address] * HEPATITIS C AB W REFLEX TO HCV RNA BY PCR (08/17/2021 12:00 EDT) Hep C Antibody Negative Negative 08/20/2021 9:44 EST [facility] Blood VENOUS BLOOD / Unknown 08/17/2021 12:00 EDT 08/19/2021 16:56 EST Provider Outr Resulting Lab CHEMISTRY & BLOOD GAS ORDERABLES Performing Organization Address [facility] de Phone Number [facility] [address] [place] [address] documented in this encounter Visit Diagnoses Not on filedocumented in this encounter Care Teams Underwriting Analyst Relationship Specialty Start Date End Date Parish Mason MD [address] [place] [address] PCP - General 04/07/09 documented as of this encounter
--- OUTSIDE RECORDS SUMMARY | 2024-04-30 14:44 | XMS_ITS | Encounter Summary ---
Author Organization [facility] Address [address] [place] [address] Care Team Providers Care Center Mgr Name Role Phone Parish Mason MD Primary Care Provider Encounter Details Date Type Department Care Team (Late st Contact Info) Description 12/04/2019 Lab Requisition [facility] Pathology & Laboratory Medicine - [address] [address] Unknown, ProviderMD Social History Tobacco Use Types Packs/Day Years [...] Procedure Name Priority Date/Time Associated Diagnosis Comments HOLD SST Today 12/03/2019 15:30 EST THYROPEROXIDASE ANTIBODY Today 12/03/2019 15:30 EST CHRISTOPHER-BARNETT PANEL Today 12/03/2019 15 :30 EST documented in this encounter Results * HOLD SST (12/03/2019 15:30 EST) Hold Hold 12/05/2019 17:00 EST [facility] Blood VENOUS BLOOD / Unknown 12/03/2019 15:30 EST 12/05/2019 15:49 EST Provider Unknown MD LAB INFO SERVICE AND SUPPORT & PHONE RESULT Performing Organization Address City/[facility]/ZIP Co de Phone Number [facility] [address] [place] [address] * THYROPEROXIDASE ANTIBODY (12/03/2019 15:30 EST) Thyroperoxidase Ab 38 <=60 U/mL 2019 10:39 EST [facility] Blood VENOUS BLOOD / Unknown 12/03/2019 15:30 EST 12/05/2019 15:49 EST Provider Unknown MD CHEMISTRY & BLOOD GA S ORDERABLES Performing Organization Address [facility] Phone Number [facility] [address] [place] [address] * (ABNORMAL) CHRISTOPHER-BARNETT PANEL (12/03/2019 15:30 EST) EBV VCA IgM, Antibody Negative Negative 12/06/2019 12:22 EST [facility] Comment:Absence of detectabl e VCA IgM antibodies. EBV VCA IgG, Antibody Positive(A) Negative 12/06/2019 12:22 EST [facility] Comment:Presence of detectab le VCA IgG antibodies. EBNA IgG Antibody Positive(A) Negative 2019 12:22 EST [facility] Comment:Presence of detectab le EBNA IgG antibodies. EBV Interpretation Results would indicate past infection with Christopher-Barnett virus 12/06/2019 12:22 EST [facility] Blood VENOUS BLOOD / Unknown 12/03/2019 15:30 EST 12/05/2019 15:49 EST Provider Unknown IMMUNOLOGY AND SEROL OGY ORDERABLES Performing Organization Address [facility] Co de Phone Number [facility] [address] [place] [address] documented in this encounter Visit Diagnoses Not on filedocumented in this encounter Additional Health Concerns Infection Onset Date Last Indicated Resolved Time C. difficile 06/14/2020 06/14/2020 08/21/2020 10:0 2 EST documented as of this encounter Care Teams Center Mgr Relationship Specialty Start Date End Date Parish Mason MD [address] [place] [address] PCP - General 04/07/09 documented as of this encounter
--- OUTSIDE RECORDS SUMMARY | 2024-04-30 14:44 | XMS_ITS | Encounter Summary ---
Author Organization [facility] Address [address] [place] [address] Care Team Providers Care Remelt Furnace Expediter Name Role Phone Parish Mason MD Primary Care Provider [phone] Encounter Details Date Type Department Care Team (Late st Contact Info) Description 10/20/2020 Lab Requisition [facility] Pathology & Laboratory Medicine - [address] [address] Outr Resulting Lab, Provider Social History Tobacco [...] Procedure Name Priority Date/Time Associated Diagnosis Comments DO NOT ORDER STANDALONE - [facility] COVID TEST Today 10/20/2020 15:15 EST COVID-19 TESTING Routine 10/20/2020 15:1 5 EST documented in this encounter Results * DO NOT ORDER STANDALONE - [facility] COVID TEST (10/20/2020 15:15 EST) COVID-19 rt-PCR Result NEGATIVE Negative 10/21/2020 16:09 EST [facility] Comment: 2019-novel Coronavirus (2019-nCoV) not detected by the qRT-PCR assay. Consider testing for other respiratory viruses or re-collecting for 2019-nCoV testing. Note: Optimum timing for peak viral levels during infections caused by 2019-nCoV have not been determined. Collection of multiple specimens from the same patient may be necessary to detect the virus. Limitations Positive results are indicative of active infection with SARS-CoV-2 but do not rule out bacterial infection or co-infection with other viruses. The agent detected may not be the definite cause of disease. In addition, detection of viral RNA may not indicate the presence of infectious virus or that SARS-CoV-2 is the causative agent for clinical symptoms. Negative results do not preclude SARS-CoV-2 infection and should not be used as the sole basis for patient management decisions. Negative results must be combined with clinical observations, patient history, and epidemiological information. False negative results may also occur if amplification inhibitors are present in the specimen or if inadequate numbers of organisms are present in the specimen. Optimum specimen types and timing for peak viral levels during infections caused by SARS-CoV-2 have not been fully determined. Collection of multiple specimens (types and time points) from the same patient may be necessary to detect the virus. The test was validated for use with upper respiratory specimens obtained via nasopharyngeal or oropharyngeal swabs in VTM, UTM, M4, M5, M6, saline, and MTM media. The performance of this test has not been established for other specimens. Specimens collected using other FDA recommended Specimen Collection Materials listed in the FDA COVID-19 [employer] communication (January 06, 2020) are processed with the caveat that they were not all validated for use with this test and the result must be interpreted in this context. Furthermore, a false negative results may occur if a specimen is improperly collected, transported or handled. If the virus mutates in the RT-PCR target region, SARS-CoV-2 may not be detected or may be detected less predictably. Inhibitors or other types of interference may produce a false negative result. An interference study evaluating the effect of common cold medications was not performed. This test is not FDA-cleared but its performance characteristics were established by our CLIA-certified, CAP-accredited, high complexity laboratory in accordance with CLIA regulations, [employer] (CAP) guidelines (Dec 30, 2019), and FDA guidance (Dec 11, 2019). This test is only for use under the Food and Drug Administration's Emergency Use Authorization. Swab ENTIRE NASOPHARYNX / Unknown 10/20/2020 15:15 EST 10/20/2020 20:48 EST Provider Outr Resulting Lab MICROBIOLOGY - GENERAL ORDERABLES [facility] [place], [place] * COVID-19 TESTING (10/20/2020 15:15 EST) COVID-19 rt-PCR Result NEGATIVE Negative 10/21/2020 19:25 EST [facility] Comment: 2019-novel Coronavirus (2019-nCoV) not detected by the qRT-PCR assay. Consider testing for other respiratory viruses or re-collecting for 2019-nCoV testing. Note: Optimum timing for peak viral levels during infections caused by 2019-nCoV have not been determined. Collection of multiple specimens from the same patient may be necessary to detect the virus. Limitations Positive results are indicative of active infection with SARS-CoV-2 but do not rule out bacterial infection or co-infection with other viruses. The agent detected may not be the definite cause of disease. In addition, detection of viral RNA may not indicate the presence of infectious virus or that SARS-CoV-2 is the causative agent for clinical symptoms. Negative results do not preclude SARS-CoV-2 infection and should not be used as the sole basis for patient management decisions. Negative results must be combined with clinical observations, patient history, and epidemiological information. False negative results may also occur if amplification inhibitors are present in the specimen or if inadequate numbers of organisms are present in the specimen. Optimum specimen types and timing for peak viral levels during infections caused by SARS-CoV-2 have not been fully determined. Collection of multiple specimens (types and time points) from the same patient may be necessary to detect the virus. The test was validated for use with upper respiratory specimens obtained via nasopharyngeal or oropharyngeal swabs in VTM, UTM, M4, M5, M6, saline, and MTM media. The performance of this test has not been established for other specimens. Specimens collected using other FDA recommended Specimen Collection Materials listed in the FDA COVID-19 [employer] communication (January 06, 2020) are processed with the caveat that they were not all validated for use with this test and the result must be interpreted in this context. Furthermore, a false negative results may occur if a specimen is improperly collected, transported or handled. If the virus mutates in the RT-PCR target region, SARS-CoV-2 may not be detected or may be detected less predictably. Inhibitors or other types of interference may produce a false negative result. An interference study evaluating the effect of common cold medications was not performed. This test is not FDA-cleared but its performance characteristics were established by our CLIA-certified, CAP-accredited, high complexity laboratory in accordance with CLIA regulations, [employer] (CAP) guidelines (Dec 30, 2019), and FDA guidance (Dec 11, 2019). This test is only for use under the Food and Drug Administration's Emergency Use Authorization. Performing Lab [facility] 10/21/2020 19:25 EST [facility] Swab 10/20/2020 15:1 5 EST 10/20/2020 20:48 EST Provider Outr Resulting Lab MICROBIOLOGY - GENERAL ORDERABLES Performing Organization Address City/State/[facility] Co de Phone Number [facility] [address] [place] [address] [facility] [place], [place] documented in this encounter Visit Diagnoses Not on filedocumented in this encounter Care Teams Remelt Furnace Expediter Relationship Specialty Start Date End Date Parish Mason MD [address] [place] [address] PCP - General 04/07/09 documented as of this encounter
--- OUTSIDE RECORDS SUMMARY | 2024-04-30 14:44 | XMS_ITS | Encounter Summary ---
Author Organization [facility] Address [address] [place] [address] Care Team Providers Care Precision Lens Technician Name Role Phone Parish Mason MD Primary Care Provider Reason for Visit * Reason Comments Initial Visit Encounter Details Date Type Department Care Team (Late st Contact Info) Description 11/20/2010 10:20 EST Initial [facility] [address] [place] [address] Unknown, MD Malorie Rochelle Veliz MD [address] [place] [address] Kaveh Yanes MD [address] [place] [address] GA: [id number] Discharge Disposition: Auto Discharge Social History Tobacco Use Types Packs/Day Years Used Date Smoking Tobacco: Every Day Cigarettes Smokeless Tobacco: Never Tobacco Cessation:Ready to Q uit: No Alcohol Use Standard Drinks/Week Comments No 0 (1 standard drink = 0.6 oz pur e alcohol) No h/o of drinking problem Comments Yes Sex and Gender Information Value Date Recorded Sex Assigned at Not on file Gender Identity Not on file Sexual Orientation Not on file documented as of this encounter Last Filed Vital Signs Vital Sign Reading Time Taken Comments Blood Pressure 118/70 11/20/2010 1000 EST Pulse - - Temperature - - Respiratory Rate - - Oxygen Saturation - - Inhaled Oxygen Concentration - - Weight 101.4 kg (223 lb 9.6 oz) 11/20/2010 1000 EST Height 165.1 cm (5' 5) 11/20/2010 1000 EST Body Mass Index 37.21 11/20/2010 1000 EST documented in this encounter Discharge Disposition Disposition Code Departure Means Destination Auto Discharge documented in this encounter Progress Notes * Kaveh Yanes MD - 11/20/2010 1104 EST Cc: Opiate dependence consult HPI: 30 y/o at 9+4 based on 6 wk OSH US referred for consultation by Dr. Dennys Hennessy in [facility] HEALTH AND SAFETY MANAGER. Pt choice to meet [facility] providers so early in gestation. Sees Dennys Hennessy in [facility] HEALTH AND SAFETY MANAGER. Pt lives in [place] near [facility]. Was told about need to transition to [facility] at 36 wks for eventual delivery at [facility] for potential complications. ObHx G1 - 2005 TAB via D&C G2 - 2007 TAB via D&C G3 - 2008, terms, male, c/s for pelvic disproportion, no complications G4 - current GynHx None No h/o STI abnl pap D&C x 2 PMHx Past Medical History Diagnosis Date ??? Chronic pain 2007 started post c/s. Became addicted to pain killers. Was on vicodin ??? Depression 1994 h/o of suicide attempt in 6th grade by overdose of alleve. Never hospitalized SurgHx Past Surgical History Procedure Date ??? section, low transverse 2007 c section ??? Nerve graft 2009 femoral cutaneus nerve surgery Meds: Current outpatient prescriptions ordered prior to encounter Medication Sig Dispense Refill ??? fluoxetine (PROZAC) 20 mg capsule Take 40 mg by mouth daily. ??? lorazepam (ATIVAN) 1 mg tablet Take 1 Tab by mouth 3 times daily. 20 Tab none ??? diphenhydrAMINE (BENADRYL) 25 mg capsule Take 1 Cap by mouth every 6 hours as needed. 14 Cap none All: No Known Allergies SocHx Became addicted to vicodin post c/s. That was when she developed chronic pain. Vicodin orally. Moved to street oxycodone 30 - 40 mg by snorting. Went to detox center [facility] for 2-3 days 1 year ago. Ptthen went to Dr. Cevallos for rx suboxxone 1 year ago. Pt transitioned to subutex when discovered she was 10/30. Ban has agreed to continue to rx during and after . Pt seeing counselling - [facility] in [place] - seeing Darryl High once per week. + Tobacco -0.5 pack/day. Not interested in quiting No ETOH use but currently in an open relationship. States trying to divorce . Currently feels safe - no domestic violence issues FamHx Paternal - heart murmur, hypercholesterolemia sisters x 3 have all of a cardiac anomaly. Age range from 7 -30s- 40s. Pt notes these sisters have a different father that father of her O: BP 118/70 Ht 165.1 cm (65) Wt 101.424 kg (223 lb 9.6 oz) A/P 30 y/o at 9+4 based on 6 wk OSH US referred for consultation by Dr. Dennys Hennessy in [facility] HEALTH AND SAFETY MANAGER. OB Care - will scan records ie dating US and labs. Will cont care with Dennys Hennessy MD until 36 wks where she will be transferred to [facility]. Discussed screening and CF testing which patient adamantly declines. Smoking - in addition to standard 18 -20 wk US, will recommend 32 wk US for growth FOB h/o of cardiac defects - may recommend echo at 20-22 wk should 18 wk US have cardiac abnormalities. Opiates - will refer for [facility] appointment. Pt to cont to see Ban for subutex rx who will cont to prescribe during and D/W Rochelle Veliz MD Attending: Attestation statement: I discussed the patient with the resident/fellow at the time of the visit. Iagree with the findings and the plan of care documented in the resident's/fellow's note. Patient here for recommendations for management, send by her primary OB. Opioid dependence on bup, prescribed by outside provider. Agree with plan of care as described above. Declines genetic screening. Encouraged smoking cessation. Anatomy ultrasound at 18-20 weeks and growth at 32 weeks. [facility] appointment.F/u prn or transfer of care at 36 weeks for delivery. Rochelle Veliz MD documented in this encounter Miscellaneous Notes * Scanned Note-Null - Inpatient, Physician - 11/20/2010 1423 EST documented in this encounter Plan of Treatment Not on file documented as of this encounter Visit Diagnoses Not on filedocumented in this encounter Historical Medications * This list may reflect changes made after this encounter. Medication Sig Dispensed Refills Start Date End Date buprenorphine (SUBUTEX) [address] 8 mg under the tongue daily. Dr. Cevallos buPROPion (WELLBUTRIN SR) 100 mg SR tablet Take 100 mg by mouth 2 times daily. 05/27/2011 added in this encounter Care Teams Precision Lens Technician Relationship Specialty Start Date End Date Parish Mason MD [address] [place] [address] PCP - General 04/07/09 documented as of this encounter
--- OUTSIDE RECORDS SUMMARY | 2024-04-30 14:44 | XMS_ITS | Encounter Summary ---
Author Organization [facility] Address [address] [place] [address] Care Team Providers Care Pile Driver Engineer Name Role Phone Stephanie Mason MD Primary Care Provider [phone] Reason for Visit * Reason Comments Medical Evaluation referred for julián sanders for detox from Opiates , reports 1 yr Hx Oxy's , Morphine, Suboxone , last use this am Suboxone Encounter Details Date Type Department Care Team (Late st Contact Info) Description 02/04/2010 14:22 EDT - 02/04/2010 15:06 EDT [facility] Department - Main [place] [address] [place] [address] Endy Donato PA-C [address] [place] [phone] Emergency, MD Emma Opiate dependence ([facility]) ([facility]) Discharge Disposition: Discharged to Other Facility Social History Tobacco Use Types Packs/Day Years Used Date Smoking Tobacco: Every Day Alcohol Use Standard Drinks/Week Comments No 0 (1 standard drink = 0.6 oz pur e alcohol) Sex and Gender Information Value Date Recorded Sex Assigned at Not on file Gender Identity Not on file Sexual Orientation Not on file documented as of this encounter Last Filed Vital Signs Vital Sign Reading Time Taken Comments Blood Pressure 117/70 02/04/2010 1426 EDT Pulse 56 02/04/2010 1426 EDT Temperature 35.6 ??C (96.1 ??F) 02/04/2010 1426 EDT Respiratory Rate 15 02/04/2010 1426 EDT Oxygen Saturation - - Inhaled Oxygen Concentration - - Weight 99.8 kg (220 lb) 02/04/2010 1426 EDT Height 162.6 cm (5' 4) 02/04/2010 1426 EDT Body Mass Index 37.76 02/04/2010 1426 EDT documented in this encounter Discharge Instructions * Discharge Instructions* Endy Donato - 02/04/2010 14:56 EDT * Attachments The following attachments cannot be sent through Care Everywhere. * ALCOHOL AND DRUG PROBLEMS: AFTER YOUR VISIT (NAMIBIAN) documented in this encounter Medications at Time of Discharge Medication Sig Dispensed Refills Start Date End Date diphenhydrAMINE (BENADRYL) 25 mg capsule Take 1 Cap by mouth every 6 hours as needed. 14 Cap none 02/04/2010 01/14/2011 fluoxetine (PROZAC) 20 mg capsule Take 40 mg by mouth daily. 01/14/2011 lorazepam (ATIVAN) 1 mg tablet Take 1 Tab by mouth 3 times daily. 20 Tab none 02/04/2010 01/14/2011 documented as of this encounter Ordered Prescriptions Prescription Sig Dispensed Refills Start Date End Da te diphenhydrAMINE (BENADRYL) 25 mg capsule Take 1 Cap by mouth every 6 hours as needed. 14 Cap none 02/04/2010 01/14/2011 lorazepam (ATIVAN) 1 mg tablet Take 1 Tab by mouth 3 times daily. 20 Tab none 02/04/2010 01/14/2011 documented in this encounter Discharge Disposition Disposition Code Departure Means Destination Discharged to Other Facility Walk-out Other documented in this encounter ED Notes * Shelby Ceja RN - 02/04/2010 1506 EDT Pt taken to [facility] by , ok by [facility] * Endy Donato - 02/04/2010 1444 EDT DOS: 02/04/2010 Chief Complaint Patient presents with ??? Medical Evaluation referred for med clearance for detox from Opiates , reports 1 yr Hx Oxy's , Morphine, Suboxone , last use this am Suboxone The patient is a 29 y.o. female who presents today with Medical Evaluation HPI Comments: Pt sent to ED for medical clearance prior to opiate detox. Pt denies withdraw symptoms at this time. The history is provided by the patient. Medical Evaluation Pertinent negatives include no fever, no abdominal pain, no headaches and no rash. Review of Systems Constitutional: Negative for fever and chills. HENT: Negative for neck stiffness. Eyes: Negative for visual disturbance. Respiratory: Negative for shortness of breath. Cardiovascular: Negative for chest pain. Gastrointestinal: Negative for abdominal pain. Genitourinary: Negative for dysuria. Musculoskeletal: Negative for back pain. Skin: Negative for rash. Neurological: Negative for headaches. Psychiatric/Behavioral: Negative for confusion. All other systems reviewed and are negative. Past Medical History Diagnosis Date ??? Chronic pain Past Surgical History Procedure Date ??? Abdomen surgery c section ??? Nerve graft femoral cutaneus nerve surgery No Known Allergies History Substance Use Topics ??? Tobacco Use: Yes ??? Alcohol Use: No History reviewed. No pertinent family history. BP 117/70 Pulse 56 Temp(Src) 35.6 ??C (96.1 ??F) (Tympanic) Resp 15 Ht 1.626 m (5' 4) Wt99.791 kg (220 lb) LMP 01/26/2010 Physical Exam Nursing note and vitals reviewed. Constitutional: She appears well-developed and well-nourished. HENT: Head: Normocephalic and atraumatic. Nose: Nose normal. Eyes: Pupils are equal, round, and reactive to light. Right eye exhibits no discharge. Left eye exhibits no discharge. Neck: Normal range of motion. Neck supple. No tracheal deviation present. Cardiovascular: Normal rate, regular rhythm and normal heart sounds. Pulmonary/Chest: Breath sounds normal. No respiratory distress. Abdominal: Soft. No tenderness. Musculoskeletal: Normal range of motion. Neurological: She is alert. She has normal strength. No sensory deficit. Skin: No rash noted. Psychiatric: She has a normal mood and affect. Radiology orders: None Procedures ED Course: Given opioid protocol prescriptions here. Clonidine patch provided. Will d/c to [facility] with her driving her down to facility. Discharge Prescriptions New Prescriptions DIPHENHYDRAMINE (BENADRYL) 25 MG CAPSULE Take 1 Cap by mouth every 6 hours as needed. LORAZEPAM (ATIVAN) 1 MG TABLET Take 1 Tab by mouth 3 times daily. MDM Number of Diagnoses and Management Options Opiate dependence: General comments: 3 Encounter Diagnoses Code Name Primary? Qualifier ??? 304.00AC Opiate dependence PCP: STEPHANIE MASON MD 02/04/2010 7:03 PM ED Attending Available for Supervision: Zhang Hughes * Rojas White - 02/04/2010 1425 EDT TCALL: ANDREWS ATKINSON [birth year] [facility] REFERS PT TO ED FOR EVAL CC: OPIATE DETOX ([facility]MD) documented in this encounter Miscellaneous Notes * Scanned Note-Null - Inpatient, Physician - 02/06/2010 0756 EDT documented in this encounter Plan of Treatment Not on file documented as of this encounter Visit Diagnoses Diagnosis Opiate dependence ([facility]) Opioid type dependence, unspecified documented in this encounter Administered Medications Inactive Administered Medications - up to 3 most recent administrations Medication Order MAR Action Action Date Dose Rate Site clonidine (CATAPRES) 0.2 mg/24 hr patch 1 Patch 1 Patch, transdermal, NOW X1, 1 dose, On 02/04/10 at 1515, STAT Given 02/04/2010 15:15 EDT 1 Patch Lorazepam 1 mg Tab??STARTER PACK 1 Package, oral, NOW X1, 1 dose, On 02/04/10 at 1515, STAT Given 02/04/2010 15:15 EDT 1 Package documented in this encounter Historical Medications * This list may reflect changes made after this encounter. Medication Sig Dispensed Refills Start Date End Date fluoxetine (PROZAC) 20 mg capsule Take 40 mg by mouth daily. 01/14/2011 added in this encounter Active and Recently Administered Medications Times are shown in EDT. Scheduled Medication Order 02/02/2010 02/03/2010 02/04/2010 clonidine (CATAPRES) 0.2 mg/24 hr patch 1 Patch (COMPLETED) 1 Patch, transdermal, NOW X1, 1 dose, On 02/04/10 at 1515, STAT 1515 (Given - Provid er: Shelby Ceja RN) Lorazepam 1 mg Tab??STARTER PACK (COMPLETED) 1 Package, oral, NOW X1, 1 dose, On 02/04/10 at 1515, STAT 1515 (Given - Provid er: Shelby Ceja RN) documented in this encounter Care Teams Pile Driver Engineer Relationship Specialty Start Date End Date Stephanie Mason MD [address] [place] [address] PCP - General 04/07/09 documented as of this encounter
--- OUTSIDE RECORDS SUMMARY | 2024-04-30 14:44 | XMS_ITS | Encounter Summary ---
Author Organization [facility] Address [address] [place] [address] Care Team Providers Care Irrigationist Designer Name Role Phone Parish Mason MD Primary Care Provider Reason for Visit * Reason Onset Date Comments Appointment Related 02/26/2011 Encounter Details Date Type Department Care Team (Late st Contact Info) Description 02/26/2011 Telephone [facility] - Main [place] [address], [place] [address] Crista Brady RN [address] [place] [address] Appointment Related Social History Tobacco Use Types Packs/Day Years [...] encounter Miscellaneous Notes * Telephone Encounter - Crista Brady RN - 02/26/2011 1000 EDT Cathy calling to schedule for [facility], her baby due date is 2010. [facility] scheduled. Crista Brady RN documented in this encounter Plan of Treatment Not on file documented as of this encounter Visit Diagnoses Not on filedocumented in this encounter Care Teams Irrigationist Designer Relationship Specialty Start Date End Date Parish Mason MD [address] [place] [address] PCP - General 04/07/09 documented as of this encounter
--- OUTSIDE RECORDS SUMMARY | 2024-04-30 14:44 | XMS_ITS | Encounter Summary ---
Author Organization [facility] Address [address] [place] [address] Care Team Providers Care Bead Wrapper Name Role Phone Parish Mason MD Primary Care Provider [phone] Encounter Details Date Type Department Care Team (Late st Contact Info) Description 01/30/2011 Results Only Imaging [facility] [phone] Dennys Hennessy MD Social History Tobacco Use Types Packs/Day Years [...] Procedure Name Priority Date/Time Associated Diagnosis Comments HALF-WAY ROUTINE 02/11/2011 18:44 EDT documented in this encounter Results * HALF-WAY ROUTINE (02/11/2011 18:44 EDT) Anatomical Region Laterality Modality Other 02/11/2011 18:4 4 EDT 02/11/2011 19:16 EDT Narrative 02/11/2011 19:16 EDT Indication: Screening. Drugs / X-Rays: Opiate dependence. BMI 38. History: Age: 30 years. : 4 Para: 1. Previous pregnancies: Children born at term: 1. Abortions: 2. Living children: 1. Drugs: Opiates. Current : Pre- data: Weight 223 lbs. Height 5 ft 4 ins. BMI 38.3. Obstetric History: Mode of last delivery: Section. Dating: Stated EDC: ??EDC: 06/21/2011 GA by stated EDC: 21w3d Current Scan on: 02/11/2011 EDC: 06/17/2011 GA by current scan: 22w0d Best Overall Assessment: 02/11/2011 EDC: 06/21/2011 Assessed GA: 21w3d The calculation of the gestational age by current scan was based on BPD, HC, TCD, AC, FL and HUM. The Best Overall Assessment is based on the stated EDC. General Evaluation: heart activity: Present. heart rate: 147 bpm. Presentation: cephalic, Spine right. movement: visible. Amniotic Fluid: Normal. Cord: 3 Vessels. cord insertion site: Normal. Placenta: Anterior. Placenta Grade: Grade 1. Structure: normal. Anatomy Scan: Royal gestation. Biometry: BPD 51.5 mm 56th% 21w4d (21w0d to 22w1d) HC 185.2 mm 18th% 20w6d (19w3d to 22w2d) AC 177.6 mm 79th% 22w5d (22w0d to 23w2d) FL 38.2 mm 68th% 22w2d (20w3d to 24w0d) OFD 64.2 mm 26th% 20w6d TCD 23.2 mm 73rd% 22w1d HUM 35.6 mm 72nd% 22w1d VENTRp 6.0 mm n/a CM 4.7 mm 29th% HC/AC Ratio 1.043 ??<5th% FL/AC Ratio 0.215 ??n/a BPD/FL Ratio 1.348 ??<5th% BPD/OFD Ratio 0.802 ??67th% EFW (lbs/oz) 1 lbs 1 ozs EFW (g) 489 g ??84th% Anatomy: Head: head shape appears normal. Brain: Cerebellum, choroid plexus, cisterna magna, lateral cerebral ventricles, midline falx and cavum septi pellucidi appear normal. Face: Upper lip appears normal. Spine: Cervical, thoracic, lumbar and sacral spine appear normal Neck / Skin: No neck masses seen. Thorax: No thoracic abnormalities detected. Heart: Four chamber heart and outflow tracts appear normal. Abdominal Wall: Normal cord insertion into the abdominal wall is seen. Gastrointestinal Tract: Stomach appears normal. Kidneys / Adrenal Glands: Bilateral kidneys appear normal. Bladder: bladder appears normal in size and shape. Genitalia: Female fetus. Extremities: Both upper and lower extremities are seen. Skeleton: No evidence of skeletal abnormality detected. Summary of Ultrasound Findings: Transabdominal US. U/S machine: [employer] e8. U/S view: good. Maternal Structures: Uterus: normal,anteverted. Cervix: normal. Right Ovary: not visible but no abnormal adnexal findings. Left Ovary: not visible but no abnormal adnexal findings. Report Summary: Impression: [id number] Obstetrical ultrasound with and maternal evaluation This is a royal gestation. Biometry is consistent with stated dating. Anatomy appears normal as noted above; however, ultrasound cannot detect all anomalies. There is trunk and extremity movement noted. The amniotic fluid volume appears normal. Recommendations: Follow-up as clinically indicated. ??Pt reports early ultrasound for dating, recommend obtaining records to correlate with stated dating criteria. Procedure Note 02/11/2011 Indication: Screening. Drugs / X-Rays: Opiate dependence. BMI 38. History: Age: 30 years. : 4 Para: 1. Previous pregnancies: Children born at term: 1. Abortions: 2. Living children: 1. Drugs: Opiates. Current : Pre- data: Weight 223 lbs. Height 5 ft 4 ins. BMI 38.3. Obstetric History: Mode of last delivery: Section. Dating: Stated EDC: EDC: 06/21/2011 GA by stated EDC: 21w3d Current Scan on: 02/11/2011 EDC: 06/17/2011 GA by current scan: 22w0d Best Overall Assessment: 02/11/2011 EDC: 06/21/2011 Assessed GA: 21w3d The calculation of the gestational age by current scan was based on BPD, HC, TCD, AC, FL and HUM. The Best Overall Assessment is based on the stated EDC. General Evaluation: heart activity: Present. heart rate: 147 bpm. Presentation: cephalic, Spine right. movement: visible. Amniotic Fluid: Normal. Cord: 3 Vessels. cord insertion site: Normal. Placenta: Anterior. Placenta Grade: Grade 1. Structure: normal. Anatomy Scan: Royal gestation. Biometry: BPD 51.5 mm 56th% 21w4d (21w0d to 22w1d) HC 185.2 mm 18th% 20w6d (19w3d to 22w2d) AC 177.6 mm 79th% 22w5d (22w0d to 23w2d) FL 38.2 mm 68th% 22w2d (20w3d to 24w0d) OFD 64.2 mm 26th% 20w6d TCD 23.2 mm 73rd% 22w1d HUM 35.6 mm 72nd% 22w1d VENTRp 6.0 mm n/a CM 4.7 mm 29th% HC/AC Ratio 1.043 <5th% FL/AC Ratio 0.215 n/a BPD/FL Ratio 1.348 <5th% BPD/OFD Ratio 0.802 67th% EFW (lbs/oz) 1 lbs 1 ozs EFW (g) 489 g 84th% Anatomy: Head: head shape appears normal. Brain: Cerebellum, choroid plexus, cisterna magna, lateral cerebral ventricles, midline falx and cavum septi pellucidi appear normal. Face: Upper lip appears normal. Spine: Cervical, thoracic, lumbar and sacral spine appear normal Neck / Skin: No neck masses seen. Thorax: No thoracic abnormalities detected. Heart: Four chamber heart and outflow tracts appear normal. Abdominal Wall: Normal cord insertion into the abdominal wall is seen. Gastrointestinal Tract: Stomach appears normal. Kidneys / Adrenal Glands: Bilateral kidneys appear normal. Bladder: bladder appears normal in size and shape. Genitalia: Female fetus. Extremities: Both upper and lower extremities are seen. Skeleton: No evidence of skeletal abnormality detected. Summary of Ultrasound Findings: Transabdominal US. U/S machine: [employer] e8. U/S view: good. Maternal Structures: Uterus: normal,anteverted. Cervix: normal. Right Ovary: not visible but no abnormal adnexal findings. Left Ovary: not visible but no abnormal adnexal findings. Report Summary: Impression: [id number] Obstetrical ultrasound with and maternal evaluation This is a royal gestation. Biometry is consistent with stated dating. Anatomy appears normal as noted above; however, ultrasound cannot detect all anomalies. There is trunk and extremity movement noted. The amniotic fluid volume appears normal. Recommendations: Follow-up as clinically indicated. Pt reports early ultrasound for dating, recommend obtaining records to correlate with stated dating criteria. Dennys Hennessy MD IMG HALF-WAY ORDERABLE S documented in this encounter Visit Diagnoses Not on filedocumented in this encounter Care Teams Bead Wrapper Relationship Specialty Start Date End Date Parish Mason MD [address] [place] [id number] PCP - General 04/07/09 documented as of this encounter
--- OUTSIDE RECORDS SUMMARY | 2024-04-30 14:44 | XMS_ITS | Encounter Summary ---
Author Organization [facility] Address [address] [place] [address] Care Team Providers Care Biofuels Technology Manager Name Role Phone Parish Mason MD Primary Care Provider [phone] Encounter Details Date Type Department Care Team (Late st Contact Info) Description 12/16/2016 Results Only [facility] [phone] Unknown, Provider, Social History Tobacco Use Types [...] Procedure Name Priority Date/Time Associated Diagnosis Comments PAP TEST- RESULT ONLY Routine 12/16/2016 0:00 EST documented in this encounter Results * PAP TEST- RESULT ONLY (12/16/2016 0:00 EST) Pathology Report: CYTOPATHOLOGY REPORT Reports generated via electronic interface contain original data; however they are lacking the format of the original report. Caution should be taken when reading/interpreti ng unformatted reports. Name: ? DEMETRIOANDREWS ? Accession #: ? [id number] ? : ? 1980 (Age: 36) ??F ?Collect Date: ? 12/16/2016 ? Location: ? [facility] ? Receive Date: ? 12/17/2016 ? Provider: JOY CADET MD Copy to: ? Final Report SPECIMEN ADEQUACY ? Satisfactory for Evaluation - transformation zone component present GENERAL CATEGORIZATION ? Negative for Intraepithelial Lesion or Malignancy INTERPRETATION ? Reactive cellular changes associated with inflammation present (includes repair). Last Menstrual Period: ? Hormonal/Contracep tive status: None Other: Previous NIL Pap(s): 03/20, 10/21, 10/23 Specimen/Source: ??Pap Test, Cervix, ThinPrep Imaging System with manual evaluation Document reviewed and electronically signed by: ? SAMI DENT MD ? Report ??Date: 12/23/2016 15:15 HPV with Pap Test ? Date Ordered: ? 12/23/2016 ? Status: ?? Signed Out ?Date Complete: ? 12/24/2016 ? By: ??System Interface ? Date Reported: ? 12/24/2016 ? Interpretation RESULT: Negative for HPV. No E6 or E7 mRNA is detected from HPV types 16,18,31,33,35, 39,45,51,52,56,58, 59,66, and 68 by touch up painter hand mediated amplification. Comments Document reviewed and electronically signed by: ? System Interface ? Report date: 12/24/2016 By the signature above, the attending physician certifies that he/she has personally conducted a gross and/or microscopic examination of the described specimens and rendered or confirmed the above diagnosis. End of Report [facility] 12/16/2016 12/17/2016 Joy Cadet MD PATHOLOGY ZENAIDA OLVERA [facility] [address] [place] [address] documented in this encounter Visit Diagnoses Not on filedocumented in this encounter Care Teams Biofuels Technology Manager Relationship Specialty Start Date End Date Parish Mason MD [address] [place] [id number] PCP - General 04/07/09 documented as of this encounter
--- OUTSIDE RECORDS SUMMARY | 2024-04-30 14:44 | XMS_ITS | Encounter Summary ---
Author Organization [facility] Address [address] [place] [address] Care Team Providers Care Design Manager Name Role Phone Parish Mason MD Primary Care Provider Reason for Visit * Reason Comments Routine Visit Encounter Details Date Type Department Care Team (Late st Contact Info) Description 05/27/2011 11:20 EDT Routine [facility] - [address] [address] Unknown, Provider, Kyara Mckeon MD [address] [place] [address] GA: 36w3d Social History Tobacco Use Types Packs/Day Years [...] Sign Reading Time Taken Comments Blood Pressure 120/60 05/27/2011 1122 EDT Pulse - - Temperature - - Respiratory Rate - - Oxygen Saturation - - Inhaled Oxygen Concentration - - Weight 102.5 kg (226 lb) 05/27/2011 1122 EDT Height - - Body Mass Index 37.61 11/20/2010 1000 EST documented in this encounter Progress Notes * Kyara Mckeon MD - 05/27/2011 1157 EDT CC: 30 y.o. @ 36w3d by LMP c/w 6+4 wk U/S S: Doing well. Denies ctxs, LOF, VB. +FM O: BP 120/60 Wt 102.513 kg (226 lb) FH 37 FHT 120 A/P 30 y.o. @ 36w3d by LMP c/w 6+4 wk U/S Smoking complicating , childbirth, or the puerperium - KYARA MCKEON MD 05/27/11 1154 Addended Encouraged Cessation [ ] Ordered growth scan on 05/27/11, follow up results Opiate addiction - KYARA MCKEON MD 05/27/11 1131 Signed Current dose is 8 mg daily 16 mg on Friday, Friday and Friday 8 Mg PO on Friday Multiparity - KYARA MCKEON MD 05/27/11 1142 Signed BL TL consent signed with Dr. Hennessy on 04/02 In [facility] Scans section Previous delivery, antepartum condition or complication - KYARA MCKEON MD 05/27/11 1142 Signed [x ]scheduled RCS 06/14/11 at 8:30AM Primary for arrest of descent Supervision of high-risk - KYARA MCKEON MD 05/27/11 [address] Hennessy, will call their office to have results faxed. 1GTT-pt has still not had this done yet, will perform random fs 05/27/11 (results 113), pt states she will have done in [facility], she already has the lab slip GBS Negative on 05/23/11 RTC One week KYARA MCKEON MD MD Opiate Dependence Visit Chief Complaint: Opiate Dependence in Withdrawal Symptoms: none Have you used drugs in the last 2 weeks? no Have you seen a substance abuse counselor in the past 2 weeks? yes Have you seen the social sciences chair in the past 4 wks? yes UDS +MJ on 05/23/11 If the patient does not have a substance abuse counselor, she must see the social sciences chair or have a nurse from our office arrange counseling through [place] or [facility] Assessment: stable Prescription given for: Receives from Dr. Chandrika MCKEON MD [facility] Attending I discussed the pt with Dr. Mckeon at the time of the visit. I agree with impression and plan as above. Chayo Hobson MD documented in this encounter Miscellaneous Notes * Assessment & Plan Note - Kyara Mckeon MD - 05/27/2011 1155 EDTAssociated Problem(s): Supervision of high-risk Pap pending Dr. Hennessy, will call their office to have results faxed. 1GTT-pt has still not had this done yet, will perform random fs 05/27/11 (results 113), pt states she will have done in [facility], she already has the lab slip GBS Negative on 05/23/11 * Assessment & Plan Note - Kyara Mckeon MD - 05/27/2011 1142 EDTAssociated Problem(s): Previous delivery, antepartum condition or complication [x ]scheduled RCS 06/14/11 at 8:30AM Primary for arrest of descent * Assessment & Plan Note - Kyara Mckeon MD - 05/27/2011 1142 EDTAssociated Problem(s): Multiparity BL TL consent signed with Dr. Hennessy on 04/02 In [facility] Scans section * Assessment & Plan Note - Kyara Mckeon MD - 05/27/2011 1131 EDTAssociated Problem(s): Opioid type dependence, abuse (HCC-CMS) Current dose is 8 mg daily 16 mg on Friday, Friday and Friday 8 Mg PO on Friday * Assessment & Plan Note - Kyara Mckeon MD - 05/27/2011 1116 EDTAssociated Problem(s): Smoking complicating , childbirth, or the puerperium Encouraged Cessation [ ] Ordered growth scan on 05/27/11, follow up results documented in this encounter Plan of Treatment Not on file documented as of this encounter Procedures Procedure Name Priority Date/Time Associated Diagnosis Comments [facility] FOLLOW-UP 06/04/2011 13:46 EDT POCT GLUCOSE, INTERFACED Routine 05/27/2011 11:30 EDT Screening documented in this encounter Results * [facility] FOLLOW-UP (06/04/2011 13:46 EDT) Anatomical Region Laterality Modality Other 06/04/2011 13:4 6 EDT 06/04/2011 13:58 EDT Narrative 06/04/2011 13:58 EDT Indication: Drugs / X-Rays: Opiate dependence. BMI 38.3. History: Age: 30 years. : 4 Para: 1. Previous pregnancies: Children born at term: 1. Abortions: 2. Living children: 1. Drugs: Opiates. Current : Pre- data: Weight 223 lbs. Height 5 ft 4 ins. BMI 38.3. Obstetric History: Mode of last delivery: Section. Medication: buprenorphine. Dating: Stated EDC: ??EDC: 06/21/2011 GA by stated EDC: 37w4d Current Scan on: 06/04/2011 EDC: 06/23/2011 GA by current scan: 37w2d Best Overall Assessment: 02/11/2011 EDC: 06/21/2011 Assessed GA: 37w4d The calculation of the gestational age by current scan was based on BPD, HC, AC, FL and HUM. The Best Overall Assessment is based on the stated EDC. General Evaluation: heart activity: Present. heart rate: 123 bpm. Presentation: cephalic, Spine left. movement: visible. Amniotic Fluid: Normal. SIRENA ??17.0 cm. Maximal vertical pocket 9.2 cm. Placenta: Anterior. Placenta Grade: Grade 1. Structure: normal. Anatomy Scan: Royal gestation. Biometry: BPD 86.7 mm 8th% 35w0d (34w0d to 36w0d) HC 303.6 mm <5th% 33w5d (30w5d to 36w5d) AC 364.9 mm >95th% 40w3d (39w3d to 41w3d) FL 74.2 mm 61st% 38w0d (34w6d to 41w1d) OFD 103.0 mm <5th% 31w0d HUM 65.5 mm 83rd% 39w4d VENTRp 5.8 mm n/a HC/AC Ratio 0.832 ??<5th% FL/AC Ratio 0.203 ??n/a BPD/FL Ratio 1.168 ??<5th% HC/FL Ratio 4.092 ??<5th% BPD/OFD Ratio 0.842 ??72nd% EFW (lbs/oz) 7 lbs 10 ozs EFW (g) 3468 g ??78th% Anatomy: Head: head shape appears normal. Brain: Visualized and normal appearance: brain parenchyma, midline falx, cavum septi pellucidi. Gastrointestinal Tract: Stomach appears normal. Kidneys / Adrenal Glands: Bilateral kidneys appear normal. Bladder: bladder appears normal in size and shape. Summary of Ultrasound Findings: Transabdominal US. U/S machine: [employer] 9. U/S view: good. Report Summary: Impression: [id number] Follow-up obstetrical ultrasound This is a royal gestation. biometry is consistent with prior dating. The EFW is about 75-80% on the [place] hybrid curve. Except where noted above, the anatomy was not reviewed in detail as this is a follow-up study and the anatomy was previously assessed. Normal fluid and movement are noted. Recommendations: Follow-up as clinically indicated. Growth Overview: Date GA BPD [mm] HC [mm] AC [mm] FL [mm] HUM [mm] EFW GP 02/11/2011 21 + 3 51.5 56th 185.2 18th 177.6 80th 38.2 68th 35.6 72nd 489g , 1 lbs 1 ozs 84th%% 06/04/2011 37 + 4 86.7 8th 303.6 <5th 364.9 >95th 74.2 61st 65.5 83rd 3468g , 7 lbs 10 ozs 78th%% Procedure Note 06/04/2011 Indication: Drugs / X-Rays: Opiate dependence. BMI 38.3. History: Age: 30 years. : 4 Para: 1. Previous pregnancies: Children born at term: 1. Abortions: 2. Living children: 1. Drugs: Opiates. Current : Pre- data: Weight 223 lbs. Height 5 ft 4 ins. BMI 38.3. Obstetric History: Mode of last delivery: Section. Medication: buprenorphine. Dating: Stated EDC: EDC: 06/21/2011 GA by stated EDC: 37w4d Current Scan on: 06/04/2011 EDC: 06/23/2011 GA by current scan: 37w2d Best Overall Assessment: 02/11/2011 EDC: 06/21/2011 Assessed GA: 37w4d The calculation of the gestational age by current scan was based on BPD, HC, AC, FL and HUM. The Best Overall Assessment is based on the stated EDC. General Evaluation: heart activity: Present. heart rate: 123 bpm. Presentation: cephalic, Spine left. movement: visible. Amniotic Fluid: Normal. SIRENA 17.0 cm. Maximal vertical pocket 9.2 cm. Placenta: Anterior. Placenta Grade: Grade 1. Structure: normal. Anatomy Scan: Royal gestation. Biometry: BPD 86.7 mm 8th% 35w0d (34w0d to 36w0d) HC 303.6 mm <5th% 33w5d (30w5d to 36w5d) AC 364.9 mm >95th% 40w3d (39w3d to 41w3d) FL 74.2 mm 61st% 38w0d (34w6d to 41w1d) OFD 103.0 mm <5th% 31w0d HUM 65.5 mm 83rd% 39w4d VENTRp 5.8 mm n/a HC/AC Ratio 0.832 <5th% FL/AC Ratio 0.203 n/a BPD/FL Ratio 1.168 <5th% HC/FL Ratio 4.092 <5th% BPD/OFD Ratio 0.842 72nd% EFW (lbs/oz) 7 lbs 10 ozs EFW (g) 3468 g 78th% Anatomy: Head: head shape appears normal. Brain: Visualized and normal appearance: brain parenchyma, midline falx, cavum septi pellucidi. Gastrointestinal Tract: Stomach appears normal. Kidneys / Adrenal Glands: Bilateral kidneys appear normal. Bladder: bladder appears normal in size and shape. Summary of Ultrasound Findings: Transabdominal US. U/S machine: [employer] 9. U/S view: good. Report Summary: Impression: [id number] Follow-up obstetrical ultrasound This is a royal gestation. biometry is consistent with prior dating. The EFW is about 75-80% on the [place] hybrid curve. Except where noted above, the anatomy was not reviewed in detail as this is a follow-up study and the anatomy was previously assessed. Normal fluid and movement are noted. Recommendations: Follow-up as clinically indicated. Growth Overview: Date GA BPD [mm] HC [mm] AC [mm] FL [mm] HUM [mm] EFW GP 02/11/2011 21 + 3 51.5 56th 185.2 18th 177.6 80th 38.2 68th 35.6 72nd 489g , 1 lbs 1 ozs 84th%% 06/04/2011 37 + 4 86.7 8th 303.6 <5th 364.9 >95th 74.2 61st 65.5 83rd 3468g , 7 lbs 10 ozs 78th%% Chayo Hobson MD [facility] ORDERABLE S * (ABNORMAL) POCT GLUCOSE (05/27/2011 11:30 EDT) Glucose, POC 113(A) 70 - 100 mg/dL POINT OF CARE Blood specimen (specimen) 05/27/2011 11:30 EDT Chayo Hobson MD POINT OF CARE TEST O RDERABLES POINT OF CARE documented in this encounter Visit Diagnoses Diagnosis Screening- Primary Screening for unspecified condition documented in this encounter Discontinued Medications Medication Sig Discontinue Reason Start Date End Da te buPROPion (WELLBUTRIN SR) 100 mg SR tablet Take 100 mg by mouth 2 times daily. Therapy completed 05/27/2011 documented as of this encounter Care Teams Design Manager Relationship Specialty Start Date End Date Parish Mason MD [address] [place] [id number] PCP - General 04/07/09 documented as of this encounter
--- OUTSIDE RECORDS SUMMARY | 2024-04-30 14:44 | XMS_ITS | Encounter Summary ---
Author Organization [facility] Address [address] [place] [address] Care Team Providers Care Computed Tomography Technologist Name Role Phone Stevie Terrell DO Primary Care Provider Encounter Details Date Type Department Care Team (Late st Contact Info) Description 10/18/2008 Before [facility] Converted Visit (Maple) [facility] - Maple conversion [address] [place] [address] Dennys Blake MD Social History Tobacco Use Types Packs/Day Years Used Date Smoking Tobacco: Never Assessed Sex and Gender Information Value Date Recorded Sex Assigned at Not on file Gender Identity Not on file Sexual Orientation Not on file documented as of this encounter Plan of Treatment Not on file documented as of this encounter Procedures Procedure Name Priority Date/Time Associated Diagnosis Comments CYTOPATHOLOGY Routine 10/18/2008 0:00 EST documented in this encounter Results * CYTOPATHOLOGY (10/18/2008 0:00 EST) Pathology Report: CYTOPATHOLOGY REPORT ? Reports generated via electronic interface contain original data; ? however they are lacking the format of the original report. ? Caution should be taken when reading/interpreti ng unformatted reports. ? Name: ? CROSS, ANDREWS ? Accession #: ? [id number] ? : ? 1980 (Age: 28) ??F ?Collect Date: ? 10/18/2008 ? Location: ? [facility] ? Receive Date: ? 10/20/2008 ? Provider: ?DENNYS B BLAKE MD ? Copy to: ? Specimen/Source: ?Pap Test, Cervix/Endocervix, ThinPrep Imaging System ? with manual evaluation ? Last Menstrual Period: ? Menstrual/Pregnanc y Status: ? Post ? Other: ? HPVA - HPV testing requested if ASC-US on the current ThinPrep Pap test. ? SPECIMEN ADEQUACY ? Satisfactory for Evaluation ? - transformation zone component present ? GENERAL CATEGORIZATION ? Negative for Intraepithelial Lesion or Malignancy ? Document reviewed and electronically signed by: ? Sonali V[place](ASCP) ? Report Date: ??10/21/2008 08:05 ? End of Report ? KESHA BEST 10/18/2008 10/20/2008 Dennys Blake MD PATHOLOGY ORDERABLES Performing Organization Address City/State/[facility] Co de Phone Number KESHA BEST [address] [place] [address] documented in this encounter Visit Diagnoses Not on filedocumented in this encounter Care Teams Computed Tomography Technologist Relationship Specialty Start Date End Date Stevie Terrell DO [address] [place] [address] PCP - General 02/23/09 04/06/09 documented as of this encounter
--- OUTSIDE RECORDS SUMMARY | 2024-04-30 14:44 | XMS_ITS | Encounter Summary ---
Author Organization [facility] Address [address] [place] [address] Care Team Providers Care Director Of Catering Sales Name Role Phone Parish Mason MD Primary Care Provider [phone] Reason for Visit * Reason Comments Routine Visit transfer of care from [facility] Encounter Details Date Type Department Care Team (Late st Contact Info) Description 05/23/2011 13:00 EDT Initial [facility] Women's Services - Main [place] [address] [place] [address] Unknown, ProviderMD Radha Cobb MD GA: 35w6d Social History Tobacco Use Types Packs/Day Years [...] Sign Reading Time Taken Comments Blood Pressure 110/70 05/23/2011 1314 EDT Pulse - - Temperature - - Respiratory Rate - - Oxygen Saturation - - Inhaled Oxygen Concentration - - Weight 100.8 kg (222 lb 3.2 oz) 05/23/2011 1314 EDT Height - - Body Mass Index 36.98 11/20/2010 1000 EST documented in this encounter Progress Notes * Radha Cobb MD - 05/23/2011 1501 EDT R1 NA CC: IUP at 35w6d by LMP c/w 6 wk U/S S: Pt is a 30 y.o. with IUP at 35w6d by 6 week U/S c/wLMP. Pt has been receiving care per Dr. Hennessy. She is transferring back to [facility] clinic at 36 weeks for delivery planning as pt desires RCS. Notes some mild nausea, no vomiting. Notes some vaginal pressure but denies vaginal bleeding, vaginal burning/itching, dysuria, ctx. Notes +FM. Pt signed TL consent with Dr. Hennessy. ObHx G1 - 2005 TAB via D&C G2 - 2006 TAB via D&C G3 - 2007, terms, male, c/s for pelvic disproportion, no complications G4 - current PGynHx: normal menses previously No hx STIs, abnl smears PMHx: Depression currently on prozac PSurgHx: PCS for transverse Lie. Femoral nerve graft SocHx: opioid dependence-Dr. Cobos currently prescribing. Pt is taking 8mg bup. Drug use-denies other use EtOH-denies Smoking-1ppd, no desire to quit. FHx: Denies mental retardation, defects, female cancers, bleeding/clotting disorders, complications with pregnancies. Allergies: NKDA Meds: prozac, bup 8mg, PNV O: BP 110/70 Wt 100.789 kg (222 lb 3.2 oz) Gen: NAD CV: RRR Breast: deferred Resp: CTAB Abd: Soft, NT, ND, + BS, Fundus at 36cm. Ext: NT 1+edema, 2+ DPP : CE closed/50%/-3, cepahlic. GBS obtained. A/P: 30 y.o. with IUP at 35w6d by 6w US c/w LMP transfer from Dr. Hennessy here for delivery planning. RCS on 06/14/2011 Depression - RADHA COBB MD 05/23/11 6461 Signed Currently on prozac, mood is good Previous delivery, antepartum condition or complication - RADHA COBB MD 05/23/11 8521 Signed Scheduled pt for RCS on 06/14/11 PCS was for transverse Lie. Opiate addiction - RADHA COBB MD 05/23/11 4191 Signed Currently receiving 8mg subutex via Dr. Cobos Denies si/sx of withdrawal. Supervision of high-risk - RADHA COBB MD 05/23/11 1400 Signed 30 y/o LORRIE 06/21/11 by LMP c/w 6+4 wk U/S PNL: A+/ab neg/HIV neg/HepBneg/HepC neg/RPR NR/RI/ [ ]varicella G/C neg Ucx neg Pap pending Dr. Hennessy 1GTT-per Dr Hennessy GBS [ ] done 05/23/11 Anatomy U/S pending by Dr. Hennessy. (NA note says FOB has family h/o cardiac anomalies. On 01/14/11, I clarified with the FOB. His family members of MIs. He has no personal or family h/o cardiac defects. Therefore, routine anatomy U/S is appropriate.) * care by Dr. Hennessy. Returned to [facility] at 36 weeks for delivery planning Multiparity - RADHA COBB MD 05/23/11 1403 Signed TL consent signed 04/02 RTC 1 week Radha Cobb MD, PGY 1 Department of Obstetrics and Gynecology Attestation statement: I saw and examined the patient with the resident/fellow. I agree with the findings and plan of care documented in the resident's/fellow's note. Parish Fitzgerald MD documented in this encounter Consult Notes * Jhonatan, Time Study Observer - 05/24/2011 1006 EDT documented in this encounter Miscellaneous Notes * Assessment & Plan Note - Radha Cobb MD - 05/23/2011 1403 EDTAssociated Problem(s): Multiparity TL consent signed 04/02 * Assessment & Plan Note - Radha Cobb MD - 05/23/2011 1400 EDTAssociated Problem(s): Supervision of high-risk 30 y/o LORRIE 06/21/11 by LMP c/w 6+4 wk U/S PNL: A+/ab neg/HIV neg/HepBneg/HepC neg/RPR NR/RI/ [ ]varicella G/C neg Ucx neg Pap pending Dr. Hennessy 1GTT-per Dr Hennessy GBS [ ] done 05/23/11 Anatomy U/S pending by Dr. Hennessy. (NA note says FOB has family h/o cardiac anomalies. On 01/14/11, I clarified with the FOB. His family members of MIs. He has no personal or family h/o cardiac defects. Therefore, routine anatomy U/S is appropriate.) * care by Dr. Hennessy. Returned to [facility] at 36 weeks for delivery planning * Assessment & Plan Note - Radha Cobb MD - 05/23/2011 1358 EDTAssociated Problem(s): Opioid type dependence, abuse ([facility]) Currently receiving 8mg subutex via Dr. Cobos Denies si/sx of withdrawal. * Assessment & Plan Note - Radha Cobb MD - 05/23/2011 1357 EDTAssociated Problem(s): Previous delivery, antepartum condition or complication Scheduled pt for RCS on 06/14/11 PCS was for transverse Lie. * Assessment & Plan Note - Radha Cobb MD - 05/23/2011 1355 EDTAssociated Problem(s): Depression Currently on prozac, mood is good documented in this encounter Plan of Treatment Not on file documented as of this encounter Procedures Procedure Name Priority Date/Time Associated Diagnosis Comments DRUG SCREEN 11, URINE Routine 05/23/2011 14:09 EDT Opioid dependence ([facility]) ([facility]) GROUP B STREP PCR Routine 05/23/2011 13: 44 EDT Supervision of normal documented in this encounter Results * DRUG SCREEN COMPREHENSIVE (05/23/2011 14:09 EDT) Amphetamine Screen, Urine Negative screen. Confirmation testing available upon request. Suitable for medical purposes only. Will not detect all drugs within class. Cutoff = 1000 ng/ml [facility] Barbiturate Screen, Urine Negative screen. Confirmation testing available upon request. Suitable for medical purposes only. Will not detect all drugs within class. Cutoff = 300 ng/ml [facility] Benzodiazepine Screen, Urine Negative screen. Confirmation testing available upon request. Suitable for medical purposes only. Will not detect all drugs within class. Assay less sensitive to Lorazepam and metabolites. Cutoff = 200 ng/ml [facility] Cannabinoid Scrn, Ur Presumptive positive, interpret with caution. Confirmation testing available upon request. Suitable for medical purposes only. Will not detect all drugs within class. Cutoff = 50 ng/ml [facility] Cocaine Metabolites, Ur Negative screen. Confirmation testing available upon request. Suitable for medical purposes only. Will not detect all drugs within class. Cutoff = 300 ng/ml [facility] Methadone Screen Negative screen. Confirmation testing available upon request. Suitable for medical purposes only. Will not detect all drugs within class. Cutoff = 300 ng/ml [facility] Opiate Scrn, Ur Negative screen. Confirmation testing available upon request. Suitable for medical purposes only. Will not detect all drugs within class. Cutoff = 300 ng/ml Does not detect oxycodone, oxycontin or methadone. [facility] Oxycodone Screen Negative screen. Confirmation testing available upon request. Suitable for medical purposes only. Will not detect all drugs within class. Cutoff = 300 ng/ml [facility] Urine specimen (specimen) 05/23/2011 14:09 EDT 05/23/2011 16:59 EDT Parish Fitzgerald MD MSc GEN LAB UNI T COLLECT ORDERABLES Performing Organization Address City/State/[facility] Co de Phone Number [facility] [address] [place] [address] * GROUP B STREPTOCOCCUS MOLECULAR DETECTION (05/23/2011 13:44 EDT) Group B Streptococcus Molecular Detection No Group B beta streptococcal DNA detected by PCR. SXBN2 [facility] Specimen of unknown material (specimen) 05/23/2011 13:44 EDT 05/23/2011 16:34 EDT Parish Fitzgerald MD MSc MICROBIOLOG Y - GENERAL ORDERABLES Performing Organization Address City/State/[facility] Co de Phone Number [facility] [address] [place] [address] documented in this encounter Visit Diagnoses Diagnosis Supervision of normal Supervision of other normal Opioid dependence ([facility]) Opioid type dependence, unspecified documented in this encounter Care Teams Director Of Catering Sales Relationship Specialty Start Date End Date Parish Mason MD [address] [place] [address] PCP - General 04/07/09 documented as of this encounter
--- OUTSIDE RECORDS SUMMARY | 2024-04-30 14:44 | XMS_ITS | Encounter Summary ---
Author Organization [facility] Address [address] [place] [address] Care Team Providers Care Construction Person Name Role Phone Parish Mason MD Primary Care Provider [phone] Encounter Details Date Type Department Care Team (Late st Contact Info) Description 10/24/2020 Lab Requisition [facility] Pathology & Laboratory Medicine - [address] [id number] Outr Resulting Lab, Provider Social History Tobacco [...] Comments ZZCOVID-19 TEST [facility] PCR Today 10/23/2020 14:50 EST COVID-19 TESTING Routine 10/23/2020 14:5 0 EST documented in this encounter Results * COVID-19 TEST [facility] PCR (10/23/2020 14:50 EST) Swab ENTIRE NASOPHARYNX / Unknown 10/23/2020 14:50 EST 10/24/2020 15:42 EST Provider Outr Resulting Lab MICROBIOLOGY - GENERAL ORDERABLES [facility] [address] [place] [address] * COVID-19 TESTING (10/23/2020 14:50 EST) COVID-19 rt-PCR Result Negative Negative 10/25/2020 16:22 EST [facility] Comment: Negative results do not preclude 2019-nCoV infection and should not be used as the sole basis for treatment or other patient management decisions. Negative results must be combined with clinical observations, patient history, and epidemiological information. This test was developed and its performance characteristics determined by [facility]. It has not been cleared or approved [...] testing. This test is based on the [facility] COVID-19 Emergency Use Authorization (EUA) assay, with minor modification as defined by the FDA Performed on the [employer] 7 Flex. Performing Lab [facility] 10/25/2020 16:22 EST [facility] Swab 10/23/2020 14:5 0 EST 10/24/2020 15:42 EST Provider Outr Resulting Lab MICROBIOLOGY - GENERAL ORDERABLES [facility] [address] [place] [address] documented in this encounter Visit Diagnoses Not on filedocumented in this encounter Care Teams Construction Person Relationship Specialty Start Date End Date Parish Mason MD [address] [place] [address] PCP - General 04/07/09 documented as of this encounter
--- OUTSIDE RECORDS SUMMARY | 2024-04-30 14:44 | XMS_ITS | Encounter Summary ---
Author Organization [facility] Address [address] [place] [address] Care Team Providers Care Sandwich Wrapper Name Role Phone Parish Mason MD Primary Care Provider Encounter Details Date Type Department Care Team (Late st Contact Info) Description 06/15/2020 Lab Requisition [facility] Pathology & Laboratory Medicine - [address] [address] Outr Resulting Lab, Provider Social History Tobacco [...] Procedure Name Priority Date/Time Associated Diagnosis Comments C. DIFFICILE PCR Routine 06/14/2020 16:0 0 EDT documented in this encounter Results * (ABNORMAL) C. DIFFICILE PCR (06/14/2020 16:00 EDT) C. difficile PCR Positive(A ) Negative 06/15/2020 23:25 EDT [facility] Feces SPECIMEN FROM RECTUM / Unknown 06/14/2020 16:00 EDT 06/15/2020 17:33 EDT Provider Outr Resulting Lab MICROBIOLOGY - GENERAL ORDERABLES [facility] [address] [place] [address] documented in this encounter Visit Diagnoses Not on filedocumented in this encounter Additional Health Concerns Infection Onset Date Last Indicated Resolved Time C. difficile 06/14/2020 06/14/2020 08/21/2020 10:0 2 EST documented as of this encounter Care Teams Sandwich Wrapper Relationship Specialty Start Date End Date Parish Mason MD [address] [place] [address] PCP - General 04/07/09 documented as of this encounter
--- OUTSIDE RECORDS SUMMARY | 2024-04-30 14:44 | XMS_ITS | Encounter Summary ---
Author Organization [facility] Address [address] [place] [address] Care Team Providers Care At Risk Specialist Name Role Phone Parish Mason MD Primary Care Provider Encounter Details Date Type Department Care Team (Late st Contact Info) Description 12/04/2019 Lab Requisition [facility] Pathology & Laboratory Medicine - [address] [address] Unknown, ProviderMD Social History Tobacco Use Types [...] Procedure Name Priority Date/Time Associated Diagnosis Comments HIV 1/2 ANTIGEN AND ANTIBODY, 4TH GENERATION Routine 12/03/2019 15:30 EST documented in this encounter Results * HIV 1/2 ANTIGEN AND ANTIBODY, 4TH GENERATION (12/03/2019 15:30 EST) HIV 1 and 2 Antibody/p24 Antigen, 4th Generation Negative Negative 12/06/2019 11:19 EST [facility] Comment: If acute HIV-1 infection is suspected in a high risk ??patient, submit plasma specimen for HIV-1 RNA quantitation test. Fourth Generation assay performed on the [employer]. Blood VENOUS BLOOD / Unknown 12/03/2019 15:30 EST 12/05/2019 15:50 EST Provider Unknown IMMUNOLOGY AND SEROL YG ORDERABLES [facility] [address] [place] [address] documented in this encounter Visit Diagnoses Not on filedocumented in this encounter Additional Health Concerns Infection Onset Date Last Indicated Resolved Time C. difficile 06/14/2020 06/14/2020 08/21/2020 10:0 2 EST documented as of this encounter Care Teams At Risk Specialist Relationship Specialty Start Date End Date Parish Mason MD [address] [place] [address] PCP - General 04/07/09 documented as of this encounter
--- OUTSIDE RECORDS SUMMARY | 2024-04-30 14:44 | XMS_ITS | Encounter Summary ---
Author Organization [facility] Address [address] [place] [address] Care Team Providers Care Calcine Furnace Tender Name Role Phone Parish Mason MD Primary Care Provider Reason for Visit * Reason Comments Routine Visit Pt. reports feeli ng well, occasional +FM. Pt. denies VB/LOF, ctx. Encounter Details Date Type Department Care Team (Late st Contact Info) Description 01/14/2011 9:20 EDT Routine [facility] Women's Services - [facility] [address] [place] [address] Rex Turner MD GA: 17w3d Social History Tobacco Use Types Packs/Day Years [...] Reading Time Taken Comments Blood Pressure 110/70 01/14/2011 0900 EDT Pulse - - Temperature - - Respiratory Rate - - Oxygen Saturation - - Inhaled Oxygen Concentration - - Weight 100.2 kg (221 lb) 01/14/2011 0900 EDT Height - - Body Mass Index 36.78 11/20/2010 1000 EST documented in this encounter Progress Notes * Rex Turner - 01/14/2011 1100 EDT CC: 30 y.o. @ 17w3d S: Doing well. No c/o. O: BP 110/70 Wt 100.245 kg (221 lb) FH c/w FHT 140 A/P 30 y.o. @ 17w3d Depression - REX TURNER MD 01/14/11 1047 Signed Stable on Wellbutrin Previous delivery, antepartum condition or complication - REX TURNER MD 01/14/11 1048 Signed Planning repeat C/S Supervision of high-risk - REX TURNER MD 01/14/11 1059 Addended 30 y/o LORRIE 06/21/11 by LMP c/w 6+4 wk U/S PNL: A+/ab neg/HIV neg/HepBneg/HepC neg/RPR NR/RI/[ ]varicella G/C neg Ucx neg Pap pending Dr. Hennessy Anatomy U/S pending by Dr. Hennessy. (NA note says FOB has family h/o cardiac anomalies. On 01/14/11, I clarified with the FOB. His family members of MIs. He has no personal or family h/o cardiac defects. Therefore, routine anatomy U/S is appropriate.) * care by Dr. Hennessy. Will return to [facility] at 36 weeks* RTC @ 36 weeks. REX TURNER MD Ob/MFM Attending Note: 30y/o High Risk now at 17 3/7 wks (by U/S). Problems - including depression and previous C/S as noted. H/o opiate abuse; pt currently on Buprenorphine replacement program. Attestation statement: I discussed the patient with the resident at the time of the visit. I agree with the findings and the plan of care documented in the resident's note. Liam Belle M.D., [facility] * Dacia Thompson - 01/14/2011 1017 EDT Pt. was given phone and instructions to preregister. documented in this encounter Miscellaneous Notes * Assessment & Plan Note - Rex Turner - 01/14/2011 1055 EDTAssociated Problem(s): Supervision of high-risk 30 y/o LORRIE 06/21/11 by LMP c/w 6+4 wk U/S PNL: A+/ab neg/HIV neg/HepBneg/HepC neg/RPR NR/RI/[ ]varicella G/C neg Ucx neg Pap pending Dr. Hennessy Anatomy U/S pending by Dr. Hennessy. (NA note says FOB has family h/o cardiac anomalies. On 01/14/11, I clarified with the FOB. His family members of MIs. He has no personal or family h/o cardiac defects. Therefore, routine anatomy U/S is appropriate.) * care by Dr. Hennessy. Will return to [facility] at 36 weeks* * Assessment & Plan Note - Rex Turner - 01/14/2011 1048 EDTAssociated Problem(s): Previous delivery, antepartum condition or complication Planning repeat C/S * Assessment & Plan Note - Rex Turner - 01/14/2011 1047 EDTAssociated Problem(s): Depression Stable on Wellbutrin documented in this encounter Plan of Treatment Not on file documented as of this encounter Visit Diagnoses Not on filedocumented in this encounter Discontinued Medications Medication Sig Discontinue Reason Start Date End Da te diphenhydrAMINE (BENADRYL) 25 mg capsule Take 1 Cap by mouth every 6 hours as needed. 02/04/2010 01/14/2011 fluoxetine (PROZAC) 20 mg capsule Take 40 mg by mouth daily. 01/14/2011 lorazepam (ATIVAN) 1 mg tablet Take 1 Tab by mouth 3 times daily. 02/04/2010 01/14/2011 documented as of this encounter Historical Medications * This list may reflect changes made after this encounter. Medication Sig Dispensed Refills Start Date End Date multivitamin (FLINT[employer]ONES COMPLETE) chewable tablet Take 1 Tab by mouth daily. added in this encounter Care Teams Calcine Furnace Tender Relationship Specialty Start Date End Date Parish Mason MD [address] [place] [address] PCP - General 04/07/09 documented as of this encounter
--- OUTSIDE RECORDS SUMMARY | 2024-04-30 14:44 | XMS_ITS | Encounter Summary ---
Author Organization [facility] Address [address] [place] [address] Care Team Providers Care Multimedia Specialist Name Role Phone Parish Mason MD Primary Care Provider [phone] Encounter Details Date Type Department Care Team (Late st Contact Info) Description 08/18/2021 Lab Requisition [facility] Pathology & Laboratory Medicine - [address] [address] Outr Resulting Lab, Provider Social History Tobacco [...] Date/Time Associated Diagnosis Comments SYPHILIS SEROLOGY Routine 08/17/2021 12: 00 EDT documented in this encounter Results * SYPHILIS SEROLOGY (08/17/2021 12:00 EDT) Syphilis Serology Negative Negative 08/20/2021 12:22 EST [facility] Blood VENOUS BLOOD / Unknown 08/17/2021 12:00 EDT 08/19/2021 16:56 EST Provider Outr Resulting Lab IMMUNOLOGY A ND SEROLOGY ORDERABLES [facility] [address] [place] [address] documented in this encounter Visit Diagnoses Not on filedocumented in this encounter Care Teams Multimedia Specialist Relationship Specialty Start Date End Date Parish Mason MD [address] [place] [address] PCP - General 04/07/09 documented as of this encounter
--- OUTSIDE RECORDS SUMMARY | 2024-04-30 14:44 | XMS_ITS | Encounter Summary ---
Author Organization [facility] Address [address] [place] [address] Care Team Providers Care Machine Binding Folder Name Role Phone Parish Mason MD Primary Care Provider [phone] Reason for Visit * Reason Onset Date Comments Appointment Related 01/18/2011 Encounter Details Date Type Department Care Team (Late st Contact Info) Description 01/18/2011 Telephone [facility] - Main [address] [id number] Leela Warner, CONSTRUCTION PROJECT ADMINISTRATOR [address] [place] [phone] Appointment Related Social History Tobacco Use Types [...] encounter Miscellaneous Notes * Telephone Encounter - Michelle Fournier - 02/06/2011 1521 EDT Letter sent to Dr. Hobson regarding no calls back from patient to reschedule; requesting that O/B help facilitate rescheduling. Michelle Fournier * Telephone Encounter - Michelle Fournier - 02/04/2011 1342 EDT Placed call and left message regarding cancelled consult; requested a call back to reschedule. Michelle Fournier * Telephone Encounter - Michelle Fournier - 01/25/2011 1440 EDT Placed call and left message regarding rescheduling consult. Acknowledged that she has to make a follow up appointment with [facility] at 36wks and we would rather see her sooner than that. Informed that if she absolutely wants to coordinate her [facility] appointment with her [facility] appointment to schedule for a Friday because both clinics have appointments available. Requested a call back to discuss. Michelle Fournier * Telephone Encounter - Michelle Fournier - 01/18/2011 1058 EDT Placed call and left message regarding rescheduling consult. Acknowledged that she has to make a follow up appointment with [facility] at 36wks and we would rather see her sooner than that. Informed that if she absolutely wants to coordinate her [facility] appointment with her [facility] appointment to schedule for a Friday because both clinics have appointments available. Requested a call back to discuss. Michelle Fournier documented in this encounter Plan of Treatment Not on file documented as of this encounter Visit Diagnoses Not on filedocumented in this encounter Care Teams Machine Binding Folder Relationship Specialty Start Date End Date Parish Mason MD [address] [place] [address] PCP - General 04/07/09 documented as of this encounter
--- OUTSIDE RECORDS SUMMARY | 2024-04-30 14:44 | XMS_ITS | Encounter Summary ---
Author Organization [facility] Address [address] [place] [address] Care Team Providers Care Safety Lead Name Role Phone Parish Mason MD Primary Care Provider [phone] Encounter Details Date Type Department Care Team (Late st Contact Info) Description 08/18/2021 Lab Requisition [facility] Pathology & Laboratory Medicine - Main [address] [phone] Outr Resulting Lab, Provider Social History Tobacco [...] 1/2 ANTIGEN AND ANTIBODY, 4TH GENERATION Routine 08/17/2021 12:00 EDT documented in this encounter Results * HIV 1/2 ANTIGEN AND ANTIBODY, 4TH GENERATION (08/17/2021 12:00 EDT) HIV 1 and 2 Antibody/p24 Antigen, 4th Generation Negative Negative 08/20/2021 10:51 EST [facility] Comment:If acute HIV-1 infec tion is suspected in a high risk patient, submit plasma specimen for HIV-1 RNA quantitation test. Blood VENOUS BLOOD / Unknown 08/17/2021 12:00 EDT 08/19/2021 16:56 EST Narrative [facility] - 08/20/2021 10:51 EST Fourth Generation assay performed on the [employer] XPT. Provider Outr Resulting Lab IMMUNOLOGY A ND SEROLOGY ORDERABLES [facility] [address] [place] [address] documented in this encounter Visit Diagnoses Not on filedocumented in this encounter Care Teams Safety Lead Relationship Specialty Start Date End Date Parish Mason MD [address] [place] [address] PCP - General 04/07/09 documented as of this encounter
--- OUTSIDE RECORDS SUMMARY | 2024-04-30 14:44 | XMS_ITS | Encounter Summary ---
Author Organization [facility] Address [address] [place] [address] Care Team Providers Care Welt Stitcher Name Role Phone Parish Mason MD Primary Care Provider [phone] Encounter Details Date Type Department Care Team (Late st Contact Info) Description 11/28/2022 Lab Requisition [facility] Pathology & Laboratory Medicine - [address] [id number] Outr Resulting Lab, Provider Social History Tobacco [...] 1/2 ANTIGEN AND ANTIBODY, 4TH GENERATION Routine 11/27/2022 15:30 EST documented in this encounter Results * HIV 1/2 ANTIGEN AND ANTIBODY, 4TH GENERATION (11/27/2022 15:30 EST) HIV 1 and 2 Antibody/p24 Antigen, 4th Generation Negative Negative 11/29/2022 10:19 EST [facility] Comment:If acute HIV-1 infec tion is suspected in a high risk patient, submit plasma specimen for HIV-1 RNA quantitation test. Blood VENOUS BLOOD / Unknown 11/27/2022 15:30 EST 11/28/2022 16:51 EST Narrative [facility] - 11/29/2022 10:19 EST Fourth Generation assay performed on the Siemens Sincerelyaur XPT. Provider Outr Resulting Lab IMMUNOLOGY A ND SEROLOGY ORDERABLES [facility] [address] [place] [address] documented in this encounter Visit Diagnoses Not on filedocumented in this encounter Care Teams Welt Stitcher Relationship Specialty Start Date End Date Parish Mason MD [address] [place] [id number] PCP - General 04/07/09 documented as of this encounter
--- OUTSIDE RECORDS SUMMARY | 2024-04-30 14:44 | XMS_ITS | Encounter Summary ---
Author Organization [facility] Address [address] [place] [address] Care Team Providers Care Physician Internist Name Role Phone Parish Mason MD Primary Care Provider [phone] Encounter Details Date Type Department Care Team (Late st Contact Info) Description 04/07/2009 10:15 EDT - 04/07/2009 23:59 EDT Hospital Encounter [facility] Interventional Pain [address] [place] [address] Anais Quan MD FA MAIL HOUSE STAFF [address] [place] [address] Discharge Disposition: Home or Self Care Social History Tobacco Use Types Packs/Day Years Used Date Smoking Tobacco: Never Assessed Sex and Gender Information Value Date Recorded Sex Assigned at Not on file Gender Identity Not on file Sexual Orientation Not on file documented as of this encounter Discharge Disposition Disposition Code Departure Means Destination Home or Self Fdc documented in this encounter Plan of Treatment Not on file documented as of this encounter Visit Diagnoses * Evaluation - Anais Quan - 04/07/2009 0000 EDT DIVISION OF PAIN MANAGEMENT NEW PATIENT EVALUATION - 04/07/2009 INFORMATION CLERK BROKERAGE: Mario Gordon MD GARAGE DOOR INSTALLER: Anais Quan MD PROCEDURE 1. New patient evaluation 2. Right lateral femoral cutaneous nerve block under fluoroscopic guidance. PREPROCEDURE DIAGNOSIS Right-sided meralgia paresthetica status post surgical excision of the right lateral femoral cutaneous nerve. POSTPROCEDURE DIAGNOSIS Right-sided meralgia paresthetica status post surgical excision of the right lateral femoral cutaneous nerve. INTERVAL HISTORY Ms Cross is a 28-year-old female whom we are seeing in consultation today at the request of Dr Stevie Terrell for ongoing complaints of right thigh pain. The patient tells me that on September 02, 2008,she underwent a . The C- section was first performed under spinal anesthesia, but apparently general anesthesia had to be given also. About one day after the , she started developinga significant numbness, burning and tingling sensation over the anterolateral aspect of her right thigh. The symptoms persisted since then and actually she feels got worse to the point where it was difficult for her to even lie on her right side or walk. She has tried ibuprofen, which has not provided her with any significant pain relief. She has also tried Neurontin and lidocaine creams, which also did not provide her with any significant pain relief. Subsequently, last month, she underwent surgery on her right lateral femoral cutaneous nerve done by a neurosurgeon. I do not have the exact procedure that was done. I assume it was a nerve decompression. Since that time, the patient feels that her pain has actually gotten worse to the point where she cannot hold her child on her thigh and she can barely even touch her right thigh secondary to pain. Her pain distribution starts at her right hip and radiates into the anterolateral aspect of her thigh. She does not have any pain that radiates into her groin. She does tell me that her back is also extremely sore; however, she is not sureif she has pain that radiates from her back to her leg. Her pain is worse with walking and it does wake her up at night. Previous to having surgery on her nerve, she did have EMG studies done, which showed a focal lesionof the right lateral femoral cutaneous nerve at an undetermined site. She did not have any suggestion of any other lumbosacral radiculopathy or polyneuropathy. In regard to medication, she has also tried oxycodone, which provided her with the most significantpain relief. Currently she is taking Vicodin 10 mg six tabs a day as well as fluoxetine. She has never been on Cymbalta, nortriptyline or amitriptyline; however, she states that she did have a friendwho took amitriptyline and it caused her to go crazy. Thus, the patient states that she is not particularly interested in trying this medication. PAST MEDICAL HISTORY 1. Depression. 2. History of drug/alcohol abuse according to her primary care doctors notes. 3. History of . ALLERGIES No known drug allergies. CURRENT MEDICATIONS Fluoxetine, Vicodin. REVIEW OF SYSTEMS Negative for any recent infections, recent weight loss or weight gain, fevers, chills, headache, blurred vision, chest pain, heart palpitations, shortness of breath, nausea, vomiting, itching, bowel or bladder incontinence, constipation, easy bleeding or bruising or skin rash. SOCIAL HISTORY She lives in [place], [place]. She does smoke approximately one-half pack per day of cigarettes and has done so for 10 years. She denies the use of any alcohol or illicit drug use. 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 PHYSICAL EXAMINATION The patient is 5 feet 5 inches tall and weighs 220 pounds. Blood pressure 98/67, pulse 68, respirations 16, temperature 35.5. In general, she is an obese white female who is awake, alert and orientedtimes three. She is in no acute distress. She ambulates with an antalgic gait favoring her right lower extremity. Cranial nerves II-XII are grossly intact bilaterally. Sclerae are anicteric. CV: Regular rate and rhythm. No murmurs, rubs or gallops. Pulmonary: Lungs are clear to auscultation bilaterally. Upon inspection and palpation of her lumbosacral spine, there is no evidence of any skin rash or skin lesions. She is tender to palpation over her left-sided lumbar paraspinous musculature. Uponinspection and palpation of her right hip, she appears to have significant allodynia over the anterolateral aspect of her hip as well as hyperesthesia. There is no evidence of any erythema, edema, skin rash or pseudomotor changes. There is also no evidence of any hair growth changes. Strength is 5/5 in her left lower extremity and 4/5 at the right hip flexor and otherwise 5/5 in the remainder of the muscle groups in the right lower extremity. Deep tendon reflexes are +2/4 in bilateral knee and +1 at bilateral ankles. ASSESSMENT Chronic right meralgia paresthetica status post surgical decompression of the right lateral femoralcutaneous nerve. PLAN 1. Today we will proceed with a diagnostic/therapeutic right lateral femoral cutaneous nerve block. 2. In regard to medications, the patient may benefit from a trial of Cymbalta 60 mg once a day rather than fluoxetine. Cymbalta is known to have antinociceptive effects in addition to its antidepressant effects. She may tolerate this medication better than amitriptyline or nortriptyline. Both amitriptyline and nortriptyline could certainly be medication options for her for the neuropathic component of her pain also. 3. The patient will follow up on a p.r.n. basis in the pain clinic. We do appreciate this interesting consult. Please call with any questions or concerns. PROCEDURE NOTE After informed and written consent was obtained from the patient, the patient was placed in the supine position on the fluoroscopy table. The right groin region was generously prepped with Hibiclens solution and draped in a sterile fashion. The fluoroscope was used to identify the anterior/superioriliac spine of her pelvis on the right. Then, using 2% lidocaine, this was used to anesthetize the skin and subcutaneous tissue at the needle entry point. Then, using a 22-gauge, 5-inch spinal needle, this was advanced using intermittent fluoroscopic guidance to lie at the medial and slightly inferior aspect of the anterior/superior iliac spine. The patient did experience a paresthesia when the needle brushed by the nerve. The needle was then slightly retracted until the paresthesia improved. After negative aspiration for heme or CSF, 10 mL of 0.5% bupivacaine and 80 mg of Depo-Medrol was slowly and easily injected. The needle was then stiletted and removed. The patient tolerated the procedure well. She did not experience any immediate or obvious complications. Postprocedure pain score was 4/10 on the pain scale. Postprocedure vital signs: Blood pressure 111/66, pulse 61, respirations 18. She was discharged in stable condition in the company of a chuck wagon driver. Dr Gordon was present for and medically directed the patient care. Unless otherwise noted, there were no complications, no blood loss, cultures obtained, specimens removed, or drains retained. I saw and examined the patient with the resident/fellow. I agree with the findings and plan of caredocumented in the resident's/fellow's note. In addition, I was present during the entire procedure. Electronically Signed by Mario Gordon MD 04/18/2009 14:51 Anais Quan MD Mario Gordon MD - Anais Quan MD - [facility] Job ID: [id number] Doc ID: [id number] cc: Stevie Terrell DO documented in this encounter Care Teams Physician Internist Relationship Specialty Start Date End Date Parish Mason MD [address] [place] [address] PCP - General 04/07/09 documented as of this encounter
--- OUTSIDE RECORDS SUMMARY | 2024-04-30 14:44 | XMS_ITS | Encounter Summary ---
Author Organization [facility] Address [address] [place] [address] Care Team Providers Care Comparison Shopper Name Role Phone Parish Mason MD Primary Care Provider Reason for Referral * Consult (Routine) - Closed Specialty Diagnoses / Procedures Referred By Contac t Referred To Contact Neonatology Diagnoses Drug dependence, antepartum(005.18) Libia Ceron, RN [address] [place] [address] [address] Phone: [phone] Referral ID Status Reason Start Date Expiration Date V isits Requested Visits Authorized [id number] Closed Specialty Services Required 11/21/2010 1 1 Question Answer Reason for Request: Opiate Dependence in Reason for Visit * Reason Onset Date Comments Addiction Problem 11/21/2010 Opiate Depende nce in Encounter Details Date Type Department Care Team (Late st Contact Info) Description 11/21/2010 Orders Only [facility] Women's Services - [address] [address] Libia Ceron, RN [address] [place] [address] Drug dependence, antepartum (Primary Dx) Social History Tobacco Use Types Packs/Day Years [...] Name Type Priority Associated Diagnoses Order Schedule AMB CONSULT NEONATOLOGY Outpatient Referral Routine Drug dependence, antepartum Ordered: 11/21/2010 documented as of this encounter Visit Diagnoses Diagnosis Drug dependence, antepartum(648.33)- Primary Drug dependence, antepartum documented in this encounter Care Teams Comparison Shopper Relationship Specialty Start Date End Date Parish Mason MD [address] [place] [address] PCP - General 04/07/09 documented as of this encounter
--- OUTSIDE RECORDS SUMMARY | 2024-04-30 14:44 | XMS_ITS | Encounter Summary ---
Author Organization [facility] Address [address] [place] [address] Care Team Providers Care Gas Plant Repairer Name Role Phone Parish Mason MD Primary Care Provider [phone] Reason for Visit * Reason Onset Date Comments Labs Only 05/22/2011 Encounter Details Date Type Department Care Team (Late st Contact Info) Description 05/22/2011 Orders Only [facility] Women's Services - [address] [address] Radha Brown MD Supervision of normal (Primary Dx) Social History Tobacco Use Types [...] on file documented as of this encounter Results * GROUP B STREPTOCOCCUS MOLECULAR DETECTION (05/23/2011 13:44 EDT) Group B Streptococcus Molecular Detection No Group B beta streptococcal DNA detected by PCR. SXBN2 [facility] Specimen of unknown material (specimen) 05/23/2011 13:44 EDT 05/23/2011 16:34 EDT Parish Fitzgerald MD MSc MICROBIOLOG Y - GENERAL ORDERABLES [facility] [address] [place] [address] documented in this encounter Visit Diagnoses Diagnosis Supervision of normal - Primary Supervision of other normal documented in this encounter Orders Lab Orders Without Results Count Last Ordered D ate First Ordered Date GLUCOSE-1HR GESTATIONAL SCREEN 1 05/22/2011 documented in this encounter Care Teams Gas Plant Repairer Relationship Specialty Start Date End Date Parish Mason MD [address] [place] [address] PCP - General 04/07/09 documented as of this encounter
--- OUTSIDE RECORDS SUMMARY | 2024-04-30 14:44 | XMS_ITS | Encounter Summary ---
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) Libia Ceron, VINNY [address] [place] [id number] Phone: [phone] Referral ID Status Reason Start Date Expiration Date V isits Requested Visits Authorized [id number] Closed Specialty Services Required 11/28/2010 1 1 Question Answer Reason for Request: Opiate Dependence in Encounter Details Date Type Department Care Team (Late st Contact Info) Description 11/28/2010 Orders Only [facility] [place] [address] Libia Ceron, RN [address] [id number] Drug dependence, antepartum (Primary Dx) Social History [...] Outpatient Referral Routine Drug dependence, antepartum Ordered: 11/28/2010 documented as of this encounter Visit Diagnoses Diagnosis Drug dependence, antepartum(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
--- OUTSIDE RECORDS SUMMARY | 2024-04-30 14:44 | XMS_ITS | Encounter Summary ---
Author Organization [facility] Address [address] [place] [address] Care Team Providers Care Coding And Reimbursement Specialist Name Role Phone Parish Mason MD Primary Care Provider Encounter Details Date Type Department Care Team (Latest Contact Info) Description 04/07/2009 10:04 EDT - 04/07/2009 23:59 EDT Hospital Encounter [facility] Interventional Pain [address] [place] [address] Unknown, [place] [address] [place] [address] Discharge Disposition: Home or Self Care Social History Tobacco Use Types Packs/Day Years Used Date Smoking Tobacco: Never Assessed Sex and Gender Information Value Date Recorded Sex Assigned at Not on file Gender Identity Not on file Sexual Orientation Not on file documented as of this encounter Discharge Disposition Disposition Code Departure Means Destination Home or Self Half-Way documented in this encounter Plan of Treatment Not on file documented as of this encounter Visit Diagnoses Not on filedocumented in this encounter Care Teams Coding And Reimbursement Specialist Relationship Specialty Start Date End Date Parish Mason MD [address] [place] [address] PCP - General 04/07/09 documented as of this encounter
--- OUTSIDE RECORDS SUMMARY | 2024-04-30 14:44 | XMS_ITS | Encounter Summary ---
Author Organization [facility] Address [address] [place] [address] Care Team Providers Care Motor Lodge Clerk Name Role Phone Parish Mason MD Primary Care Provider [phone] Reason for Visit * Reason Comments New Patient Visit Encounter Details Date Type Department Care Team (Late st Contact Info) Description 03/18/2011 12:45 EDT Office Visit [facility]al [facility] - [place] [address] [place] [id number] Unknown, Provider, Leela Mcintyre NP [address] [place] [phone] Med, Clinic Willem, PT damage, dis-antepar (Primary Dx) Social History Tobacco Use Types [...] as of this encounter Progress Notes * Leela Mcintyre NP - 03/28/2011 1425 EDT This office note has been dictated. LEELA MCINTYRE NP documented in this encounter Plan of Treatment Not on file documented as of this encounter Visit Diagnoses Diagnosis Suspected damage to fetus from other disease in mother, affecting management of mother, antepartum condition or complication- Primary * Evaluation - Leela Mcintyre NP - 04/03/2011 1225 EDT MEDICAL AND DEVELOPMENTAL FOLLOW-UP CLINIC Zulema Black MD, Director Thierry Sosa MD, Attending MD, Developmental Pediatrics Leela Mcintyre, MS, PNP Crista Brady, RN, Nurse Clinician [address], [place] [address] FAX: [phone] CONSULTATION - 03/18/2011 CONSULTATION Chayo Hobson MD [facility] Care Services [address] [place] [address] Dear Fernanda, We saw Reagan in consultation at your request for in utero opioid exposure of her fetus. As you know, she is a 30-year-old with an estimated due date of 06/21/11 and a last menstrual period of 09/14/11. She is a G3, P1-0-2-1 woman whose blood type is A positive, antibody screen is negative, hep B is negative, hepatitis C is negative, HIV is negative. Her [place] negative, GC/chlamydia is negative. Reagan's past medical history is remarkable for chronic leg pain, depression and opiate addiction. On family history, her father has high cholesterol and she denies any extended family history of addiction. For previous pregnancies, in 2007 Reagan gave to her son Mario via . He was full-term and is currently healthy. During this , Reagan has been doing fairly well and she is planning a repeat . Her drug history is as follows. Following her in 2007, she was prescribed pain medications due to complications. She then began abusing them, including Vicodin and oxycodone. Her use then progressed substantially. One year ago, she went to [facility] for detox and she began to be prescribed buprenorphine by Dr Cevallos. He continued to prescribe for her up until a week ago, when he discharged her because her pill counts were off. Dr Cobos and has taken her on to prescribe for her in allan controlled manner as of a week ago. Two to three years ago, Reagan had issues with cocaine but none currently. She denies any issues with alcohol or benzodiazepines. During this , Reagan smokes marijuana daily and smokes about 20 cigarettes per day. She was initially on Suboxone and then switched to Subutex. Reagan's current medications are Subutex, 16 mg daily, Prozac and a multivitamin. Socially, she lives in [place] with her son, Mario, who is 2 years old. The father of the baby is Dillon Cr. He has no history of substance abuse. He and Reagan are currently but she does plan for him to be involved with the baby. Reagan's highest level of education has been graduating from high school. 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 Her goals and aspirations are to get clean and raise her children. She has no Department ofCorrections or DCF history. She is not followed by a Home Health nurse and does not desire to be. Her counselor is Darryl High at the [facility] in [place] Reagan will be having a baby girl, whose name will be Neelima Cr. She does not plan to breastfeed and was not interested in any information regarding this. Her baby's card assembler will be Dr Reyes, who is in [place]. I informed Reagan that there is a 50% possibility of her infant requiring treatment for abstinence syndrome and that her baby would be observed in the hospital for 4 days, or 96 hours, for signs of abstinence syndrome. Reagan was given a Care Notebook, its contents were reviewed andher questions were answered. She stated understanding of the plan of care and there were no apparent barriers to her learning. It was a pleasure to meet with Reagan today and I look forward to following her baby after she is born. I spent a total of 60 minutes in [id number] time with this patient today and 15 minutes of that time was spent counseling the patient about the risk and treatment options for abstinence syndrome. Sincerely, Electronically Signed by Leela Mcintyre NP 04/03/2011 12:25 Leela Mcintyre NP - Leela Mcintyre NP A - [facility] [place] ID: SM Doc ID: [id number] Ext Doc ID: [id number] cc: Chayo Hobson MD The Patient Dennys Hennessy MD documented in this encounter Historical Medications * This list may reflect changes made after this encounter. Medication Sig Dispensed Refills Start Date End Date fluoxetine (PROZAC) 20 mg capsule Take 20 mg by mouth daily. added in this encounter Care Teams Motor Lodge Clerk Relationship Specialty Start Date End Date Parish Mason MD [address] [place] [address] PCP - General 04/07/09 documented as of this encounter
--- OUTSIDE RECORDS SUMMARY | 2024-04-30 14:44 | XMS_ITS | Clinical Summary ---
Author Organization [facility] Address [address] [place] [address] Care Team Providers Care Bear Keeper Name Role Phone Parish Mason MD Primary Care Provider [phone] Allergies No known active allergies Medications Medication [...] hr Gtt 126 (06/02) wnl done at [facility]. random fs 05/27/11 (results 113) GBS Negative on 05/23/11 Anatomy U/S-21 week-ant placenta, cephalic, WNL. EFW (g) 489 g 84th% Returned to [facility] at 36 weeks for delivery planning Last [...] for c/s and tubal. COnsent given to [facility] for scanning in Prism record Opioid type dependence, abuse ([facility]) 01/15/20 Overview: Receiving buprenorphine from Dr. Cobos in [place] area returned to [facility] at 36 weeks for delivery planning. Had neomed appt 01/14--rescheduling. Current Regimen as of 05/27/11: 16 mg on Friday, Friday and Friday 8 Mg PO on Friday UDS +cannabinoids (05/23) Last Assessment & Plan: Currently on [address] Cobos. No withdrawal sx Sees Khris High at [place]. Sees him q Friday. No use of other drugs Comments Yes Surgical History Surgery Date Site/Laterality Comments SECTION, LOW TRANSVERSE 2007 c section NERVE GRAFT 2008 femoral cutaneus nerve surgery Medical History Medical History Date Comments Chronic pain 2007 started post c/s . Became addicted to pain killers. Was on vicodin Depression 1994 h/o of suicide a ttempt in 6th grade by overdose of alleve. Never hospitalized Family History Relation Status Comments Father heart mummady, hig h cholesterol Other - 3 half sisters (do not share same father) with heart issues of which they in -30 Social History Tobacco Use Types Packs/Day Years Used Date Smoking Tobacco: Every Day Cigarettes Smokeless Tobacco: Never Alcohol Use Standard Drinks/Week Comments No 0 (1 standard drink = 0.6 oz pur e alcohol) No h/o of drinking problem Comments Yes Sex and Gender Information Value Date Recorded Sex Assigned at Not on file Gender Identity Not on file Sexual Orientation Not on file Obstetrics History Para Term AB IAB SAB Ectopic Multiple Livin g Live Births 4 1 1 2 Date Outcome GA Total Labor Labor/2nd/3rd Weight Sex Type Anes PTL Carla A1 A5 Name Clin 2003 AB Comments:1 trimester D &C 2006 AB Comments:1st trimester TAB via D&C 2007 Term 40w 0d 14h 00m/ 3629 g (8 lb) M CS-LT ranv Spinal Mario waldron Delivery Location:[facility] Comments:c/s for pelvic discrepancy. Was fully dilated Current Last Filed Vital Signs Vital Sign Reading [...] 37.38 11/20/2010 1000 EST Plan of Treatment Health Maintenance Due Date Last Done Comments Hepatitis B Vaccine (1 of 3 - 19+ 3-dose series) 2000 COVID-19 Vaccine ( - 2022-24 season) 2023 RSV Immunization ( o r 60+ Years) (1 - 1-dose 60+ series) 2041 Hepatitis C Screen Completed 11/27/2022, 08/17/2021 Procedures Procedure Name Priority Date/Time Associated Diagnosis Comments HEPATITIS C AB W REFLEX TO HCV RNA BY PCR Routine 11/27/2022 15:30 EST from Last 3 Months or Most Recently Relevant to Health Maintenance Results * HEPATITIS C AB W REFLEX TO HCV RNA BY PCR (11/27/2022 15:30 EST) Hep C Antibody Negative Negative 11/29/2022 10:06 EST [facility] Blood VENOUS BLOOD / Unknown 11/27/2022 15:30 EST 11/28/2022 16:51 EST Provider Outr Resulting Lab CHEMISTRY & BLOOD GAS ORDERABLES [facility] [address] [place] [address] from Last 3 Months or Most Recently Relevant to Health Maintenance Care Teams Bear Keeper Relationship Specialty Start Date End Date Parish Mason MD [address] [place] [address] PCP - General 04/07/09
--- OUTSIDE RECORDS SUMMARY | 2024-04-30 14:44 | XMS_ITS | Encounter Summary ---
Author Organization [facility] Address [address] [place] [address] Care Team Providers Care Dragline Engineer Name Role Phone Parish Mason MD Primary Care Provider [phone] Encounter Details Date Type Department Care Team (Late st Contact Info) Description 01/16/2010 Results Only [facility] Pediatric Hematology & Oncology - [facility] [address] [place], [place] [id number] Martha George MD [address] [place] [phone] Social History Tobacco Use Types Packs/Day Years Used Date Smoking Tobacco: Never Assessed Sex and Gender Information Value Date Recorded Sex Assigned at Not on file Gender Identity Not on file Sexual Orientation Not on file documented as of this encounter Plan of Treatment Not on file documented as of this encounter Visit Diagnoses Not on filedocumented in this encounter Care Teams Dragline Engineer Relationship Specialty Start Date End Date Parish Mason MD [address] [place] [address] PCP - General 04/07/09 documented as of this encounter
--- OUTSIDE RECORDS SUMMARY | 2024-04-30 14:44 | XMS_ITS | Encounter Summary ---
Author Organization [facility] Address [address] [place] [address] Care Team Providers Care Winding Lathe Operator Name Role Phone Parish Mason MD Primary Care Provider Reason for Visit * Reason Onset Date Comments Other 06/12/2011 Encounter Details Date Type Department Care Team (Late st Contact Info) Description 06/12/2011 Telephone [facility] Medical [facility] Developmental [facility] - [facility] [address] [place] [address] Crista Bardy, RN [address] [place] [address] Other Social History Tobacco Use Types Packs/Day Years [...] Telephone Encounter - Crista Brady RN - 06/12/2011 1416 EDT Nicolas Buenrostro from [facility] called, there is an open investigation in progress. Reagan has had her baby, delivered at [facility] on 06/08/11. Concerned that the infant is having tremors, jerking movements, and very fussy, scores have ranged 6-17. Discussed non-pharmacologic treatment and the possibility of not treating for withdrawal if the infant is comfortable in- between disruptions and scoring. Nicolas states that urine (unclear whether 's or mom's) was positive for multiple substances; oxycodone, benzos,buprenorphine, barbiturates, marijuana, and methadone. Informed her that LINDERMAN MACHINE OPERATOR Leela Warner saw her for a Neomed visit in March, mom reported no use of benzos, ETOH, that she does use marijuana. Provided her the phone number to [facility] if she is looking for more information regarding Reagan's course. Recommended that she look into what medications were given around time of labor/anesthesial, when looking at urine result. Infant's primary care physician is Dr. Mason. Crista Brady RN documented in this encounter Plan of Treatment Not on file documented as of this encounter Visit Diagnoses Not on filedocumented in this encounter Care Teams Winding Lathe Operator Relationship Specialty Start Date End Date Parish Mason MD [address] [place] [address] PCP - General 04/07/09 documented as of this encounter
--- OUTSIDE RECORDS SUMMARY | 2024-04-30 14:44 | XMS_ITS | Encounter Summary ---
Author Organization [facility] Address [address] [place] [address] Care Team Providers Care Millinery Blocker Name Role Phone Parish Mason MD Primary Care Provider [phone] Encounter Details Date Type Department Care Team (Late st Contact Info) Description 11/08/2010 Results Only [facility] - [facility] ([facility] [address] [place] [id number] Dennys Blake MD Social History Tobacco Use [...] Priority Date/Time Associated Diagnosis Comments CYTOPATHOLOGY Routine 11/08/2010 0:00 EST documented in this encounter Results * CYTOPATHOLOGY (11/08/2010 0:00 EST) Pathology Report: CYTOPATHOLOGY REPORT ? Reports generated via electronic interface contain original data; ? however they are lacking the format of the original report. ? Caution should be taken when reading/interpreti ng unformatted reports. ? Name: ? ANDREWS LYNCH ? Accession #: ? [id number] ? : ? 1980 (Age: 30) ??F ?Collect Date: ? 11/08/2010 ? Location: ? [facility] ? Receive Date: ? 11/12/2010 ? Provider: DENNYS B BLAKE MD ? Copy to: ? Final Report ? SPECIMEN ADEQUACY ? Satisfactory for Evaluation ? - transformation zone component present ? GENERAL CATEGORIZATION ? Negative for Intraepithelial Lesion or Malignancy ? Menstural/Pregnanc y Status: ? Specimen/Source: ??Pap Test, Cervix/Endocervix, ThinPrep Imaging System with ? manual evaluation ? Document reviewed and electronically signed by: ? Lynan Vlad, CT(ASCP) ? Report ??Date: 11/16/2010 16:36 ? HPV with Pap Test ? Date Ordered: ? 11/16/2010 ? Status: ?? Signed Out ?Date Complete: ? 11/21/2010 ? By: ??System Interface ? Date Reported: ? 11/21/2010 ? Interpretation ? RESULT: Negative for HPV types 16, 18, 31, 33, 35, 39, 45, 51, 52, ? 56, 58, 59, and 68. ? Comments ? Document reviewed and electronically signed by: ? System Interface ? Report date: 11/21/2010 ? By the signature above, the attending physician certifies that he/she has ? personally conducted a gross and/or microscopic examination of the described ? specimens and rendered or confirmed the above diagnosis. ? End of Report ? KESHA BEST 11/08/2010 11/12/2010 Dennys Blake MD PATHOLOGY ORDERABLES Performing Organization Address City/State/[facility] Co de Phone Number KESHA [facility] [address] [place] [address] documented in this encounter Visit Diagnoses Not on filedocumented in this encounter Care Teams Millinery Blocker Relationship Specialty Start Date End Date Parish Mason MD [address] [place] [address] PCP - General 04/07/09 documented as of this encounter
--- OUTSIDE RECORDS SUMMARY | 2024-04-30 14:44 | XMS_ITS | Encounter Summary ---
Author Organization [facility] Address [address] [place] [address] Care Team Providers Care Resin Mixer Name Role Phone Parish Mason MD Primary Care Provider [phone] Encounter Details Date Type Department Care Team (Late st Contact Info) Description 09/18/2021 Lab Requisition [facility] Pathology & Laboratory Medicine - [address] [id number] Outr Resulting Lab, Provider Social History Tobacco [...] Comments ZZCOVID-19 TEST [facility] PCR Today 09/17/2021 9:00 EST COVID-19 TESTING Routine 09/17/2021 9:00 EST documented in this encounter Results * COVID-19 TEST [facility] PCR (09/17/2021 9:00 EST) Swab 09/17/2021 9:00 EST 09/18/2021 15:46 EST Provider Outr Resulting Lab MICROBIOLOGY - GENERAL ORDERABLES [facility] [address] [place] [address] * COVID-19 TESTING (09/17/2021 9:00 EST) COVID-19 rt-PCR Result Negative Negative 09/19/2021 17:13 EST [facility] Comment: This test [...] clinical observations, patient history, and epidemiological information. Testing was performed using the yu SARS-CoV-2 assay ([employer] on the Yu 6800 System Performing Lab [address] [facility] 09/19/2021 17:13 EST [facility] Swab 09/17/2021 9:00 EST 09/18/2021 15:46 EST Provider Outr Resulting Lab MICROBIOLOGY - GENERAL ORDERABLES [facility] [address] [place] [address] documented in this encounter Visit Diagnoses Not on filedocumented in this encounter Care Teams Resin Mixer Relationship Specialty Start Date End Date Parish Mason MD [address] [place] [address] PCP - General 04/07/09 documented as of this encounter
--- OUTSIDE RECORDS SUMMARY | 2024-04-30 14:44 | XMS_ITS | Encounter Summary ---
Author Organization [facility] Address [address] [place] [address] Care Team Providers Care Wheel Alignment Mechanic Name Role Phone Parish Mason MD Primary Care Provider [phone] Stevie Terrell DO Primary Care Provider [phone] Encounter Details Date Type Department Care Team (Late st Contact Info) Description 03/23/2008 Results Only [facility] [address] [place] [address] Dennys Blake MD Social History Tobacco Use [...] Priority Date/Time Associated Diagnosis Comments CYTOPATHOLOGY Routine 03/23/2008 0:00 EDT documented in this encounter Results * CYTOPATHOLOGY (03/23/2008 0:00 EDT) Pathology Report: CYTOPATHOLOGY REPORT Reports generated via electronic interface contain original data; however they are lacking the format of the original report. Caution should be taken when reading/interpreti ng unformatted reports. Name: ? ANDREWS LYNCH ? Accession #: ? [id number] : ? 1980 (Age: 27) ??F ?Collect Date: ? 03/23/2008 Location: ? [facility] ? Receive Date: ? 03/25/2008 Provider: ?DENNYS BLAKE MD Copy to: ? Specimen/Source: ?ThinPrep Pap Test, Cervix/Endocervix, processed on [employer] ThinPrep Imaging System, with manual evaluation Last Menstrual Period: ? Menstrual/Pregnanc y Status: ? Other: ? HPVA - HPV testing requested if ASC-US on the current ThinPrep Pap test. ? SPECIMEN ADEQUACY ? Satisfactory for Evaluation - transformation zone component absent GENERAL CATEGORIZATION ? Negative for Intraepithelial Lesion or Malignancy ? Document reviewed and electronically signed by: ? Raya Pierre, MARY ANN(ASCP)(IAC) ? Report Date: ??03/28/2008 16:46 End of Report KESHA BEST 03/23/2008 03/25/2008 Dennys Blake MD PATHOLOGY ORDERABLES Performing Organization Address City/State/[facility] Co de Phone Number KESHA [facility] [address] [place] [address] documented in this encounter Visit Diagnoses Not on filedocumented in this encounter Care Teams Wheel Alignment Mechanic Relationship Specialty Start Date End Date Parish Mason MD [address] [place] [address] PCP - General 04/07/09 Stevie Terrell DO [address] [place] [address] PCP - General 02/23/09 04/06/09 documented as of this encounter
--- OUTSIDE RECORDS SUMMARY | 2024-04-30 14:44 | XMS_ITS | Encounter Summary ---
Author Organization [facility] Address [address] [place] [address] Care Team Providers Care Hadoop Developer Name Role Phone Parish Mason MD Primary Care Provider [phone] Encounter Details Date Type Department Care Team (Late st Contact Info) Description 08/18/2021 Lab Requisition [facility] Pathology & Laboratory Medicine - [address] [address] Outr Resulting Lab, Provider Social History Tobacco [...] Comments CHLAMYDIA/N. GONORRHOEAE AMPLIFIED NUCLEIC ACID Routine 08/17/2021 12:00 EDT documented in this encounter Results * CHLAMYDIA/N. GONORRHOEAE AMPLIFIED RNA (08/17/2021 12:00 EDT) Neisseria gonorrhoeae Result Negative Negative 08/20/2021 15:13 [facility] Chlamydia trachomatis Result Negative Negative 08/20/2021 15:13 [facility] Urine URINE / Unknown 08/17/2021 1 2:00 EDT 08/19/2021 17:43 EST Narrative [facility] - 08/20/2021 15:13 EST A first catch urine specimen is acceptable for detection of Gonorrhea and Chlamydia, but might detect up to 10% fewer infections when compared with vaginal and endocervical swab samples. Provider Outr Resulting Lab MICROBIOLOGY - GENERAL ORDERABLES Performing Organization Address City/State/[facility] Co de Phone Number [facility] [address] [place] [address] documented in this encounter Visit Diagnoses Not on filedocumented in this encounter Care Teams Hadoop Developer Relationship Specialty Start Date End Date Parish Mason MD [address] [place] [address] PCP - General 04/07/09 documented as of this encounter
--- OUTSIDE RECORDS SUMMARY | 2024-04-30 14:44 | XMS_ITS | Encounter Summary ---
Author Organization [facility] Address [address] [place] [address] Care Team Providers Care Primer And Powder Canning Leader Name Role Phone Parish Mason MD Primary Care Provider [phone] Encounter Details Date Type Department Care Team (Late st Contact Info) Description 10/16/2023 Lab Requisition [facility] Pathology & Laboratory Medicine - [address] [address] Lionel Horton MD [address] [place] [address], [address] [place], [place] [id number] Dysphagia, unspecified Social History Tobacco Use Types Packs/Day Years [...] Procedure Name Priority Date/Time Associated Diagnosis Comments SURGICAL PATHOLOGY Today 10/16/2023 9: 34 EST Dysphagia, unspecified documented in this encounter Results * SURGICAL PATHOLOGY (10/16/2023 9:34 EST) Note to Patient The following pathology results have been interpreted by your pathologist and may be available to you before your health provider has had the opportunity to review them. Please allow time for your provider to receive these results and explore management options, if applicable. 10/20/2023 14:13 [facility] Final Diagnosis A. STOMACH, ANTRUM, BIOPSY: - Oxyntic-type mucosa with no significant diagnostic abnormality. B. STOMACH, BODY, BIOPSY: - Oxyntic-type mucosa with no significant diagnostic abnormality. C. GASTROESOPHAGEAL JUNCTION, BIOPSY: - Focal intestinal metaplasia, involving squamocolumnar mucosa. - Negative for dysplasia. - Deeper levels examined. 10/20/2023 14:13 [facility] Attestation By the signature below, the attending physician certifies that they have 1) personally conducted a gross and/or microscopic examination of the described specimen(s), and/or personally interpreted the results of laboratory testing of the described specimen(s), and 2) personally rendered or confirmed the above diagnosis. 10/20/2023 14:13 [facility] at 1413 Clinical History Dysphagia 10/20/2023 14:13 [facility] Gross Description A. Received in formalin labelled with proper patient identification (initials C, J) and bx gastric antrum is a single abdi irregular tissue (0.4 x 0.3 x 0.1 cm). Submitted intact A1. B. Received in formalin labelled with proper patient identification (initials C, J) and bx gastric body is a single abdi tissue (0.4 x 0.3 x 0.2 cm). Submitted intact in B1. C. Received in formalin labelled with proper patient identification (initials C, J) and bx GE junction are 3 abdi-white tissues (0.2 x 0.2 x 0.1 cm to 0.3 x 0.2 x 0.1 cm). Submitted entirely in C1. JOSLYN BROUSSARD(ASCP) 10/17/2023 7:46 10/20/2023 14:13 [facility] Performing Lab [facility] 14:13 [facility] Scanned Images 10/20/2023 14:13 [facility] Tissue ESOPHAGEAL STRUCTURE / Unknown 10/16/2023 9:34 EST 10/16/2023 17:39 EST Tissue specimen (specimen) STOMACH STRUCTURE / Unknown 10/16/2023 9:34 EST 10/16/2023 17:39 EST Tissue specimen (specimen) ESOPHAGEAL STRUCTURE / Unknown 10/16/2023 9:34 EST 10/16/2023 17:39 EST Lionel Horton MD PATHOLOGY ORDERABLES [facility] [address] [place] [address] documented in this encounter Visit Diagnoses Diagnosis Dysphagia, unspecified documented in this encounter Care Teams Primer And Powder Canning Leader Relationship Specialty Start Date End Date Parish Mason MD [address] [place] [address] PCP - General 04/07/09 documented as of this encounter
[2024-04-30 16:36] VITALS: BP 132/90; PULSE 62; RESP 16; TEMP 36.8; O2SAT 99
== END 2024-04-30 19:30 ==
PROVIDERS: Emergency Provider Emergency Medicine; PCP Internal Medicine
DX: Z53.21 Procedure and treatment not carried out due to patient leaving prior to being seen by health care provider (principal)
CPT/HCPCS: 93005; 93010

== ENCOUNTER 2024-10-05 11:47 | Outpatient (REF) | payer MEDICARE, MEDICAID, SELFPAY ==
[2024-10-05 16:18] LABS: ALT 16 U/L (14-59); AST 20 U/L (15-37); Albumin 3.1 g/dL (3.4-5.0); Alkaline Phosphatase 67 U/L (46-116); Bilirubin, Total 0.26 mg/dL (0.2-1.0); Total Protein 7.1 g/dL (6.4-8.2)
[2024-10-05 16:29] LABS: Bilirubin, Direct < 0.1 mg/dL (0.0-0.2)
== END 2024-10-05 11:48 | disposition home or self-care (01) ==
LOC: NCHCN 11:47
PROVIDERS: PCP Internal Medicine; Visit Provider Nurse Practitioner Family
DX: L29.9 Pruritus, unspecified (principal)
CPT/HCPCS: 80076

== ENCOUNTER 2024-12-13 13:00 | Outpatient (REF) | payer MEDICARE, MEDICAID, SELFPAY ==
--- NOTE | 2024-12-13 11:00 | PAPFT_PTH ---
PATIENT: Reagan Diez LOC: LOCATED [facility]IN [facility]#:[id number] AGE/SX: 44/F ROOM: RE12/13/[address]: Clyde Agudelo : 1980 BED: DIS: 12/13/2024 SPEC #: [id number] RECD: 12/13/24 18:33 STATUS: ANTHONY REQ #: [id number] FATIMAH: 12/13/24 11:[address] Cytology RECD BY: Isabel King ENTERED: 12/13/24 18:34 SP TYPE: PAPFT OTHR DR: Parish Mason Tissues: 1 - CX/ENDOCX FOR PAP SMEARS Procedures: PAP THIN PREP/[facility] Screening HPV DNA PROBE Comments: [id number] (HPV 16 & 18/45)
== END 2024-12-13 13:01 | disposition home or self-care (01) ==
LOC: NCHCN 13:00
PROVIDERS: PCP Internal Medicine; Visit Provider Nurse Practitioner Family
DX: Z11.51 Encounter for screening for human papillomavirus (HPV) (principal); Z01.419 Encounter for gynecological examination (general) (routine) without abnormal findings
CPT/HCPCS: 88142; 87624

== ENCOUNTER 2025-01-06 11:11 | Outpatient (REF) | payer MEDICARE, MEDICAID, SELFPAY | END 2025-01-06 11:12 | disposition home or self-care (01) | LOC: LBN 11:11 | PROVIDERS: PCP Internal Medicine; Visit Provider Obstetrics & Gynecology | DX: N85.8 Other specified noninflammatory disorders of uterus (principal) | CPT/HCPCS: 88305 ==